=== PATIENT | female | born 1960 | race Caucasian/White ===

== ENCOUNTER 2018-12-10 10:09 | Emergency (ER) | payer MEDICAID ==
--- OUTSIDE RECORDS SUMMARY | 2018-12-10 10:11 | XMS REPORT ---
:1960 [facility] Address [address] [place] [address] Dr. Herring [address] [place] [id number] Care Team Providers Name Role Phone Unavailable Unavailable Unavailable Problems This patient has no known problems. Allergies, Adverse Reactions, Alerts This patient has no known allergies or adverse reactions. Medications This patient has no known medications.
--- NOTE | 2018-12-10 10:30 | ER ---
Nurse's Notes [facility] Name: Ty Robins Age: 58 yrs Sex: Female : 1960 Arrival Date: 12/10/2018 Time: 10:12 Bed 23 Private MD: Diagnosis: Otitis externa;Otitis media, unspecified, right ear Presentation: 12/10 10:13 Presenting complaint: Patient states: i think i had my R ear is infected, it started a hj week ago; denies discharges, reports swollen glands;. Transition of care: patient was not received from another setting of care. Onset of symptoms was December 10, 2018. Risk Assessment: Do you want to hurt yourself or someone else? Patient reports no desire to harm self or others. Initial Sepsis Screen: Does the patient meet any 2 criteria? No. Patient's initial sepsis screen is negative. Does the patient have a suspected source of infection? No. Patient's initial sepsis screen is negative. Care prior to arrival: None. 10:13 Method Of Arrival: Ambulatory 10:13 Acuity: BRENDA 4 hj Historical: - Allergies: 10:15 PENICILLINS; hj 10:15 Codeine; hj - PMHx: 10:15 RA; hj - PSHx: 10:15 Hysterectomy; Jaylon hand sx; Shoulder surgery; hj - Immunization history:: Adult Immunizations up to date. - Ebola Screening: : Patient negative for fever greater than or equal to 101.5 degrees Fahrenheit, and additional compatible Ebola Virus Disease symptoms. Screenin:20 Abuse screen: Denies threats or abuse. Denies injuries from another. Nutritional aj1 screening: No deficits noted. Tuberculosis screening: No symptoms or risk factors identified. 10:37 Fall Risk None identified. aj1 Assessment: 10:20 General: Appears in no apparent distress. comfortable, Behavior is calm, cooperative, aj1 appropriate for age. Pain: Complains of pain in right ear. Neuro: Level of Consciousness is awake, alert, obeys commands, Oriented to person, place, time, situation. Cardiovascular: Patient's skin is warm and dry. Respiratory: Airway is patent Respiratory effort is even, unlabored, Respiratory pattern is regular, symmetrical. GI: No signs and/or symptoms were reported involving the gastrointestinal system. : No signs and/or symptoms were reported regarding the genitourinary system. EENT: Reports ear pain. Denies fever, drainage from ear. Derm: No signs and/or symptoms reported regarding the dermatologic system. Skin is pink, warm \T\ dry. normal. Musculoskeletal: No signs and/or symptoms reported regarding the musculoskeletal system. Circulation, motion, and sensation intact. Vital Signs: 10:15 BP 108 / 54; Pulse 81; Resp 20; Temp 97.5(O); Pulse Ox 100% on R/A; Weight 52.16 kg; hj Height 5 ft. 2 in. (157.48 cm); Pain 6/10; 10:15 Body Mass Index 21.03 (52.16 kg, 157.48 cm) ED Course: 10:12 Patient arrived in ED. mr 10:12 Sumit Murray MD is Attending Physician. kdr 10:14 Triage completed. hj 10:17 Arm band placed on right wrist. hj 10:20 Veronica Romeo RN is Primary Nurse. aj1 10:20 Patient has correct armband on for positive identification. Bed in low position. Call aj1 light in reach. Side rails up X 1. 10:20 No provider procedures requiring assistance completed. aj1 10:37 Patient did not have IV access during this emergency room visit. aj1 Administered Medications: No medications were administered Outcome: 10:29 Discharge ordered by . kdr 10:38 Discharged to home ambulatory. aj1 10:38 Condition: good 10:38 Discharge instructions given to patient, Instructed on discharge instructions, follow up and referral plans. medication usage, Demonstrated understanding of instructions, follow-up care, medications, Prescriptions given X 2. 10:38 Patient left the ED. aj1 Signatures: Veronica Romeo, RN RN aj1 Sumit Murray MD MD [facility] Radha Carrillo UsmanReinier RN RN Corrections: (The following items were deleted from the chart) 10:17 10:15 Pulse 81bpm; Resp 20bpm; Pulse Ox 100% RA; Temp 97.5F Oral; 52.16 kg; Height 5 hj ft. 2 in.; BMI: 21.0; Pain 6/10; hj
--- NOTE | 2018-12-10 10:30 | EDPHYS ---
Physician Documentation [facility] Name: Ty Robins Age: 58 yrs Sex: Female : 1960 Arrival Date: 12/10/2018 Time: 10:12 Bed 23 Private MD: ED Physician Sumit Murray HPI: 12/10 10:22 This 58 yrs old Female presents to ER via Ambulatory with complaints of Ear kdr Pain. 10:22 The patient presents with pain, mild, tenderness. The complaints affect the right ear. kdr Onset: The symptoms/episode began/occurred suddenly, 1 week(s) ago. Modifying factors: The symptoms are alleviated by nothing, the symptoms are aggravated by pulling on ears, touching. Associated signs and symptoms: Pertinent positives: Pertinent negatives: fever, lightheadedness, nausea, rhinorrhea, sinus trouble, shortness of breath, sore throat, tinnitus, vertigo, vomiting. Severity of symptoms: At their worst the symptoms were mild today, moderate in the emergency department the symptoms are unchanged. The patient has not experienced similar symptoms in the past. The patient has not recently seen a physician. Historical: - Allergies: 10:15 PENICILLINS; hj 10:15 Codeine; hj - PMHx: 10:15 RA; hj - PSHx: 10:15 Hysterectomy; Jaylon hand sx; Shoulder surgery; hj - Immunization history:: Adult Immunizations up to date. - Ebola Screening: : Patient negative for fever greater than or equal to 101.5 degrees Fahrenheit, and additional compatible Ebola Virus Disease symptoms. ROS: 10:22 Constitutional: Negative for fever, chills, and weight loss, Eyes: Negative for injury, kdr pain, redness, and discharge, Neck: Negative for injury, pain, and swelling. 10:22 ENT: Positive for ear pain, Negative for drainage from ear(s), foreign body sensation, hearing loss, tinnitus. Exam: 10:22 Constitutional: This is a well developed, well nourished patient who is awake, alert, kdr and in no acute distress. Head/Face: Normocephalic, atraumatic. Eyes: Pupils equal round and reactive to light, extra-ocular motions intact. Lids and lashes normal. Conjunctiva and sclera are non-icteric and not injected. Cornea within normal limits. Periorbital areas with no swelling, redness, or edema. Neck: Trachea midline, no thyromegaly or masses palpated, and no cervical lymphadenopathy. Supple, full range of motion without nuchal rigidity, or vertebral point tenderness. No Meningismus. 10:22 ENT: External ear(s): are unremarkable, Ear canal(s): erythema, swelling, that is moderate, of the right canal, TM's: dullness, on the right, loss of bony landmarks, that is mild, on the right, Examination of the other ear shows no obvious abnormality. Vital Signs: 10:15 BP 108 / 54; Pulse 81; Resp 20; Temp 97.5(O); Pulse Ox 100% on R/A; Weight 52.16 kg; hj Height 5 ft. 2 in. (157.48 cm); Pain 6/10; 10:15 Body Mass Index 21.03 (52.16 kg, 157.48 cm) hj MDM: 10:22 Data reviewed: vital signs, nurses notes. Counseling: I had a detailed discussion with kdr the patient and/or guardian regarding: the historical points, exam findings, and any diagnostic results supporting the discharge/admit diagnosis, the need for outpatient follow up. ED course: The patient was stable in the ED. 10:29 Patient medically screened. kdr Administered Medications: No medications were administered Disposition: 12/10/18 10:29 Discharged to Home. Impression: Otitis externa, Otitis media, unspecified, right ear. - Condition is Stable. - Discharge Instructions: Otitis Externa, [id number], Otitis Media, Adult, [id number]-tq-Ghmn, Ear Drops, Adult, [id number]. - Prescriptions for Cortisporin- TC 3.3-3-10-0.5 mg/mL Otic Suspension - instill 4 drop by OTIC route every 6 hours; 1 bottle. Zithromax Z- Willy 250 mg Oral Tablet - take 1 tablet by ORAL route as directed for 5 days Day 1 - take two (2) tablets one time. Day 2, 3, 4 , 5 take one (1) tablet once daily.; 6 tablet. - Medication Reconciliation Form, Thank You Letter, Antibiotic Education form. - Follow up: Private Physician; When: 2 - 3 days; Reason: If symptoms return, Further diagnostic work-up, Recheck today's complaints, Continuance of care, Re-evaluation by your physician. - Problem is new. - Symptoms are unchanged. Signatures: Veronica Romeo RN RN aj1 Sumit Murray MD MD kdr Reinier Mary RN RN hj Corrections: (The following items were deleted from the chart) 10:38 10:29 12/10/2018 10:29 Discharged to Home. Impression: Otitis externa; Otitis media, aj1 unspecified, right ear. Condition is Stable. Forms are Medication Reconciliation Form, Thank You Letter, Antibiotic Education, Prescription Opioid Use. Follow up: Private Physician; When: 2 - 3 days; Reason: If symptoms return, Further diagnostic work-up, Recheck today's complaints, Continuance of care, Re-evaluation by your physician. Problem is new. Symptoms are unchanged. kdr
[2018-12-10 11:37] VITALS: BP 108/54; TEMP 97.5; O2SAT 100
== END 2018-12-10 10:38 | disposition home or self-care (01) ==
LOC: ER 10:09
DX: H60.91 Unspecified otitis externa, right ear (principal); H66.91 Otitis media, unspecified, right ear; Z88.0 Allergy status to penicillin; Z88.5 Allergy status to narcotic agent
CPT/HCPCS: 99282

== ENCOUNTER 2019-01-12 12:32 | Emergency (ER) | payer MEDICAID ==
--- OUTSIDE RECORDS SUMMARY | 2019-01-12 12:35 | XMS REPORT ---
:1960 [facility] Address [address] [place] [address] Dr. Herring [address] [place] [id number] Care Team Providers Name Role Phone Unavailable Unavailable Unavailable Problems This patient has no known problems. Allergies, Adverse Reactions, Alerts This patient has no known allergies or adverse reactions. Medications This patient has no known medications.
--- NOTE | 2019-01-12 13:00 | ER ---
Nurse's Notes [facility] Name: Ty Robins Age: 58 yrs Sex: Female : 1960 Arrival Date: 01/12/2019 Time: 12:34 Bed 6 Private MD: Diagnosis: Cutaneous abscess of perineum Presentation: 01/12 12:35 Presenting complaint: Patient states: "I got a boil on my privates right behind my aj1 vagina" Reports fever last night. Reports purulent drainage from the area. Transition of care: patient was not received from another setting of care. Onset of symptoms was January 09, 2019. Risk Assessment: Do you want to hurt yourself or someone else? Patient reports no desire to harm self or others. Initial Sepsis Screen: Does the patient meet any 2 criteria? No. Patient's initial sepsis screen is negative. Does the patient have a suspected source of infection? Yes: Skin breakdown/wound. Care prior to arrival: None. 12:35 Method Of Arrival: Ambulatory [facility] 12:35 Acuity: BRENDA 3 aj1 Triage Assessment: 12:38 General: Appears in no apparent distress. uncomfortable, Behavior is calm, cooperative, aj1 appropriate for age. Pain: Complains of pain in perineum Pain currently is 8 out of 10 on a pain scale. Neuro: Level of Consciousness is awake, alert, obeys commands. Cardiovascular: Patient's skin is warm and dry. Respiratory: Airway is patent Respiratory effort is even, unlabored, Respiratory pattern is regular, symmetrical. Historical: - Allergies: 12:38 Codeine; aj1 12:38 PENICILLINS; aj1 - Home Meds: 12:38 Tramadol Oral [Active]; aj1 - PMHx: 12:38 RA; hepatitis c; aj1 - Immunization history:: Flu vaccine is up to date. - Social history:: Smoking status: Patient uses tobacco products, smokes one-half pack cigarettes per day. - Ebola Screening: : Patient denies travel to an Ebola-affected area in the 21 days before illness onset. - Family history:: not pertinent. Screenin:07 Abuse screen: Denies threats or abuse. Nutritional screening: No deficits noted. aa5 Tuberculosis screening: No symptoms or risk factors identified. Fall Risk None identified. Assessment: 12:42 General: Appears comfortable, Behavior is calm, cooperative. Pain: Complains of pain in aa5 perineum (below left labia) Pain does not radiate. Pain currently is 7 out of 10 on a pain scale. Quality of pain is described as tender, Is continuous. Neuro: Level of Consciousness is awake, alert, obeys commands, Oriented to person, place, time, situation. Cardiovascular: Patient's skin is warm and dry. Respiratory: Airway is patent Respiratory effort is even, unlabored, Respiratory pattern is regular, symmetrical. GI: No signs and/or symptoms were reported involving the gastrointestinal system. : No signs and/or symptoms were reported regarding the genitourinary system. EENT: No signs and/or symptoms were reported regarding the EENT system. Derm: Skin is pink, warm \\T\\ dry. Abscess located on perineum (below left labia) is quarter sized, has clear drainage, is red, is raised. Musculoskeletal: Range of motion: intact in all extremities. 13:28 Reassessment: Patient is alert, oriented x 3, equal unlabored respirations, skin aa5 warm/dry/pink. Vital Signs: 12:38 BP 114 / 62; Pulse 77; Resp 16; Temp 97.1; Pulse Ox 100% on R/A; Weight 50.8 kg (R); aj1 Height 5 ft. 3 in. (160.02 cm) (R); Pain 8/10; 12:38 Body Mass Index 19.84 (50.80 kg, 160.02 cm) aj1 ED Course: 12:34 Patient arrived in ED. as 12:37 Triage completed. aj1 12:38 Arm band placed on Patient placed in an exam room. aj1 12:42 Patient has correct armband on for positive identification. Bed in low position. Call aa5 light in reach. Side rails up X 1. 12:43 Diego Engel MD is Attending Physician. [facility] 12:59 Kendall Brasher MD is Referral Physician. [facility] 13:05 Surekha Bhardwaj, JOCELYNE is Primary Nurse. aa5 13:28 No provider procedures requiring assistance completed. Patient did not have IV access aa5 during this emergency room visit. Administered Medications: 12:58 Drug: Bactrim (160 mg-800 mg (DS) 1 tablet Route: PO; aa5 13:28 Follow up: Response: No adverse reaction aa5 12:58 Drug: Doxycycline 200 mg Route: PO; aa5 13:27 Follow up: Response: No adverse reaction aa5 13:04 CANCELLED (Duplicate Order): Motrin 400 mg PO once daniel 13:07 Drug: TORadol 60 mg Route: IM; Site: right gluteus; aa5 13:27 Follow up: Response: No adverse reaction aa5 Outcome: 13:00 Discharge ordered by . daniel 13:28 Discharged to home ambulatory. aa5 13:28 Condition: good 13:28 Discharge instructions given to patient, Instructed on discharge instructions, follow up and referral plans. medication usage, Demonstrated understanding of instructions, follow-up care, medications, Prescriptions given X 3. 13:29 Patient left the ED. aa5 Signatures: Veronica Romeo RN RN aj1 Diego Engel MD MD cha Martinez, Amelia as Calderon, Audri, RN RN aa5
--- NOTE | 2019-01-12 13:01 | EDPHYS ---
Physician Documentation [facility] Name: Ty Robins Age: 58 yrs Sex: Female : 1960 Arrival Date: 01/12/2019 Time: 12:34 Bed 6 Private MD: ED Physician Diego Engel HPI: 01/12 12:54 This 58 yrs old Female presents to ER via Ambulatory with complaints of Boil. daniel 12:54 The patient presents with an abscess of the pelvis. Description: draining, daniel erythematous, swollen. Onset: The symptoms/episode began/occurred 3 day(s) ago. Possible cause(s): unknown. Associated signs and symptoms: The patient has no apparent associated signs or symptoms. Modifying factors: the symptoms are alleviated by remaining still, the symptoms are aggravated by nothing. Severity of symptoms: At their worst the symptoms were. The patient has experienced similar episodes in the past, a few times. Historical: - Allergies: 12:38 Codeine; aj1 12:38 PENICILLINS; aj1 - Home Meds: 12:38 Tramadol Oral [Active]; aj1 - PMHx: 12:38 RA; hepatitis c; aj1 - Immunization history:: Flu vaccine is up to date. - Social history:: Smoking status: Patient uses tobacco products, smokes one-half pack cigarettes per day. - Ebola Screening: : Patient denies travel to an Ebola-affected area in the 21 days before illness onset. - Family history:: not pertinent. ROS: 12:54 Constitutional: Negative for fever, chills, and weight loss, Eyes: Negative for injury, daniel pain, redness, and discharge, ENT: Negative for injury, pain, and discharge, Neck: Negative for injury, pain, and swelling, Cardiovascular: Negative for chest pain, palpitations, and edema, Respiratory: Negative for shortness of breath, cough, wheezing, and pleuritic chest pain, Abdomen/GI: Negative for abdominal pain, nausea, vomiting, diarrhea, and constipation, Back: Negative for injury and pain, : Negative for injury, bleeding, discharge, and swelling, MS/Extremity: Negative for injury and deformity, Neuro: Negative for headache, weakness, numbness, tingling, and seizure, Psych: Negative for depression, anxiety, suicide ideation, homicidal ideation, and hallucinations, Allergy/Immunology: Negative for hives, rash, and allergies, Endocrine: Negative for neck swelling, polydipsia, polyuria, polyphagia, and marked weight changes, Hematologic/Lymphatic: Negative for swollen nodes, abnormal bleeding, and unusual bruising. 12:54 Skin: Positive for erythema, swelling. Exam: 12:54 Constitutional: This is a well developed, well nourished patient who is awake, alert, daniel and in no acute distress. Head/Face: Normocephalic, atraumatic. Eyes: Pupils equal round and reactive to light, extra-ocular motions intact. Lids and lashes normal. Conjunctiva and sclera are non-icteric and not injected. Cornea within normal limits. Periorbital areas with no swelling, redness, or edema. ENT: Nares patent. No nasal discharge, no septal abnormalities noted. Tympanic membranes are normal and external auditory canals are clear. Oropharynx with no redness, swelling, or masses, exudates, or evidence of obstruction, uvula midline. Mucous membranes moist. Neck: Trachea midline, no thyromegaly or masses palpated, and no cervical lymphadenopathy. Supple, full range of motion without nuchal rigidity, or vertebral point tenderness. No Meningismus. Chest/axilla: Normal chest wall appearance and motion. Nontender with no deformity. No lesions are appreciated. Cardiovascular: Regular rate and rhythm with a normal S1 and S2. No gallops, murmurs, or rubs. Normal PMI, no JVD. No pulse deficits. Respiratory: Lungs have equal breath sounds bilaterally, clear to auscultation and percussion. No rales, rhonchi or wheezes noted. No increased work of breathing, no retractions or nasal flaring. Abdomen/GI: Soft, non-tender, with normal bowel sounds. No distension or tympany. No guarding or rebound. No evidence of tenderness throughout. Back: No spinal tenderness. No costovertebral tenderness. Full range of motion. MS/ Extremity: Pulses equal, no cyanosis. Neurovascular intact. Full, normal range of motion. Neuro: Awake and alert, GCS 15, oriented to person, place, time, and situation. Cranial nerves II-XII grossly intact. Motor strength 5/5 in all extremities. Sensory grossly intact. Cerebellar exam normal. Normal gait. Psych: Awake, alert, with orientation to person, place and time. Behavior, mood, and affect are within normal limits. 12:54 Skin: abscess, that is small, cellulitis, that is mild, induration, that is mild is noted, injury, is not appreciated. Vital Signs: 12:38 BP 114 / 62; Pulse 77; Resp 16; Temp 97.1; Pulse Ox 100% on R/A; Weight 50.8 kg (R); aj1 Height 5 ft. 3 in. (160.02 cm) (R); Pain 8/10; 12:38 Body Mass Index 19.84 (50.80 kg, 160.02 cm) [facility] MDM: 12:43 Patient medically screened. [facility] 12:54 Data reviewed: vital signs, nurses notes. [facility] 01/12 12:51 Order name: Urine Dipstick--Ancillary (enter results); Complete Time: 13:05 aa 01/12 12:51 Order name: Urine Dipstick-Ancillary (obtain specimen); Complete Time: 12:52 aa Administered Medications: 12:58 Drug: Bactrim (160 mg-800 mg (DS) 1 tablet Route: PO; aa5 13:28 Follow up: Response: No adverse reaction aa 12:58 Drug: Doxycycline 200 mg Route: PO; aa5 13:27 Follow up: Response: No adverse reaction [facility] 13:04 CANCELLED (Duplicate Order): Motrin 400 mg PO once [facility] 13:07 Drug: TORadol 60 mg Route: IM; Site: right gluteus; aa5 13:27 Follow up: Response: No adverse reaction aa5 Disposition: 01/12/19 13:00 Discharged to Home. Impression: Cutaneous abscess of perineum. - Condition is Stable. - Discharge Instructions: Skin Abscess, Incision and Drainage, Skin Abscess, [id number]. - Prescriptions for Doxycycline Hyclate 100 mg Oral Tablet - take 1 tablet by ORAL route every 12 hours; 20 tablet. Tramadol 50 mg Oral Tablet - take 1 tablet by ORAL route every 8 hours as needed; 26 tablet. Bactrim DS 800- 160 mg Oral Tablet - take 1 tablet by ORAL route every 12 hours for 10 days; 20 tablet. - Medication Reconciliation Form, Thank You Letter, Antibiotic Education, Prescription Opioid Use form. - Follow up: Private Physician; When: 2 - 3 days; Reason: Recheck today's complaints, Continuance of care, Re-evaluation by your physician. Follow up: Kendall Brasher MD; When: 2 - 3 days; Reason: Recheck today's complaints, Continuance of care, Re-evaluation by your physician. - Problem is new. - Symptoms have improved. Signatures: Dispatcher [employer] EDVeronica Hancock RN RN aj1 Diego Engel MD MD cha Calderon, Audri, RN RN aa5 Corrections: (The following items were deleted from the chart) 13:04 13:04 Motrin 400 mg PO once ordered. daniel sanchez 13:29 13:00 01/12/2019 13:00 Discharged to Home. Impression: Cutaneous abscess of perineum. aa5 Condition is Stable. Forms are Medication Reconciliation Form, Thank You Letter, Antibiotic Education, Prescription Opioid Use. Follow up: Private Physician; When: 2 - 3 days; Reason: Recheck today's complaints, Continuance of care, Re-evaluation by your physician. Follow up: Kendall Brasher; When: 2 - 3 days; Reason: Recheck today's complaints, Continuance of care, Re-evaluation by your physician. Problem is new. Symptoms have improved. daniel
[2019-01-12 13:02] LABS: Urine Blood 1+ (NEG); Urine Glucose NEGATIVE (NEG); Urine Protein NEGATIVE (NEG); Urine Specific Gravity 1.015 (1.005-1.030); Urine pH 5.5 (5.0-7.0)
[2019-01-12] MEDS ORDERED: DOXYCYCLINE 100 MG CAP PO ONE (13:16)
[2019-01-12] MEDS ORDERED: SMZ./TMP. 800/160 MG TABLET ONE (13:16)
[2019-01-12] MEDS ORDERED: KETOROLAC 30 MG/ML INJ ONE (13:23)
[2019-01-12 13:34] VITALS: BP 114/62; TEMP 97.1; O2SAT 100
== END 2019-01-12 13:29 | disposition home or self-care (01) ==
LOC: ER 12:32
DX: L02.215 Cutaneous abscess of perineum (principal); F17.210 Nicotine dependence, cigarettes, uncomplicated; Z88.0 Allergy status to penicillin; Z88.5 Allergy status to narcotic agent
CPT/HCPCS: 81003; 96372; 99283

== ENCOUNTER 2019-02-26 13:05 | Observation (INO) | payer MEDICAID ==
--- OUTSIDE RECORDS SUMMARY | 2019-02-26 13:07 | XMS REPORT ---
:1960 [facility] Address [address] [place] [address] Dr. Herring [address] [place] [id number] Care Team Providers Name Role Phone Unavailable Unavailable Unavailable Problems This patient has no known problems. Allergies, Adverse Reactions, Alerts This patient has no known allergies or adverse reactions. Medications This patient has no known medications.
--- OUTSIDE RECORDS SUMMARY | 2019-02-26 13:08 | XMS REPORT | Summary of Care ---
:1960 Author Organization [facility] - [facility] Address [address] [place] [address] Care Team Providers Name Role Phone Hal Phillips MD Primary Care Provider Reason for Visit Reason Comments Rx Concern/Question Encounter Details Date Type Department Care Team Description 01/14/2019 Telephone [facility] Pediatric Hal Phillips III, MD Rx Concern/Question and Adult Primary Care- [address] [place] [address] Dr. Blanchard [address] [place] [address] [address] [place] [address] [phone] Allergies Active Allergy Reactions Severity Noted Date Comments Codeine Itching, Nausea and/or Vomiting 02/10/2009 Penicillins Anaphylaxis 10/24/2005 documented as of this encounter (statuses as of 01/14/2019) Medications Medication Sig Dispensed Refills Start Date End Date Status lidocaine 2% viscous 2 % Take 15 mL by 1 Bottle 0 03/02/2018 Active solutionIndications: mouth every 4 Chronic hepatitis C (four) hours as without hepatic coma needed for Oral mucosal pain. camphor-menthol (FREEZE Apply to 1 Tube 3 03/02/2018 Active IT RELIEF) 0.2-3.5 % area(s) 2 (two) GelIndications: times daily. Generalized osteoarthritis traMADOL 50 mg Take 1 tablet by 60 tablet 0 10/29/2018 Active tabletIndications: mouth 2 (two) Generalized times daily as osteoarthritis needed for Pain (scale 7-10). documented as of this encounter (statuses as of 01/14/2019) Active Problems Problem Noted Date History of dental surgery 01/31/2018 Infection 01/21/2018 Dental infection 01/21/2018 Microcytic anemia 01/17/2018 Other neutropenia 01/17/2018 Atypical lymphocytosis 01/17/2018 Chronic periodontal disease 01/17/2018 History of penicillin allergy 01/17/2018 Elevated sedimentation rate 01/17/2018 Fever 01/16/2018 Generalized osteoarthritis 06/16/2016 Hypocomplementemia 06/16/[address] scan of lung 06/16/2016 History of cocaine abuse 06/16/2016 Tobacco use disorder 06/16/2016 Antineutrophil cytoplasmic antibody (ANCA) positive 06/16/2016 Positive QuantiFERON-TB Gold test 07/31/2015 Vasculitis 10/20/2014 Inflammatory arthritis 10/20/2014 Chronic hepatitis C without hepatic coma 10/20/2014 Leukocytoclastic vasculitis 09/26/2014 Tongue ulcer 07/26/2014 Neck mass 07/26/2014 Lung mass 07/26/2014 documented as of this encounter (statuses as of 01/14/2019) Resolved Problems Problem Noted Date Resolved Date Pain in joint, multiple sites 06/16/2016 01/17/2018 Abnormal finding on urinalysis 06/16/2016 01/17/2018 Flu vaccine need 06/16/2016 01/17/2018 Pneumonia 02/26/2016 01/17/2018 Skin rash 07/26/2014 10/20/2014 Arthritis 07/23/2014 10/20/2014 Pneumonia 07/21/2014 10/20/2014 Cellulitis and abscess of upper arm and forearm 02/10/2009 01/17/2018 documented as of this encounter (statuses as of 01/14/2019) Immunizations Name Administration Dates Next Due Influenza Virus Vaccine Quad IM 3+ YRS 04/04/2018, 06/16/2016 documented as of this encounter Social History Tobacco Use Types Packs/Day Years Used Date Current Every Day Smoker Cigarettes 1 40 Smokeless Tobacco: Never Used Comments: currently smoking 4 cig/ week Alcohol Use Drinks/Week oz/Week Comments Yes social Sex Assigned at Date Recorded Not on file Job Start Date Occupation Industry Not on file Not on file Not on file Travel History Travel Start Travel End No recent travel history available. documented as of this encounter Last Filed Vital Signs Not on filedocumented in this encounter Plan of Treatment Health Maintenance Due Date Last Done Comments PNEUMOCOCCAL 0-64 YEARS COMBINED 1965 SERIES (1 of 3 - PCV13) MENINGOCOCCAL B VACCINES (1 of 2 - 1969 Risk Bexsero 2-dose series) DTaP,Tdap,and Td Vaccines (1 - 1978 Tdap) PAP SMEAR 1980 MAMMOGRAM 1999 COLONOSCOPY 2009 Zoster Recombinant Vaccine 2009 (SHINGRIX) (1 of 2) LUNG CANCER SCREEN: Recommended 03/01/2017 03/01/2016, 07/23/2015, for age 55-80 with 30 + pack year 05/12/2015, Additional history history exists INFLUENZA VACCINE 02/17/2019 04/04/2018, 06/16/2016 HEPATITIS C (HCV) SCREEN Completed 07/21/2014 documented as of this encounter Results Not on filedocumented in this encounter Insurance Payer Benefit Plan / Subscriber ID Effective Phone Address Type Group Dates KATHLEEN WANG xxxxxxxxx 2015-[employer] [place] [id number] [place]ED MEDICAID [place], [place] documented as of this encounter
--- OUTSIDE RECORDS SUMMARY | 2019-02-26 13:08 | XMS REPORT | Summary of Care ---
:1960 Author Organization [facility] - Health Address [address] [place] [id number] Care Team Providers Name Role Phone Hal Phillips MD Primary Care Provider Reason for Visit Reason Comments Refill Request Encounter Details Date Type Department Care Team Description 02/10/2019 Refill [facility] Pediatric and Becca Morrissey, Refill Request Adult Primary Care- MD Blanchard [address] [place] [address] [address], [address] [place] [address] [place] [phone] Allergies Active Allergy Reactions Severity Noted Date Comments Codeine Itching, Nausea and/or Vomiting 02/10/2009 Penicillins Anaphylaxis 10/24/2005 documented as of this encounter (statuses as of 02/12/2019) Medications Medication Sig Dispensed Refills Start Date End Date Status lidocaine 2% viscous Take 15 mL by 1 Bottle 0 03/02/2018 Active 2 % mouth every 4 solutionIndications: (four) hours Chronic hepatitis C as needed for without hepatic coma Oral mucosal pain. camphor-menthol Apply to 1 Tube 3 03/02/2018 Active (FREEZE IT RELIEF) area(s) 2 0.2-3.5 % (two) times GelIndications: daily. Generalized osteoarthritis TRAMADOL 50 mg TAKE 1 TABLET 60 tablet 0 02/12/2019 Active tabletIndications: BY MOUTH 2 Generalized (TWO) TIMES osteoarthritis DAILY NEEDED FOR PAIN (SCALE 7-10). traMADOL 50 mg Take 1 tablet 60 tablet 0 10/29/2018 02/10/2019 Discontinued tabletIndications: by mouth 2 Generalized (two) times osteoarthritis daily as needed for Pain (scale 7-10). documented as of this encounter (statuses as of 02/12/2019) Active Problems Problem Noted Date History of [...] as of this encounter (statuses as of 02/12/2019) Resolved Problems Problem Noted Date Resolved Date Pain in joint, multiple sites 06/16/2016 01/17/2018 Abnormal finding on urinalysis 06/16/2016 01/17/2018 Flu vaccine need 06/16/2016 01/17/2018 Pneumonia 02/26/2016 01/17/2018 Skin rash 07/26/2014 10/20/2014 Arthritis 07/23/2014 10/20/2014 Pneumonia 07/21/2014 10/20/2014 Cellulitis and abscess of upper arm and forearm 02/10/2009 01/17/2018 documented as of this encounter (statuses as of 02/12/2019) Immunizations Name Administration Dates Next Due Influenza [...] 05/12/2015, Additional history history exists INFLUENZA VACCINE (#1) 2019 04/04/2018, 06/16/2016 HEPATITIS C (HCV) SCREEN Completed 07/21/2014 documented as of this encounter Results Not on filedocumented in this encounter Visit Diagnoses Diagnosis Generalized osteoarthritis Generalized osteoarthrosis, unspecified site documented in this encounter Insurance Payer Benefit Plan / Subscriber ID Effective Phone Address Type Group Dates KATHLEEN WANG xxxxxxxxx 2015-[employer] [place] [id number] [place]ED MED[place] documented as of this encounter
[2019-02-26] MEDS ORDERED: LEVALBUTEROL 1.25 MG/3 ML NEB ONE (13:20)
[2019-02-26] MEDS ORDERED: NA CHLORIDE 0.9% 1,000 ML ONE (13:31)
[2019-02-26] MEDS ORDERED: MORPHINE 4 MG/ML SYR ONE ×2 (13:31→14:22)
[2019-02-26] MEDS ORDERED: METHYLPREDNISOLONE 125 MG INJ ONE (13:31)
[2019-02-26] MEDS ORDERED: ONDANSETRON 4 MG/2 ML VIAL ONE (13:31)
--- NOTE | 2019-02-26 13:47 | RAD REPORT ---
EXAM DESCRIPTION: RAD - Chest Single View - 02/26/2019 1:32 pm CLINICAL HISTORY: Chest pain, shortness of breath COMPARISON: May 2015 TECHNIQUE: AP portable chest image was obtained 1319 hours using expiration technique . FINDINGS: No focal consolidations seen. Interstitial markings are prominent and increased over the c omparison. This is mostly due to expiration technique. Interstitial edema, infiltrate and/ or progres sive fibrosis would all be possible. Lung base atelectasis can be accounted for by expiration techniq ue. Heart and vasculature are normal. No measurable pleural effusion and no pneumothorax. No acute donal ny abnormality seen. No acute aortic findings suspected. IMPRESSION: No focal mass or consolidation. No pneumothorax. Interstitial markings are increased over the comparison and there is lung base atelectasis. These are likely the affects of expiration technique. In this setting, interstitial edema, infiltrate or progressive fibrosis cannot be excluded.
[2019-02-26 14:00] LABS: Absolute Lymphocytes (CBC) 0.8 K/uL (0.7-4.9); Basophils % 0.7 % (0-1.3); Hematocrit 40.3 % (36.0-45.0); Lymphocytes % 18.7 % (15.3-44.8); MPV 7.8 fL (7.6-11.3); RBC Red Blood Cell Count 4.42 M/uL (3.86-4.86)
[2019-02-26 14:13] LABS: Protime INR 1.1
[2019-02-26 14:29] LABS: BUN Blood Urea Nitrogen 13 mg/dL (7-18); Bicarbonate 30 mmol/L (21-32); Glucose Level 98 mg/dL (74-106); NT PRO-BNP 268 pg/mL (<125); Potassium 4.3 mmol/L (3.5-5.1); Sodium Level 138 mmol/L (136-145); Troponin (Emerg Dept Use Only) < 0.02 ng/mL (0.0-0.045)
--- NOTE | 2019-02-26 15:54 | RAD REPORT ---
EXAM DESCRIPTION: CT - Chest For Pe Angio - 02/26/2019 3:37 pm CLINICAL HISTORY: Chest pain COMPARISON: 2013 TECHNIQUE: Dynamically enhanced axial 3 mm thick images of the chest were obtained during administra tion of <100> mL Isovue 370 IV contrast. Coronal and oblique reconstruction images were generated and reviewed. Exam utilizes a protocol for optimal evaluation of pulmonary arterial tree. Maximum intensity projections 3D imaging was utilized All CT scans are performed using dose optimization technique as appropriate and may include automated exposure control or mA/KV adjustment according to patient size. FINDINGS: A pulmonary embolus is not seen. A thoracic aortic aneurysm is not noted. A pleural effusion is not seen. A pericardial effusion is not seen. A lung consolidation is not present. Moderate COPD The visualized spleen appears enlarged IMPRESSION: Negative for a pulmonary embolism.
--- NOTE | 2019-02-26 16:25 | ER ---
Nurse's Notes [facility] Name: Ty Robins Age: 58 yrs Sex: Female : 1960 Arrival Date: 02/26/2019 Time: 13:07 Bed 5 Private MD: Diagnosis: Dyspnea, unspecified;Chronic obstructive pulmonary disease with (acute) exacerbation Presentation: 02/26 13:10 Presenting complaint: Patient states: Shortness of breath that began one hour ago, aj1 patient appears distressed, tachypneic. Dr Hernandez at bedside. 13:10 Transition of care: patient was not received from another setting of care. Onset of aj1 symptoms was February 26, 2019 at 12:10. Risk Assessment: Do you want to hurt yourself or someone else? Patient reports no desire to harm self or others. Initial Sepsis Screen: Does the patient meet any 2 criteria? RR > 20 per min. HR > 90 bpm. Yes Does the patient have a suspected source of infection? Yes: Productive cough/pneumonia If YES to both, name of provider notified: Don Hernandez MD. Care prior to arrival: None. 13:10 Method Of Arrival: Ambulatory aj 13:40 Acuity: BRENDA 2 iw Triage Assessment: 13:10 General: Appears distressed, uncomfortable, Behavior is cooperative, anxious. Pain: aj1 Complains of pain in chest Pain currently is 10 out of 10 on a pain scale. Respiratory: Reports shortness of breath at rest cough that is persistent Onset: The symptoms/episode began/occurred one hour ago, the patient has moderate shortness of breath. Historical: - Allergies: 14:41 Codeine; aj1 14:41 PENICILLINS; aj1 - Home Meds: 14:41 Tramadol Oral [Active]; aj1 - PMHx: 14:41 Hepatitis C; RA; aj1 - Immunization history:: Adult Immunizations up to date. - Social history:: Smoking status: Patient uses tobacco products. - Family history:: not pertinent. - Ebola Screening: : Patient denies travel to an Ebola-affected area in the 21 days before illness onset. - Hospitalizations: : No recent hospitalization is reported. Screenin:45 Abuse screen: Denies threats or abuse. Denies injuries from another. Nutritional rv screening: No deficits noted. Tuberculosis screening: No symptoms or risk factors identified. Fall Risk None identified. Assessment: 13:10 General: Appears distressed, uncomfortable, Behavior is cooperative, anxious. Pain: aj1 Complains of pain in chest Pain currently is 10 out of 10 on a pain scale. Neuro: Level of Consciousness is awake, alert, obeys commands, Oriented to person, place, time, situation. Cardiovascular: Reports chest pain, Heart tones S1 S2 present Rhythm is sinus tachycardia. Respiratory: Airway is patent Respiratory effort is even, labored, Respiratory pattern is regular, symmetrical, tachypnea. Respiratory: Reports shortness of breath at rest cough that is persistent labored breathing Breath sounds are diminished bilaterally. Breath sounds with wheezes bilaterally. Onset: The symptoms/episode began/occurred one hour ago, the patient has moderate shortness of breath. GI: No signs and/or symptoms were reported involving the gastrointestinal system. : No signs and/or symptoms were reported regarding the genitourinary system. EENT: No signs and/or symptoms were reported regarding the EENT system. Derm: Skin is clammy, Skin is pale. Musculoskeletal: No signs and/or symptoms reported regarding the musculoskeletal system. Circulation, motion, and sensation intact. 14:44 General: Appears uncomfortable, Behavior is calm, cooperative. Pain: Complains of pain rv in chest. Neuro: Level of Consciousness is awake, alert, obeys commands, Oriented to person, place, time, situation. Cardiovascular: Patient's skin is warm and dry. Rhythm is regular. Respiratory: Airway is patent Respiratory effort is labored, Breath sounds with wheezes bilaterally. GI: No signs and/or symptoms were reported involving the gastrointestinal system. : No signs and/or symptoms were reported regarding the genitourinary system. EENT: No signs and/or symptoms were reported regarding the EENT system. Derm: Skin is thin, with poor turgor. Musculoskeletal: No signs and/or symptoms reported regarding the musculoskeletal system. Vital Signs: 13:30 BP 150 / 96; Pulse 74; Resp 36; Pulse Ox 100% on R/A; aj1 14:00 BP 148 / 102; Pulse 84; Resp 30; Pulse Ox 100% ; aj1 14:30 Pulse 86; Resp 19; Pulse Ox 96% ; aj1 14:45 BP 153 / 100; Pulse 83; Resp 26; Pulse Ox 96% on R/A; rv 17:48 BP 147 / 94; Pulse 86; Resp 15; Pulse Ox 100% on R/A; rv ED Course: 13:07 Patient arrived in ED. mr 13:10 Arm band placed on. aj1 13:10 clay caster on. Pulse ox on. NIBP on. aj1 13:11 Don Hernandez MD is Attending Physician. rn 13:30 Missed attempt(s): 24 gauge in left upper arm. Bleeding controlled, band aid applied, aj1 catheter tip intact. 13:40 Missed attempt(s): 20 gauge in right antecubital area. Bleeding controlled, band aid iw applied, catheter tip intact. 13:45 Missed attempt(s): 24 gauge in left wrist. Bleeding controlled, band aid applied, aj1 catheter tip intact. 13:48 EKG done, by line technician. reviewed by Don Hernandez MD. tc 13:50 Missed attempt(s): 24 gauge in right antecubital area. Bleeding controlled, band aid iw applied, catheter tip intact. 14:15 Report given to JOCELYNE Lee. aj1 14:29 Triage completed. iw 14:30 Inserted saline lock: 20 gauge in right upper arm, using aseptic technique. ,using rv aseptic technique. c/o DR HERNANDEZ. 14:38 Radiology exam delayed due to lab results not completed at this time. (BUN/Creatinine) vm2 IV insertion attempt and/or patient not having appropriate IV at this time. 14:42 Tommy Jarquin, JOCELYNE is Primary Nurse. rv 14:53 Patient has correct armband on for positive identification. Bed in low position. Call rv light in reach. Side rails up X 1. Adult w/ patient. clay caster on. Pulse ox on. NIBP on. 16:23 Trupti Xavier MD is Hospitalizing Provider. rn 17:49 No provider procedures requiring assistance completed. Patient admitted, IV remains in rv place. Administered Medications: 13:20 Drug: Xopenex (3) 1.25 mg Route: Inhalation; aj1 17:23 Follow up: Response: Marked relief of symptoms rv 14:30 Drug: morphine 4 mg {Note: rass 0, GIVEN IM left deltoid.} Route: IVP; Site: Other; rv 14:30 Follow up: rass 0 rv 17:23 Follow up: Response: No adverse reaction; Marked relief of symptoms; RASS: Alert and rv Calm (0) 14:40 Drug: SOLU-Medrol 125 mg Route: IVP; Site: right upper arm; rv 17:23 Follow up: Response: No adverse reaction; Marked relief of symptoms rv 14:40 Drug: NS 0.9% 1000 ml Route: IV; Rate: 1000 ml; Site: right upper arm; rv 17:23 Follow up: IV Status: Completed infusion; IV Intake: 1000ml rv 14:40 Drug: Zofran 4 mg Route: IVP; Site: right upper arm; rv 17:22 Follow up: Response: No adverse reaction rv Intake: 17:23 IV: 1000ml; Total: 1000ml. rv Outcome: 16:24 Decision to Hospitalize by Provider. rn 17:49 Admitted to Tele accompanied by nurse, via wheelchair, room 430, with chart, Report rv called to JOI CASANOVA 17:49 Condition: good 17:49 Instructed on the need for admit. 17:50 Patient left the ED. rv Signatures: Veronica Romeo RN RN ajRadha Santos Irene, RN RN iw Nieto, Roman, MD MD rn Callis, Tiffany, ppa teacher EKG [facility] Hugo[facility] courtney [facility] Tommy Jarquin RN RN rv
--- NOTE | 2019-02-26 16:25 | EDPHYS ---
Physician Documentation [facility] Name: Ty Robins Age: 58 yrs Sex: Female : 1960 Arrival Date: 02/26/2019 Time: 13:07 Bed 5 Private MD: ED Physician Don Hernandez HPI: 02/26 13:42 This 58 yrs old Female presents to ER via Unassigned with complaints of rn Shortness Of Breath, Chest Pain. 13:42 The patient has shortness of breath at rest, with light activity. Onset: The rn symptoms/episode began/occurred 1 hour(s) ago. Duration: The symptoms are continuous. The patient's shortness of breath is aggravated by coughing, light activity, talking, walking. Severity of symptoms: At their worst the symptoms were moderate in the emergency department the symptoms are unchanged. The patient has experienced a previous episode. Reports cough for 3 days with malaise, but sudden onset chest pain, central, began 1 hour ago, no fever. NO hemoptysis. No trauma.. Historical: - Allergies: 14:41 Codeine; aj1 14:41 PENICILLINS; aj1 - Home Meds: 14:41 Tramadol Oral [Active]; aj1 - PMHx: 14:41 Hepatitis C; RA; aj1 - Immunization history:: Adult Immunizations up to date. - Social history:: Smoking status: Patient uses tobacco products. - Family history:: not pertinent. - Ebola Screening: : Patient denies travel to an Ebola-affected area in the 21 days before illness onset. - Hospitalizations: : No recent hospitalization is reported. ROS: 13:42 Constitutional: Negative for fever, chills, and weight loss, Eyes: Negative for injury, rn pain, redness, and discharge, Neck: Negative for injury, pain, and swelling, Cardiovascular: Negative for palpitations, and edema, Respiratory: + for sob and chest pain Abdomen/GI: Negative for abdominal pain, nausea, vomiting, diarrhea, and constipation, MS/Extremity: Negative for injury and deformity, Skin: Negative for injury, rash, and discoloration, Neuro: Negative for headache, numbness, tingling, and seizure. Exam: 13:42 Constitutional: This is a well developed, well nourished patient who is awake, alert, rn appears dyspneic and uncomfortable Head/Face: Normocephalic, atraumatic. Eyes: Pupils equal round and reactive to light, extra-ocular motions intact. Lids and lashes normal. Conjunctiva and sclera are non-icteric and not injected. Cornea within normal limits. Periorbital areas with no swelling, redness, or edema. ENT: No stridor, dry MM Neck: Trachea midline, no thyromegaly or masses palpated, and no cervical lymphadenopathy. Supple, full range of motion without nuchal rigidity, or vertebral point tenderness. No Meningismus. Cardiovascular: Tachycardic, regular, no murmur Respiratory: + moderate tachypnea with bilateral poor inspiratory inflow,faint exp wheezing. Abdomen/GI: soft, non-tender MS/ Extremity: Pulses equal, no cyanosis. Neurovascular intact. Full, normal range of motion. Equal circumference. Neuro: Awake and alert, GCS 15, oriented to person, place, time, and situation. Cranial nerves II-XII grossly intact. Motor strength 5/5 in all extremities. Sensory grossly intact. Cerebellar exam normal. 13:47 ECG was reviewed by the Attending Physician. rn Vital Signs: 13:30 BP 150 / 96; Pulse 74; Resp 36; Pulse Ox 100% on R/A; aj1 14:00 BP 148 / 102; Pulse 84; Resp 30; Pulse Ox 100% ; aj1 14:30 Pulse 86; Resp 19; Pulse Ox 96% ; aj1 14:45 BP 153 / 100; Pulse 83; Resp 26; Pulse Ox 96% on R/A; rv 17:48 BP 147 / 94; Pulse 86; Resp 15; Pulse Ox 100% on R/A; rv Procedures: 14:29 Peripheral line: by aseptic technique a peripheral line was placed in the right rn antecubital vein, Right AC peripheral IV placed using u/s guidance, single stick, good flow with great return.. MDM: 13:11 Patient medically screened. rn 16:20 Differential diagnosis: Chronic Obstructive Pulmonary Disease pneumonia, Pneumothorax rn pulmonary edema, Pulmonary Embolism. Data reviewed: vital signs, nurses notes, lab test result(s), EKG, radiologic studies, CT scan, plain films, and as a result, I will admit patient. Counseling: I had a detailed discussion with the patient and/or guardian regarding: the historical points, exam findings, and any diagnostic results supporting the discharge/admit diagnosis, lab results, radiology results, the need for further work-up and treatment in the hospital. Response to treatment: the patient's symptoms have markedly improved after treatment, and as a result, I will admit patient. Admission orders: after a detailed discussion of the patient's condition and case, the admit orders are written by me. ED course: Admitted to [facility] for COPD/dyspnea, still wheezing and tachypneic, required bipap, neg CT PE. 02/26 13:14 Order name: Blood Culture Adult (2) rn 02/26 13:14 Order name: BMP; Complete Time: 14:34 rn 02/26 13:14 Order name: CBC with Diff; Complete Time: 14:34 rn 02/26 13:14 Order name: NT PRO-BNP; Complete Time: 14:34 rn 02/26 13:14 Order name: PT-INR; Complete Time: 14:34 rn 02/26 13:14 Order name: Ptt, Activated; Complete Time: 14:34 rn 02/26 13:14 Order name: XRAY CXR (1 view) rn 02/26 13:14 Order name: Troponin (emerg Dept Use Only); Complete Time: 14:34 rn 02/26 14:35 Order name: CT Chest For PE Angio rn 02/26 15:41 Order name: RAD; Complete Time: 16:19 EDMS 02/26 16:34 Order name: CT EDMS 02/26 13:14 Order name: EKG; Complete Time: 13:16 rn 02/26 13:14 Order name: Cardiac monitoring; Complete Time: 14:44 rn 02/26 13:14 Order name: EKG - Nurse/Tech; Complete Time: 14:44 rn 02/26 13:14 Order name: IV Saline Lock; Complete Time: 14:44 rn 02/26 13:14 Order name: Labs collected and sent; Complete Time: 14:44 rn 02/26 13:14 Order name: O2 Per Protocol; Complete Time: 14:44 rn 02/26 13:14 Order name: O2 Sat Monitoring; Complete Time: 14:44 rn EC:47 Rate is 71 beats/min. Rhythm is regular. Left axis deviation noted. QRS is positive in rn lead I and negative in lead aVF. NM interval is normal. QRS interval is normal. QT interval is normal. No Q waves. T waves are Normal. No ST changes noted. Clinical impression: No evidence of ischemia. Interpreted by me. Reviewed by me. Administered Medications: 13:20 Drug: Xopenex (3) 1.25 mg Route: Inhalation; aj1 17:23 Follow up: Response: Marked relief of symptoms rv 14:30 Drug: morphine 4 mg {Note: rass 0, GIVEN IM left deltoid.} Route: IVP; Site: Other; rv 14:30 Follow up: rass 0 rv 17:23 Follow up: Response: No adverse reaction; Marked relief of symptoms; RASS: Alert and rv Calm (0) 14:40 Drug: SOLU-Medrol 125 mg Route: IVP; Site: right upper arm; rv 17:23 Follow up: Response: No adverse reaction; Marked relief of symptoms rv 14:40 Drug: NS 0.9% 1000 ml Route: IV; Rate: 1000 ml; Site: right upper arm; rv 17:23 Follow up: IV Status: Completed infusion; IV Intake: 1000ml rv 14:40 Drug: Zofran 4 mg Route: IVP; Site: right upper arm; rv 17:22 Follow up: Response: No adverse reaction rv Disposition: 16:20 Critical Care:. rn Disposition: 02/26/19 16:24 Hospitalization ordered by [facility] for Inpatient Admission. Preliminary diagnosis are Dyspnea, unspecified, Chronic obstructive pulmonary disease with (acute) exacerbation. - Bed requested for Telemetry/MedSurg (Inpatient). - Status is Inpatient Admission. rv - Condition is Stable. - Problem is new. - Symptoms have improved. UTI on Admission? No Critical care time excluding procedures: 16:20 Critical care time: Bedside Care: 25 minutes, Consultation: 3 minutes, Family rn Intervention: 5 minutes. Total time: 33 minutes Signatures: Dispatcher [employer] EDMS Parul Gunter Angela, RN RN aj1 Don Hernandez MD MD rn Vicente, Ronaldo, RN RN rv Corrections: (The following items were deleted from the chart) 17:10 16:24 Hospitalization Ordered by Trupti [facility] MD for Inpatient Admission. Preliminary bd diagnosis is Dyspnea, unspecified; Chronic obstructive pulmonary disease with (acute) exacerbation. Bed requested for Telemetry/MedSurg (Inpatient). Status is Inpatient Admission. Condition is Stable. Problem is new. Symptoms have improved. UTI on Admission? No. rn 17:50 17:10 02/26/2019 16:24 Hospitalization Ordered by Trupti [facility] MD for Inpatient rv Admission. Preliminary diagnosis is Dyspnea, unspecified; Chronic obstructive pulmonary disease with (acute) exacerbation. Bed requested for Telemetry/MedSurg (Inpatient). Status is Inpatient Admission. Condition is Stable. Problem is new. Symptoms have improved. UTI on Admission? No. bd
[2019-02-26 17:51] VITALS: BMI 20.1
--- NOTE | 2019-02-26 18:31 | EKG ---
Test Date: 2019-02-26 Test Time: 13:17:56 Direct Support Specialist: MARTIN MEASUREMENT RESULTS: Intervals: Rate: 71 NV: 156 QRSD: 68 QT: 378 QTc: 410 [place]: P: 71 NV: 156 QRS: -42 T: 45 INTERPRETIVE STATEMENTS: Normal sinus rhythm Left axis deviation Inferior infarct, age undetermined Abnormal ECG Compared to ECG 04/15/2015 22:44:55 No significant changes Electronically Signed On 02-26-19 18:29:26 CDT by Rj Reyes
[2019-02-26] MEDS: ALBUTEROL 2.5 MG/3 ML NEB SOL NEB SCH (20:00)
[2019-02-26] MEDS: IPRATROPIUM BROM 0.5MG/2.5ML NEB SCH (20:00)
[2019-02-26 20:11] LABS: Urine Appearance CLEAR; Urine Bilirubin NEGATIVE (NEG); Urine Blood 1+ (NEG); Urine Color YELLOW; Urine Glucose NEGATIVE (NEG); Urine Protein NEGATIVE (NEG); Urine Specific Gravity >=1.030 (1.005-1.030); Urine pH 5.5 (5.0-7.0)
[2019-02-26 20:32] LABS: Urine Microscopic Reflex ORDER UMIC
[2019-02-26 21:04] LABS: Urine Bacteria <20 /HPF (<20); Urine Culture Reflex Order NOT NEEDED; Urine RBC <5 /HPF (NONE SEEN)
[2019-02-26] MEDS ORDERED: MORPHINE 2 MG/ML SYR IV PRN (21:24)
[2019-02-27] MEDS: IPRATROPIUM BROM 0.5MG/2.5ML NEB SCH ×2 (01:50→07:52)
[2019-02-27] MEDS: ALBUTEROL 2.5 MG/3 ML NEB SOL NEB SCH ×2 (01:50→07:52)
[2019-02-27 03:47] LABS: Albumin 3.6 g/dL (3.4-5.0); Bilirubin Total 0.3 mg/dL (0.2-1.0); Protein, Total 8.5 g/dL (6.4-8.2)
[2019-02-27 03:48] LABS: Absolute Lymphocytes (CBC) 0.4 K/uL (0.7-4.9); Basophils % 0.3 % (0-1.3); Hematocrit 35.9 % (36.0-45.0); Lymphocytes % 8.7 % (15.3-44.8); MPV 8.5 fL (7.6-11.3); RBC Red Blood Cell Count 3.94 M/uL (3.86-4.86)
[2019-02-27 06:09] LABS: Blood Morphology Comment NOT SEEN (NOT SEEN); Platelet Estimate ADEQ
[2019-02-27] MEDS ORDERED: TRAMADOL HCL 50 MG TAB PO SCH (09:00)
[2019-02-27 12:02] VITALS: O2SAT 100
[2019-02-27 12:47] VITALS: BP 120/59; TEMP 97.8
--- NOTE | 2019-02-27 15:50 | P.DS ---
Admission Date: 02/26/19 Discharge Date: 02/27/19 Disposition: ROUTINE DISCHARGE Discharge Condition: GOOD Reason for Admission: As of breath and chest pain Consultations: None Procedures: None - Problems (1) Chest pain Status: Acute (2) COPD exacerbation Status: Acute Brief History of Present Illness: 58-year-old woman presented to the emergency department with a complaint of shortness of breath and chest pain that began 1 hour prior to presentation. Patient was noted to be tachypneic on arrival. She was also complaining of chest pain rated at 10/10, worse with deep brain, and a dry cough. Her shortness of breath improved significantly with breathing treatment given in the ED. Patient is a current smoker but stated she has cut down on her smoking. CTA thorax was performed which was negative for pulmonary embolism. It did report signs of moderate COPD. EKG demonstrated sinus rhythm and left axis deviation, no acute changes. Initial troponin negative. Patient was placed under observation for further treatment of COPD exacerbation and ACS rule -out. Hospital Course: Patient was treated with scheduled DuoNeb, albuterol p.r.n. Troponin was trended which came back negative. Her chest pain resolved in the ED and did not have any further chest pain episodes during the observation period. Her shortness of breath has resolved, patient ambulated with no issues. She states that this is first time she's heard she has COPD. She is prescribed Advair and Spiriva and albuterol inhaler. Referral to a microbiological lab technician to perform PFT is recommended. ACS has been ruled out, patient is deemed stable for discharge. She was advised to quit smoking. Vital Signs/Physical Exam: Temp Pulse Resp BP Pulse Ox 97.8 F 84 18 120/59 L 100 02/27/19 12:00 02/27/19 12:00 02/27/19 12:00 02/27/19 12:00 02/27/19 12:00 Laboratory Data at Discharge: WBC 4.2 K/uL (4.3-10.9) L 02/27/19 03:10 Hgb 12.5 g/dL (12.0-15.0) 02/27/19 03:10 Hct 35.9 % (36.0-45.0) L 02/27/19 03:10 Plt Count 129 K/uL (152-406) L 02/27/19 03:10 PT 12.9 SECONDS (9.5-12.5) H 02/26/19 13:58 INR 1.10 02/26/19 13:58 APTT 33.8 SECONDS (24.3-36.9) 02/26/19 13:58 Sodium 141 mmol/L (136-145) 02/27/19 03:10 Potassium 4.0 mmol/L (3.5-5.1) 02/27/19 03:10 BUN 15 mg/dL (7-18) 02/27/19 03:10 Creatinine 1.01 mg/dL (0.55-1.3) 02/27/19 03:10 Glucose 161 mg/dL (74-106) H 02/27/19 03:10 Total Bilirubin 0.3 mg/dL (0.2-1.0) 02/27/19 03:10 AST 25 U/L (15-37) 02/27/19 03:10 ALT 31 U/L (12-78) 02/27/19 03:10 Alkaline Phosphatase 57 U/L (45-117) 02/27/19 03:10 Troponin I < 0.02 ng/mL (0.0-0.045) 02/27/19 03:10 Home Medications: Tramadol HCl [Ultram] 1 tab PO BID 02/26/19 Albuterol Inhaler [Ventolin Inhaler*] 2 puff IH Q6H PRN 30 Days #1 hfa.aer.ad Fluticasone/Salmeterol [Advair 250-50 Diskus] 1 each IH BID 30 Days #60 blst.w.dev 02/27/19 Tiotropium [place] [Spiriva] 18 mcg IH DAILY 30 Days #30 cap.w.dev 02/27/19 New Medications: Albuterol Inhaler [Ventolin Inhaler*] 2 puff IH Q6H PRN 30 Days #1 hfa.aer.ad PRN Reason: Shortness Of Breath Fluticasone/Salmeterol [Advair 250-50 Diskus] 1 each IH BID 30 Days #60 blst.w.dev Tiotropium [place] [Spiriva] 18 mcg IH DAILY 30 Days #30 cap.w.dev Diet: AHA Activity: Ad tyrone
--- NOTE | 2019-02-27 15:57 | EKG ---
Test Date: 2019-02-26 Test Time: 21:33:31 Home Health Registered Nurse: RT Castano MEASUREMENT RESULTS: Intervals: Rate: 66 GA: 140 QRSD: 86 QT: 412 QTc: 431 [place]: P: 72 GA: 140 QRS: -17 T: 53 INTERPRETIVE STATEMENTS: Normal sinus rhythm with sinus arrhythmia Inferior infarct, age undetermined Abnormal ECG Compared to ECG 02/26/2019 13:17:56 Left-axis deviation no longer present Myocardial infarct finding still present Electronically Signed On 02-27-19 15:54:29 CDT by Rj Reyes
== END 2019-02-27 13:39 | disposition home or self-care (01) ==
LOC: ER 13:05 → ERHOLD 16:44 → 4TH 17:30
PROVIDERS: ADMIT Family Medicine; ATTEND Internal Medicine
DX: J44.1 Chronic obstructive pulmonary disease with (acute) exacerbation (principal); R07.9 Chest pain, unspecified
CPT/HCPCS: 96361; 93005 ×2; 87040; 87070; 85025 ×2; 80048; 36415; 87205; 85610; 85730; 84484 ×3; 80053; 83880; 71275; 71045; 94640 ×3; 96375; 96374; 99285; Q9967; J2270; J7030; J2930; J2405; G0378 ×3; 81003; 81015

== ENCOUNTER 2020-05-17 10:25 | Emergency (ER) | payer MEDICAID ==
--- OUTSIDE RECORDS SUMMARY | 2020-05-17 10:28 | XMS REPORT | Continuity of Care Document ---
:1960 Author Organization [facility] t Address [address] [place] [address] Care Team Providers Name Role Phone Idris WEINSTEIN Attending Clinician Tess Morrissey MD Attending Clinician Lauro Phillips MD Attending Clinician Problems This patient has no known problems. Allergies, Adverse Reactions, Alerts This patient has no known allergies or adverse reactions. Medications This patient has no known medications. Procedures This patient has no known procedures. Encounters Start End Encounter Admission Attending Care Care Encounter Source Date/Time Date/Time Type Type Clinicians Facility Department ID 2020-03-23 2020-03-23 [id number] 12:32:00 13:53:00 Kalia Blanchard [id number] [place] [id number] [place] [id number] 2019-02-10 2019-02-10 Refill [facility] [id number] 00:00:00 00:00:00 Becca Blanchard [id number] [place] [id number] [facility] [id number] [address] 2019-01-14 2019-01-14 Telephone Hal Phillips [facility] [id number] 00:00:00 00:00:00 Lauro Blanchard [id number] [place] [id number] [facility] [id number] n[place] 044 Building Results This patient has no known results.
--- OUTSIDE RECORDS SUMMARY | 2020-05-17 10:28 | XMS REPORT | Summary of Care ---
:1960 Author Organization [facility] - [facility] Address [address] [place] [address] Care Team Providers Name Role Phone Lasha Flores MD Unavailable Lasha Flores MD Primary Care Provider Reason for Visit Reason Comments Leg Pain Abscess Auth/Cert Status Reason Specialty Diagnoses / Referred By Referred To Procedures Contact Contact Emergency Medicine [facility] Em ergency Dept [address] [place] [address] Fax: Encounter Details Date Type Department Care Team Description 03/23/2020 Emergency ADC-Emergency Kalia San MD Cellulitis of left Department [address] [facility] lower extremity [address] [facility] [address] (Primary Dx) [place] [id number] [place] [id number] Allergies Active Allergy Reactions Severity Noted Date Comments Codeine Itching, Nausea and/or Vomiting 9 Penicillins Anaphylaxis 10/24/2005 documented as of this encounter (statuses as of 03/23/2020) Medications Medication Sig Dispensed Refills Start Date End Date Status lidocaine 2% viscous 2 Take 15 mL by 1 Bottle 0 03/02/2018 Active % solutionIndications: mouth every 4 Chronic hepatitis C (four) hours as without hepatic coma needed for Oral mucosal pain. camphor-menthol Apply to 1 Tube 3 03/02/2018 Act bessie (FREEZE IT RELIEF) area(s) 2 (two) 0.2-3.5 % times daily. GelIndications: Generalized osteoarthritis TRAMADOL 50 mg TAKE 1 TABLET 60 tablet 0 02/12/2019 Active tabletIndications: BY MOUTH 2 Generalized (TWO) TIMES osteoarthritis DAILY NEEDED FOR PAIN (SCALE 7-10). lisinopril-hydrochloro Take 1 tablet 30 tablet 3 05/08/2019 Active thiazide 20-12.5 mg by mouth daily. per tabletIndications: Essential hypertension Miscellaneous Medical I10 - Dispense 1 Kit 0 05/08/2019 Active Supply KitIndications: blood pressure Essential hypertension cuff (any brand), take BP at home BID triamcinolone Apply to 15 g 1 2019 Activ e acetonide 0.1 % area(s) 2 (two) ointmentIndications: times daily. Spider bite wound, undetermined intent, initial encounter meloxicam 7.5 mg Take 1 tablet 30 tablet 0 2019 Active tabletIndications: by mouth daily. Rheumatoid arthritis involving both hands, unspecified rheumatoid factor presence doxycycline 100 mg Take 1 tablet 20 tablet 0 2019 Active tabletIndications: by mouth 2 Spider bite wound, (two) times undetermined intent, daily. initial encounter lactobacillus Take 1 capsule 10 capsule 0 2019 Active combination no.4 by mouth daily. (PROBIOTIC) 3 billion cell CapIndications: Spider bite wound, undetermined intent, initial encounter atorvastatin 40 mg Take 1 tablet 90 tablet 3 Active tabletIndications: by mouth at Atherosclerosis bedtime. clindamycin 300 mg Take 1 capsule 40 capsule 0 03/23/202003/19 Active capsuleIndications: by mouth 4 Cellulitis of left (four) times lower extremity daily for 10 days. documented as of this encounter (statuses as of 03/23/2020) Active Problems Problem Noted Date Essential hypertension 05/12/2019 Spider bite wound, undetermined intent, initial encoun ter 05/12/2019 Rheumatoid arthritis involving both hands, unspecified rheumatoid factor 04/14/2019 presence Poor sleep pattern 04/14/2019 Clubbing of nails 04/14/2019 Need for pneumococcal vaccination 04/14/2019 Encounter for screening for lung cancer 04/14/2019 Screening for cervical cancer 04/14/2019 History of dental surgery 01/31/2018 Poor dentition 01/21/2018 Microcytic anemia 01/17/2018 Other neutropenia 01/17/2018 Atypical lymphocytosis 01/17/2018 Chronic periodontal disease 01/17/2018 History of penicillin allergy 01/17/2018 Elevated sedimentation rate 01/17/2018 Generalized osteoarthritis 06/16/2016 Hypocomplementemia 06/16/[address] scan of lung 06/16/2016 History of cocaine abuse 06/16/2016 Tobacco use disorder 06/16/2016 Need for influenza vaccination 06/16/2016 Antineutrophil cytoplasmic antibody (ANCA) positive Positive QuantiFERON-TB Gold test 07/31/2015 Vasculitis 10/20/2014 Inflammatory arthritis 10/20/2014 Chronic hepatitis C without hepatic coma 10/20/2014 Leukocytoclastic vasculitis 09/26/2014 Tongue ulcer 07/26/2014 Neck mass 07/26/2014 Lung mass 07/26/2014 documented as of this encounter (statuses as of 03/23/2020) Resolved Problems Problem Noted Date Resolved Date Infection 01/21/2018 05/12/2019 Fever 01/16/2018 05/12/2019 Pain in joint, multiple sites 06/16/2016 01/17/2018 Abnormal finding on urinalysis 06/16/2016 8 Pneumonia 02/26/2016 01/17/2018 Skin rash 07/26/2014 10/20/2014 Arthritis 07/23/2014 10/20/2014 Pneumonia 07/21/2014 10/20/2014 Cellulitis and abscess of upper arm and forearm 02/10/2009 01/17/2018 documented as of this encounter (statuses as of 03/23/2020) Immunizations Name Administration Dates Next Due Influenza Virus Vaccine Quad .5 mL IM 6+ MO 04/10/2019 Influenza Virus Vaccine Quad IM 3+ YRS 04/04/2018, 6 Pneumococcal 13 Conjugate, PCV13 (Prevnar 13) 04/10/2019 TDAP 04/10/2019 documented as of this encounter Social History Tobacco Use Types Packs/Day Years Used Date Current Every Day Smoker Cigarettes 1 40 Smokeless Tobacco: Never Used Comments: currently smoking 4 cig/ week Alcohol Use Drinks/Week oz/Week Comments Yes social Sex Assigned at Date Recorded Not on file COVID-19 Exposure Response Date Recorded In the last month, have you been in contact with No / Unsure 03/23/2020 12:20 PM CDT someone who was confirmed or suspected to have Coronavirus / COVID-19? 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 Cellulitis of left lower extremity L03.116 682.6 NO LIFE-THREATENING FINDINGS ON TODAY'S EXAM. YOUR PRESCRIPTIONS : Check out [employer] for medication discounts Medication List ASK your doctor about these medications atorvastatin 40 mg tablet Commonly known as: LIPITOR camphor-menthoL 0.2-3.5 % Gel Commonly known as: Freeze It Relief Apply to area(s) 2 (two) times daily. doxycycline hyclate 100 mg tablet Take 1 tablet by mouth 2 (two) times daily. lactobacillus combination no.4 3 billion cell Cap Commonly known as: Probiotic Take 1 capsule by mouth daily. lidocaine 2% viscous 2 % solution Commonly known as: LIDOCAINE VISCOUS Take 15 mL by mouth every 4 (four) hours as needed for Oral mucosal pain. lisinopriL-hydrochlorothiazide 20-12.5 mg per tablet Commonly known as: PRINZIDE,ZESTORETIC Take 1 tablet by mouth daily. meloxicam 7.5 mg tablet Commonly known as: MOBIC Take 1 tablet by mouth daily. Miscellaneous Medical Supply Kit Commonly known as: CRUTCH ACCESSORY KIT I10 - Dispense blood pressure cuff (any brand), take BP at home BID traMADoL 50 mg tablet Commonly known as: ULTRAM TAKE 1 TABLET BY MOUTH 2 (TWO) TIMES DAILY NEEDED FOR PAIN (SCALE 7-10). triamcinolone acetonide 0.1 % ointment Commonly known as: KENALOG Apply to area(s) 2 (two) times daily. ER precautions and follow up : 1. Return to ER if your symptoms should worsen or fail to improve within 72 hours. 2. The care provided in the emergency room was for acute problems only. 3. You should follow up with your primary care provider within 72 hours. 4. Fill and take all your medications as prescribed. 5. Make sure you are staying adequately hydrated. Busque attencion immediatamente si usted tiene los sitomas sigue, vuelve peor o si hay sitomas nuevas o para cualquiera preoccupacion incluyendo dolor del pecho, falta aire, se siente debile, mas fievre, mas dolor, nausea, vomitando, sangrando que no es normal, confusion, baja or pierdas conciencia. MAY FOLLOW-UP WITH A PROVIDER OF YOUR CHOICE, SUCH : 1. A PHYSICIAN OF YOUR CHOICE 2. [facility], . LOCATIONS IN [facility] 3. [facility], [address] [place] [address]; [phone] OR, IF YOU WISH TO FOLLOW-UP WITHIN THE [facility], MAY TRY THESE OPTIONS (CLINIC APPOINTMENTS AVAILABLE ON [id number] BASIS): 1. SCHEDULE AN APPOINTMENT ONLINE AT WWW.[facility] 2. OR CALL THE [facility] ACCESS CENTER AT OR 3. OR CALL YOUR [facility] PHYSICIAN'S OFFICE DIRECTLY IF YOU ARE ALREADY AN ESTABLISHED [facility] PATIENT. [facility] RETURN TO WORK / SCHOOL EXCUSE Ty Robins WAS SEEN IN THE ER AND DISCHARGED 03/23/2020 TODAY, 12:45 PM & May return to Work / School / Incarceration on X with activity as tolerated indicated below. ___The following limitations apply until pt is seen by Physician and cleared to return to normal activity. _X_ Off for two days and return to activity as tolerated at work or school ___ No Sports ___ No work ___ Do not return until fever free for 24 hours. ___ No school KALIA SAN Jr., MD [facility] EMERGENCY DEPRTMENT [address] [place] [address] [place] [address] ### The patient may have been given Narcotic pain medications during their stay in the ED that may show up on a Drug Screen. The hospital discharge paper work will identify these medications. AttachmentsThe following attachments cannot be sent through Care Everywhere. Cellulitis, Discharge Instructions for (Maori)documented in this encounter ED Notes Rhonda Vela RN - 03/23/2020 12:24 PM CDT59 year old female coming to the ER for leg pain. Patient coming to the ER for leg pain. Patient haswhat it appear to be a leg abcess that has ruptured due to patient squeezing on it blood present butbleeding is controlled. 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 draining no fluctuance Severity: Moderate Onset quality: Gradual Duration: 3 days Timing: Constant Progression: Unchanged Chronicity: New Relieved by: Nothing Worsened by: Nothing Associated symptoms: no abdominal pain, no chest pain, no cough, no fatigue, no fever, no headaches,no nausea, no shortness of breath, no vomiting and no wheezing Past Medical History / Immunizations Past Medical History: Diagnosis Date Antineutrophil cytoplasmic antibody (ANCA) positive 06/16/2016 Atypical lymphocytosis 01/17/2018 Chronic hepatitis C without hepatic coma 10/20/2014 Chronic periodontal disease 01/17/2018 Clubbing of nails 04/14/2019 COPD (chronic obstructive pulmonary disease) Drug abuse last in 2011 crack Elevated sedimentation rate 01/17/2018 Essential hypertension 05/12/2019 Fever 01/16/2018 Generalized osteoarthritis 06/16/2016 Hepatitis C History of cocaine abuse 06/16/2016 History of dental surgery 01/31/2018 History of penicillin allergy 01/17/2018 Hypocomplementemia 06/16/2016 Inflammatory arthritis 10/20/2014 Leukocytoclastic vasculitis 09/26/2014 Lung mass 07/26/2014 Microcytic anemia 01/17/2018 Neck mass 07/26/2014 Other neutropenia 01/17/2018 Poor dentition 01/21/2018 Poor sleep pattern 04/14/2019 Positive QuantiFERON-TB Gold test 07/31/2015 Rheumatoid arthritis involving both hands, unspecified rheumatoid factor presence 04/14/2019 Tongue ulcer 07/26/2014 Vasculitis 10/20/2014 Past Surgical History Past Surgical History: Procedure Laterality Date ABDOMINAL HYSTERECTOMY age 20's DIRECT LARYNGOSCOPY 07/28/2014 DIRECT LARYNGOSCOPY N/A 07/28/2014 Surgeon: Cindy Schofield; Location: [facility] FULL MOUTH EXTRACTION WITH ALVEOLOPLASTY N/A 01/18/2018 Surgeon: Ellis Almodovar DDS; Location: [facility] HAND/FINGER SURGERY UNLISTED CO ANESTH,SURGERY OF SHOULDER shoulder right Allergies Allergies Allergen Reactions Codeine Itching and Nausea and/or Vomiting Pcn [Penicillins] Anaphylaxis Social History Tobacco Use Current Every Day Smoker; Smoked an average of 1 pack/day for 40 years; Smoked: Cigarettes. Smokeless Tobacco: Never used smokeless tobacco. Comments: currently smoking 4 cig/ week Alcohol Use Yes. Comments: social Drug Use Yes. Comments: crack in past Review of Systems Review of Systems Constitutional: Negative. Negative for chills, fatigue, fever and unexpected weight change. HENT: Negative. Eyes: Negative. Negative for discharge and itching. Respiratory: Negative. Negative for cough, chest tightness, shortness of breath and wheezing. Cardiovascular: Negative. Negative for chest pain and palpitations. Gastrointestinal: Negative. Negative for abdominal distention, abdominal pain, nausea and vomiting. Genitourinary: Negative. Negative for dysuria, urgency, frequency and flank pain. Musculoskeletal: Negative. Skin: Negative. Negative for color change, pallor and wound. Cellulitis Neurological: Negative. Negative for dizziness, syncope, light-headedness and headaches. Psychiatric/Behavioral: Negative. Negative for agitation and behavioral problems. All other systems reviewed and are negative. Endocrine: Endocrine negative Physical Exam BP 110/64 | Pulse 97 | Temp 36.5 C (97.7 F) | Resp 20 | Wt 47.6 kg (105 lb) | SpO2 100% | BMI 18.02 kg/m Physical Exam Vitals signs reviewed. Constitutional: Appearance: She is well-developed. HENT: Head: Normocephalic and atraumatic. Nose: Nose normal. Eyes: Conjunctiva/sclera: Conjunctivae normal. Neck: Musculoskeletal: Normal range of motion and neck supple. Trachea: No tracheal deviation. Cardiovascular: Rate and Rhythm: Normal rate and regular rhythm. Heart sounds: Normal heart sounds. No murmur. No friction rub. Pulmonary: Effort: Pulmonary effort is normal. No respiratory distress. Breath sounds: Normal breath sounds. No stridor. No wheezing or rales. Abdominal: General: Bowel sounds are normal. There is no distension. Palpations: Abdomen is soft. Tenderness: There is no abdominal tenderness. There is no guarding or rebound. Musculoskeletal: Normal range of motion. Skin: General: Skin is warm and dry. Comments: Area of cellulitis and induration. No fluctuance Neurological: Mental Status: She is alert and oriented to person, place, and time. Cranial Nerves: No cranial nerve deficit. Sensory: No sensory deficit. Psychiatric: Behavior: Behavior normal. Thought Content: Thought content normal. Judgment: Judgment normal. Labs No results found for this or any previous visit (from the past 24 hour(s)). Imaging No results found for this visit on 03/23/20. Orders and Treatments No orders of the defined types were placed in this encounter. Orders Placed This Encounter Medications clindamycin 300 mg capsule Procedures See ED Procedure Note Notes & MDM Patient was evaluated for an emergency medical condition related to Leg Pain and Abscess . Differential diagnoses considered by presenting complaints but not limited to: Abscess Cellulitis Assessment: Area is indurated without fluctuance. Will place on Clindamycin x 10 days. DC to follow up man. History, physical exam findings, results of visit, differential diagnosis, medication regimens and plan of future care have been considered. Additional MDM may be found in the ED course. Differential diagnosis considered and final disposition made based on information gathered during evaluation and may not be completely ruled out or specifically listed. Vital signs were rechecked before final disposition. Diagnosis ICD-10-CM ICD-9-CM 1. Cellulitis of left lower extremity L03.116 682.6 Disposition & Follow Up ED Disposition ED Disposition Condition Comment Disch - Home Stable Patient's Medications START taking these medications CLINDAMYCIN 300 MG CAPSULE Take 1 capsule by mouth 4 (four) times daily for 10 days. CONTINUE taking these medications which have NOT CHANGED ATORVASTATIN 40 MG TABLET Take 1 tablet by mouth at bedtime. CAMPHOR-MENTHOL (FREEZE IT RELIEF) 0.2-3.5 % GEL Apply to area(s) 2 (two) times daily. DOXYCYCLINE 100 MG TABLET Take 1 tablet by mouth 2 (two) times daily. LACTOBACILLUS COMBINATION NO.4 (PROBIOTIC) 3 BILLION CELL CAP Take 1 capsule by mouth daily. LIDOCAINE 2% VISCOUS 2 % SOLUTION Take 15 mL by mouth every 4 (four) hours as needed for Oral mucosal pain. LISINOPRIL-HYDROCHLOROTHIAZIDE 20-12.5 MG PER TABLET Take 1 tablet by mouth daily. MELOXICAM 7.5 MG TABLET Take 1 tablet by mouth daily. [employer] MEDICAL SUPPLY KIT I10 - Dispense blood pressure cuff (any brand), take BP at homeBID TRAMADOL 50 MG TABLET TAKE 1 TABLET BY MOUTH 2 (TWO) TIMES DAILY NEEDED FOR PAIN (SCALE 7-10). TRIAMCINOLONE ACETONIDE 0.1 % OINTMENT Apply to area(s) 2 (two) times daily. START taking Modified Medications as Prescribed No medications on file STOP taking these medications No medications on file Kalia San Jr., MD Clinical Technical Services Assistant [facility] Emergency Department documented in this encounter Miscellaneous Notes ED Nurse Note - Rhonda Vela RN - 03/23/2020 1:10 PM CDTPt given printed and verbal discharge instructions regarding leg pain and wound care. Patient escorted via wheelchair without incident. D Nurse Note - Rhonda Vela RN - 03/23/2020 12:51 PM CDTFamily notified patient is going to be discharged. documented in this encounter Plan of Treatment Health Maintenance Due Date Last Done Comments MENINGOCOCCAL B VACCINES (1 of 5 - 1969 Risk Trumenba 3-dose series) PAP SMEAR 1980 COLON CANCER SCREENING ANNUAL 2009 FIT/FOBT COLON CANCER SCREENING FIT DNA 2009 EVERY 3 YEARS COLON CANCER SCREENING 2009 SIGMOIDOSCOPY EVERY 5 YEARS COLONOSCOPY 2009 Colorectal Cancer Screening 2009 Zoster Recombinant Vaccine 2009 (SHINGRIX) (1 of 2) PNEUMOCOCCAL 0-64 YEARS COMBINED 06/05/2019 04/10/2019 SERIES (2 of 3 - PPSV23) INFLUENZA VACCINE (#1) 2020 04/10/2019, 04/04/2018, 06/16/2016 Depression Screening 2020 2019 Breast Cancer Screening 05/22/2020 05/22/2019 (MAMMOGRAM) LUNG CANCER SCREEN: Recommended 05/22/2020 05/22/2019, 02/17, for age 55-80 with 30 + pack year 07/23/2015, Ad ditional history history exists DTaP,Tdap,and Td Vaccines (2 - Td) 04/10/2029 04/10/2019 HEPATITIS C (HCV) SCREEN Completed 07/21/2014 documented as of this encounter Procedures Procedure Name Priority Date/Time Associated Diagnosis Comme nts NOTICE OF PRIVACY Routine 03/23/2020 12:20 PM CDT PRACTICES CONSENT/REFUSAL FOR Routine 03/23/2020 12:19 PM CDT DIAGNOSIS AND TREATMENT documented in this encounter Results Not on filedocumented in this encounter Visit Diagnoses Diagnosis Cellulitis of left lower extremity - Wilma ann Cellulitis and abscess of leg, except fo ot documented in this encounter Insurance Payer Benefit Plan / Subscriber ID Effective Phone Address T ype Group Dates KATHLEEN WANG [id number] 2015-[address] [facility] [place] [id number] [place]NAG[place] MED[place]ID [place], [place] documented as of this encounter"
--- NOTE | 2020-05-17 10:58 | EDPHYS ---
Physician Documentation [facility] Name: Ty Robins Age: 60 yrs Sex: Female : 1960 Arrival Date: 05/17/2020 Time: 10:28 Bed 15 Private MD: ED Physician Don Hernandez HPI: 05/17 10:52 This 60 yrs old Female presents to ER via Ambulatory with complaints of Leg rn Pain. 10:53 The patient presents with cellulitis of the right leg. Description: erythematous, rn swollen, warm. Onset: The symptoms/episode began/occurred yesterday. Possible cause(s): unknown. Associated signs and symptoms: Pertinent positives: erythema, swelling, Pertinent negatives: fever. Modifying factors: the symptoms are alleviated by squeezing the lesion and expressing the contents, the symptoms are aggravated by squeezing the lesion and expressing the contents, touching. Severity of symptoms: At their worst the symptoms were mild, in the emergency department the symptoms are unchanged. The patient has experienced similar episodes in the past. The patient has not recently seen a physician. Reports began yesterday with RLE redness and localized swelling, had a head to it and popped it, now skin around it is red and warm. No fever. . Historical: - Allergies: 10:52 PENICILLINS; iw 10:52 Codeine; iw - Home Meds: 10:52 None [Active]; iw - PMHx: 10:52 Hepatitis C; RA; iw - PSHx: 10:52 Hysterectomy; shoulder; hand; iw - Immunization history:: Adult Immunizations up to date. - Family history:: not pertinent. - Social history:: Smoking status: Patient reports the use of cigarette tobacco products, smokes one-half pack cigarettes per day. - Hospitalizations: : No recent hospitalization is reported. ROS: 10:53 Constitutional: Negative for fever, chills, and weight loss, Cardiovascular: Negative rn for chest pain, palpitations, and edema, Respiratory: Negative for shortness of breath, cough, wheezing, and pleuritic chest pain, Abdomen/GI: Negative for abdominal pain, nausea, vomiting, diarrhea, and constipation, MS/Extremity: Negative for injury and deformity, Skin: + RLE localized swelling and pain with redness Exam: 10:53 Constitutional: This is a well developed, well nourished patient who is awake, alert, rn and in no acute distress. Sitting on bed with stack of magazines. Cardiovascular: Regular rate and rhythm. No pulse deficits. Respiratory: No increased work of breathing, no retractions or nasal flaring. MS/ Extremity: Pulses equal, no cyanosis. Neurovascular intact. Full, normal range of motion. Equal circumference. + RLE with 3 cm diameter, distal and lateral to knee, with induration, no fluctuance, black center, no drainage. No streaking. + warmth. Neuro: Awake and alert, GCS 15, oriented to person, place, time, and situation. Cranial nerves II-XII grossly intact. Motor strength 5/5 in all extremities. Sensory grossly intact. Cerebellar exam normal. Normal gait. Vital Signs: 10:52 BP 109 / 72; Pulse 89; Resp 16; Temp 98.3; Pulse Ox 100% on R/A; Pain 9/10; iw MDM: 10:48 Patient medically screened. rn 10:53 Differential diagnosis: cellulitis. Differential diagnosis: insect bite. Data reviewed: rn vital signs, nurses notes, and as a result, I will discharge patient. Counseling: I had a detailed discussion with the patient and/or guardian regarding: the historical points, exam findings, and any diagnostic results supporting the discharge/admit diagnosis, the need for outpatient follow up, to return to the emergency department if symptoms worsen or persist or if there are any questions or concerns that arise at home. Special discussion: I discussed with the patient/guardian in detail that at this point there is no indication for admission to the hospital. It is understood, however, that if the symptoms persist or worsen the patient needs to return immediately for re-evaluation. ED course: No fluctuance to indicate abscess, + induration indicative of cellulitis, will dc home with abx, and return precautions. . Administered Medications: 10:58 Drug: Bactrim (160 mg-800 mg (DS) 1 tablet Route: PO; ca1 11:06 Follow up: Response: No adverse reaction ca1 10:59 Drug: Dexter 10 mg-325 mg 1 tabs {Note: rass 0.} Route: PO; ca1 11:06 Follow up: Response: No adverse reaction; Pain is decreased; RASS: Alert and Calm (0) ca1 Disposition: 05/17/20 10:58 Discharged to Home. Impression: Cellulitis of right lower limb. - Condition is Stable. - Discharge Instructions: Cellulitis, Adult. - Prescriptions for Bactrim DS 800- 160 mg Oral Tablet - take 1 tablet by ORAL route every 12 hours for 10 days; 20 tablet. - Medication Reconciliation Form, Thank You Letter, Antibiotic Education, Prescription Opioid Use form. - Follow up: Private Physician; When: As needed; Reason: Recheck today's complaints, Re-evaluation by your physician. - Problem is new. - Symptoms have improved. Signatures: Miriam Aguiar RN RN iw Don Hernandez MD MD rn Acob, JOCELYNE Martinez RN ca1 Corrections: (The following items were deleted from the chart) 11:07 10:58 05/17/2020 10:58 Discharged to Home. Impression: Cellulitis of right lower limb. ca1 Condition is Stable. Forms are Medication Reconciliation Form, Thank You Letter, Antibiotic Education, Prescription Opioid Use. Follow up: Private Physician; When: As needed; Reason: Recheck today's complaints, Re-evaluation by your physician. Problem is new. Symptoms have improved. rn
--- NOTE | 2020-05-17 10:58 | ER ---
Nurse's Notes [facility] Name: Ty Robins Age: 60 yrs Sex: Female : 1960 Arrival Date: 05/17/2020 Time: 10:28 Bed 15 Private MD: Diagnosis: Cellulitis of right lower limb Presentation: 05/17 10:50 Chief complaint: Patient states: has a sore on her right calf X 2 days. Coronavirus iw screen: At this time, the client does not indicate any symptoms associated with coronavirus-19. Ebola Screen: Patient negative for fever greater than or equal to 101.5 degrees Fahrenheit, and additional compatible Ebola Virus Disease symptoms Patient denies exposure to infectious person. Patient denies travel to an Ebola-affected area in the 21 days before illness onset. No symptoms or risks identified at this time. Initial Sepsis Screen: Does the patient meet any 2 criteria? No. Patient's initial sepsis screen is negative. Does the patient have a suspected source of infection? No. Patient's initial sepsis screen is negative. Risk Assessment: Do you want to hurt yourself or someone else? Patient reports no desire to harm self or others. Onset of symptoms was May 15, 2020. 10:50 Method Of Arrival: Ambulatory iw 10:50 Acuity: BRENDA 4 iw Historical: - Allergies: 10:52 PENICILLINS; iw 10:52 Codeine; iw - Home Meds: 10:52 None [Active]; iw - PMHx: 10:52 Hepatitis C; RA; iw - PSHx: 10:52 Hysterectomy; shoulder; hand; iw - Immunization history:: Adult Immunizations up to date. - Family history:: not pertinent. - Social history:: Smoking status: Patient reports the use of cigarette tobacco products, smokes one-half pack cigarettes per day. - Hospitalizations: : No recent hospitalization is reported. Screenin:50 Abuse screen: Denies threats or abuse. Denies injuries from another. Nutritional ca1 screening: No deficits noted. Tuberculosis screening: No symptoms or risk factors identified. Fall Risk None identified. Assessment: 10:50 General: Appears in no apparent distress. comfortable, Behavior is calm, cooperative, ca1 appropriate for age. Pain: Complains of pain in right leg Pain currently is 8 out of 10 on a pain scale. Pain began 1 day ago. Neuro: Level of Consciousness is awake, alert, obeys commands, Oriented to person, place, time, situation. Derm: Skin is intact, is healthy with good turgor, Skin is pink, warm \T\ dry. Abscess located on lateral aspect of right calf is dime sized, is hot to touch, is red, is raised. Musculoskeletal: Circulation, motion, and sensation intact. Capillary refill < 3 seconds. Vital Signs: 10:52 BP 109 / 72; Pulse 89; Resp 16; Temp 98.3; Pulse Ox 100% on R/A; Pain 9/10; iw ED Course: 10:28 Patient arrived in ED. bg2 10:46 Michelle Bolanos, RN is Primary Nurse. ca1 10:48 Don Hernandez MD is Attending Physician. rn 10:50 Patient has correct armband on for positive identification. Bed in low position. Call ca1 light in reach. Side rails up X 1. Pulse ox on. NIBP on. 10:51 Triage completed. iw 10:53 Arm band placed on. iw 11:06 No provider procedures requiring assistance completed. Patient did not have IV access ca1 during this emergency room visit. Administered Medications: 10:58 Drug: Bactrim (160 mg-800 mg (DS) 1 tablet Route: PO; ca1 11:06 Follow up: Response: No adverse reaction ca1 10:59 Drug: Caliente 10 mg-325 mg 1 tabs {Note: rass 0.} Route: PO; ca1 11:06 Follow up: Response: No adverse reaction; Pain is decreased; RASS: Alert and Calm (0) ca1 Outcome: 10:58 Discharge ordered by . rn 11:06 Discharged to home ambulatory. ca1 11:06 Condition: stable 11:06 Discharge instructions given to patient, Instructed on discharge instructions, follow up and referral plans. medication usage, wound care, Demonstrated understanding of instructions, follow-up care, medications, Prescriptions given X 1. 11:07 Patient left the ED. ca1 Signatures: Miriam Aguiar RN RN Don Hernandez MD MD rn Glass, Brittany bg2 Michelle Bolanos RN RN ca1
[2020-05-17] MEDS ORDERED: SMZ./TMP. 800/160 MG TABLET ONE (11:12)
[2020-05-17] MEDS ORDERED: HYDROCODONE/APAP 10/325 TAB ONE (11:12)
[2020-05-17 12:47] VITALS: BP 109/72; TEMP 98.3; O2SAT 100
== END 2020-05-17 11:07 | disposition home or self-care (01) ==
LOC: ER 10:25
DX: L03.115 Cellulitis of right lower limb (principal); F17.210 Nicotine dependence, cigarettes, uncomplicated; B19.20 Unspecified viral hepatitis C without hepatic coma; M06.9 Rheumatoid arthritis, unspecified
CPT/HCPCS: 99283

== ENCOUNTER 2021-09-15 08:43 | Emergency (ER) | payer OTHER ==
--- OUTSIDE RECORDS SUMMARY | 2021-09-15 08:48 | XMS REPORT | Continuity of Care Document ---
:1960 Author Organization [facility] t Address [address] [place] [address] Care Team Providers Name Role Phone Mark WEINSTEIN Primary Care Physician 2, Lab Attending Clinician Unavailable Mark WEINSTEIN Attending Clinician Idris WEINSTEIN Attending Clinician Yuni WEINSTEIN, A Attending Clinician King CORINNA, C Attending Clinician Payers Payer Name Policy Type Policy Number Effective Date Expiration Date S ource Problems Condition Condition Condition Status Onset Resolution Last Treating Co mments Source Name Details Category Date Date Treatment Clinician Date Chronic Chronic Disease Active 2021-0 Univers pain of pain of 3-25 ity of both both 00:00: [place] shoulders shoulders 00 [facility] balta Branch Teeth Teeth Disease Active 0 Univers decayed decayed 3-25 ity of 00:00: [address] Branch Chronic Chronic Disease Active 2020-0 Univers pain of pain of 1-08 [place]y of both knees [place] [facility] Branch 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 1-08 ity of 00:00: [address] Branch Cellulitis Cellulitis Disease Active 0 U nivers of right of right 1-08 ity of breast breast 00:00: [address] Branch Cellulitis Cellulitis Disease Active 2020-0 U nivers of skin of skin 1-08 ity of 00:00: [place] 00 [facility] Chronic Chronic Disease Active Univers pain pain 1-08 ity of syndrome syndrome 00:00: [place] 00 Medical Branch Arthritis, Arthritis, Disease Active U nivers multiple multiple 1-08 ity of joint joint 00:00: [place] involvemen involvemen 00 Me dical t t Branch Pain in Pain in Disease Active Univers both hands both hands 1-08 it y of 00:00: [place] [facility] Cigarette Cigarette Disease Active Uni vers nicotine nicotine 1-08 it[place] of dependence [place] other with other 00 Me dical nicotine-i nicotine-i Br anch nduced nduced disorder disorder Essential Essential Disease Active 2018-06 Uni vers hypertensi hypertensi 1-24 it y of on on 00:00: [place] [facility] Spider Spider Disease Active 2018-06 Univers bite bite 1-24 ity of wound, wound, 00:00: [place] undetermin undetermin 00 Me dical ed intent, ed intent, Br anch initial initial encounter encounter Rheumatoid Rheumatoid Disease Active 2018-06 U [place] arthritis arthritis 0-27 ity of involving involving 00:[place] both 00 Medical hands, hands, Branch unspecifie unspecifie d d rheumatoid rheumatoid factor factor presence presence Poor sleep Poor sleep Disease Active 2018-06 U aleksandra pattern pattern 0-27 ity of 00:00: [place] 00 Medical Branch Clubbing Clubbing Disease Active 2018-06 Unive rs of nails of nails 0-27 ity of 00:00: [place] 00 Medical Branch Need for Need for Disease Active 2018-06 Unive rs 23-polyval 23-polyval 0-27 it y of ent ent 00:00: [place] pneumococc pneumococc 00 Me dical al al Branch polysaccha polysaccha ride ride vaccine vaccine Pap smear Pap smear Disease Active 2018-06 Uni vers for for 0-27 ity of cervical cervical 00:00: [place] cancer cancer 00 Medical screening screening Bran ch Screening Screening Disease Active 2018-06 Uni vers for for 0-27 ity of cervical cervical 00:00: [place] cancer cancer 00 Medical Branch History of History of Disease Active U nivers dental dental 8-15 ity of surgery surgery 00:00: [place] [id number] Medical Branch Abscessed Abscessed Disease Active 2018-0 Uni vers tooth tooth 8-05 ity of 00:00: [place] 00 Medical Branch Microcytic Microcytic Disease Active U nivers anemia anemia 01-17 ity of 00:00: [place] [facility] Other Other Disease Active Univers neutropeni neutropeni 01-17 it y of a a 00:00: [place] [facility] 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-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 00:00: [place] [facility] Chronic Chronic Disease Active Univers periodonta periodonta 01-17 it y of l disease l disease 00:[place] [facility] Elevated Elevated Disease Active Unive rs sedimentat sedimentat 01-17 it y of ion rate ion rate 00:00: [place] [facility] History of History of Disease Active U aleksandra penicillin penicillin 01-17 it y of allergy allergy 00:00: [place] 00 Medical Branch Generalize Generalize Disease Active 2015-06 U [place] d d ity of osteoarthr osteoarthr 00:[place] itis itis [facility] Branch 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 [facility] [place] mentemia mentemia ity of 00:00: [place] 00 Medical Branch Abnormal Abnormal Disease Active 2015-[address] scan of CT scan of it y of lung lung 00:00: [place] 00 Medical Branch History of History of Disease Active 2015-06 U [place] cocaine cocaine ity of abuse abuse 00:00: [place] 00 Medical Branch Tobacco Tobacco Disease Active 2015-06 Univers use use ity of disorder disorder 00:00: [place] [facility] Need for Need for Disease Active 2015-06 Unive rs immunizati immunizati it y of on against on against 00:00[place] influenza influenza [facility] Branch 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 U [place] connie connie 2 ity of cytoplasmi cytoplasmi 00:[place] c antibody c antibody 00 De dical (ANCA) (ANCA) Branch positive positive Positive Positive Disease Active Unive rs QuantiFERO QuantiFERO 2-12 it y of N-TB Gold N-TB Gold 00:00[place] test test [place] [facility] Vasculitis Vasculitis Disease Active U [place] 5-04 ity of 00:00: [place] 00 Medical Branch Inflammato Inflammato Disease Active U nivers ry ry 5-04 ity of arthritis arthritis 00:[place] [facility] [place] Chronic Chronic Disease Active Univers hepatitis hepatitis 5-04 ity of C without C without 00:[place] hepatic hepatic 00 Medical coma coma Branch Leukocytoc Leukocytoc Disease Active U nivers lastic lastic 4-10 ity of vasculitis vasculitis [place] [facility] Tongue Tongue Disease Active Univers ulcer ulcer 2-07 ity of 00:00: [place] 00 Medical Branch Neck mass Neck mass Disease Active Uni vers 2-07 ity of 00:00: [place] [facility] Lung mass Lung mass Disease Active Uni vers 2- ity of 00:00: [place] 00 Medical Branch Allergies, Adverse Reactions, Alerts Allergy Allergy Status Severity Reaction(s) Onset Inactive Treating Comm ents Source Name Type Date Date Clinician Codeanton Pauli Active Nausea Univers ty to and/or 02-10 ity of adverse Vomiting 00:00: [place] reaction Medical s Branch Penicill Propensi Active Anaphylaxis 2005- U nivers ins ty to 08 ity of adverse 00:00: [place] reaction Medical s Branch Social History Social Habit Start Date Stop Date Quantity Comments Source History of Cigarette Smoker Universi ty of tobacco use [place] [facility] History SDOH University o f Alcohol Frequency [place] M edical Branch History SDNY University o f Alcohol Std [place] Medical Drinks Branch History SDOH University o f Alcohol Binge [place] [facility] Alcohol intake 2021-09-10 2021-09-10 Current drinker Unive rsity of 00:00:00 00:00:00 of alcohol [place] [facility] (finding) Branch Alcohol Comment 2018-01-16 2018-01-16 social Universit y of 00:00:00 00:00:00 [facility] Tobacco Comment 2018-01-16 2018-01-16 currently smoking Un iversity of 00:00:00 00:00:00 4 cig/ week [place] [facility] Sex [birth year] Universit y of 00:00:00 00:00:00 [facility] Smoking Status Start Date Stop Date Source Current every day smoker 2020-06-26 00:00:00 Uni versity of [place] [facility] Medications Ordered Filled Start Stop Current Ordering Indication Dosage Frequency Signature Comments Components Source Medication Medication Date Date Medication? Clinician (SIG) Name Name brice Yes [id number] 40mg Take 1 Univers n 40 mg 3-25 tablet by ity of tablet 11:04: mouth at [place] 56 bedtime. Medical Branch sulfamethox Yes [id number] 1{tbl} Take 1 Univers azole-trime 1-08 tablet by ity of thoprim 00:00: mouth 2 [place] (BACTRIM 00 (two) Medical DS) 800-160 times Branch mg per daily. tablet mupirocin 2 Yes [id number] Apply to Univers % ointment 1-08 area(s) 3 ity of 00:00: (three) [place] 00 times Medical daily. Branch traMADoL 50 Yes [id number] 50mg Take 1 Univ ers mg tablet 1-08 tablet by ity o f 00:00: mouth [place] 00 every 8 Medical (eight) Branch hours as needed for Pain (scale 4-6). Indication s: chronic pain meloxicam 2018-06 Yes [id number] 7.5mg Take 1 Univers 7.5 mg 1-25 [id number] tablet by ity of tablet 00:00: mouth [place] 00 daily. Medical Branch lactobacill 2018-06 Yes [id number] 1{capsu Take 1 Univers us 1-25 le} capsule by ity of combination 00:00: mouth [place] no.4 00 daily. Medical (PROBIOTIC) Branch 3 billion cell Cap lisinopril- 2018-06 Yes [id number] 1{tbl} Take 1 Univers hydrochloro 1-20 tablet by ity of thiazide 00:00: mouth [place] 20-12.5 mg 00 daily. Medical per tablet Branch Miscellaneo 2018-06 Yes [id number] I10 - U nivers us Medical 1-20 Dispense ity o f Supply Kit 00:00: blood [place] 00 pressure Medical cuff (any Branch brand), take BP at home BID TRAMADOL 50 Yes [id number] 50mg TAKE 1 Univers mg tablet 8-27 TABLET BY ity o f 00:00: MOUTH 2 [place] 00 (TWO) Medical TIMES Branch DAILY NEEDED FOR PAIN (SCALE 7-10). lidocaine Yes [id number] 15mL Take 15 mL Univers 2% viscous 9-14 by mouth ity o f 2 % 00:00: every 4 [place] solution 00 (four) Medical hours as Branch needed for Oral mucosal pain. hesham-men 2017- Yes Apply to [facility] thol 9-14 area(s) 2 ity of (FREEZE IT 00:00: (two) [place] RELIEF) 00 times Medical 0.2-3.5 % daily. Branch Gel Immunizations Ordered Filled Immunization Date Status Comments [facility] Immunization Name Name SARS-COV-2 COVID-19 2021-06-11 Completed Unive rsity of MODERNA VACCINE 00:00:00 [facility] Branch SARS-COV-2 COVID-19 2020-07-12 Completed Unive rsity of MODERNA VACCINE 00:00:00 [facility] Branch Pneumococcal 2020-06-26 Completed University o f Polysaccharide, 00:00:00 [facility] PPSV23 (PNEUMOVAX) Branch Influenza Virus 2020-06-26 Completed Universit y of Vaccine Quad .5 mL 00:00:[address] [facility] IM 6+ MO Branch Influenza Virus 2019-04-10 Completed Universit y of Vaccine Quad .5 mL 00:00:00 [facility] 6+ MO Branch TDAP 2019-04-10 Completed University of 00:00:00 [facility] Pneumococcal 13 2019-04-10 Completed Universit y of Conjugate, PCV13 00:00:[address] [facility] dical (Prevnar 13) Branch Influenza Virus 2018-04-04 Completed Universit y of Vaccine Quad IM 3+ 00:00:[address] [facility] Influenza Virus 2016-06-16 Completed Universit y of Vaccine Quad IM 3+ 00:00:00 [facility] Branch Procedures Procedure Date / Time Performing Clinician Source Performed CBC WITH DIFF 2021-09-10 17:13:00 Lasha Flores [facility] GLYCOSYLATED HEMOGLOBIN 2021-09-10 17:13:00 Lasha Flores [facility] (A1C) [facility] FREE T4 2021-09-10 17:13:00 Lasha Flores [facility] LIPID PANEL 2021-09-10 17:13:00 Lasah Flores [facility] ([id number])(TOTAL Medical Branch CHOLESTEROL, TRIGLYCERIDES, HDL) VITAMIN D, 25-OH 2021-09-10 17:13:00 Lasha Flores [facility] FREE T3 2021-09-10 17:13:00 Lasha Flores [facility] HIV 1/2 AG-AB WITH 2021-09-10 17:13[facility] HEPATITIS B SURFACE 2021-09-10 17:13:00 Lasha Flores [facility] ANTIBODY [facility] HEPATITIS B SURFACE 2021-09-10 17:13:00 Lasha Folres [facility] ANTIGEN [facility] HCV ANTIBODY 2021-09-10 17:13:00 Lasha Flores [facility] HBC ANTIBODY (IGM & 2021-09-10 17:13:00 Lasha Flores [facility] IGG) [facility] Encounters Start End Encounter Admission Attending Care Care Encounter Source Date/Time Date/Time Type Type Clinicians Facility Department ID 2021-09-10 2021-09-10 Territory Manager General Sales 2, Adc Lab [facility] [id number] [facility] 11:45:00 12:00:00 Visit Lasha Flores [id number] [facility] [id number] Richy membreno PROFESSIO [id number] [address] 2020-03-23 2020-03-[address] [facility] [id number] 12:32:00 13:53:00 Kalia Blanchard [id number] [place] [id number] [place] [id number] 2019-02-10 2019-02-[address] [facility] [id number] 00:00:00 00:00:00 Becca Blnachard [id number] [place] [id number] Professio [id number] [address] 2019-01-14 2019-01-14 Telephone Hal Phillips [facility] [id number] 00:00:00 00:00:00 Lauro Blanchard [id number] [place] [id number] [facility] [id number] nal 044 Building Results Test Description Test Time Test Comments Results Result Comments Source HCV ANTIBODY 2021-09-11 01:40:20 Test Item Value Reference Range Interpretation Comme nts HCV Ab (test code = 87182-8) Positive HCV Semi-Quantitative (test code = 26165-2) BENJI (test code = BENJI) Positive for HCV antibody with a high signal to cutoff ratio (s/c). ?Supplementary test for Hepatitis C Virus RNA Real-Time PCR is recommended if clinically indicated. ?If any questions, please contact Clinical Chemistry Director yeast fermentation attendant at [phone]. [facility] IGG)2021-09-11 00:48:43 Test Item Value Reference Range Interpretation Comments HBC (test code = 6395317731) Reactive HBC Semi-Quantitative (test code = 8275659123) [facility] [id number] 00:37:18 Test Item Value Reference Range Interpretation Comments HBsAB (test code = Positive 7416646829) HBsAb mIU/mL Semi-Quantitative (test code = 8228131332) BENJI (test code = Interpretation: BENJI) ?Hepatitis B Surface Antibody ? Negative - Patient is considered to be not immune to infection with HBV. ? ? Positive - Anti-HBs detected at greater than or equal to 12 mIU/mL. ?Patient is considered to be immune to infection with HBV. ? [facility] [id number] 00:19:17 Test Item Value Reference Range Interpretation Comments HBsAg Semi-Quantitative (test code = Negative Negative 5195-3) [facility] AG-AB WITH [id number] 20:34:16 Test Item Value Reference Range Interpretation Comments HIV Negative Negative Semi-quantitative (test code = 90812-9) BENJI (test code = Non-reactive for HIV-1 BENJI) antigen and HIV-1/HIV-2 antibodies. ?No laboratory evidence of HIV infection. ?Repeat in 2-4 weeks if acute HIV infection is suspected. [facility], [id number] 20:33:56 Test Item Value Reference Range Interpretation Comments VIT D 25OH (test code = 37 ng/mL - 45721-5) BENJI (test code = BENJI) Deficiency: <20 ng/mLInsufficiency : 20-24 ng/mLOptimal: 25-80 ng/mL Lab Interpretation (test Normal code = 26622-9) [facility] [id number] 20:11:09 Test Item Value Reference Range Interpretation Comments FREE T4 (test code = See_Comment [Autom ated message] [id number]) The system [employer] generated this result transmitted ref erence range: 0.78 - 2 .20 ng/dL:. The ref erence range was not u sed to interpret this result as normal/abnor mal. Lab Interpretation (test Normal code = 61474-7) [facility] [id number] 20:10:29 Test Item Value Reference Range Interpretation Comments FREE T3 (test code = 9178046223) 3.67 pg/mL 2.77-5.27 Lab Interpretation (test code = Normal 68119-2) [facility] Center[facility] ([id number])(TOTAL CHOLESTEROL, TRIGLYCERIDES, HDL)2021-09-10 20:09:49 Test Item Value Reference Range Interpretation Comments CHOL (test code = 296 mg/dL 120-200 H [id number]) HDL (test code = 180 mg/dL >50 7056170824) HDLC RATIO (test code = See_Comment [Au tomated message] 5238686276) The system [employer] generated this result transmit yazmin reference range : <=4.5. The refe rence range was not u sed to interpret th is result as normal/abnormal . TRIG (test code = 103 mg/dL 30-170 5640676209) LDL CHOL (test code = 95 mg/dL See_Comment [Auto mated message] 99084-3) The system [employer] generated this result transmit yazmin reference range : <=160. The refe rence range was not u sed to interpret th is result as normal/abnormal . VLDL (test code = 21 mg/dL 5-60 1301961760) Lab Interpretation (test Abnormal code = 38399-4) [facility] (A1C)2021-09-10 18:02:30 Test Item Value Reference Range Interpretation Comments HGB A1C (test code = 5.2 % 4.0-5.7 4548-4) BENJI (test code = BENJI) Reference RangesNormal: <5.7%Prediabetes: 5.7 - 6.4%Diabetes: > 6.5% Lab Interpretation (test Normal code = 83428-3) [facility] WITH [id number] 17:36:17 Test Item Value Reference Range Interpretation Comments WBC (test code = See_Comment L [Automated 6690-2) message] The sy stem which generated this result transmitted reference range : 4.30 - 11.10 10*3/?L. The reference range was not used to interpret this result as normal/abnormal . RBC (test code = See_Comment [Automated 789-8) message] The sy stem which generated this result transmitted reference range : 3.93 - 5.25 10*6/?L. The reference range was not used to interpret this result as normal/abnormal . HGB (test code = 12.9 g/dL 11.6-15.0 718-7) HCT (test code = 41.0 % 35.7-45.2 4544-3) MCV (test code = 87.4 fL 80.6-95.5 787-2) MCH (test code = 27.5 pg 25.9-32.8 785-6) MCHC (test code = 31.5 g/dL 31.6-35.1 L 786-4) RDW-SD (test code = 45.7 fL 39.0-49.9 57364-5) RDW-CV (test code = 14.4 % 12.0-15.5 788-0) PLT (test code = See_Comment [Automated 777-3) message] The sy stem which generated this result transmitted reference range : 166 - 358 10*3/ ?L. The reference r aisha was not used to interpret this result as normal/abnormal . MPV (test code = 10.0 fL 9.5-12.9 79539-3) NRBC/100 WBC (test See_Comment [Automat ed code = 1464591726) message] The system which generated this result transmitted reference range : 0.0 - 10.0 /100 WBCs. The refer ence range was not u sed to interpret th is result as normal/abnormal . NRBC x10^3 (test code <0.01 See_Comment [Auto mated = 6475293580) message] The s ystem which generated this result transmitted reference range : 10*3/?L. The reference range was not used to interpret this result as normal/abnormal . GRAN MAT (NEUT) % 66.1 % (test code = 770-8) IMM GRAN % (test code 0.30 % = 2734319096) LYMPH % (test code = 24.4 % 736-9) MONO % (test code = 7.4 % 5905-5) EOS % (test code = 1.5 % 713-8) BASO % (test code = 0.3 % 706-2) GRAN MAT x10^3(ANC) 2.25 10*3/uL 1.88-7.09 (test code = 8796267229) IMM GRAN x10^3 (test <0.03 0.00-0.06 code = 1178481591) LYMPH x10^3 (test code 0.83 10*3/uL 1.32-3.29 L = 731-0) MONO x10^3 (test code 0.25 10*3/uL 0.33-0.92 L = 742-7) EOS x10^3 (test code = 0.05 10*3/uL 0.03-0.39 711-2) BASO x10^3 (test code <0.03 0.01-0.07 = 704-7) Lab Interpretation Abnormal (test code = 53709-1) [facility]
[2021-09-15] MEDS ORDERED: HYDROCODONE/APAP 7.5/325 MG TAB ONE (09:10)
--- NOTE | 2021-09-15 10:24 | RAD REPORT ---
EXAM DESCRIPTION: RAD - Shoulder Left 2 View - 09/15/2021 10:05 am CLINICAL HISTORY: PAIN COMPARISON: No comparisons FINDINGS/IMPRESSION: No acute fracture. No malalignment. No significant focal degenerative changes.
--- NOTE | 2021-09-15 10:25 | RAD REPORT ---
EXAM DESCRIPTION: US - UPPER EXTREMITY VENOUS UNILATE - 09/15/2021 9:46 am CLINICAL HISTORY: PAIN COMPARISON: No comparisons FINDINGS: Color Doppler, grayscale, and spectral analysis was performed. No evidence of thrombosis in the left upper extremity. The left IJ, subclavian, axillary, brachial, c ephalic, basilic, radial veins were interrogated. IMPRESSION: No venous thrombosis in the left upper extremity.
--- NOTE | 2021-09-15 10:35 | ER ---
Nurse's Notes [facility] Name: Ty Robins Age: 61 yrs Sex: Female : 1960 Arrival Date: 09/15/2021 Time: 08:46 Bed 2 Private MD: Diagnosis: Pain in left shoulder Presentation: 09/15 08:55 Chief complaint: Patient states: L shoulder pain that radiates into L breast and to L ll1 elbow for 1 week. No trauma. R upper jaw gum pain for 2 days. No fevers. Coronavirus screen: Vaccine status: Patient reports receiving the 2nd dose of the covid vaccine. Client denies travel out of the [place] in the last 14 days. At this time, the client does not indicate any symptoms associated with coronavirus-19. Ebola Screen: Patient denies travel to an Ebola-affected area in the 21 days before illness onset. Initial Sepsis Screen: Does the patient meet any 2 criteria? No. Patient's initial sepsis screen is negative. Does the patient have a suspected source of infection? No. Patient's initial sepsis screen is negative. Risk Assessment: Do you want to hurt yourself or someone else? Patient reports no desire to harm self or others. Onset of symptoms was September 08, 2021. 08:55 Method Of Arrival: Ambulatory ll1 08:55 Acuity: BRENDA 3 ll1 Triage Assessment: 08:57 General: Appears in no apparent distress. Behavior is calm, cooperative, appropriate ll1 for age. Pain: Complains of pain in L shoulder Pain radiates to L elbow/L breast Pain currently is 9 out of 10 on a pain scale. EENT: Reports pain in R upper jaw. Musculoskeletal: Reports pain in L shoulder. Historical: - Allergies: 08:54 Codeine; ll1 08:54 PENICILLINS; ll1 - PMHx: 08:54 Hepatitis C; RA; ll1 - PSHx: 08:54 hysterectomy; hand SX x 5; ll1 - Immunization history:: Client reports receiving the 2nd dose of the Covid vaccine. - Social history:: Smoking status: Patient reports the use of cigarette tobacco products, denies chronic smoking, but will smoke occasionally, smokes one-half pack cigarettes per day. Screenin:00 Abuse screen: Denies threats or abuse. Denies injuries from another. Nutritional bp screening: No deficits noted. Tuberculosis screening: No symptoms or risk factors identified. Fall Risk None identified. Assessment: 09:00 General: SEE TRIAGE NOTE. bp 10:43 Reassessment: PT D/C HOME WITH FAMILY, DX WITH ARTHRITIS. bp Vital Signs: 08:55 BP 159 / 88; Pulse 81; Resp 17; Temp 97.6; Pulse Ox 99% ; Weight 45.36 kg; Height 5 ft. ll1 3 in. (160.02 cm); Pain 9/10; 10:36 BP 147 / 81; Pulse 83; Resp 17; Temp 97.8; Pulse Ox 98% ; bp 08:55 Body Mass Index 17.71 (45.36 kg, 160.02 cm) ll1 ED Course: 08:46 Patient arrived in ED. rg4 08:53 Roxana Ta [facility]-C [facility] kb 08:53 Edilberto Valdez DO is Attending Physician. kb 08:54 Santos Castellanos, RN is Primary Nurse. bp 08:54 Arm band placed on Patient placed in an exam room, on a stretcher. ll1 08:57 Triage completed. ll1 09:00 Patient has correct armband on for positive identification. Bed in low position. Call bp light in reach. Side rails up X2. 09:32 UPPER EXTREMITY VENOUS UNILATE In Process Unspecified. EDMS 10:07 Shoulder Left (2 View) XRAY In Process Unspecified. EDMS 10:43 No provider procedures requiring assistance completed. Patient did not have IV access bp during this emergency room visit. Administered Medications: 09:50 Drug: [place] (HYDROcodone-acetaminophen) (7.5 mg-325 mg) 1 tabs Route: PO; bp 10:38 Follow up: Response: No adverse reaction bp Outcome: 10:34 Discharge ordered by MD. kb 10:43 Discharged to home ambulatory, with family. bp 10:43 Condition: stable 10:43 Discharge instructions given to patient, family, Instructed on discharge instructions, follow up and referral plans. medication usage, Demonstrated understanding of instructions, follow-up care, medications, Prescriptions given X 1. 10:45 Patient left the ED. bp Signatures: Dispatcher [employer] EDMS Roxana Ta FNP-C FNP-[place] rg4 Santos Castellanos, RN RN bp Griffin, Lynsay, RN RN ll1
--- NOTE | 2021-09-15 10:35 | EDPHYS ---
Physician Documentation [facility] Name: Ty Robins Age: 61 yrs Sex: Female : 1960 Arrival Date: 09/15/2021 Time: 08:46 Bed 2 Private MD: ED Physician Edilberto Valdez HPI: 09/15 10:41 This 61 yrs old Female presents to ER via Ambulatory with complaints of Toothache, kb Shoulder Pain, Arm Pain. 10:41 The patient or guardian complains of decreased range of motion, pain, tenderness. left kb shoulder. Context: The problem was sustained at home, resulted from an unknown reason, The patient experiences decreased range of motion, The patient reports no obvious deformity. Onset: The symptoms/episode began/occurred 4 day(s) ago. Modifying factors: the symptoms are alleviated by nothing. The symptoms are aggravated by movement. Associated signs and symptoms: The patient has no apparent associated signs or symptoms. Severity of symptoms: At their worst the symptoms were moderate, in the emergency department the symptoms are unchanged. Treatment prior to arrival includes: no previous treatment. The patient has not experienced similar symptoms in the past. The patient has not recently seen a physician. Historical: - Allergies: 08:54 Codeine; ll1 08:54 PENICILLINS; ll1 - PMHx: 08:54 Hepatitis C; RA; ll1 - PSHx: 08:54 hysterectomy; hand SX x 5; ll1 - Immunization history:: Client reports receiving the 2nd dose of the Covid vaccine. - Social history:: Smoking status: Patient reports the use of cigarette tobacco products, denies chronic smoking, but will smoke occasionally, smokes one-half pack cigarettes per day. ROS: 10:29 Constitutional: Negative for fever, chills, and weight loss. kb 10:29 ENT: Positive for Gum pain 10:29 MS/extremity: Positive for decreased range of motion, pain, tenderness, of the posterior aspect of left shoulder and left tricep. 10:29 All other systems are negative. Exam: 10:40 Constitutional: This is a well developed, well nourished patient who is awake, alert, kb and in no acute distress. Head/Face: Normocephalic, atraumatic. ENT: Moist Mucous membranes Cardiovascular: Regular rate and rhythm with a normal S1 and S2. No gallops, murmurs, or rubs. No pulse deficits. Respiratory: Respirations even and unlabored. No increased work of breathing. Talking in full sentences Skin: Warm, dry with normal turgor. Normal color. Neuro: Awake and alert, GCS 15, oriented to person, place, time, and situation. Moves all extremities. Normal gait. Psych: Awake, alert, with orientation to person, place and time. Behavior, mood, and affect are within normal limits. 10:40 ENT: Dental exam: pain, that is mild, specifically in the upper right first bicuspid (#5) and upper right cuspid (#6). 10:40 Musculoskeletal/extremity: Extremities: grossly normal except: noted in the left tricep and posterior aspect of left shoulder: decreased ROM, pain, tenderness, ROM: limited active range of motion due to pain, in the posterior aspect of left shoulder, Circulation is intact in all extremities. Sensation intact. Vital Signs: 08:55 BP 159 / 88; Pulse 81; Resp 17; Temp 97.6; Pulse Ox 99% ; Weight 45.36 kg; Height 5 ft. ll1 3 in. (160.02 cm); Pain 9/10; 10:36 BP 147 / 81; Pulse 83; Resp 17; Temp 97.8; Pulse Ox 98% ; bp 08:55 Body Mass Index 17.71 (45.36 kg, 160.02 cm) ll1 MDM: 08:53 Patient medically screened. kb 10:29 Data reviewed: vital signs, nurses notes. Data interpreted: Pulse oximetry: on room air kb is 99 %. Interpretation: normal. Counseling: I had a detailed discussion with the patient and/or guardian regarding: the historical points, exam findings, and any diagnostic results supporting the discharge/admit diagnosis, radiology results, the need for outpatient follow up, a dentist, a family practitioner, to return to the emergency department if symptoms worsen or persist or if there are any questions or concerns that arise at home. 09/15 08:57 Order name: Shoulder Left (2 View) XRAY; Complete Time: 10:26 kb 09/15 09:05 Order name: UPPER EXTREMITY VENOUS UNILATE; Complete Time: 10:26 EDMS Administered Medications: 09:50 Drug: [place] (HYDROcodone-acetaminophen) (7.5 mg-325 mg) 1 tabs Route: PO; bp 10:38 Follow up: Response: No adverse reaction bp Disposition: 11:04 Co-signature as Attending Physician, Edilberto Valdez DO I was immediately available on-site ms3 in the Emergency Department for consultation in the care of the patient.. Disposition Summary: 09/15/21 10:34 Discharge Ordered Location: Home kb Condition: Stable kb Diagnosis - Pain in left shoulder kb Followup: kb - With: Emergency Department - When: As needed - Reason: Worsening of condition Followup: kb - With: Private Physician - When: 2 - 3 days - Reason: Recheck today's complaints, Continuance of care, Re-evaluation by your physician Discharge Instructions: - Discharge Summary Sheet kb - Shoulder Pain, [id number] kb - Rheumatoid Arthritis, [id number] kb Forms: - Medication Reconciliation Form kb - Thank You Letter kb - Antibiotic Education kb - Prescription Opioid Use kb Prescriptions: - Diclofenac Sodium 75 mg Oral tablet,delayed release (DR/EC) - take 1 tablet by ORAL route 2 times per day As needed; 30 tablet; Refills: 0, kb Product Selection Permitted Signatures: Dispatcher [employer] EDRoxana Terrell, WEAVING LOOM OPERATOR-C WEAVING LOOM OPERATOR-Santos Gamez, RN RN bp Mel Moya, JOCELYNE RN ll1 Edilberto Valdez DO DO ms3 Corrections: (The following items were deleted from the chart) 09:05 08:58 Extremity Venous Uni [email or web address] ordered. EDCA EDMS
[2021-09-15 10:51] VITALS: BP 147/81; TEMP 97.8; O2SAT 98
== END 2021-09-15 10:45 | disposition home or self-care (01) ==
LOC: ER 08:43
DX: M25.512 Pain in left shoulder (principal); K08.89 Other specified disorders of teeth and supporting structures; F17.210 Nicotine dependence, cigarettes, uncomplicated; Z88.0 Allergy status to penicillin; Z88.5 Allergy status to narcotic agent
CPT/HCPCS: 93971; 99283

== ENCOUNTER 2022-02-05 09:26 | Emergency (ER) | payer OTHER ==
--- OUTSIDE RECORDS SUMMARY | 2022-02-05 09:31 | XMS REPORT | Continuity of Care Document ---
:1960 Author Organization [facility] t Address [address] [place] [address] Care Team Providers Name Role Phone Lasha Flores MD Primary Care Physician Lasha Flores MD Attending Clinician [facility] Attending Clinician Unavailable Doctor Unassigned, [place] Attending Clinician Unavailable Kalia Steinberg MD Attending Clinician Becca Morrissey MD Attending Clinician [phone] Hal Phillips MD Attending Clinician Payers Payer Name Policy Type Policy Number Effective Date Expiration Date S ource Problems Condition Condition Condition Status Onset Resolution Last Treating Co mments Source Name Details Category Date Date Treatment Clinician Date 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 5-19 ity of 00:00: [address] Chronic Chronic Disease Active 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 00:00: [address] Nasal Nasal Disease Active Univers congestion congestion 5-19 it y of 00:00: [address] Chronic Chronic Disease Active Univers pain of pain of 3-25 ity of both both 00:00: [place] shoulders shoulders 00 [facility] Branch Teeth Teeth Disease Active Univers decayed decayed 3-25 ity of 00:00: [address] Chronic Chronic Disease Active Univers pain of pain of 1-08 ity of both knees [place] [facility] [place] 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 1-08 ity of 00:00: [place] [facility] Cellulitis Cellulitis Disease Active U nivers of right of right 1-08 ity of breast breast 00:00: [place] [facility] Cellulitis Cellulitis Disease Active U nivers of skin of skin 1-08 ity of 00:00: [place] [facility] Chronic Chronic Disease Active Univers pain pain 1-08 ity of syndrome syndrome 00:00: [place] 00 Medical Branch Arthritis, Arthritis, Disease Active U nivers multiple multiple 1-08 ity of joint joint 00:00: [place] involvemen involvemen 00 Me dical t t Branch Pain in Pain in Disease Active Univers both hands both hands 1-08 it y of 00:00: [place] [facility] Cigarette Cigarette Disease Active Uni vers nicotine nicotine 1-08 ity of dependence [place] with other with other 00 Me dical nicotine-i nicotine-i Br anch nduced nduced disorder disorder Essential Essential Disease Active 2018-06 Uni vers hypertensi hypertensi 1-24 it y of on on 00:00: [place] [facility] Spider Spider Disease Active 2018-06 Univers bite bite 1-24 ity of wound, wound, 00:00: [place] undetermin undetermin 00 Me dical ed intent, ed intent, Br anch initial initial encounter encounter Rheumatoid Rheumatoid Disease Active 2018-06 U nivers arthritis arthritis 0-27 it[place] of involving [place] 00:[place] 00 [place] hands, hands, Branch unspecifie unspecifie d d rheumatoid rheumatoid factor factor presence presence Poor sleep Poor sleep Disease Active 2018-06 U nivers pattern pattern 0-27 ity of 00:00: [place] 00 Medical Branch Clubbing Clubbing Disease Active 2018-06 Unive rs of nails of nails 0-27 ity of 00:00: [place] 00 Medical Branch Need for Need for [...] of History of Disease Active U aleksandra dental dental 8-15 ity of surgery surgery 00:00: [place] [facility] Abscessed Abscessed Disease Active Uni vers tooth tooth 8-05 ity of 00:00: [place] 00 Medical Branch Microcytic Microcytic Disease Active U aleksandra anemia anemia 8- ity of 00:00: [place] [facility] Other Other Disease Active Univers neutropeni neutropeni 01-17 it y of a a 00:00: [place] 00 Medical Branch 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-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 00:00: [place] [facility] Chronic Chronic Disease Active Univers periodonta periodonta 01-17 it y of l disease l disease 00:00: [place] [facility] Elevated Elevated Disease Active Unive rs sedimentat sedimentat 01-17 it y of ion rate ion rate 00:00: [place] 00 Medical Branch History of History of Disease Recurre Univers penicillin penicillin nce 01-17 it y of allergy allergy 00:00: [place] 00 Medical Branch Generalize Generalize Disease Active 2015-06 U aleksandra d d ity of osteoarthr osteoarthr 00:[place] [facility] [facility] 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 ity of 00:00: [place] [facility] Abnormal Abnormal Disease Active 2015-[address] scan of CT scan of it y of lung lung 00:00: [place] [facility] History of History of Disease Active 2015-06 U aleksandra cocaine cocaine ity of abuse abuse 00:00: [place] [facility] Need for Need for Disease Active 2015-06 Unive rs immunizati immunizati it y of on against on against 00:00[place] influenza influenza [facility] 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 U nivers connie connie 2-29 ity of cytoplasmi cytoplasmi 00:00[place] c antibody c antibody 00 Me dical (ANCA) (ANCA) Branch positive positive Nicotine Nicotine Disease Active 2015-06 Unive rs dependence dependence 2-29 it y of with with 00:00: [place] current current 00 Medical use use Branch Positive Positive Disease Active Unive rs QuantiFERO QuantiFERO 2-12 it y of N-TB Gold N-TB Gold 00:00[place] test test 00 [facility] Vasculitis Vasculitis Disease Active U nivers 5-04 ity of 00:00: [place] 00 Medical Branch Inflammato Inflammato Disease Active U nivers ry ry 5-04 ity of arthritis arthritis 00:00[place] Chronic Chronic Disease Active Univers hepatitis hepatitis 504 ity of C without C without 00:00: [...] mass Lung mass Disease Active Uni vers 2-07 ity of 00:00: [place] 00 Medical Branch Allergies, Adverse Reactions, Alerts Allergy Allergy Status Severity Reaction(s) Onset Inactive Treating Comm ents Source Name Type Date Date Clinician Codeine Propensi Active Nausea Univers ty to and/or 8-25 ity of adverse Vomiting 00:00: [place] reaction 00 Medical s Branch Penicill Propensi Active Anaphylaxis 2005- U nivers ins ty to 5-08 ity of adverse 00:00: [place] reaction 00 Medical s Branch Social History Social Habit Start Date Stop Date Quantity Comments Source History of tobacco Cigarette Smoker University of use [place] [facility] o f Alcohol Frequency [facility] edical Branch History [facility] University o f Alcohol Std Drinks [place] [facility] o f Alcohol Binge [place] [facility] Alcohol intake 2021-11-04 2021-11-04 Current drinker Unive rsity of 00:00:00 00:00:00 of alcohol [place] [facility] (finding) Branch Cigarettes smoked 2018-01-16 2018-01-16 Univers ity of current (pack per 00:00:00 00:00:00 ) - Reported Branch Cigarette 2018-01-16 2018-01-16 University of pack-years 00:00:00 00:00:00 [facility] Tobacco use and 2018-01-16 2018-01-16 Smokeless Universit y of exposure 00:00:00 00:00:00 tobacco non-user [facility] dical Branch Alcohol Comment 2018-01-16 2018-01-16 social Universit y of 00:00:00 00:00:00 [facility] Tobacco Comment 2018-01-16 2018-01-16 currently Universit y of 00:00:00 00:00:00 smoking 4 cig/ [facility] Branch Sex [birth year] Universit y of 00:00:00 00:00:00 [facility] Smoking Status Start Date Stop Date Source Smokes tobacco daily 2018-01-16 00:00:00 Univers ity of [facility] Medications Ordered Filled Start Stop Current Ordering Indication Dosage Frequency Signature Comments Components Source Medication Medication Date Date Medication? Clinician (SIG) Name Name CETIRIZINE Yes [id number] 10mg TAKE 1 U nivers 10 mg 7-14 TABLET BY ity of tablet 00:00: MOUTH AT [place] [address] BEDTIME Medical NEEDED FOR Branch ALLERGIES. FLUTICASONE Yes [id number] SPRAY 1 Univers PROPIONATE 7-14 SPRAY INTO ity of 50 00:00: EACH [place] mcg/actuati 00 NOSTRIL Medic al on nasal EVERY DAY Branch spray pravastatin Yes [id number] 20mg Take 1 Univers 20 mg 6-16 tablet by ity of tablet 00:00: mouth at [place] [address] bedtime. Medical Branch FLUTICASONE Yes [id number] SPRAY 1 Univers PROPIONATE 6-16 SPRAY INTO ity of 50 00:00: EACH [place] mcg/actuati 00 NOSTRIL Medic al on nasal EVERY DAY Branch spray CETIRIZINE Yes [id number] 10mg TAKE 1 U nivers 10 mg 6-16 TABLET BY ity of tablet 00:00: MOUTH AT [place] [address] BEDTIME Medical NEEDED FOR Branch ALLERGIES. pravastatin Yes [id number] 20mg Take 1 Univers 20 mg 6-16 tablet by ity of tablet 00:00: mouth at [place] 00 bedtime. Medical Branch FLUTICASONE 0 Yes [id number] SPRAY 1 Univers PROPIONATE 6-16 SPRAY INTO ity of 50 00:00: EACH [place] mcg/actuati 00 NOSTRIL Medic al on nasal EVERY DAY Branch spray CETIRIZINE 2021-0 Yes [id number] 10mg TAKE 1 U nivers 10 mg 6-16 TABLET BY ity of tablet 00:00: MOUTH AT [place] 00 BEDTIME Medical NEEDED FOR Branch ALLERGIES. pravastatin 0 Yes [id number] 20mg Take 1 Univers 20 mg 6-16 tablet by ity of tablet 00:00: mouth at [place] [address] bedtime. Medical Branch FLUTICASONE 0 Yes [id number] SPRAY 1 Univers PROPIONATE 6-16 SPRAY INTO ity of 50 00:00: EACH [place] mcg/actuati 00 NOSTRIL Medic al on nasal EVERY DAY Branch spray CETIRIZINE 2021-0 Yes [id number] 10mg TAKE 1 U nivers 10 mg 6-16 TABLET BY ity of tablet 00:00: MOUTH AT [place] 00 BEDTIME Medical NEEDED FOR Branch ALLERGIES. pravastatin 0 Yes [id number] 20mg Take 1 Univers 20 mg 6-16 tablet by ity of tablet 00:00: mouth at [place] [address] bedtime. Medical Branch FLUTICASONE 0 Yes [id number] SPRAY 1 Univers PROPIONATE 6-16 SPRAY INTO ity of 50 00:00: EACH [place] mcg/actuati 00 NOSTRIL Medic al on nasal EVERY DAY Branch spray CETIRIZINE 2021-0 Yes [id number] 10mg TAKE 1 U nivers 10 mg 6-16 TABLET BY ity of tablet 00:00: MOUTH AT [place] 00 BEDTIME Medical NEEDED FOR Branch ALLERGIES. pravastatin 0 Yes [id number] 20mg Take 1 Univers 20 mg 6-16 tablet by ity of tablet 00:00: mouth at [place] [address] bedtime. Medical Branch pravastatin 2021-0 Yes [id number] 20mg Take 1 Univers 20 mg 6-16 tablet by ity of tablet 00:00: mouth at [place] [address] bedtime. Medical Branch FLUTICASONE 0 2021- No [id number] SPRAY 1 Univers PROPIONATE 6-16 07-14 SPRAY INTO it y of 50 00:00: 00:00 EACH [place] mcg/actuati 00 :00 NOSTRIL Medic al on nasal EVERY DAY Branch spray CETIRIZINE 2021- No [id number] 10mg TAKE 1 Univers 10 mg 6-16 07-14 TABLET BY ity of tablet 00:00: 00:00 MOUTH AT [place] 00 :00 BEDTIME Medical NEEDED FOR Branch ALLERGIES. nicotine 14 Yes [id number] 1{patch Apply 1 Univers mg/24 hr 5-19 } Patch to ity of patch 00:00: area(s) [place] 00 every 24 Medical (twenty-fo Branch ur) hours. Apply 21mg patch daily x 6 weeks; then apply 14mf patch daily x 2 weeks; then apply 7mg patch daily x 2 weeks. Stop smoking on initiation of therapy nicotine 21 Yes [id number] 1{patch Apply 1 Univers mg/24 hr 5-19 } Patch to ity of patch 00:00: area(s) [place] 00 daily. Medical Apply 21mg Branch patch daily x 6 weeks; then apply 14mf patch daily x 2 weeks; then apply 7mg patch daily x 2 weeks. Stop smoking on initiation of therapy nicotine 7 Yes [id number] 1{patch Apply 1 Univers mg/24 hr 5-19 } Patch to ity of patch 00:00: area(s) [place] 00 every 24 Medical (twenty-fo Branch ur) hours. Apply 21mg patch daily x 6 weeks; then apply 14mf patch daily x 2 weeks; then apply 7mg patch daily x 2 weeks. Stop smoking on initiation of therapy fluticasone Yes [id number] 1{spray Use 1 Univers propionate 5-19 } [place] in ity o f 50 00:00: each [place] mcg/actuati 00 nostril Medic al on nasal daily. Branch spray cetirizine Yes [id number] 10mg Take 1 U nivers (ZYRTEC) 10 5-19 tablet by ity of mg tablet 00:00: [place] 00 bedtime as Medical needed for Branch Allergies. benzonatate Yes [id number] 100mg Take 1 Univers (TESSALON 5-19 capsule by ity of PERLES) 100 00:00: mouth [place] mg capsule 00 every 8 Medica l (eight) Branch hours as needed for Cough. sofosbuvir- Yes [id number] 1{tbl} Take 1 Univers velpatasvir 5-19 tablet by ity of (EPCLUSA) 00:00: mouth [place] 400-100 mg 00 daily. Medical Branch nicotine 14 Yes [id number] 1{patch Apply 1 Univers mg/24 hr 5-19 } Patch to ity of patch 00:00: area(s) [place] 00 every 24 Medical (twenty-fo Branch ur) hours. Apply 21mg patch daily x 6 weeks; then apply 14mf patch daily x 2 weeks; then apply 7mg patch daily x 2 weeks. Stop smoking on initiation of therapy nicotine 21 Yes [id number] 1{patch Apply 1 Univers mg/24 hr 5-19 } Patch to ity of patch 00:00: area(s) [place] 00 daily. Medical Apply 21mg Branch patch daily x 6 weeks; then apply 14mf patch daily x 2 weeks; then apply 7mg patch daily x 2 weeks. Stop smoking on initiation of therapy nicotine 7 Yes [id number] 1{patch Apply 1 Univers mg/24 hr 5-19 } Patch to ity of patch 00:00: area(s) [place] 00 every 24 Medical (twenty-fo Branch ur) hours. Apply 21mg patch daily x 6 weeks; then apply 14mf patch daily x 2 weeks; then apply 7mg patch daily x 2 weeks. Stop smoking on initiation of therapy benzonatate Yes [id number] 100mg Take 1 Univers (TESSALON 5-19 capsule by ity of ALEKSANDR) 100 00:00: mouth [place] mg capsule 00 every 8 Medica l (eight) Branch hours as needed for Cough. sofosbuvir- Yes [id number] 1{tbl} Take 1 Univers velpatasvir 5-19 tablet by ity of (EPCLUSA) 00:00: mouth [place] 400-100 mg 00 daily. Medical Branch nicotine Yes [id number] 1{patch Apply 1 Univers mg/24 hr 5-19 } Patch to ity of patch 00:00: area(s) [place] 00 every 24 Medical (twenty-fo Branch ur) hours. Apply 21mg patch daily x 6 weeks; then apply 14mf patch daily x 2 weeks; then apply 7mg patch daily x 2 weeks. Stop smoking on initiation of therapy nicotine Yes [id number] 1{patch Apply 1 Univers mg/24 hr 5-19 } Patch to ity of patch 00:00: area(s) [place] 00 daily. Medical Apply 21mg Branch patch daily x 6 weeks; then apply 14mf patch daily x 2 weeks; then apply 7mg patch daily x 2 weeks. Stop smoking on initiation of therapy nicotine Yes [id number] 1{patch Apply 1 Univers mg/24 hr 5-19 } Patch to ity of patch 00:00: area(s) [place] 00 every 24 Medical (twenty-fo Branch ur) hours. Apply 21mg patch daily x 6 weeks; then apply 14mf patch daily x 2 weeks; then apply 7mg patch daily x 2 weeks. Stop smoking on initiation of therapy benzonatate Yes [id number] 100mg Take 1 Univers (TESSALON 5-19 capsule by ity of PERL) 100 00:00: mouth [place] mg capsule 00 every 8 Medica l (eight) Branch hours as needed for Cough. sofosbuvir- Yes [id number] 1{tbl} Take 1 Univers velpatasvir 5-19 tablet by ity of (EPCLUSA) 00:00: mouth [place] 400-100 mg 00 daily. Medical Branch nicotine Yes [id number] 1{patch Apply 1 Univers mg/24 hr 5-19 } Patch to ity of patch 00:00: area(s) [place] 00 every 24 Medical (twenty-fo Branch ur) hours. Apply 21mg patch daily x 6 weeks; then apply 14mf patch daily x 2 weeks; then apply 7mg patch daily x 2 weeks. Stop smoking on initiation of therapy nicotine Yes [id number] 1{patch Apply 1 Univers mg/24 hr 5-19 } Patch to ity of patch 00:00: area(s) [place] 00 daily. Medical Apply 21mg Branch patch daily x 6 weeks; then apply 14mf patch daily x 2 weeks; then apply 7mg patch daily x 2 weeks. Stop smoking on initiation of therapy nicotine 7 Yes [id number] 1{patch Apply 1 Univers mg/24 hr 5-19 } Patch to ity of patch 00:00: area(s) [place] 00 every 24 Medical (twenty-fo Branch ur) hours. Apply 21mg patch daily x 6 weeks; then apply 14mf patch daily x 2 weeks; then apply 7mg patch daily x 2 weeks. Stop smoking on initiation of therapy benzonatate Yes [id number] 100mg Take 1 Univers (TESSALON 5-19 capsule by ity of PERLPersonera) 100 00:00: mouth [place] mg capsule 00 every 8 Medica l (eight) Branch hours as needed for Cough. sofosbuvir- Yes [id number] 1{tbl} Take 1 Univers velpatasvir 5-19 tablet by ity of (EPCLUSA) 00:00: mouth [place] 400-100 mg 00 daily. Medical Branch nicotine Yes [id number] 1{patch Apply 1 Univers mg/24 hr 5-19 } Patch to ity of patch 00:00: area(s) [place] 00 every 24 Medical (twenty-fo Branch ur) hours. Apply 21mg patch daily x 6 weeks; then apply 14mf patch daily x 2 weeks; then apply 7mg patch daily x 2 weeks. Stop smoking on initiation of therapy nicotine 21 Yes [id number] 1{patch Apply 1 Univers mg/24 hr 5-19 } Patch to ity of patch 00:00: area(s) [place] 00 daily. Medical Apply 21mg Branch patch daily x 6 weeks; then apply 14mf patch daily x 2 weeks; then apply 7mg patch daily x 2 weeks. Stop smoking on initiation of therapy nicotine Yes [id number] 1{patch Apply 1 Univers mg/24 hr 5-19 } Patch to ity of patch 00:00: area(s) [place] 00 every 24 Medical (twenty-fo Branch ur) hours. Apply 21mg patch daily x 6 weeks; then apply 14mf patch daily x 2 weeks; then apply 7mg patch daily x 2 weeks. Stop smoking on initiation of therapy benzonatate Yes [id number] 100mg Take 1 Univers (TESSALON 5-19 capsule by ity of PERLES) 100 00:00: mouth [place] mg capsule 00 every 8 Medica l (eight) Branch hours as needed for Cough. sofosbuvir- Yes [id number] 1{tbl} Take 1 Univers velpatasvir 5-19 tablet by ity of (EPCLUSA) 00:00: mouth [place] 400-100 mg 00 daily. Medical Branch nicotine 14 Yes [id number] 1{patch Apply 1 Univers mg/24 hr 5-19 } Patch to ity of patch 00:00: area(s) [place] 00 every 24 Medical (twenty-fo Branch ur) hours. Apply 21mg patch daily x 6 weeks; then apply 14mf patch daily x 2 weeks; then apply 7mg patch daily x 2 weeks. Stop smoking on initiation of therapy nicotine Yes [id number] 1{patch Apply 1 Univers mg/24 hr 5-19 } Patch to ity of patch 00:00: area(s) [place] 00 daily. Medical Apply 21mg Branch patch daily x 6 weeks; then apply 14mf patch daily x 2 weeks; then apply 7mg patch daily x 2 weeks. Stop smoking on initiation of therapy nicotine 7 Yes [id number] 1{patch Apply 1 Univers mg/24 hr 5-19 } Patch to ity of patch 00:00: area(s) [place] 00 every 24 Medical (twenty-fo Branch ur) hours. Apply 21mg patch daily x 6 weeks; then apply 14mf patch daily x 2 weeks; then apply 7mg patch daily x 2 weeks. Stop smoking on initiation of therapy benzonatate Yes [id number] 100mg Take 1 Univers (TESSALON 5-19 capsule by ity of VJES) 100 00:00: mouth [place] mg capsule 00 every 8 Medica l (eight) Branch hours as needed for Cough. sofosbuvir- Yes [id number] 1{tbl} Take 1 Univers velpatasvir 5-19 tablet by ity of (EPCLUSA) 00:00: mouth [place] 400-100 mg 00 daily. Medical Branch nicotine Yes [id number] 1{patch Apply 1 Univers mg/24 hr 5-19 } Patch to ity of patch 00:00: area(s) [place] 00 every 24 Medical (twenty-fo Branch ur) hours. Apply 21mg patch daily x 6 weeks; then apply 14mf patch daily x 2 weeks; then apply 7mg patch daily x 2 weeks. Stop smoking on initiation of therapy nicotine 0 Yes [id number] 1{patch Apply 1 Univers mg/24 hr 5-19 } Patch to ity of patch 00:00: area(s) [place] 00 daily. Medical Apply 21mg Branch patch daily x 6 weeks; then apply 14mf patch daily x 2 weeks; then apply 7mg patch daily x 2 weeks. Stop smoking on initiation of therapy nicotine 7 Yes [id number] 1{patch Apply 1 Univers mg/24 hr 5-19 } Patch to ity of patch 00:00: area(s) [place] 00 every 24 Medical (twenty-fo Branch ur) hours. Apply 21mg patch daily x 6 weeks; then apply 14mf patch daily x 2 weeks; then apply 7mg patch daily x 2 weeks. Stop smoking on initiation of therapy benzonatate Yes [id number] 100mg Take 1 Univers (TESSALON 5-19 capsule by ity of ALEKSANDR) 100 00:00: mouth [place] mg capsule 00 every 8 Medica l (eight) Branch hours as needed for Cough. sofosbuvir- Yes [id number] 1{tbl} Take 1 Univers velpatasvir 5-19 tablet by ity of (EPCLUSA) 00:00: mouth [place] 400-100 mg 00 daily. Medical Branch fluticasone 2021- No [id number] 1{spray Use 1 Univers propionate 5-19 06-16 } [place] in ity of 50 00:00: 00:00 each [place] mcg/actuati 00 :00 nostril Medic al on nasal daily. Branch spray cetirizine 2021- No [id number] 10mg Take 1 Univers (ZYRTEC) 10 5-19 06-16 tablet by it y of mg tablet 00:00: 00:00 mouth at [place] 00 :00 bedtime as Medical needed for Branch Allergies. MELOXICAM Yes TAKE 1 U nivers 7.5 mg 4-26 TABLET BY ity of tablet 00:00: MOUTH [place] 00 EVERY DAY Medical Branch MELOXICAM Yes TAKE 1 U nivers 7.5 mg 4-26 TABLET BY ity of tablet 00:00: MOUTH [place] 00 EVERY DAY Medical Branch MELOXICAM Yes [id number] TAKE 1 U nivers 7.5 mg 4-26 TABLET BY ity of tablet 00:00: MOUTH [place] 00 EVERY DAY Medical Branch MELOXICAM 0 Yes [id number] TAKE 1 U nivers 7.5 mg 4-26 TABLET BY ity of tablet 00:00: MOUTH [place] 00 EVERY DAY Medical Branch MELOXICAM 0 Yes [id number] TAKE 1 U nivers 7.5 mg 4-26 TABLET BY ity of tablet 00:00: MOUTH [place] 00 EVERY DAY Medical Branch MELOXICAM Yes [id number] TAKE 1 U nivers 7.5 mg 4-26 TABLET BY ity of tablet 00:00: MOUTH [place] 00 EVERY DAY Medical Branch MELOXICAM Yes TAKE 1 U nivers 7.5 mg 4-26 TABLET BY ity of tablet 00:00: MOUTH [place] 00 EVERY DAY Medical Branch traMADoL 50 Yes [id number] 50mg Take 1 Univ ers mg tablet 3-30 tablet by ity o f 00:00: mouth [place] 00 every 8 Medical (eight) Branch hours as needed for Pain (scale 7-10). Indication s: chronic pain clindamycin Yes [id number] 300mg Take 1 Univers 300 mg 3-30 capsule by ity of capsule 00:00: mouth 4 [place] 00 (four) Medical times Branch daily. lisinopriL- Yes [id number] 1{tbl} Take 1 Univers hydrochloro 3-30 tablet by ity of thiazide 00:00: mouth [place] 20-12.5 mg 00 daily. Medical per tablet Branch lactobacill Yes [id number] 1{capsu Take 1 Univers us 3-30 le} capsule by ity of combination 00:00: mouth [place] no.4 00 daily. Medical (PROBIOTIC) Branch 3 billion cell Cap traMADoL 50 Yes [id number] 50mg Take 1 Univ ers mg tablet 3-30 tablet by ity o f 00:00: mouth [place] 00 every 8 Medical (eight) Branch hours as needed for Pain (scale 7-10). Indication s: chronic pain clindamycin Yes [id number] 300mg Take 1 Univers 300 mg 3-30 capsule by ity of capsule 00:00: mouth 4 [place] 00 (four) Medical times Branch daily. lisinopriL- Yes [id number] 1{tbl} Take 1 Univers hydrochloro 3-30 tablet by ity of thiazide 00:00: mouth [place] 20-12.5 mg 00 daily. Medical per tablet Branch lactobacill 0 Yes [id number] 1{capsu Take 1 Univers us 3-30 le} capsule by ity of combination 00:00: mouth [place] no.4 00 daily. Medical (PROBIOTIC) Branch 3 billion cell Cap traMADoL 50 2021-0 Yes [id number] 50mg Take 1 Univ ers mg tablet 3-30 tablet by ity o f 00:00: mouth [place] 00 every 8 Medical (eight) Branch hours as needed for Pain (scale 7-10). Indication s: chronic pain clindamycin 0 Yes [id number] 300mg Take 1 Univers 300 mg 3-30 capsule by ity of capsule 00:00: mouth 4 [place] 00 (four) Medical times Branch daily. lisinopriL- Yes [id number] 1{tbl} Take 1 Univers hydrochloro 3-30 tablet by ity of thiazide 00:00: mouth [place] 20-12.5 mg 00 daily. Medical per tablet Branch lactobacill Yes [id number] 1{capsu Take 1 Univers us 3-30 le} capsule by ity of combination 00:00: mouth [place] no.4 00 daily. Medical (PROBIOTIC) Branch 3 billion cell Cap traMADoL 50 2021-0 Yes [id number] 50mg Take 1 Univ ers mg tablet 3-30 tablet by ity o f 00:00: mouth [place] 00 every 8 Medical (eight) Branch hours as needed for Pain (scale 7-10). Indication s: chronic pain clindamycin 2021-0 Yes [id number] 300mg Take 1 Univers 300 mg 3-30 capsule by ity of capsule 00:00: mouth 4 [place] 00 (four) Medical times Branch daily. lisinopriL- 2021- Yes [id number] 1{tbl} Take 1 Univers hydrochloro 3-30 tablet by ity of thiazide 00:00: mouth [place] 20-12.5 mg 00 daily. Medical per tablet Branch lactobacill 0 Yes [id number] 1{capsu Take 1 Univers us 3-30 le} capsule by ity of combination 00:00: mouth [place] no.4 00 daily. Medical (PROBIOTIC) Branch 3 billion cell Cap traMADoL 50 2021-0 Yes [id number] 50mg Take 1 Univ ers mg tablet 3-30 tablet by ity o f 00:00: mouth [place] 00 every 8 Medical (eight) Branch hours as needed for Pain (scale 7-10). Indication s: chronic pain clindamycin 2021-0 Yes [id number] 300mg Take 1 Univers 300 mg 3-30 capsule by ity of capsule 00:00: mouth 4 [place] 00 (four) Medical times Branch daily. lisinopriL- 2021-0 Yes [id number] 1{tbl} Take 1 Univers hydrochloro 3-30 tablet by ity of thiazide 00:00: mouth [place] 20-12.5 mg 00 daily. Medical per tablet Branch lactobacill 2021-0 Yes [id number] 1{capsu Take 1 Univers us 3-30 le} capsule by ity of combination 00:00: mouth [place] no.4 00 daily. Medical (PROBIOTIC) Branch 3 billion cell Cap traMADoL 50 0 Yes [id number] 50mg Take 1 Univ ers mg tablet 3-30 tablet by ity o f 00:00: mouth [place] 00 every 8 Medical (eight) Branch hours as needed for Pain (scale 7-10). Indication s: chronic pain clindamycin 2021-0 Yes [id number] 300mg Take 1 Univers 300 mg 3-30 capsule by ity of capsule 00:00: mouth 4 [place] 00 (four) Medical times Branch daily. lisinopriL- 2021-0 Yes [id number] 1{tbl} Take 1 Univers hydrochloro 3-30 tablet by ity of thiazide 00:00: mouth [place] 20-12.5 mg 00 daily. Medical per tablet Branch lactobacill 2021-0 Yes [id number] 1{capsu Take 1 Univers us 3-30 le} capsule by ity of combination 00:00: mouth [place] no.4 00 daily. Medical (PROBIOTIC) Branch 3 billion cell Cap traMADoL 50 2021-0 Yes [id number] 50mg Take 1 Univ ers mg tablet 3-30 tablet by ity o f 00:00: mouth [place] 00 every 8 Medical (eight) Branch hours as needed for Pain (scale 7-10). Indication s: chronic pain clindamycin 2021-0 Yes [id number] 300mg Take 1 Univers 300 mg 3-30 capsule by ity of capsule 00:00: mouth 4 [place] 00 (four) Medical times Branch daily. lisinopriL- Yes [id number] 1{tbl} Take 1 Univers hydrochloro 3-30 tablet by ity of thiazide 00:00: mouth [place] 20-12.5 mg 00 daily. Medical per tablet Branch lactobacill Yes [id number] 1{capsu Take 1 Univers us 3-30 le} capsule by ity of combination 00:00: mouth [place] no.4 00 daily. Medical (PROBIOTIC) Branch 3 billion cell Cap atorvastati 2021- No [id number] 40mg Take 1 Univers n 40 mg 3-30 06-16 tablet by ity of tablet 00:00: 00:00 mouth at [place] 00 :00 bedtime. Medical Branch mupirocin 2 Yes [id number] Apply to Univers % ointment 1-08 area(s) 3 ity of 00:00: (three) [place] 00 times Medical daily. Branch traMADoL 50 Yes [id number] 50mg Take 1 Univ ers mg tablet 1-08 tablet by ity o f 00:00: mouth [place] 00 every 8 Medical (eight) Branch hours as needed for Pain (scale 4-6). Indication s: chronic pain mupirocin 2 Yes [id number] Apply to Univers % ointment 1-08 area(s) 3 ity of 00:00: (three) [place] 00 times Medical daily. Branch traMADoL 50 Yes [id number] 50mg Take 1 Univ ers mg tablet 1-08 tablet by ity o f 00:00: mouth [place] 00 every 8 Medical (eight) Branch hours as needed for Pain (scale 4-6). Indication s: chronic pain mupirocin 2 2020- Yes [id number] Apply to Univers % ointment 1-08 area(s) 3 ity of 00:00: (three) [place] 00 times Medical daily. Branch traMADoL 50 2020-0 Yes [id number] 50mg Take 1 Univ ers mg tablet 1-08 tablet by ity o f 00:00: mouth [place] 00 every 8 Medical (eight) Branch hours as needed for Pain (scale 4-6). Indication s: chronic pain mupirocin 2 2020-0 Yes [id number] Apply to Univers % ointment 1-08 area(s) 3 ity of 00:00: (three) [place] 00 times Medical daily. Branch traMADoL 50 2020-0 Yes [id number] 50mg Take 1 Univ ers mg tablet 1-08 tablet by ity o f 00:00: mouth [place] 00 every 8 Medical (eight) Branch hours as needed for Pain (scale 4-6). Indication s: chronic pain mupirocin 2 2020-0 Yes [id number] Apply to Univers % ointment 1-08 area(s) 3 ity of 00:00: (three) [place] 00 times Medical daily. Branch traMADoL 50 2020-0 Yes [id number] 50mg Take 1 Univ ers mg tablet 1-08 tablet by ity o f 00:00: mouth [place] 00 every 8 Medical (eight) Branch hours as needed for Pain (scale 4-6). Indication s: chronic pain mupirocin 2 2020-0 Yes [id number] Apply to Univers % ointment 1-08 area(s) 3 ity of 00:00: (three) [place] 00 times Medical daily. Branch traMADoL 50 2020-0 Yes [id number] 50mg Take 1 Univ ers mg tablet 1-08 tablet by ity o f 00:00: mouth [place] 00 every 8 Medical (eight) Branch hours as needed for Pain (scale 4-6). Indication s: chronic pain mupirocin 2 2020-0 Yes [id number] Apply to Univers % ointment 1-08 area(s) 3 ity of 00:00: (three) [place] 00 times Medical daily. Branch traMADoL 50 2020-0 Yes [id number] 50mg Take 1 Univ ers mg tablet 1-08 tablet by ity o f 00:00: mouth [place] 00 every 8 Medical (eight) Branch hours as needed for Pain (scale 4-6). Indication s: chronic pain Miscellaneo 2018-06 Yes [id number] I10 - U [facility] -20 Dispense ity o f Supply Kit 00:00: blood [place] 00 pressure Medical cuff (any Branch brand), take BP at home BID Miscellaneo 2018-06 Yes [id number] I10 - U [facility] -20 Dispense ity o f Supply Kit 00:00: blood 00 pressure Medical cuff (any Branch brand), take BP at home BID Miscellaneo 2018-06 Yes [id number] I10 - U nivers Medical 07-08 Dispense ity o f Supply Kit 00:00: blood [place] 00 pressure Medical cuff (any Branch brand), take BP at home BID Miscellaneo 2018-06 Yes [id number] I10 - U nivers Medical 07-08 Dispense ity o f Supply Kit 00:00: blood [place] 00 pressure Medical cuff (any Branch brand), take BP at home BID Miscellaneo 2018-06 Yes [id number] I10 - U nivers Medical 07-08 Dispense ity o f Supply Kit 00:00: blood [place] 00 pressure Medical cuff (any Branch brand), take BP at home BID Miscellaneo 2018-06 Yes [id number] I10 - U nivers Medical 07-08 Dispense ity o f Supply Kit 00:00: blood [place] 00 pressure Medical cuff (any Branch brand), take BP at home BID Miscellaneo 2018-06 Yes [id number] I10 - U nivers [facility] 07-08 Dispense ity o f Supply Kit 00:00: blood [place] 00 pressure Medical cuff (any Branch brand), take BP at home BID lidocaine Yes [id number] 15mL Take 15 mL Univers 2% viscous 9-14 by mouth ity o f 2 % 00:00: every 4 [place] solution 00 (four) Medical hours as Branch needed for Oral mucosal pain. camphor-men Yes Apply to [facility] area(s) 2 ity of (FREEZE IT 00:00: (two) [place] RELIEF) 00 times Medical 0.2-3.5 % daily. Branch Gel lidocaine Yes [id number] 15mL Take 15 mL Univers 2% viscous 9-14 by mouth ity o f 2 % 00:00: every 4 [place] solution 00 (four) Medical hours as Branch needed for Oral mucosal pain. camphor-men Yes Apply to [facility] 914 area(s) 2 ity of (FREEZE IT 00:00: (two) [place] RELIEF) 00 times Medical 0.2-3.5 % daily. Branch Gel lidocaine Yes [id number] 15mL Take 15 mL Univers 2% viscous 9-14 by mouth ity o f 2 % 00:00: every 4 [place] solution 00 (four) Medical hours as Branch needed for Oral mucosal pain. camphor-men 2017- Yes Apply to [place] [address] area(s) 2 ity of (FREEZE IT 00:00: (two) [place] RELIEF) 00 times Medical 0.2-3.5 % daily. Branch Gel lidocaine Yes [id number] 15mL Take 15 mL Univers 2% viscous 9-14 by mouth ity o f 2 % 00:00: every 4 [place] solution 00 (four) Medical hours as Branch needed for Oral mucosal pain. camphor-men Yes Apply to [place] [address] area(s) 2 ity of (FREEZE IT 00:00: (two) [place] RELIEF) 00 times Medical 0.2-3.5 % daily. Branch Gel lidocaine Yes [id number] 15mL Take 15 mL Univers 2% viscous 9-14 by mouth ity o f 2 % 00:00: every 4 [place] solution 00 (four) Medical hours as Branch needed for Oral mucosal pain. camphor-men Yes Apply to [place] [address] area(s) 2 ity of (FREEZE IT 00:00: (two) [place] RELIEF) 00 times Medical 0.2-3.5 % daily. Branch Gel lidocaine Yes [id number] 15mL Take 15 mL Univers 2% viscous 9-14 by mouth ity o f 2 % 00:00: every 4 [place] solution 00 (four) Medical hours as Branch needed for Oral mucosal pain. camphor-men 2017- Yes Apply to [place] [address] area(s) 2 ity of (FREEZE IT 00:00: (two) [place] RELIEF) 00 times Medical 0.2-3.5 % daily. Branch Gel lidocaine 2017- Yes [id number] 15mL Take 15 mL Univers 2% viscous 9-14 by mouth ity o f 2 % 00:00: every 4 [place] solution 00 (four) Medical hours as Branch needed for Oral mucosal pain. camphor-men Yes Apply to [place] [address] area(s) 2 ity of (FREEZE IT 00:00: (two) [place] RELIEF) 00 times Medical 0.2-3.5 % daily. Branch Gel Immunizations Ordered Filled Immunization Date Status Comments [facility] e Immunization Name Name SARS-COV-2 COVID-19 2021-06-11 Completed Unive rsity of MODERNA VACCINE 00:00:[facility] [place] SARS-COV-2 COVID-19 2021-06-11 Completed Unive rsity of MODERNA VACCINE 00:00:00 [facility] [place] SARS-COV-2 COVID-19 2021-06-11 Completed Unive rsity of MODERNA VACCINE 00:00:00 [facility] [place] SARS-COV-2 COVID-19 2021-06-11 Completed Unive rsity of MODERNA VACCINE 00:00:00 [facility] Branch SARS-COV-2 COVID-19 2021-06-11 Completed Unive rsity of MODERNA VACCINE 00:00:00 [facility] Branch SARS-COV-2 COVID-19 2021-06-11 Completed Unive rsity of MODERNA VACCINE 00:00:00 [facility] Branch SARS-COV-2 COVID-19 2021-06-11 Completed Unive rsity of MODERNA VACCINE 00:00:00 [facility] Branch SARS-COV-2 COVID-19 2020-07-12 Completed Unive rsity of MODERNA VACCINE 00:00:00 [facility] Branch SARS-COV-2 COVID-19 2020-07-12 Completed Unive rsity of MODERNA VACCINE 00:00:00 [facility] Branch SARS-COV-2 COVID-19 2020-07-12 Completed Unive rsity of MODERNA VACCINE 00:00:00 [facility] [place] SARS-COV-2 COVID-19 2020-07-12 Completed Unive rsity of MODERNA VACCINE 00:00:00 [facility] Branch SARS-COV-2 COVID-19 2020-07-12 Completed Unive rsity of MODERNA VACCINE 00:00:00 [facility] Branch SARS-COV-2 COVID-19 2020-07-12 Completed Unive rsity of MODERNA VACCINE 00:00:00 [facility] Branch SARS-COV-2 COVID-19 2020-07-12 Completed Unive rsity of MODERNA VACCINE 00:00:00 [facility] ical Branch Pneumococcal 2020-06-26 Completed University o f Polysaccharide, 00:00:00 [place] Med ical PPSV23 (PNEUMOVAX) Branch Influenza Virus 2020-06-26 Completed Universit y of Vaccine Quad .5 mL 00:00:00 [facility] IM 6+ MO Branch Pneumococcal 2020-06-26 Completed University o f Polysaccharide, 00:00:00 [place] [facility] ical PPSV23 (PNEUMOVAX) Branch Influenza Virus 2020-06-26 Completed Universit y of Vaccine Quad .5 mL 00:00:00 [place] [facility] IM 6+ MO Branch Pneumococcal 2020-06-26 Completed University o f Polysaccharide, 00:00:00 [place] Med ical PPSV23 (PNEUMOVAX) Branch Influenza Virus 2020-06-26 Completed Universit y of Vaccine Quad .5 mL 00:00:00 [place] [facility] IM 6+ MO Branch Pneumococcal 2020-06-26 Completed University o f Polysaccharide, 00:00:00 [place] [facility] PPSV23 (PNEUMOVAX) Branch Influenza Virus 2020-06-26 Completed Universit y of Vaccine Quad .5 mL 00:00:00 [place] [facility] IM 6+ MO Branch Pneumococcal 2020-06-26 Completed University o f Polysaccharide, 00:00:00 [place] [facility] ical PPSV23 (PNEUMOVAX) Branch Influenza Virus 2020-06-26 Completed Universit y of Vaccine Quad .5 mL 00:00:00 [place] [facility] IM 6+ MO Branch Pneumococcal 2020-06-26 Completed University o f Polysaccharide, 00:00:00 [place] [facility] ical PPSV23 (PNEUMOVAX) Branch Influenza Virus 2020-06-26 Completed Universit y of Vaccine Quad .5 mL 00:00:00 [place] [facility] IM 6+ MO Branch Pneumococcal 2020-06-26 Completed University o f Polysaccharide, 00:00:00 [place] [facility] ical PPSV23 (PNEUMOVAX) Branch Influenza Virus 2020-06-26 Completed Universit y of Vaccine Quad .5 mL 00:00:00 [place] [facility] IM 6+ MO Branch Influenza Virus 2019-04-10 Completed Universit y of Vaccine Quad .5 mL 00:00:00 [place] [facility] IM 6+ MO Branch TDAP 2019-04-10 Completed University of 00:00:00 [facility] Pneumococcal 13 2019-04-10 Completed Universit y of Conjugate, PCV13 00:00:00 [facility] dical (Prevnar 13) Branch Influenza Virus 2019-04-10 Completed Universit y of Vaccine Quad .5 mL 00:00:00 [place] [facility] IM 6+ MO Branch TDAP 2019-04-10 Completed University of 00:00:00 [facility] Pneumococcal 13 2019-04-10 Completed Universit y of Conjugate, PCV13 00:00:00 [facility] dical (Prevnar 13) Branch Influenza Virus 2019-04-10 Completed Universit y of Vaccine Quad .5 mL 00:00:00 [place] [facility] IM 6+ MO Branch TDAP 2019-04-10 Completed University of 00:00:00 [facility] Pneumococcal 13 2019-04-10 Completed Universit y of Conjugate, PCV13 00:00:00 [facility] dical (Prevnar 13) Branch Influenza Virus 2019-04-10 Completed Universit y of Vaccine Quad .5 mL 00:00:00 [facility] 6+ MO Branch TDAP 2019-04-10 Completed University of 00:00:00 [facility] Pneumococcal 13 2019-04-10 Completed Universit y of Conjugate, PCV13 00:00:00 [facility] dical (Prevnar 13) Branch Influenza Virus 2019-04-10 Completed Universit y of Vaccine Quad .5 mL 00:00:00 [facility] 6+ MO Branch TDAP 2019-04-10 Completed University of 00:00:00 [facility] Pneumococcal 13 2019-04-10 Completed Universit y of Conjugate, PCV13 00:00:00 [facility] dical (Prevnar 13) Branch Influenza Virus 2019-04-10 Completed Universit y of Vaccine Quad .5 mL 00:00:00 [facility] 6+ MO Branch TDAP 2019-04-10 Completed University of 00:00:00 [facility] Pneumococcal 13 2019-04-10 Completed Universit y of Conjugate, PCV13 00:00:00 [facility] dical (Prevnar 13) Branch Influenza Virus 2019-04-10 Completed Universit y of Vaccine Quad .5 mL 00:00:00 [facility] 6+ MO Branch TDAP 2019-04-10 Completed University of 00:00:00 [facility] Pneumococcal 13 2019-04-10 Completed Universit y of Conjugate, PCV13 00:00:00 [facility] dical (Prevnar 13) [place] Influenza Virus 2018-04-04 Completed Universit y of Vaccine Quad IM 3+ 00:00:00 [facility] Branch Influenza Virus 2018-04-04 Completed Universit y of Vaccine Quad IM 3+ 00:00:00 [facility] Influenza Virus 2018-04-04 Completed Universit y of Vaccine Quad IM 3+ 00:00:00 [facility] Influenza Virus 2018-04-04 Completed Universit y of Vaccine Quad IM 3+ 00:00:00 [facility] Influenza Virus 2018-04-04 Completed Universit y of Vaccine Quad IM 3+ 00:00:00 [facility] Influenza Virus 2018-04-04 Completed Universit y of Vaccine Quad IM 3+ 00:00:00 [facility] Influenza Virus 2018-04-04 Completed Universit y of Vaccine Quad IM 3+ 00:00:00 [facility] Influenza Virus 2016-06-16 Completed Universit y of Vaccine Quad IM 3+ 00:00:00 [facility] Influenza Virus 2016-06-16 Completed Universit y of Vaccine Quad IM 3+ 00:00:00 [facility] Influenza Virus 2016-06-16 Completed Universit y of Vaccine Quad IM 3+ 00:00:00 [facility] Influenza Virus 2016-06-16 Completed Universit y of Vaccine Quad IM 3+ 00:00:00 [facility] Influenza Virus 2016-06-16 Completed Universit y of Vaccine Quad IM 3+ 00:00:00 [facility] Influenza Virus 2016-06-16 Completed Universit y of Vaccine Quad IM 3+ 00:00:00 [facility] Influenza Virus 2016-06-16 Completed Universit y of Vaccine Quad IM 3+ 00:00:00 [facility] Procedures Procedure Date / Time Performing Clinician Source Performed MEDICATION CORRESPONDENCE 2021-11-24 05:01:00 Doctor Unassigned, [facility] [place] [facility] Encounters Start End Encounter Admission Attending Care Care Encounter Source Date/Time Date/Time Type Type Clinicians Facility Department ID 2021-12-30 2021-12-30 Refill Mark MDKAYLA [id number] Univers 00:00:00 00:00:00 Lasha NIELSEN [id number] i [place] [id number] Richy ACHARYA [id number] Nh dical [address] 2021-12-28 2021-12-28 Letter Mark MDKAYLA [id number] Univers 00:00:00 00:00:00 (Out) Lasha NEILSEN [id number] i ty of [facility] [id number] [phone] [address] 2021-12-08 2021-12-08 [facility] [id number] Univers 00:00:00 00:00:00 Lasha NIELSEN [id number] i ty of [facility] [id number] [id number] [address] 2021-12-07 2021-12-07 Telephone [facility] [id number] Univers 00:00:00 00:00:00 Lasha NIELSEN [id number] i ty [id number] [id number] [address] 2021-12-02 2021-12-02 Refill [facility] [id number] Univers 00:00:00 00:00:00 Lasha NIELSEN [id number] i ty [id number] [id number] [address] 2021-12-01 2021-12-01 Telephone [facility] [id number] Univers 00:00:00 00:00:00 [place] [facility] [id number] it y of [facility] [id number] [place] [facility] [id number] [facility] [address] [facility] ([facility]) 2021-11-24 2021-11-24 Orders Doctor KLAUS [id number] Univers 00:00:00 00:00:00 Only Unassigned, REYNA [id number] ity of [place] [facility] [id number] [place] [id number] [facility] 009 Branch 2020-03-23 2020-03-23 Emergency [facility] [id number] 12:32:00 13:53:00 Kalia Lo [id number] [place] [id number] [place] [id number] 2019-02-10 2019-02-10 [facility] [id number] 00:00:00 00:00:00 Becca Nielsen [id number] [place] [id number] [facility] [id number] [facility] 231 [facility] 2019-01-14 2019-01-14 Telephone Hal Phillips [facility] [id number] 00:00:00 00:00:00 Lauro Nielsen [id number] [place] [id number] [facility] [phone] [address] Results This patient has no known results.
[2022-02-05 11:27] LABS: SARS-CoV-2 Antigen Rapid Res Negative (Negative)
[2022-02-05] MEDS ORDERED: MORPHINE 4 MG/ML SYR ONE (11:55)
[2022-02-05] MEDS ORDERED: ONDANSETRON 4 MG (ODT) TAB ONE (11:55)
--- NOTE | 2022-02-05 12:10 | RAD REPORT ---
EXAM DESCRIPTION: RAD - Chest Single View - 02/05/2022 11:10 am CLINICAL HISTORY: CHEST PAIN COMPARISON: Portable 02/26/2019, portable 04/15/2015 TECHNIQUE: AP portable chest image was obtained 02/05/2022 11:10 am . FINDINGS: Lungs are fibrotic. No failure, infiltrate or mass. No rupali mass or lymphadenopathy seen. Heart and vasculature are normal. No measurable pleural effusion and no pneumothorax. No acute bony a bnormality seen. No acute aortic findings suspected. IMPRESSION: No acute cardiopulmonary process. Fibrotic lung pattern similar to prior imaging.
--- NOTE | 2022-02-05 12:11 | RAD REPORT ---
EXAM DESCRIPTION: RAD - Shoulder Left 2 View - 02/05/2022 11:10 am CLINICAL HISTORY: PAIN COMPARISON: Shoulder Left 2 View dated 09/15/2021 TECHNIQUE: Internal and external rotation views of the left shoulder were obtained. FINDINGS: There is no fracture or dislocation. AC joint is normal in appearance. Minimal degenerativ e changes are present. Acromial humeral joint space is normal. No abnormal soft tissue calcifications . IMPRESSION: Negative two-view left shoulder examination for acute findings. No significant changes from the August 2021 study.
[2022-02-05 13:10] LABS: Absolute Lymphocytes (CBC) 1.1 K/uL (0.7-4.9); Hematocrit 31.5 % (36.0-45.0); Lymphocytes % 28.2 % (15.3-44.8); MCV 87.2 fL (80-100); MPV 8.5 fL (7.6-11.3); RBC Red Blood Cell Count 3.62 M/uL (3.86-4.86)
[2022-02-05 13:41] LABS: Potassium 4.5 mmol/L (3.5-5.1); Troponin High Sensitivity 3.7 pg/mL (<58.9)
--- NOTE | 2022-02-05 13:53 | ER ---
Nurse's Notes [facility] Name: Ty Robins Age: 61 yrs Sex: Female : 1960 Arrival Date: 02/05/2022 Time: 09:27 Bed 20 Private MD: Diagnosis: Rheumatoid arthritis, unspecified;Lymphadenopathy;Upper Respiratory Infection Presentation: 02/05 09:51 Chief complaint: Patient states: I got knot on my left shoulder and under my breast is iw tender, also has sore throat and congestion, has hx of RA , I can't raise my shoulder , pain got bad 3 days ago. Coronavirus screen: At this time, the client does not indicate any symptoms associated with coronavirus-19. Ebola Screen: Patient negative for fever greater than or equal to 101.5 degrees Fahrenheit, and additional compatible Ebola Virus Disease symptoms Patient denies exposure to infectious person. Patient denies travel to an Ebola-affected area in the 21 days before illness onset. No symptoms or risks identified at this time. Initial Sepsis Screen: Does the patient meet any 2 criteria? No. Patient's initial sepsis screen is negative. Does the patient have a suspected source of infection? No. Patient's initial sepsis screen is negative. Risk Assessment: Do you want to hurt yourself or someone else? Patient reports no desire to harm self or others. Onset of symptoms was February 02, 2022. 09:51 Method Of Arrival: Ambulatory iw 09:51 Acuity: BRENDA 4 iw 10:24 Acuity: BRENDA 3 iw Historical: - Allergies: 09:53 PENICILLINS; iw 09:53 Codeine; iw - Home Meds: 09:53 Epclusa oral once daily [Active]; iw - PMHx: 09:53 Hepatitis C; RA; iw - PSHx: 09:53 hand SX x 5; hysterectomy; iw - Social history:: Smoking status: Patient reports the use of cigarette tobacco products. Screenin:17 Abuse screen: Denies threats or abuse. Denies injuries from another. Nutritional iw screening: No deficits noted. Tuberculosis screening: No symptoms or risk factors identified. 13:31 Fall Risk Ambulatory Aid- None/Bed Rest/Nurse Assist (0 pts). Gait- Normal/Bed jd3 Rest/Wheelchair (0 pts) Mental Status- Oriented to own ability (0 pts). Total [place] Fall Scale indicates No Risk (0-24 pts). Assessment: 10:16 General: Appears in no apparent distress. Behavior is calm, cooperative. Pain: iw Complains of pain in chest and anterior aspect of left shoulder. 13:30 Reassessment: Patient appears in no apparent distress at this time. No changes from jd3 previously documented assessment. Patient and/or family updated on plan of care and expected duration. Pain level reassessed. Patient is alert, oriented x 3, equal unlabored respirations, skin warm/dry/pink. awaiting results. Vital Signs: 09:51 BP 142 / 78; Pulse 68; Resp 16; Temp 98.2; Pulse Ox 100% on R/A; Weight 46.27 kg; iw Height 5 ft. 2 in. (157.48 cm); Pain 7/10; 13:30 BP 156 / 83; Pulse 65; Resp 18; Pulse Ox 100% on R/A; jd3 09:51 Body Mass Index 18.66 (46.27 kg, 157.48 cm) iw ED Course: 09:27 Patient arrived in ED. am2 09:35 Margy Monsivais MD is Attending Physician. sd2 09:53 Triage completed. iw 09:53 Arm band placed on. iw 10:16 Miriam Aguiar, JOCELYNE is Primary Nurse. iw 10:41 Flu Sent. em6 11:12 XRAY Chest (1 view) In Process Unspecified. EDMS 11:12 XRAY Shoulder LEFT 2 view In Process Unspecified. EDMS 13:31 Patient has correct armband on for positive identification. Bed in low position. Call jd3 light in reach. Side rails up X 1. Adult w/ patient. playground monitor on. Pulse ox on. NIBP on. 14:24 No provider procedures requiring assistance completed. Patient did not have IV access em6 during this emergency room visit. Administered Medications: 11:42 Not Given (Other Intervention Used): Zofran (Ondansetron) 4 mg IVP once; over 2 minutes em6 11:43 Not Given (Other Intervention Used): morphine 4 mg IVP once over 4 mins em6 11:53 Drug: morphine 4 mg Route: IM; Site: right deltoid; em6 12:30 Follow up: Response: No adverse reaction; RASS: Alert and Calm (0) jd3 11:53 Drug: Ondansetron 4 mg Route: PO; em6 12:30 Follow up: Response: No adverse reaction em6 Medication: 13:31 VIS not applicable for this client. jd3 Outcome: 13:53 Discharge ordered by . sd2 14:24 Discharged to home ambulatory, with family. em6 14:24 Condition: stable 14:24 Discharge instructions given to patient, Instructed on discharge instructions, follow up and referral plans. medication usage, Demonstrated understanding of instructions, follow-up care, medications, Prescriptions given X 2. 14:25 Patient left the ED. em6 Signatures: Dispatcher [employer] EDMS Miriam Aguiar RN RN iw Rhonda Hutchinson Jonathon, RN RN Margy Latif MD MD sd2 Geni Nice RN RN em6 Corrections: (The following items were deleted from the chart) 11:19 09:51 BP 142 / 78; Pulse 68bpm; Resp 16bpm; Pulse Ox 100% RA; 46.27 kg; Height 5 ft. 2 iw in.; BMI: 18.6; Pain 7/10; iw 11:31 10:41 SARS-COV-2 RT PCR+MOL.LAB.KATELYNN drawn and sent. em6 EDMS
--- NOTE | 2022-02-05 13:53 | EDPHYS ---
Physician Documentation [facility] Name: Ty Robins Age: 61 yrs Sex: Female : 1960 Arrival Date: 02/05/2022 Time: 09:27 Bed 20 Private MD: JUAN JOSE Physician Margy Monsivais HPI: 02/05 10:55 This 61 yrs old Female presents to ER via Ambulatory with complaints of Arm Pain, sd2 arthritis pain. 10:55 61-year-old female with a history of rheumatoid arthritis presents with chief complaint sd2 of rheumatoid arthritis flare. She reports pain to almost all of her joints with especially severe pain to her left shoulder where she noticed a lump to the anterior left shoulder. She also reports having some congestion and URI symptoms that started 3 to 4 days ago. She reports her RA flare started yesterday. She is not currently on any medications to treat her RA but is on tramadol as needed at home which has not been consistently controlling her pain. She denies any known fevers or recent sick contacts. She reports she is fully vaccinated and boosted for COVID. She denies any chest pain, shortness of breath, nausea, vomiting, diarrhea or urinary symptoms. She otherwise denies any acute complaints at this time. Pain is aggravated by movement.. Historical: - Allergies: 09:53 PENICILLINS; iw 09:53 Codeine; iw - Home Meds: 09:53 Epclusa oral once daily [Active]; iw - PMHx: 09:53 Hepatitis C; RA; iw - PSHx: 09:53 hand SX x 5; hysterectomy; iw - Social history:: Smoking status: Patient reports the use of cigarette tobacco products. ROS: 10:55 Constitutional: Negative for fever, chills, and weight loss, Eyes: Negative for injury, sd2 pain, redness, and discharge. 10:55 Cardiovascular: Negative for chest pain, palpitations, and edema, Respiratory: Negative for shortness of breath, cough, wheezing. Abdomen/GI: Negative for abdominal pain, nausea, vomiting, diarrhea. 10:55 Skin: Negative for injury, rash, and discoloration, Neuro: Negative for headache, numbness and tingling. 10:55 ENT: Positive for nasal discharge, sinus congestion, Negative for drainage from ear(s), ear pain. 10:55 MS/extremity: Positive for pain, Negative for injury or acute deformity, erythema, paresthesias. Exam: 10:55 Constitutional: This is a well developed, well nourished patient who is awake, alert, sd2 and in no acute distress. Head/Face: Normocephalic, atraumatic. Eyes: EOMI, normal conjunctiva bilaterally Chest/axilla: Normal chest wall appearance and motion. Nontender with no deformity. There is what appears to be a palpable lymph node to the L lateral anterior chest wall just in front of the axillary area. No appreciable axillary LAD. Cardiovascular: Regular rate and rhythm with a normal S1 and S2. No gallops, murmurs, or rubs. 2+ distal pulses. Respiratory: Lungs have equal breath sounds bilaterally, clear to auscultation and percussion. No rales, rhonchi or wheezes noted. No increased work of breathing, no retractions or nasal flaring. Abdomen/GI: Soft, non-tender, with normal bowel sounds. No guarding or rebound. No evidence of tenderness throughout. Skin: Warm, dry with normal turgor. Normal color with no rashes, no lesions, and no evidence of cellulitis. MS/ Extremity: Pulses equal, no cyanosis. Neurovascular intact. Limited ROM of L shoulder 2/2 pain. No skin changes noted. 5/5 circulation clerk strength. Normal sensation. Arthritic changes noted to fingers of bilateral hands that appear chronic. Psych: Awake, alert, with orientation to person, place and time. Behavior, mood, and affect are within normal limits. 11:00 ECG was reviewed by the Attending Physician. Sinus bradycardia, rate 55, no STEMI sd2 criteria or ST-T wave changes Vital Signs: 09:51 BP 142 / 78; Pulse 68; Resp 16; Temp 98.2; Pulse Ox 100% on R/A; Weight 46.27 kg; iw Height 5 ft. 2 in. (157.48 cm); Pain 7/10; 13:30 BP 156 / 83; Pulse 65; Resp 18; Pulse Ox 100% on R/A; jd3 09:51 Body Mass Index 18.66 (46.27 kg, 157.48 cm) iw MDM: 10:14 Patient medically screened. sd2 10:55 Differential diagnosis: RA flare, URI, COVID, flu, dehydration, lymphadenitis, cancer, sd2 ACS among others. Data reviewed: vital signs, nurses notes. 13:51 Data reviewed: lab test result(s), EKG, radiologic studies. Counseling: I had a sd2 detailed discussion with the patient and/or guardian regarding: the historical points, exam findings, and any diagnostic results supporting the discharge/admit diagnosis, lab results, radiology results, the need for outpatient follow up, to return to the emergency department if symptoms worsen or persist or if there are any questions or concerns that arise at home. Medical screen evaluation completed. EMTALA emergency medical condition absent. ED course: Labs and imaging reviewed. Trop neg. EKG with no ischemic changes. XRs with no acute process. Pt feeling much improved after treatment with morphine. Suspect RA flare. COVID and flu testing negative. Likely LAD on exam and pt advised of need for close follow up with PCP regarding this. Will place on prednisone for further treatment and give tramadol for pain control at home as pt has ran out of hers.. 02/05 10:22 Order name: Basic Metabolic Panel; Complete Time: 13:48 sd2 02/05 10:22 Order name: CBC with Diff 02/05 10:22 Order name: Troponin HS; Complete Time: 13:48 sd2 02/05 10:22 Order name: Flu; Complete Time: 12:19 sd02/05 11:05 Order name: SARS RAPID; Complete Time: 12:19 eb 02/05 10:22 Order name: XRAY Chest (1 view); Complete Time: 12:19 sd02/05 10:22 Order name: EKG; Complete Time: 10:23 sd02/05 10:22 Order name: Cardiac monitoring; Complete Time: 12:00 sd02/05 10:22 Order name: XRAY Shoulder LEFT 2 view; Complete Time: 12:19 sd02/05 10:22 Order name: EKG - Nurse/Tech; Complete Time: 10:41 sd02/05 10:22 Order name: Labs collected and sent; Complete Time: 12:00 sd02/05 10:22 Order name: O2 Per Protocol; Complete Time: 12:00 sd02/05 10:22 Order name: O2 Sat Monitoring; Complete Time: 12:00 sd Administered Medications: 11:42 Not Given (Other Intervention Used): Zofran (Ondansetron) 4 mg IVP once; over 2 minutes em6 11:43 Not Given (Other Intervention Used): morphine 4 mg IVP once over 4 mins em6 11:53 Drug: morphine 4 mg Route: IM; Site: right deltoid; em6 12:30 Follow up: Response: No adverse reaction; RASS: Alert and Calm (0) jd3 11:53 Drug: Ondansetron 4 mg Route: PO; em6 12:30 Follow up: Response: No adverse reaction em6 Disposition Summary: 02/05/22 13:53 Discharge Ordered Location: Home sd2 Problem: an acute exacerbation sd2 Symptoms: have improved sd2 Condition: Stable sd2 Diagnosis - Rheumatoid arthritis, unspecified sd2 - Lymphadenopathy sd2 - Upper Respiratory Infection sd2 Followup: sd2 - With: Private Physician - When: 2 - 3 days - Reason: Recheck today's complaints, Continuance of care, Re-evaluation by your physician Followup: sd2 - With: Emergency Department - When: As needed - Reason: Discharge Instructions: - Discharge Summary Sheet sd2 - Rheumatoid Arthritis sd2 - Upper Respiratory Infection, Adult sd2 - Lymphadenopathy sd2 Forms: - Medication Reconciliation Form sd2 - Thank You Letter sd2 - Antibiotic Education sd2 - Prescription Opioid Use sd2 Prescriptions: - Tramadol 50 mg Oral Tablet - take 1 tablet by ORAL route every 8 hours as needed; 12 tablet; Refills: 0, sd2 Product Selection Permitted - Prednisone 20 mg Oral Tablet - take 2 tablets by ORAL route once daily for 5 days; 10 tablet; Refills: 0, sd2 Product Selection Permitted Signatures: Dispatcher [employer] Miriam Jasso RN RN iw Margy Monsivais MD MD sd2 Geni Nice RN RN em6 Lul Lyons RN jd3 Corrections: (The following items were deleted from the chart) 11:31 10:23 SARS-COV-2 RT PCR+[id number] ordered. NELLY VILLEGAS
[2022-02-05 14:46] VITALS: TEMP 98.2; O2SAT 100
[2022-02-05 14:49] VITALS: BP 156/83
[2022-02-05 18:15] LABS: Blood Morphology Comment NOT SEEN (NOT SEEN); Platelet Estimate ADEQ; White Blood Cell Scan OK (OK)
--- NOTE | 2022-02-07 08:13 | EKG ---
Test Date: 2022-02-05 Test Time: 10:35:57 Scale And Skip Car Operator: CRSYTAL MEASUREMENT RESULTS: Intervals: Rate: 55 [place]: 134 QRSD: 88 QT: 418 QTc: 399 [place]: P: 74 [place]: 134 QRS: 27 T: 62 INTERPRETIVE STATEMENTS: Sinus bradycardia Cannot rule out Anterior infarct, age undetermined Abnormal ECG Compared to ECG 02/26/2019 21:33:31 Sinus rhythm no longer present Sinus arrhythmia no longer present Myocardial infarct finding still present Electronically Signed On 02-07-22 08:06:58 CDT by Rj Reyes
== END 2022-02-05 14:25 | disposition home or self-care (01) ==
LOC: ER 09:26
DX: M06.9 Rheumatoid arthritis, unspecified (principal); J06.9 Acute upper respiratory infection, unspecified; Z20.822 Contact with and (suspected) exposure to COVID-19; Z72.0 Tobacco use; Z88.0 Allergy status to penicillin; Z88.5 Allergy status to narcotic agent
CPT/HCPCS: 93005; 85025; 80048; 36415; 84484; 87804 ×2; 71045; 73030; 96372; 99284; 87811; Q0162

== ENCOUNTER 2022-06-09 09:37 | Emergency (ER) | payer OTHER ==
--- OUTSIDE RECORDS SUMMARY | 2022-06-09 09:46 | XMS REPORT | Continuity of Care Document ---
:1960 Author Organization [facility] t Address [address] [place] [address] Care Team Providers Name Role Phone Genaro Flores MD Primary Care Physician Doctor Unassigned, [place] Attending Clinician Unavailable Genaro Flores MD Attending Clinician GENARO FLORES Attending Clinician Unavailable Martínez [facility] Attending [facility]ician Unavailable 2, [facility] Attending Clinician Unavailable Channing Moody DO Attending Clinician Antonia Fragoso MD Attending Clinician Aisha Moffett Attending Clinician Provider, [facility] Attending Clinician Unavailable AISHA CLARK Attending Clinician Unavailable Kalia Steinberg MD Attending Clinician TREVA HIDALGO Attending Clinician Unavailable Becca Morrissey MD Attending Clinician [phone] Hal Quick MD Attending Clinician GENARO FLORES Admitting Clinician Unavailable Payers Payer Name Policy Type Policy Number Effective Date Expiration Date [facility] [id number] 2015 MEDICAID 00:00:00 Problems Condition Condition Condition Status Onset Resolution Last Treating Co mments Source Name Details Category Date Date Treatment Clinician Date 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 5-19 ity of 00:00: [place] [facility] Chronic Chronic Disease Active 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 00:00: [address] Branch Nasal Nasal Disease Active Univers congestion congestion 5-19 it y of 00:00: [place] [facility] Chronic Chronic Disease Active Univers pain of pain of 3-25 ity of both both 00:00: [place] shoulders shoulders 00 [facility] Branch Chronic Chronic Disease Active Univers pain of pain of 3-25 ity of both both 00:00: [place] shoulders shoulders 00 [facility] Branch Teeth Teeth Disease Active Univers decayed decayed 3-25 ity of 00:00: [address] Chronic Chronic Disease Active Univers pain of pain of 1-08 ity of both knees both knees 00:00: [place] 00 [facility] 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 1-08 ity of 00:00: [place] [facility] Cellulitis Cellulitis Disease Active U nivers of right of right 1-08 ity of breast breast 00:00: [place] [facility] Cellulitis Cellulitis Disease Active U nivers of skin of skin 1-08 ity of 00:00: [place] [facility] Chronic Chronic Disease Active Univers pain pain 1-08 ity of syndrome syndrome 00:00: [place] [facility] Arthritis, Arthritis, Disease Active U nivers multiple multiple 1-08 ity of joint joint 00:00: [place] involvemen involvemen 00 Me dical t t Branch Pain in Pain in Disease Active Univers both hands both hands 1-08 it y of 00:00: [address] Cigarette Cigarette Disease Active Uni vers nicotine nicotine 1-08 ity of dependence dependence 00:00: [place] other with other 00 Me dical nicotine-i nicotine-i Br anch nduced nduced disorder disorder Essential Essential Disease Active 2018-06 Uni vers hypertensi hypertensi 1-24 it y of on on 00:00: [address] Branch Spider Spider Disease Active 2018-06 Univers bite bite 1-24 ity of wound, wound, 00:00: [place] undetermin undetermin 00 Me dical ed intent, ed intent, Br anch initial initial encounter encounter Rheumatoid Rheumatoid Disease Active 2019- U [place] arthritis arthritis 0-27 it[place] of involving [place] 00:[place] 00 [place] hands, hands, Branch unspecifie unspecifie d d rheumatoid rheumatoid factor factor presence presence Poor sleep Poor sleep Disease Active 2018-06 U nivers pattern pattern 0-27 ity of 00:00: [place] 00 Medical Branch Clubbing Clubbing Disease Active 2018-06 Unive rs of nails of nails 0-27 ity of 00:00: [place] 00 Medical Branch Need for Need for [...] for 0-27 ity of cervical cervical 00:00: [place] cancer cancer 00 Medical Branch History of History of Disease Active 2018 U [place] dental dental 8-15 ity of surgery surgery 00:00: [place] [facility] Abscessed Abscessed Disease Active Uni vers tooth tooth 8-05 ity of 00:00: [place] 00 Medical Branch Microcytic Microcytic Disease Active 2018 U aleksandra anemia anemia 8- ity of 00:00: [place] [facility] Other Other Disease Active Univers neutropeni neutropeni 8 it y of a a 00:00: [place] [facility] 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-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 00:00: [place] [facility] Chronic Chronic Disease Active Univers periodonta periodonta 8 it y of l disease l disease 00:00[place] [facility] [place] Elevated Elevated Disease Active Unive rs sedimentat sedimentat 01-17 it y of ion rate ion rate 00:00: [place] 00 Medical Branch History of History of Disease Recurre Univers penicillin penicillin nce 01-17 it y of allergy allergy 00:00: [place] 00 Medical Branch Nicotine Nicotine Disease Active 2015-06 Unive rs dependence dependence 2 it y of with with 00:00: [place] current current 00 Medical use use Branch Generalize Generalize Disease Active 2015-06 U nivers d d 2 ity of osteoarthr osteoarthr [place] itis 00 Medical [facility] 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 2 ity of 00:00: [place] 00 Medical Branch Abnormal Abnormal Disease Active 2015-[address] scan of CT scan of it y of lung lung 00:00: [place] 00 Medical Branch History of History of Disease Active 2015-06 U ale[place]andra cocaine cocaine ity of abuse abuse 00:00: [place] 00 Medical Branch Need for Need for Disease Active 2015-06 Unive rs immunizati immunizati it y of on against on against [place] influenza influenza [facility] Branch 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 connie ity of cytoplasmi cytoplasmi 00:[place] c antibody c antibody 00 Mo dical (ANCA) (ANCA) Branch positive positive Nicotine Nicotine Disease Active 2015-06 Unive rs dependence dependence 2 it y of with with 00:00: [place] current current 00 Medical use use Branch Positive Positive Disease Active Unive rs QuantiFERO QuantiFERO 2-12 it y of N-TB Gold N-TB Gold 00:00[place] test test 00 [place] Vasculitis Vasculitis Disease Active U nivers 5-04 ity of 00:00: [place] 00 Medical Branch Inflammato Inflammato Disease Active U aleksandra ry ry 5-04 ity of arthritis arthritis 00:[place] Chronic Chronic Disease Active Univers hepatitis hepatitis 5-04 ity of C without C without 00:00[place] hepatic hepatic 00 Medical coma coma Branch Leukocytoc Leukocytoc Disease Active U aleksandra lastic lastic 4-10 ity of vasculitis vasculitis [place] Tongue Tongue Disease Active Univers ulcer ulcer 2-07 ity of 00:00: [place] 00 Medical Branch Neck mass Neck mass Disease Active Uni vers 2-07 ity of 00:00: [place] 00 Medical Branch Lung mass Lung mass Disease Active Uni vers 2-07 ity of 00:00: [place] 00 Medical Branch Allergies, Adverse Reactions, Alerts Allergy Allergy Status Severity Reaction(s) Onset Inactive Treating Comm ents Source Name Type Date Date Clinician Codeine Propensi Active 2019-0 ty to 3-23 adverse 00:00: reaction 00 to drug Penicill Propensi Active ins ty to 6-27 adverse 00:00: reaction 00 to drug Codeine Propensi Active Nausea 2009- Univers ty to and/or 8 ity of adverse Vomiting 00:00: [place] reaction 00 Medical s Branch Penicill Propensi Active Anaphylaxis 2006-0 U nivers ins ty to 5-08 ity of adverse 00:00: [place] reaction 00 Medical s Branch Penicill Propensi Active Anaphylaxis 2006-0 U nivers ins ty to 5-08 ity of adverse 00:00: [place] reaction 00 Medical s Branch Social History Social Habit Start Date Stop Date Quantity Comments Source History of tobacco Cigarette Smoker University of use [place] [facility] History SDOH [facility] SDWV University o f Alcohol Std Drinks [place] [facility] Binge [place] [facility] Alcohol intake 2021-11-04 2021-11-04 Current drinker Unive rsity of 00:00:00 00:00:00 of alcohol [facility] (finding) Branch Cigarettes smoked 2018-01-16 2018-01-16 Univers ity of current (pack per 00:00:00 00:00:00 [place] [facility] ) - Reported Branch Cigarette 2018-01-16 2018-01-16 University of pack-years 00:00:00 00:00:00 [facility] Branch Tobacco use and 2018-01-16 2018-01-16 Smokeless Universit y of exposure 00:00:00 00:00:00 tobacco non-user [facility] dical Branch Alcohol Comment 2018-01-16 2018-01-16 social Universit y of 00:00:00 00:00:00 [facility] Tobacco Comment 2018-01-16 2018-01-16 currently Universit y of 00:00:00 00:00:00 smoking 4 cig/ [facility] Branch Sex [birth year] Universit y of 00:00:00 00:00:00 [place] [facility] Smoking Status Start Date Stop Date Source Smokes tobacco daily 2018-01-16 00:00:00 [facility] Medical Branch Medications Ordered Filled Start Stop Current Ordering Indication Dosage Frequency Signature Comments Components Source Medication Medication Date Date Medication? Clinician (SIG) Name Name PREDNISONE 2021-0 No 20MG TAB 9-14 00:00: 00 TAKE 2 2021-0 No TABLETS BY 9-14 MOUTH ONCE 00:00: DAILY FOR 5 00 DAYS MELOXICAM 2021-0 No 75 7.5MG TAB 8-19 00:00: 00 CETIRIZINE 2021-0 Yes [id number] 10mg TAKE 1 U nivers 10 mg 7-14 TABLET BY ity of tablet 00:00: MOUTH AT [place] [address] BEDTIME Medical NEEDED FOR Branch ALLERGIES. FLUTICASONE 2021-0 Yes [id number] SPRAY 1 Univers PROPIONATE 7-14 SPRAY INTO ity of 50 00:00: EACH [place] mcg/actuati 00 NOSTRIL Medic al on nasal EVERY DAY Branch spray CETIRIZINE 2021-0 Yes [id number] 10mg TAKE 1 U nivers 10 mg 7-14 TABLET BY ity of tablet 00:00: MOUTH AT [place] [address] BEDTIME Medical NEEDED FOR Branch ALLERGIES. FLUTICASONE 2021-0 Yes [id number] SPRAY 1 Univers PROPIONATE 7-14 SPRAY INTO ity of 50 00:00: EACH [place] mcg/actuati 00 NOSTRIL Medic al on nasal EVERY DAY Branch spray CETIRIZINE 2021-0 Yes [id number] 10mg TAKE 1 U nivers 10 mg 7-14 TABLET BY ity of tablet 00:00: MOUTH AT [place] [address] BEDTIME Medical NEEDED FOR Branch ALLERGIES. FLUTICASONE 2021-0 Yes [id number] SPRAY 1 Univers PROPIONATE 7-14 SPRAY INTO ity of 50 00:00: EACH [place] mcg/actuati 00 NOSTRIL Medic al on nasal EVERY DAY Branch spray CETIRIZINE 2021-0 Yes [id number] 10mg TAKE 1 U nivers 10 mg 7-14 TABLET BY ity of tablet 00:00: MOUTH AT [place] [address] BEDTIME Medical NEEDED FOR Branch ALLERGIES. FLUTICASONE 2021-0 Yes [id number] SPRAY 1 Univers PROPIONATE 7-14 SPRAY INTO ity of 50 00:00: EACH [place] mcg/actuati 00 NOSTRIL Medic al on nasal EVERY DAY Branch spray CETIRIZINE 2021-0 Yes [id number] 10mg TAKE 1 U nivers 10 mg 7-14 TABLET BY ity of tablet 00:00: MOUTH AT [place] 00 BEDTIME Medical NEEDED FOR Branch ALLERGIES. FLUTICASONE 2021-0 Yes [id number] SPRAY 1 Univers PROPIONATE 7-14 SPRAY INTO ity of 50 00:00: EACH [place] mcg/actuati 00 NOSTRIL Medic al on nasal EVERY DAY Branch spray CETIRIZINE 2021-0 Yes [id number] 10mg TAKE 1 U nivers 10 mg 7-14 TABLET BY ity of tablet 00:00: MOUTH AT [place] 00 BEDTIME Medical NEEDED FOR Branch ALLERGIES. FLUTICASONE 0 Yes [id number] SPRAY 1 Univers PROPIONATE 7-14 SPRAY INTO ity of 50 00:00: EACH [place] mcg/actuati 00 NOSTRIL Medic al on nasal EVERY DAY Branch spray CETIRIZINE 0 Yes [id number] 10mg TAKE 1 U nivers 10 mg 7-14 TABLET BY ity of tablet 00:00: MOUTH AT [place] [address] BEDTIME Medical NEEDED FOR Branch ALLERGIES. FLUTICASONE 0 Yes [id number] SPRAY 1 Univers PROPIONATE 7-14 SPRAY INTO ity of 50 00:00: EACH [place] mcg/actuati 00 NOSTRIL Medic al on nasal EVERY DAY Branch spray pravastatin 2021-0 Yes [id number] 20mg Take 1 Univers 20 mg 6-16 tablet by ity of tablet 00:00: mouth at [place] [address] bedtime. Medical Branch FLUTICASONE 2021-0 Yes [id number] SPRAY 1 Univers PROPIONATE 6-16 SPRAY INTO ity of 50 00:00: EACH [place] mcg/actuati 00 NOSTRIL Medic al on nasal EVERY DAY Branch spray CETIRIZINE 2021-0 Yes [id number] 10mg TAKE 1 U nivers 10 mg 6-16 TABLET BY ity of tablet 00:00: MOUTH AT [place] [address] BEDTIME Medical NEEDED FOR Branch ALLERGIES. pravastatin 2021-0 Yes [id number] 20mg Take 1 Univers 20 mg 6-16 tablet by ity of tablet 00:00: mouth at [place] [address] bedtime. Medical Branch FLUTICASONE 2021-0 Yes [id number] SPRAY 1 Univers PROPIONATE 6-16 SPRAY INTO ity of 50 00:00: EACH [place] mcg/actuati 00 NOSTRIL Medic al on nasal EVERY DAY Branch spray CETIRIZINE 2022-0 Yes [id number] 10mg TAKE 1 U nivers 10 mg 6-16 TABLET BY ity of tablet 00:00: MOUTH AT [place] [address] BEDTIME Medical NEEDED FOR Branch ALLERGIES. pravastatin 2021-0 Yes [id number] 20mg Take 1 Univers 20 mg 6-16 tablet by ity of tablet 00:00: mouth at [place] [address] bedtime. Medical Branch FLUTICASONE 2021-0 Yes [id number] SPRAY 1 Univers PROPIONATE 6-16 SPRAY INTO ity of 50 00:00: EACH [place] mcg/actuati 00 NOSTRIL Medic al on nasal EVERY DAY Branch spray CETIRIZINE 0 Yes [id number] 10mg TAKE 1 U nivers 10 mg 6-16 TABLET BY ity of tablet 00:00: MOUTH AT [place] [address] BEDTIME Medical NEEDED FOR Branch ALLERGIES. pravastatin 0 Yes [id number] 20mg Take 1 Univers 20 mg 6-16 tablet by ity of tablet 00:00: mouth at [place] [address] bedtime. Medical Branch FLUTICASONE 0 Yes [id number] SPRAY 1 Univers PROPIONATE 6-16 SPRAY INTO ity of 50 00:00: EACH [place] mcg/actuati 00 NOSTRIL Medic al on nasal EVERY DAY Branch spray CETIRIZINE 0 Yes [id number] 10mg TAKE 1 U nivers 10 mg 6-16 TABLET BY ity of tablet 00:00: MOUTH AT [place] [address] BEDTIME Medical NEEDED FOR Branch ALLERGIES. pravastatin 2021-0 Yes [id number] 20mg Take 1 Univers 20 mg 6-16 tablet by ity of tablet 00:00: mouth at [place] [address] bedtime. Medical Branch pravastatin 2021-0 Yes [id number] 20mg Take 1 Univers 20 mg 6-16 tablet by ity of tablet 00:00: mouth at [place] [address] bedtime. Medical Branch pravastatin 2021-0 Yes [id number] 20mg Take 1 Univers 20 mg 6-16 tablet by ity of tablet 00:00: mouth at [place] [address] bedtime. Medical Branch pravastatin 2021-0 Yes [id number] 20mg Take 1 Univers 20 mg 6-16 tablet by ity of tablet 00:00: mouth at [place] [address] bedtime. Medical Branch pravastatin 2021-0 Yes [id number] 20mg Take 1 Univers 20 mg 6-16 tablet by ity of tablet 00:00: mouth at [place] [address] bedtime. Medical Branch pravastatin 2021-0 Yes [id number] 20mg Take 1 Univers 20 mg 6-16 tablet by ity of tablet 00:00: mouth at [place] [address] bedtime. Medical Branch pravastatin 2021-0 Yes [id number] 20mg Take 1 Univers 20 mg 6-16 tablet by ity of tablet 00:00: mouth at [place] [address] bedtime. Medical Branch pravastatin 2021-0 Yes [id number] 20mg Take 1 Univers 20 mg 6-16 tablet by ity of tablet 00:00: mouth at [place] [address] bedtime. Medical Branch FLUTICASONE 0 2022- No [id number] SPRAY 1 Univers PROPIONATE 6-16 07-14 SPRAY INTO it y of 50 00:00: 00:00 EACH [place] mcg/actuati 00 :00 NOSTRIL Medic al on nasal EVERY DAY Branch spray CETIRIZINE 0 2021- No [id number] 10mg TAKE 1 Univers 10 mg 6-16 07-14 TABLET BY ity of tablet 00:00: 00:00 MOUTH AT [place] 00 :00 BEDTIME Medical NEEDED FOR Branch ALLERGIES. nicotine 14 Yes [id number] 1{patch Apply 1 Univers mg/24 hr 5-19 } Patch to ity of patch 00:00: area(s) [place] 00 every 24 Medical (twenty-fo Branch ur) hours. Apply 21mg patch daily x 6 weeks; then apply 14mf patch daily x 2 weeks; then apply 7mg patch daily x 2 weeks. Stop smoking on initiation of therapy nicotine 21 Yes [id number] 1{patch Apply 1 Univers mg/24 hr 5-19 } Patch to ity of patch 00:00: area(s) [place] 00 daily. Medical Apply 21mg Branch patch daily x 6 weeks; then apply 14mf patch daily x 2 weeks; then apply 7mg patch daily x 2 weeks. Stop smoking on initiation of therapy nicotine 7 2021- Yes [id number] 1{patch Apply 1 Univers mg/24 hr 5-19 } Patch to ity of patch 00:00: area(s) [place] 00 every 24 Medical (twenty-fo Branch ur) hours. Apply 21mg patch daily x 6 weeks; then apply 14mf patch daily x 2 weeks; then apply 7mg patch daily x 2 weeks. Stop smoking on initiation of therapy fluticasone Yes [id number] 1{spray Use 1 Univers propionate 5-19 } [place] in ity o f 50 00:00: each [place] mcg/actuati 00 nostril Medic al on nasal daily. Branch spray cetirizine Yes [id number] 10mg Take 1 U nivers (ZYRTEC) 10 5-19 tablet by ity of mg tablet 00:00[place] bedtime as Medical needed for Branch Allergies. benzonatate Yes [id number] 100mg Take 1 Univers (TESSALON 5-19 capsule by ity of PERLES) 100 00:00: mouth [place] mg capsule 00 every 8 Medica l (eight) Branch hours as needed for Cough. sofosbuvir- Yes [id number] 1{tbl} Take 1 Univers velpatasvir 5-19 tablet by ity of (EPCLUSA) 00:00: mouth [place] 400-100 mg 00 daily. Medical Branch nicotine 14 Yes [id number] 1{patch Apply 1 Univers mg/24 hr 5-19 } Patch to ity of patch 00:00: area(s) [place] 00 every 24 Medical (twenty-fo Branch ur) hours. Apply 21mg patch daily x 6 weeks; then apply 14mf patch daily x 2 weeks; then apply 7mg patch daily x 2 weeks. Stop smoking on initiation of therapy nicotine 21 Yes [id number] 1{patch Apply 1 Univers mg/24 hr 5-19 } Patch to ity of patch 00:00: area(s) [place] 00 daily. Medical Apply 21mg Branch patch daily x 6 weeks; then apply 14mf patch daily x 2 weeks; then apply 7mg patch daily x 2 weeks. Stop smoking on initiation of therapy nicotine 7 Yes [id number] 1{patch Apply 1 Univers mg/24 hr 5-19 } Patch to ity of patch 00:00: area(s) [place] 00 every 24 Medical (twenty-fo Branch ur) hours. Apply 21mg patch daily x 6 weeks; then apply 14mf patch daily x 2 weeks; then apply 7mg patch daily x 2 weeks. Stop smoking on initiation of therapy benzonatate Yes [id number] 100mg Take 1 Univers (TESSALON 5-19 capsule by ity of PERLES) 100 00:00: mouth [place] mg capsule 00 every 8 Medica l (eight) Branch hours as needed for Cough. sofosbuvir- Yes [id number] 1{tbl} Take 1 Univers velpatasvir 5-19 tablet by ity of (EPCLUSA) 00:00: mouth [place] 400-100 mg 00 daily. Medical Branch nicotine 14 Yes [id number] 1{patch Apply 1 Univers mg/24 hr 5-19 } Patch to ity of patch 00:00: area(s) [place] 00 every 24 Medical (twenty-fo Branch ur) hours. Apply 21mg patch daily x 6 weeks; then apply 14mf patch daily x 2 weeks; then apply 7mg patch daily x 2 weeks. Stop smoking on initiation of therapy nicotine 21 Yes [id number] 1{patch Apply 1 Univers mg/24 hr 5-19 } Patch to ity of patch 00:00: area(s) [place] 00 daily. Medical Apply 21mg Branch patch daily x 6 weeks; then apply 14mf patch daily x 2 weeks; then apply 7mg patch daily x 2 weeks. Stop smoking on initiation of therapy nicotine 7 Yes [id number] 1{patch Apply 1 Univers mg/24 hr 5-19 } Patch to ity of patch 00:00: area(s) [place] 00 every 24 Medical (twenty-fo Branch ur) hours. Apply 21mg patch daily x 6 weeks; then apply 14mf patch daily x 2 weeks; then apply 7mg patch daily x 2 weeks. Stop smoking on initiation of therapy benzonatate Yes [id number] 100mg Take 1 Univers (TESSALON 5-19 capsule by ity of PERLES) 100 00:00: mouth [place] mg capsule 00 every 8 Medica l (eight) Branch hours as needed for Cough. sofosbuvir- Yes [id number] 1{tbl} Take 1 Univers velpatasvir 5-19 tablet by ity of (EPCLUSA) 00:00: mouth [place] 400-100 mg 00 daily. Medical Branch nicotine 14 Yes [id number] 1{patch Apply 1 Univers mg/24 hr 5-19 } Patch to ity of patch 00:00: area(s) [place] 00 every 24 Medical (twenty-fo Branch ur) hours. Apply 21mg patch daily x 6 weeks; then apply 14mf patch daily x 2 weeks; then apply 7mg patch daily x 2 weeks. Stop smoking on initiation of therapy nicotine Yes [id number] 1{patch Apply 1 Univers mg/24 hr 5-19 } Patch to ity of patch 00:00: area(s) [place] 00 daily. Medical Apply 21mg Branch patch daily x 6 weeks; then apply 14mf patch daily x 2 weeks; then apply 7mg patch daily x 2 weeks. Stop smoking on initiation of therapy nicotine Yes [id number] 1{patch Apply 1 Univers mg/24 hr 5-19 } Patch to ity of patch 00:00: area(s) [place] 00 every 24 Medical (twenty-fo Branch ur) hours. Apply 21mg patch daily x 6 weeks; then apply 14mf patch daily x 2 weeks; then apply 7mg patch daily x 2 weeks. Stop smoking on initiation of therapy benzonatate Yes [id number] 100mg Take 1 Univers (TESSALON 5-19 capsule by ity of PERLES) 100 00:00: mouth [place] mg capsule 00 every 8 Medica l (eight) Branch hours as needed for Cough. sofosbuvir- Yes [id number] 1{tbl} Take 1 Univers velpatasvir 5-19 tablet by ity of (EPCLUSA) 00:00: mouth [place] 400-100 mg 00 daily. Medical Branch nicotine Yes [id number] 1{patch Apply 1 Univers mg/24 hr 5-19 } Patch to ity of patch 00:00: area(s) [place] 00 every 24 Medical (twenty-fo Branch ur) hours. Apply 21mg patch daily x 6 weeks; then apply 14mf patch daily x 2 weeks; then apply 7mg patch daily x 2 weeks. Stop smoking on initiation of therapy nicotine Yes [id number] 1{patch Apply 1 Univers mg/24 hr 5-19 } Patch to ity of patch 00:00: area(s) [place] 00 daily. Medical Apply 21mg Branch patch daily x 6 weeks; then apply 14mf patch daily x 2 weeks; then apply 7mg patch daily x 2 weeks. Stop smoking on initiation of therapy nicotine 7 Yes [id number] 1{patch Apply 1 Univers mg/24 hr 5-19 } Patch to ity of patch 00:00: area(s) [place] 00 every 24 Medical (twenty-fo Branch ur) hours. Apply 21mg patch daily x 6 weeks; then apply 14mf patch daily x 2 weeks; then apply 7mg patch daily x 2 weeks. Stop smoking on initiation of therapy benzonatate Yes [id number] 100mg Take 1 Univers (TESSALON 5-19 capsule by ity of [facility]) 100 00:00: mouth [place] mg capsule 00 every 8 Medica l (eight) Branch hours as needed for Cough. sofosbuvir- Yes [id number] 1{tbl} Take 1 Univers velpatasvir 5-19 tablet by ity of (EPCLUSA) 00:00: mouth [place] 400-100 mg 00 daily. Medical Branch nicotine Yes [id number] 1{patch Apply 1 Univers mg/24 hr 5-19 } Patch to ity of patch 00:00: area(s) [place] 00 every 24 Medical (twenty-fo Branch ur) hours. Apply 21mg patch daily x 6 weeks; then apply 14mf patch daily x 2 weeks; then apply 7mg patch daily x 2 weeks. Stop smoking on initiation of therapy nicotine Yes [id number] 1{patch Apply 1 Univers mg/24 hr 5-19 } Patch to ity of patch 00:00: area(s) [place] 00 daily. Medical Apply 21mg Branch patch daily x 6 weeks; then apply 14mf patch daily x 2 weeks; then apply 7mg patch daily x 2 weeks. Stop smoking on initiation of therapy nicotine 7 Yes [id number] 1{patch Apply 1 Univers mg/24 hr 5-19 } Patch to ity of patch 00:00: area(s) [place] 00 every 24 Medical (twenty-fo Branch ur) hours. Apply 21mg patch daily x 6 weeks; then apply 14mf patch daily x 2 weeks; then apply 7mg patch daily x 2 weeks. Stop smoking on initiation of therapy benzonatate Yes [id number] 100mg Take 1 Univers (TESSALON 5-19 capsule by ity of PERLDALE) 100 00:00: mouth [place] mg capsule 00 every 8 Medica l (eight) Branch hours as needed for Cough. sofosbuvir- Yes [id number] 1{tbl} Take 1 Univers velpatasvir 5-19 tablet by ity of (EPCLUSA) 00:00: mouth [place] 400-100 mg 00 daily. Medical Branch nicotine 14 Yes [id number] 1{patch Apply 1 Univers mg/24 hr 5-19 } Patch to ity of patch 00:00: area(s) [place] 00 every 24 Medical (twenty-fo Branch ur) hours. Apply 21mg patch daily x 6 weeks; then apply 14mf patch daily x 2 weeks; then apply 7mg patch daily x 2 weeks. Stop smoking on initiation of therapy nicotine 21 Yes [id number] 1{patch Apply 1 Univers mg/24 hr 5-19 } Patch to ity of patch 00:00: area(s) [place] 00 daily. Medical Apply 21mg Branch patch daily x 6 weeks; then apply 14mf patch daily x 2 weeks; then apply 7mg patch daily x 2 weeks. Stop smoking on initiation of therapy nicotine 7 Yes [id number] 1{patch Apply 1 Univers mg/24 hr 5-19 } Patch to ity of patch 00:00: area(s) [place] 00 every 24 Medical (twenty-fo Branch ur) hours. Apply 21mg patch daily x 6 weeks; then apply 14mf patch daily x 2 weeks; then apply 7mg patch daily x 2 weeks. Stop smoking on initiation of therapy benzonatate Yes [id number] 100mg Take 1 Univers (TESSALON 5-19 capsule by ity of ALEKSANDR) 100 00:00: mouth [place] mg capsule 00 every 8 Medica l (eight) Branch hours as needed for Cough. sofosbuvir- Yes [id number] 1{tbl} Take 1 [facility] velpatasvir 5-19 tablet by ity of (EPCLUSA) 00:00: mouth [place] 400-100 mg 00 daily. Medical Branch nicotine 14 Yes [id number] 1{patch Apply 1 [facility] mg/24 hr 5-19 } Patch to ity of patch 00:00: area(s) [place] 00 every 24 Medical (twenty-fo Branch ur) hours. Apply 21mg patch daily x 6 weeks; then apply 14mf patch daily x 2 weeks; then apply 7mg patch daily x 2 weeks. Stop smoking on initiation of therapy nicotine Yes [id number] 1{patch Apply 1 [facility] mg/24 hr 5-19 } Patch to ity of patch 00:00: area(s) [place] 00 daily. Medical Apply 21mg Branch patch daily x 6 weeks; then apply 14mf patch daily x 2 weeks; then apply 7mg patch daily x 2 weeks. Stop smoking on initiation of therapy nicotine Yes [id number] 1{patch Apply 1 [facility] mg/24 hr 5-19 } Patch to ity of patch 00:00: area(s) [place] 00 every 24 Medical (twenty-fo Branch ur) hours. Apply 21mg patch daily x 6 weeks; then apply 14mf patch daily x 2 weeks; then apply 7mg patch daily x 2 weeks. Stop smoking on initiation of therapy benzonatate Yes [id number] 100mg Take 1 [facility] (TESSALON 5-19 capsule by ity of VJ) 100 00:00: mouth [place] mg capsule 00 every 8 Medica l (eight) Branch hours as needed for Cough. sofosbuvir- Yes [id number] 1{tbl} Take 1 [facility] velpatasvir 5-19 tablet by ity of (EPCLUSA) 00:00: mouth [place] 400-100 mg 00 daily. Medical Branch nicotine Yes [id number] 1{patch Apply 1 [facility] mg/24 hr 5-19 } Patch to ity of patch 00:00: area(s) [place] 00 every 24 Medical (twenty-fo Branch ur) hours. Apply 21mg patch daily x 6 weeks; then apply 14mf patch daily x 2 weeks; then apply 7mg patch daily x 2 weeks. Stop smoking on initiation of therapy nicotine Yes [id number] 1{patch Apply 1 [facility] mg/24 hr 5-19 } Patch to ity of patch 00:00: area(s) [place] 00 daily. Medical Apply 21mg Branch patch daily x 6 weeks; then apply 14mf patch daily x 2 weeks; then apply 7mg patch daily x 2 weeks. Stop smoking on initiation of therapy nicotine Yes [id number] 1{patch Apply 1 [facility] mg/24 hr 5-19 } Patch to ity of patch 00:00: area(s) [place] 00 every 24 Medical (twenty-fo Branch ur) hours. Apply 21mg patch daily x 6 weeks; then apply 14mf patch daily x 2 weeks; then apply 7mg patch daily x 2 weeks. Stop smoking on initiation of therapy benzonatate Yes [id number] 100mg Take 1 [facility] (TESSALON 5-19 capsule by [facility]y of [facility]) 100 00:00: mouth [place] mg capsule 00 every 8 Medica l (eight) Branch hours as needed for Cough. sofosbuvir- Yes [id number] 1{tbl} Take 1 [facility] velpatasvir 5-19 tablet by ity of (EPCLUSA) 00:00: mouth [place] 400-100 mg 00 daily. Medical Branch nicotine 14 Yes [id number] 1{patch Apply 1 [facility] mg/24 hr 5-19 } Patch to ity of patch 00:00: area(s) [place] 00 every 24 Medical (twenty-fo Branch ur) hours. Apply 21mg patch daily x 6 weeks; then apply 14mf patch daily x 2 weeks; then apply 7mg patch daily x 2 weeks. Stop smoking on initiation of therapy nicotine 21 Yes [id number] 1{patch Apply 1 [facility] mg/24 hr 5-19 } Patch to ity of patch 00:00: area(s) [place] 00 daily. Medical Apply 21mg Branch patch daily x 6 weeks; then apply 14mf patch daily x 2 weeks; then apply 7mg patch daily x 2 weeks. Stop smoking on initiation of therapy nicotine 7 Yes [id number] 1{patch Apply 1 [facility] mg/24 hr 5-19 } Patch to ity of patch 00:00: area(s) [place] 00 every 24 Medical (twenty-fo Branch ur) hours. Apply 21mg patch daily x 6 weeks; then apply 14mf patch daily x 2 weeks; then apply 7mg patch daily x 2 weeks. Stop smoking on initiation of therapy benzonatate Yes [id number] 100mg Take 1 [facility] (TESSALON 5-19 capsule by ity of PERLES) 100 00:00: mouth [place] mg capsule 00 every 8 Medica l (eight) Branch hours as needed for Cough. sofosbuvir- Yes [id number] 1{tbl} Take 1 [facility] velpatasvir 5-19 tablet by ity of (EPCLUSA) 00:00: mouth [place] 400-100 mg 00 daily. Medical Branch nicotine 14 Yes [id number] 1{patch Apply 1 [facility] mg/24 hr 5-19 } Patch to ity of patch 00:00: area(s) [place] 00 every 24 Medical (twenty-fo Branch ur) hours. Apply 21mg patch daily x 6 weeks; then apply 14mf patch daily x 2 weeks; then apply 7mg patch daily x 2 weeks. Stop smoking on initiation of therapy nicotine Yes [id number] 1{patch Apply 1 [facility] mg/24 hr 5-19 } Patch to ity of patch 00:00: area(s) [place] 00 daily. Medical Apply 21mg Branch patch daily x 6 weeks; then apply 14mf patch daily x 2 weeks; then apply 7mg patch daily x 2 weeks. Stop smoking on initiation of therapy nicotine Yes [id number] 1{patch Apply 1 [facility] mg/24 hr 5-19 } Patch to ity of patch 00:00: area(s) [place] 00 every 24 Medical (twenty-fo Branch ur) hours. Apply 21mg patch daily x 6 weeks; then apply 14mf patch daily x 2 weeks; then apply 7mg patch daily x 2 weeks. Stop smoking on initiation of therapy benzonatate Yes [id number] 100mg Take 1 [facility] (TESSALON 5-19 capsule by ity of ALEKSANDR) 100 00:00: mouth [place] mg capsule 00 every 8 Medica l (eight) Branch hours as needed for Cough. sofosbuvir- Yes [id number] 1{tbl} Take 1 [facility] velpatasvir 5-19 tablet by ity of (EPCLUSA) 00:00: mouth [place] 400-100 mg 00 daily. Medical Branch nicotine Yes [id number] 1{patch Apply 1 [facility] mg/24 hr 5-19 } Patch to ity of patch 00:00: area(s) [place] 00 every 24 Medical (twenty-fo Branch ur) hours. Apply 21mg patch daily x 6 weeks; then apply 14mf patch daily x 2 weeks; then apply 7mg patch daily x 2 weeks. Stop smoking on initiation of therapy nicotine Yes [id number] 1{patch Apply 1 [facility] mg/24 hr 5-19 } Patch to ity of patch 00:00: area(s) [place] 00 daily. Medical Apply 21mg Branch patch daily x 6 weeks; then apply 14mf patch daily x 2 weeks; then apply 7mg patch daily x 2 weeks. Stop smoking on initiation of therapy nicotine Yes [id number] 1{patch Apply 1 [facility] mg/24 hr 5-19 } Patch to ity of patch 00:00: area(s) [place] 00 every 24 Medical (twenty-fo Branch ur) hours. Apply 21mg patch daily x 6 weeks; then apply 14mf patch daily x 2 weeks; then apply 7mg patch daily x 2 weeks. Stop smoking on initiation of therapy benzonatate Yes [id number] 100mg Take 1 [facility] (TESSALON 5-19 capsule by ity of PERLES) 100 00:00: mouth [place] mg capsule 00 every 8 Medica l (eight) Branch hours as needed for Cough. sofosbuvir- Yes [id number] 1{tbl} Take 1 [facility] velpatasvir 5-19 tablet by ity of (EPCLUSA) 00:00: mouth [place] 400-100 mg 00 daily. Medical Branch nicotine Yes [id number] 1{patch Apply 1 [facility] mg/24 hr 5-19 } Patch to ity of patch 00:00: area() [place] 00 every 24 Medical (twenty-fo Branch ur) hours. Apply 21mg patch daily x 6 weeks; then apply 14mf patch daily x 2 weeks; then apply 7mg patch daily x 2 weeks. Stop smoking on initiation of therapy nicotine Yes [id number] 1{patch Apply 1 [facility] mg/24 hr 5-19 } Patch to ity of patch 00:00: area(s) [place] 00 daily. Medical Apply 21mg Branch patch daily x 6 weeks; then apply 14mf patch daily x 2 weeks; then apply 7mg patch daily x 2 weeks. Stop smoking on initiation of therapy nicotine 7 Yes [id number] 1{patch Apply 1 [facility] mg/24 hr 5-19 } Patch to ity of patch 00:00: area(s) [place] 00 every 24 Medical (twenty-fo Branch ur) hours. Apply 21mg patch daily x 6 weeks; then apply 14mf patch daily x 2 weeks; then apply 7mg patch daily x 2 weeks. Stop smoking on initiation of therapy benzonatate Yes [id number] 100mg Take 1 [facility] (TESSALON 5-19 capsule by ity of ALEKSANDR) 100 00:00: mouth [place] mg capsule 00 every 8 Medica l (eight) Branch hours as needed for Cough. sofosbuvir- Yes [id number] 1{tbl} Take 1 [facility] velpatasvir 5-19 tablet by ity of (EPCLUSA) 00:00: mouth [place] 400-100 mg 00 daily. Medical Branch fluticasone 2021- No [id number] 1{spray Use 1 [facility] propionate 11-04-16 } [place] in ity of 50 00:00: 00:00 each [place] mcg/actuati 00 :00 nostril Medic al on nasal daily. Branch spray cetirizine 2021- No [id number] 10mg Take 1 [facility] (ZYRTEC) 10 11-04-16 tablet by it y of mg tablet 00:00: 00:00 mouth at [place] 00 :00 bedtime as Medical needed for Branch Allergies. MELOXICAM Yes TAKE 1 [facility] nivers 7.5 mg 4-26 TABLET BY ity of tablet 00:00: MOUTH [place] 00 EVERY DAY Medical Branch MELOXICAM Yes [id number] TAKE 1 U nivers 7.5 mg 4-26 TABLET BY ity of tablet 00:00: MOUTH [place] 00 EVERY DAY Medical Branch MELOXICAM 0 Yes [id number] TAKE 1 U nivers 7.5 mg 4-26 TABLET BY ity of tablet 00:00: MOUTH [place] 00 EVERY DAY Medical Branch MELOXICAM 0 Yes [id number] TAKE 1 U nivers 7.5 mg 4-26 TABLET BY ity of tablet 00:00: MOUTH [place] 00 EVERY DAY Medical Branch MELOXICAM 0 Yes [id number] TAKE 1 U nivers 7.5 mg 4-26 TABLET BY ity of tablet 00:00: MOUTH [place] 00 EVERY DAY Medical Branch MELOXICAM Yes TAKE 1 U nivers 7.5 mg 4-26 TABLET BY ity of tablet 00:00: MOUTH [place] 00 EVERY DAY Medical Branch MELOXICAM Yes [id number] TAKE 1 U nivers 7.5 mg 4-26 TABLET BY ity of tablet 00:00: MOUTH [place] 00 EVERY DAY Medical Branch MELOXICAM Yes [id number] TAKE 1 U nivers 7.5 mg 4-26 [...] MOUTH [place] 00 EVERY DAY Medical Branch clindamycin Yes [id number] 300mg Take 1 [facility] 300 mg 3-30 capsule by ity of capsule 00:00: mouth 4 [place] 00 (four) Medical times Branch daily. lisinopriL- Yes [id number] 1{tbl} Take 1 [facility] hydrochloro 3-30 tablet by ity of thiazide 00:00: mouth [place] 20-12.5 mg 00 daily. Medical per tablet Branch lactobacill Yes [id number] 1{capsu Take 1 [facility] us 3-30 le} [...] Indication s: chronic pain clindamycin 2021-0 Yes [id number] 300mg Take 1 [facility] 300 mg 3-30 capsule by ity of capsule 00:00: mouth 4 [place] 00 (four) Medical times Branch daily. lisinopriL- 2021-0 Yes [id number] 1{tbl} Take 1 [facility] hydrochloro 3-30 tablet by ity of thiazide 00:00: mouth [place] 20-12.5 mg 00 daily. Medical per tablet Branch lactobacill 0 Yes [id number] 1{capsu Take 1 [facility] us 3-30 le} [...] Indication s: chronic pain clindamycin 2021-0 Yes [id number] 300mg Take 1 [facility] 300 mg 3-30 capsule by ity of capsule 00:00: mouth 4 [place] 00 (four) Medical times Branch daily. lisinopriL- 2021-0 Yes [id number] 1{tbl} Take 1 [facility] hydrochloro 3-30 tablet by ity of thiazide 00:00: mouth [place] 20-12.5 mg 00 daily. Medical per tablet Branch lactobacill 2021-0 Yes [id number] 1{capsu Take 1 [facility] us 3-30 le} [...] Indication s: chronic pain clindamycin 2021-0 Yes [id number] 300mg Take 1 [facility] 300 mg 3-30 capsule by ity of capsule 00:00: mouth 4 [place] 00 (four) Medical times Branch daily. lisinopriL- 2021-0 Yes [id number] 1{tbl} Take 1 [facility] hydrochloro 3-30 tablet by ity of thiazide 00:00: mouth [place] 20-12.5 mg 00 daily. Medical per tablet Branch lactobacill Yes [id number] 1{capsu Take 1 [facility] us 3-30 le} [...] 7-10). Indication s: chronic pain clindamycin Yes [id number] 300mg Take 1 [facility] 300 mg 3-30 capsule by ity of capsule 00:00: mouth 4 [place] 00 (four) Medical times Branch daily. lisinopriL- Yes [id number] 1{tbl} Take 1 [facility] hydrochloro 3-30 tablet by ity of thiazide 00:00: mouth [place] 20-12.5 mg 00 daily. Medical per tablet Branch lactobacill Yes [id number] 1{capsu Take 1 [facility] us 3-30 le} [...] Indication s: chronic pain clindamycin 2021-0 Yes [id number] 300mg Take 1 [facility] 300 mg 3-30 capsule by ity of capsule 00:00: mouth 4 [place] 00 (four) Medical times Branch daily. lisinopriL- 2021-0 Yes [id number] 1{tbl} Take 1 [facility] hydrochloro 3-30 tablet by ity of thiazide 00:00: mouth [place] 20-12.5 mg 00 daily. Medical per tablet Branch lactobacill 0 Yes [id number] 1{capsu Take 1 [facility] us 3-30 le} [...] Indication s: chronic pain clindamycin 2021-0 Yes [id number] 300mg Take 1 [facility] 300 mg 3-30 capsule by ity of capsule 00:00: mouth 4 [place] 00 (four) Medical times Branch daily. lisinopriL- 2021-0 Yes [id number] 1{tbl} Take 1 [facility] hydrochloro 3-30 tablet by ity of thiazide 00:00: mouth [place] 20-12.5 mg 00 daily. Medical per tablet Branch lactobacill 2021-0 Yes [id number] 1{capsu Take 1 [facility] us 3-30 le} [...] Indication s: chronic pain clindamycin 2021-0 Yes [id number] 300mg Take 1 [facility] 300 mg 3-30 capsule by ity of capsule 00:00: mouth 4 [place] 00 (four) Medical times Branch daily. lisinopriL- 2021-0 Yes [id number] 1{tbl} Take 1 [facility] hydrochloro 3-30 tablet by ity of thiazide 00:00: mouth [place] 20-12.5 mg 00 daily. Medical per tablet Branch lactobacill 2021-0 Yes [id number] 1{capsu Take 1 [facility] us 3-30 le} [...] Indication s: chronic pain clindamycin 2021-0 Yes [id number] 300mg Take 1 [facility] 300 mg 3-30 capsule by ity of capsule 00:00: mouth 4 [place] 00 (four) Medical times Branch daily. lisinopriL- 2022-0 Yes [id number] 1{tbl} Take 1 [facility] hydrochloro 3-30 tablet by ity of thiazide 00:00: mouth [place] 20-12.5 mg 00 daily. Medical per tablet Branch lactobacill 0 Yes [id number] 1{capsu Take 1 [facility] us 3-30 le} [...] 7-10). Indication s: chronic pain clindamycin Yes [id number] 300mg Take 1 [facility] 300 mg 3-30 capsule by ity of capsule 00:00: mouth 4 [place] 00 (four) Medical times Branch daily. lisinopriL- Yes [id number] 1{tbl} Take 1 [facility] hydrochloro 3-30 tablet by ity of thiazide 00:00: mouth [place] 20-12.5 mg 00 daily. Medical per tablet Branch lactobacill Yes [id number] 1{capsu Take 1 [facility] us 3-30 le} [...] Indication s: chronic pain clindamycin 0 Yes [id number] 300mg Take 1 [facility] 300 mg 3-30 capsule by ity of capsule 00:00: mouth 4 [place] 00 (four) Medical times Branch daily. lisinopriL- 2021- Yes [id number] 1{tbl} Take 1 [facility] hydrochloro 3-30 tablet by ity of thiazide 00:00: mouth [place] 20-12.5 mg 00 daily. Medical per tablet Branch lactobacill 0 Yes [id number] 1{capsu Take 1 [facility] us 3-30 le} [...] Indication s: chronic pain clindamycin 0 Yes [id number] 300mg Take 1 [facility] 300 mg 3-30 capsule by ity of capsule 00:00: mouth 4 [place] 00 (four) Medical times Branch daily. lisinopriL- 0 Yes [id number] 1{tbl} Take 1 [facility] hydrochloro 3-30 tablet by ity of thiazide 00:00: mouth [place] 20-12.5 mg 00 daily. Medical per tablet Branch lactobacill 0 Yes [id number] 1{capsu Take 1 [facility] us 3-30 le} [...] Indication s: chronic pain clindamycin 0 Yes [id number] 300mg Take 1 [facility] 300 mg 3-30 capsule by ity of capsule 00:00: mouth 4 [place] 00 (four) Medical times Branch daily. lisinopriL- 0 Yes [id number] 1{tbl} Take 1 [facility] hydrochloro 3-30 tablet by ity of thiazide 00:00: mouth [place] 20-12.5 mg 00 daily. Medical per tablet Branch lactobacill 0 Yes [id number] 1{capsu Take 1 [facility] us 3-30 le} capsule by ity of combination 00:00: mouth [place] no.4 00 daily. Medical (PROBIOTIC) Branch 3 billion cell Cap traMADoL 50 0 Yes [id number] 50mg Take 1 [facility] ers mg tablet 3-30 tablet by ity o f 00:00: mouth [place] 00 every 8 Medical (eight) Branch hours as needed for Pain (scale 7-10). Indication s: chronic pain Dose 2021-0 No Unknown 3-30 00:00: 00 Dose 2021-0 No Unknown 3-30 00:00: 00 Dose 2022-0 No Unknown 3-30 00:00: 00 Dose 2022-0 No Unknown 3-30 00:00: 00 Dose 2022-0 No Unknown 3-30 00:00: 00 Dose 2022-0 No Unknown 3-30 00:00: 00 Dose 2022-0 No Unknown 3-30 00:00: 00 Dose 2022-0 No Unknown 3-30 00:00: 00 Dose 2022-0 No Unknown 3-30 00:00: 00 Dose 2022-0 No Unknown 3-30 00:00: 00 Dose 2022-0 No Unknown 3-30 00:00: 00 Dose 2022-0 No Unknown 3-30 00:00: 00 Dose 2022-0 No Unknown 3-30 00:00: 00 Dose 2022-0 No Unknown 3-30 00:00: 00 Dose 2022-0 No Unknown 3-30 00:00: 00 Dose 2022-0 No Unknown 3-30 00:00: 00 Dose 2022-0 No Unknown 3-30 00:00: 00 Dose 2022-0 No Unknown 3-30 00:00: 00 Dose 2022-0 No Unknown 3-30 00:00: 00 Dose 2022-0 No Unknown 3-30 00:00: 00 Dose 2022-0 No Unknown 3-30 00:00: 00 Dose 2022-0 No Unknown 3-30 00:00: 00 Dose 2022-0 No Unknown 3-30 00:00: 00 Dose 2022-0 No Unknown 3-30 00:00: 00 Dose 2022-0 No Unknown 3-30 00:00: 00 Dose 2022-0 No Unknown 3-30 00:00: 00 Dose 2022-0 No Unknown 3-30 00:00: 00 Dose 2022-0 No Unknown 3-30 00:00: 00 Dose 2022-0 No Unknown 3-30 00:00: 00 Dose 2022-0 No Unknown 3-30 00:00: 00 Dose 2022-0 No Unknown 3-30 00:00: 00 Dose 2022-0 No Unknown 3-30 00:00: 00 Dose 2022-0 No Unknown 3-30 00:00: 00 Dose 2022-0 No Unknown 3-30 00:00: 00 Dose 2022-0 No Unknown 3-30 00:00: 00 Dose 2022-0 No Unknown 3-30 00:00: 00 Dose 2022-0 No Unknown 3-30 00:00: 00 Dose 2022-0 No Unknown 3-30 00:00: 00 Dose 2022-0 No Unknown 3-30 00:00: 00 Dose 2022-0 No Unknown 3-30 00:00: 00 Dose 2022-0 No Unknown 3-30 00:00: 00 Dose 2022-0 No Unknown 3-30 00:00: 00 Dose 2022-0 No Unknown 3-30 00:00: 00 Dose 2022-0 No Unknown 3-30 00:00: 00 Dose 2022-0 No Unknown 3-30 00:00: 00 Dose 2022-0 No Unknown 3-30 00:00: 00 Dose 2022-0 No Unknown 3-30 00:00: 00 Dose 2022-0 No Unknown 3-30 00:00: 00 Dose 2022-0 No Unknown 3-30 00:00: 00 Dose 2022-0 No Unknown 3-30 00:00: 00 Dose 2022-0 No Unknown 3-30 00:00: 00 Dose 2022-0 No Unknown 3-30 00:00: 00 Dose 2022-0 No Unknown 3-30 00:00: 00 Dose 2022-0 No Unknown 3-30 00:00: 00 Dose 2022-0 No Unknown 3-30 00:00: 00 Dose 2022-0 No Unknown 3-30 00:00: 00 Dose 2022-0 No Unknown 3-30 00:00: 00 Dose 2022-0 No Unknown 3-30 00:00: 00 Dose 2022-0 No Unknown 3-30 00:00: 00 Dose 2-0 No Unknown 3-30 00:00: 00 atorvastati 2021-0 2- No [id number] 40mg Take 1 [facility] n 40 mg 3-30 06-16 tablet by ity of tablet 00:00: 00:00 mouth at [place] 00 :00 bedtime. Medical Branch Dose 2020-06 No Unknown 2-13 00:00: 00 mupirocin 2 Yes [id number] Apply to [facility] % ointment 1-08 area(s) 3 ity of 00:00: (three) [place] 00 times Medical daily. Branch traMADoL 50 0 Yes [id number] 50mg Take 1 [facility] ers mg tablet 1-08 tablet by ity o f 00:00: mouth [place] 00 every 8 Medical (eight) Branch hours as needed for Pain (scale 4-6). Indication s: chronic pain mupirocin 2 2020-0 Yes [id number] Apply to [facility] % ointment 1-08 area(s) 3 ity of 00:00: (three) [place] 00 times Medical daily. Branch traMADoL 50 2020-0 Yes [id number] 50mg Take 1 [facility] ers mg tablet 1-08 tablet by ity o f 00:00: mouth [place] 00 every 8 Medical (eight) Branch hours as needed for Pain (scale 4-6). Indication s: chronic pain mupirocin 2 2020-0 Yes [id number] Apply to [facility] % ointment 1-08 area(s) 3 ity of 00:00: (three) [place] 00 times Medical daily. Branch traMADoL 50 2020-0 Yes [id number] 50mg Take 1 [facility] ers mg tablet 1-08 tablet by ity o f 00:00: mouth [place] 00 every 8 Medical (eight) Branch hours as needed for Pain (scale 4-6). Indication s: chronic pain mupirocin 2 2020-0 Yes [id number] Apply to [facility] % ointment 1-08 area(s) 3 ity of 00:00: (three) [place] 00 times Medical daily. Branch traMADoL 50 2020-0 Yes [id number] 50mg Take 1 [facility] ers mg tablet 1-08 tablet by ity o f 00:00: mouth [place] 00 every 8 Medical (eight) Branch hours as needed for Pain (scale 4-6). Indication s: chronic pain mupirocin 2 2020-0 Yes [id number] Apply to [facility] % ointment 1-08 area(s) 3 ity of 00:00: (three) [place] 00 times Medical daily. Branch traMADoL 50 2020-0 Yes [id number] 50mg Take 1 [facility] ers mg tablet 1-08 tablet by ity o f 00:00: mouth [place] 00 every 8 Medical (eight) Branch hours as needed for Pain (scale 4-6). Indication s: chronic pain mupirocin 2 2020-0 Yes [id number] Apply to [facility] % ointment 1-08 area(s) 3 ity of 00:00: (three) [place] 00 times Medical daily. Branch traMADoL 50 2020-0 Yes [id number] 50mg Take 1 [facility] ers mg tablet 1-08 tablet by ity o f 00:00: mouth [place] 00 every 8 Medical (eight) Branch hours as needed for Pain (scale 4-6). Indication s: chronic pain mupirocin 2 2020-0 Yes [id number] Apply to [facility] % ointment 1-08 area(s) 3 ity of 00:00: (three) [place] 00 times Medical daily. Branch traMADoL 50 2020-0 Yes [id number] 50mg Take 1 [facility] ers mg tablet 1-08 tablet by ity o f 00:00: mouth [place] 00 every 8 Medical (eight) Branch hours as needed for Pain (scale 4-6). Indication s: chronic pain mupirocin 2 2020-0 Yes [id number] Apply to [facility] % ointment 1-08 area(s) 3 ity of 00:00: (three) [place] 00 times Medical daily. Branch traMADoL 50 2020-0 Yes [id number] 50mg Take 1 [facility] ers mg tablet 1-08 tablet by ity o f 00:00: mouth [place] 00 every 8 Medical (eight) Branch hours as needed for Pain (scale 4-6). Indication s: chronic pain mupirocin 2 2020-0 Yes [id number] Apply to [facility] % ointment 1-08 area(s) 3 ity of 00:00: (three) [place] 00 times Medical daily. Branch traMADoL 50 2020-0 Yes [id number] 50mg Take 1 [facility] ers mg tablet 1-08 tablet by ity o f 00:00: mouth [place] 00 every 8 Medical (eight) Branch hours as needed for Pain (scale 4-6). Indication s: chronic pain mupirocin 2 2020-0 Yes [id number] Apply to [facility] % ointment 1-08 area(s) 3 ity of 00:00: (three) [place] 00 times Medical daily. Branch traMADoL 50 2020-0 Yes [id number] 50mg Take 1 [facility] ers mg tablet 1-08 tablet by ity o f 00:00: mouth [place] 00 every 8 Medical (eight) Branch hours as needed for Pain (scale 4-6). Indication s: chronic pain mupirocin 2 2020-0 Yes [id number] Apply to [facility] % ointment 1-08 area(s) 3 ity of 00:00: (three) [place] 00 times Medical daily. Branch traMADoL 50 Yes [id number] 50mg Take 1 [facility] ers mg tablet 1-08 tablet by ity o f 00:00: mouth [place] 00 every 8 Medical (eight) Branch hours as needed for Pain (scale 4-6). Indication s: chronic pain mupirocin 2 Yes [id number] Apply to [facility] % ointment 1-08 area(s) 3 ity of 00:00: (three) [place] 00 times Medical daily. Branch traMADoL 50 Yes [id number] 50mg Take 1 [facility] ers mg tablet 1-08 tablet by ity o f 00:00: mouth [place] 00 every 8 Medical (eight) Branch hours as needed for Pain (scale 4-6). Indication s: chronic pain mupirocin 2 Yes [id number] Apply to [facility] % ointment 1-08 area(s) 3 ity of 00:00: (three) [place] 00 times Medical daily. Branch traMADoL 50 Yes [id number] 50mg Take 1 [facility] ers mg tablet 1-08 tablet by ity o f 00:00: mouth [place] 00 every 8 Medical (eight) Branch hours as needed for Pain (scale 4-6). Indication s: chronic pain ProAir HFA 2019-0 No 12mcg/a 90 9-08 ctuatio mcg/actuati 00:00: n on aerosol 00 inhaler azithromyci 2019-0 No mg n 250 mg 9-08 tablet 00:00: 00 benzonatate 2019-0 No 1mg 200 mg 9-08 capsule 00:00: 00 Dose 2020-0 No Unknown 9-08 00:00: 00 mupirocin 2 2019-0 No 1% % topical 3-23 ointment 00:00: 00 Bactrim DS 2020-0 No 1mg 800 mg-160 3-23 mg tablet 00:00: 00 Dose 2020-0 No Unknown 2-24 00:00: 00 ibuprofen 2020-0 No 1mg 600 mg 2-11 tablet 00:00: 00 Bromfed DM 2019-0 No 5mg/5 2 mg-30 2-11 mL mg-10 mg/5 00:00: mL oral 00 syrup Miscellaneo 2018-06 Yes [id number] I10 - [facility] Medical -20 Dispense ity o f Supply Kit 00:00: blood [place] 00 pressure Medical cuff (any Branch brand), take BP at home BID Miscellaneo 2018-06 Yes [id number] I10 - [facility] 20 Dispense ity o f Supply Kit 00:00: blood [place] 00 pressure Medical cuff (any Branch brand), take BP at home BID Miscellaneo 2018-06 Yes [id number] I10 - [facility] 07-08 Dispense ity o f Supply Kit 00:00: blood [place] 00 pressure Medical cuff (any Branch brand), take BP at home BID Miscellaneo 2018-06 Yes [id number] I10 - [facility] 07-08 Dispense ity o f Supply Kit 00:00: blood [place] 00 pressure Medical cuff (any Branch brand), take BP at home BID Miscellaneo 2018-06 Yes [id number] I10 - [facility] [employer] [facility] 07-08 Dispense ity o f Supply Kit 00:00: blood [place] 00 pressure Medical cuff (any Branch brand), take BP at home BID Miscellaneo 2018-06 Yes [id number] I10 - [facility] [employer] [facility] 07-08 Dispense ity o f Supply Kit 00:00: blood [place] 00 pressure Medical cuff (any Branch brand), take BP at home BID Miscellaneo 2018-06 Yes [id number] I10 - [facility] 07-08 Dispense ity o f Supply Kit 00:00: blood [place] 00 pressure Medical cuff (any Branch brand), take BP at home BID Miscellaneo 2018-06 Yes [id number] I10 - [facility] [facility] 20 Dispense ity o f Supply Kit 00:00: blood [place] 00 pressure Medical cuff (any Branch brand), take BP at home BID Miscellaneo 2018- Yes [id number] I10 - [facility] Medical -20 Dispense ity o f Supply Kit 00:00: blood [place] 00 pressure Medical cuff (any Branch brand), take BP at home BID Miscellaneo 2018- Yes [id number] I10 - [facility] -20 Dispense ity o f Supply Kit 00:00: blood [place] 00 pressure Medical cuff (any Branch brand), take BP at home BID Miscellaneo 2018-06 Yes [id number] I10 - [facility] 07-08 Dispense ity o f Supply Kit 00:00: blood [place] 00 pressure Medical cuff (any Branch brand), take BP at home BID Miscellaneo 2018-06 Yes [id number] I10 - [facility] Medical 07-08 Dispense ity o f Supply Kit 00:00: blood [place] pressure Medical cuff (any Branch brand), take BP at home BID Miscellaneo 2018-06 Yes [id number] I10 - [facility] Medical 07-08 Dispense ity o f Supply Kit 00:00: blood [place] pressure Medical cuff (any Branch brand), take BP at home BID nitrofurant No 1mg oin 4-13 macrocrysta 00:00: l 100 mg 00 capsule metronidazo 0 No 1mg le 500 mg 4-10 tablet 00:00: 00 lidocaine Yes [id number] 15mL Take 15 mL Univers 2% viscous 9-14 by mouth ity o f 2 % 00:00: every 4 [place] solution 00 (four) Medical hours as Branch needed for Oral mucosal pain. camphor-men Yes Apply to [facility] area(s) 2 ity of (FREEZE IT 00:00: (two) [place] RELIEF) 00 times Medical 0.2-3.5 % daily. Branch Gel lidocaine Yes [id number] 15mL Take 15 mL Univers 2% viscous 9-14 by mouth ity o f 2 % 00:00: every 4 [place] solution 00 (four) Medical hours as Branch needed for Oral mucosal pain. camphor-men Yes Apply to [facility] area(s) 2 ity of (FREEZE IT 00:00: (two) [place] RELIEF) 00 times Medical 0.2-3.5 % daily. Branch Gel lidocaine Yes [id number] 15mL Take 15 mL Univers 2% viscous 9-14 by mouth ity o f 2 % 00:00: every 4 [place] solution 00 (four) Medical hours as Branch needed for Oral mucosal pain. camphor-men Yes Apply to [facility] area(s) 2 ity of (FREEZE IT 00:00: (two) [place] RELIEF) 00 times Medical 0.2-3.5 % daily. Branch Gel lidocaine 2018- Yes [id number] 15mL Take 15 mL Univers 2% viscous 9-14 by mouth ity o f 2 % 00:00: every 4 [place] solution 00 (four) Medical hours as Branch needed for Oral mucosal pain. camphor-men 2017- Yes Apply to [place] [address] area(s) 2 ity of (FREEZE IT 00:00: (two) [place] RELIEF) 00 times Medical 0.2-3.5 % daily. Branch Gel lidocaine Yes [id number] 15mL Take 15 mL Univers 2% viscous 9-14 by mouth ity o f 2 % 00:00: every 4 [place] solution 00 (four) Medical hours as Branch needed for Oral mucosal pain. camphor-men Yes Apply to [place] [address] area(s) 2 ity of (FREEZE IT 00:00: (two) [place] RELIEF) 00 times Medical 0.2-3.5 % daily. Branch Gel lidocaine Yes [id number] 15mL Take 15 mL Univers 2% viscous 9-14 by mouth ity o f 2 % 00:00: every 4 [place] solution 00 (four) Medical hours as Branch needed for Oral mucosal pain. camphor-men 2017- Yes Apply to [place] [address] area(s) 2 ity of (FREEZE IT 00:00: (two) [place] RELIEF) 00 times Medical 0.2-3.5 % daily. Branch Gel lidocaine 2017- Yes [id number] 15mL Take 15 mL Univers 2% viscous 9-14 by mouth ity o f 2 % 00:00: every 4 [place] solution 00 (four) Medical hours as Branch needed for Oral mucosal pain. camphor-men 2017- Yes Apply to [place] [address] area(s) 2 ity of (FREEZE IT 00:00: (two) [place] RELIEF) 00 times Medical 0.2-3.5 % daily. Branch Gel lidocaine 2018-0 Yes [id number] 15mL Take 15 mL Univers 2% viscous 9-14 by mouth ity o f 2 % 00:00: every 4 [place] solution 00 (four) Medical hours as Branch needed for Oral mucosal pain. camphor-men 2017- Yes Apply to [facility] area(s) 2 ity of (FREEZE IT 00:00: (two) [place] RELIEF) 00 times Medical 0.2-3.5 % daily. Branch Gel lidocaine Yes [id number] 15mL Take 15 mL Univers 2% viscous 9-14 by mouth ity o f 2 % 00:00: every 4 [place] solution 00 (four) Medical hours as Branch needed for Oral mucosal pain. camphor-men Yes Apply to [facility] area(s) 2 ity of (FREEZE IT 00:00: (two) [place] RELIEF) 00 times Medical 0.2-3.5 % daily. Branch Gel lidocaine Yes [id number] 15mL Take 15 mL Univers 2% viscous 9-14 by mouth ity o f 2 % 00:00: every 4 [place] solution 00 (four) Medical hours as Branch needed for Oral mucosal pain. camphor-men Yes Apply to [place] [address] area(s) 2 ity of (FREEZE IT 00:00: (two) [place] RELIEF) 00 times Medical 0.2-3.5 % daily. Branch Gel lidocaine Yes [id number] 15mL Take 15 mL Univers 2% viscous 9-14 by mouth ity o f 2 % 00:00: every 4 [place] solution 00 (four) Medical hours as Branch needed for Oral mucosal pain. camphor-men Yes Apply to [place] [address] area(s) 2 ity of (FREEZE IT 00:00: (two) [place] RELIEF) 00 times Medical 0.2-3.5 % daily. Branch Gel lidocaine Yes [id number] 15mL Take 15 mL Univers 2% viscous 9-14 by mouth ity o f 2 % 00:00: every 4 [place] solution 00 (four) Medical hours as Branch needed for Oral mucosal pain. camphor-men Yes Apply to [facility] area(s) 2 ity of (FREEZE IT 00:00: (two) [place] RELIEF) 00 times Medical 0.2-3.5 % daily. Branch Gel lidocaine 2017- Yes [id number] 15mL Take 15 mL Univers 2% viscous 9-14 by mouth ity o f 2 % 00:00: every 4 [place] solution 00 (four) Medical hours as Branch needed for Oral mucosal pain. camphor-men 2017-0 Yes Apply to [facility] 14 area(s) 2 ity of (FREEZE IT 00:00: (two) [place] RELIEF) 00 times Medical 0.2-3.5 % daily. Branch Gel Valtrex 1 0 No 1gram gram tablet 12-19 00:00: 00 ferrous 2018-0 No 1(65 mg sulfate 325 5-23 iron) mg (65 mg 00:00: iron) 00 tablet lidocaine 2 2017-0 No % % mucosal 2-27 solution 00:00: 00 Dose 2018-0 No Unknown 2-27 00:00: 00 Megace ES 2018-0 No 5mg/5 625 mg/5 mL 2-27 mL oral 00:00: suspension 00 Lidocaine 2017-0 No % Viscous 2 % 9-25 mucosal 00:00: solution 00 lidocaine 2 2017-0 No % % mucosal 6-27 solution 00:00: 00 hydroxychlo 2017-0 No 1mg roquine 200 6-27 mg tablet 00:00: 00 tramadol 50 2017-0 No 1mg mg tablet 6-27 00:00: 00 cyclobenzap 2017-0 No 1mg rine 5 mg 6-27 tablet 00:00: 00 clindamycin 2017-0 No 1mg HCl 300 mg 6-27 capsule 00:00: 00 lidocaine 2 2017-0 No 33% % mucosal 6-27 solution 00:00: 00 Immunizations Ordered Filled Immunization Date Status Comments [facility] e Immunization Name Name Vonda COVID-19 2021-07-12 Completed Vaccine 00:00:00 SARS-COV-2 COVID-19 2021-06-11 Completed Unive rsity of MODERNA VACCINE 00:00:00 [facility] SARS-COV-2 COVID-19 2021-06-11 Completed Unive rsity of MODERNA VACCINE 00:00:00 [facility] SARS-COV-2 COVID-19 2021-06-11 Completed Unive rsity of MODERNA VACCINE 00:00:00 [facility] SARS-COV-2 COVID-19 2021-06-11 Completed Unive rsity of MODERNA VACCINE 00:00:00 [facility] SARS-COV-2 COVID-19 2021-06-11 Completed Unive rsity of MODERNA VACCINE 00:00:00 [place] [facility] SARS-COV-2 COVID-19 2021-06-11 Completed Unive rsity of MODERNA VACCINE 00:00:00 [place] [facility] SARS-COV-2 COVID-19 2021-06-11 Completed Unive rsity of MODERNA VACCINE 00:00:00 [place] [facility] SARS-COV-2 COVID-19 2021-06-11 Completed Unive rsity of MODERNA VACCINE 00:00:00 [place] [facility] SARS-COV-2 COVID-19 2021-06-11 Completed Unive rsity of MODERNA 12+ YRS 00:00:00 [place] [facility] ical VACCINE Branch SARS-COV-2 COVID-19 2021-06-11 Completed Unive rsity of MODERNA 12+ YRS 00:00:00 [place] [facility] ical VACCINE Branch SARS-COV-2 COVID-19 2021-06-11 Completed Unive rsity of MODERNA 12+ YRS 00:00:00 [place] [facility] ical VACCINE Branch SARS-COV-2 COVID-19 2021-06-11 Completed Unive rsity of MODERNA 12+ YRS 00:00:00 [place] [facility] ical VACCINE Branch SARS-COV-2 COVID-19 2021-06-11 Completed Unive rsity of MODERNA 12+ YRS 00:00:00 [place] [facility] ical VACCINE Branch Moderna COVID-19 2021-06-11 Completed Vaccine 00:00:00 influenza, 2021-05-31 Completed injectable 00:00:00 SARS-COV-2 COVID-19 2020-07-12 Completed Unive rsity of MODERNA VACCINE 00:00:[address] [place] [facility] ical Branch SARS-COV-2 COVID-19 2020-07-12 Completed Unive rsity of MODERNA VACCINE 00:00:00 [place] [facility] ical [facility] SARS-COV-2 COVID-19 2020-07-12 Completed Unive rsity of MODERNA VACCINE 00:00:00 [place] [facility] ical Branch SARS-COV-2 COVID-19 2020-07-12 Completed Unive rsity of MODERNA VACCINE 00:00:[address] [place] [facility] ical Branch SARS-COV-2 COVID-19 2020-07-12 Completed Unive rsity of MODERNA VACCINE 00:00:00 [place] [facility] ical [facility] SARS-COV-2 COVID-19 2020-07-12 Completed Unive rsity of MODERNA VACCINE 00:00:00 [place] [facility] ical [facility] SARS-COV-2 COVID-19 2020-07-12 Completed Unive rsity of MODERNA VACCINE 00:00:00 [place] [facility] ical Branch SARS-COV-2 COVID-19 2020-07-12 Completed Unive rsity of MODERNA VACCINE 00:00:00 [place] [facility] ical [facility] SARS-COV-2 COVID-19 2020-07-12 Completed Unive rsity of MODERNA 12+ YRS 00:00:00 [place] [facility] ical VACCINE Branch SARS-COV-2 COVID-19 2020-07-12 Completed Unive rsity of MODERNA 12+ YRS 00:00:00 [place] [facility] ical VACCINE Branch SARS-COV-2 COVID-19 2020-07-12 Completed Unive rsity of MODERNA 12+ YRS 00:00:00 [place] [facility] ical VACCINE Branch SARS-COV-2 COVID-19 2020-07-12 Completed Unive rsity of MODERNA 12+ YRS 00:00:00 [place] [facility] ical VACCINE Branch SARS-COV-2 COVID-19 2020-07-12 Completed Unive rsity of MODERNA 12+ YRS 00:00:[address] [place] [facility] ical VACCINE Branch Pneumococcal 2020-06-26 Completed University o f Polysaccharide, 00:00:[address] [place] [facility] ical PPSV23 (PNEUMOVAX) Branch Influenza Virus 2020-06-26 Completed Universit y of Vaccine Quad .5 mL 00:00:00 [facility] IM 6+ MO Branch Pneumococcal 2020-06-26 Completed University o f Polysaccharide, 00:00:00 [place] [facility] ical PPSV23 (PNEUMOVAX) Branch Influenza Virus 2020-06-26 Completed Universit y of Vaccine Quad .5 mL 00:00:00 [facility] IM 6+ MO Branch Pneumococcal 2020-06-26 Completed University o f Polysaccharide, 00:00:00 [place] [facility] ical PPSV23 (PNEUMOVAX) Branch Influenza Virus 2020-06-26 Completed Universit y of Vaccine Quad .5 mL 00:00:00 [facility] IM 6+ MO Branch Pneumococcal 2020-06-26 Completed University o f Polysaccharide, 00:00:00 [place] [facility] ical PPSV23 (PNEUMOVAX) Branch Influenza Virus 2020-06-26 Completed Universit y of Vaccine Quad .5 mL 00:00:00 [place] [facility] IM 6+ MO Branch Pneumococcal 2020-06-26 Completed University o f Polysaccharide, 00:00:00 [place] [facility] ical PPSV23 (PNEUMOVAX) Branch Influenza Virus 2020-06-26 Completed Universit y of Vaccine Quad .5 mL 00:00:00 [place] [facility] IM 6+ MO Branch Pneumococcal 2020-06-26 Completed University o f Polysaccharide, 00:00:00 [place] [facility] ical PPSV23 (PNEUMOVAX) Branch Influenza Virus 2020-06-26 Completed Universit y of Vaccine Quad .5 mL 00:00:00 [place] [facility] IM 6+ MO Branch Pneumococcal 2020-06-26 Completed University o f Polysaccharide, 00:00:00 [place] [facility] ical PPSV23 (PNEUMOVAX) Branch Influenza Virus 2020-06-26 Completed Universit y of Vaccine Quad .5 mL 00:00:00 [place] [facility] IM 6+ MO Branch Pneumococcal 2020-06-26 Completed University o f Polysaccharide, 00:00:00 [place] [facility] ical PPSV23 (PNEUMOVAX) Branch Influenza Virus 2020-06-26 Completed Universit y of Vaccine Quad .5 mL 00:00:00 [place] [facility] IM 6+ MO Branch Pneumococcal 2020-06-26 Completed University o f Polysaccharide, 00:00:00 [place] [facility] ical PPSV23 (PNEUMOVAX) Branch Influenza Virus 2020-06-26 Completed Universit y of Vaccine Quad .5 mL 00:00:00 [place] [facility] IM 6+ MO Branch Pneumococcal 2020-06-26 Completed University o f Polysaccharide, 00:00:00 [place] [facility] ical PPSV23 (PNEUMOVAX) Branch Influenza Virus 2020-06-26 Completed Universit y of Vaccine Quad .5 mL 00:00:00 [place] [facility] IM 6+ MO Branch Pneumococcal 2020-06-26 Completed University o f Polysaccharide, 00:00:00 [place] [facility] ical PPSV23 (PNEUMOVAX) Branch Influenza Virus 2020-06-26 Completed Universit y of Vaccine Quad .5 mL 00:00:00 [place] [facility] IM 6+ MO Branch Pneumococcal 2020-06-26 Completed University o f Polysaccharide, 00:00:00 [place] [facility] ical PPSV23 (PNEUMOVAX) Branch Influenza Virus 2020-06-26 Completed Universit y of Vaccine Quad .5 mL 00:00:00 [facility] IM 6+ MO Branch Pneumococcal 2020-06-26 Completed University o f Polysaccharide, 00:00:00 [facility] ical PPSV23 (PNEUMOVAX) Branch Influenza Virus 2020-06-26 Completed Universit y of Vaccine Quad .5 mL 00:00:00 [facility] IM 6+ MO Branch Influenza Virus 2019-04-10 Completed Universit y of Vaccine Quad .5 mL 00:00:00 [facility] 6+ MO Branch TDAP 2019-04-10 Completed University of 00:00:00 [facility] Pneumococcal 13 2019-04-10 Completed Universit y of Conjugate, PCV13 00:00:00 [facility] dical (Prevnar 13) [place] Influenza Virus 2019-04-10 Completed Universit y of Vaccine Quad .5 mL 00:00:00 [facility] 6+ MO [place] TDAP 2019-04-10 Completed University of 00:00:00 [facility] Pneumococcal 13 2019-04-10 Completed Universit y of Conjugate, PCV13 00:00:00 [facility] dical (Prevnar 13) [place] Influenza Virus 2019-04-10 Completed Universit y of Vaccine Quad .5 mL 00:00:00 [facility] 6+ MO [place] TDAP 2019-04-10 Completed University of 00:00:00 [facility] Pneumococcal 13 2019-04-10 Completed Universit y of Conjugate, PCV13 00:00:00 [facility] dical (Prevnar 13) [place] Influenza Virus 2019-04-10 Completed Universit y of Vaccine Quad .5 mL 00:00:00 [facility] 6+ MO Branch TDAP 2019-04-10 Completed University of 00:00:00 [facility] Pneumococcal 13 2019-04-10 Completed Universit y of Conjugate, PCV13 00:00:00 [facility] dical (Prevnar 13) [place] Influenza Virus 2019-04-10 Completed Universit y of Vaccine Quad .5 mL 00:00:00 [facility] 6+ MO Branch TDAP 2019-04-10 Completed University of 00:00:00 [facility] Pneumococcal 13 2019-04-10 Completed Universit y of Conjugate, PCV13 00:00:00 [facility] dical (Prevnar 13) Branch Influenza Virus 2019-04-10 Completed Universit y of Vaccine Quad .5 mL 00:00:00 [facility] 6+ MO Branch TDAP 2019-04-10 Completed University of 00:00:00 [facility] Pneumococcal 13 2019-04-10 Completed Universit y of Conjugate, PCV13 00:00:00 [facility] dical (Prevnar 13) Branch Influenza Virus 2019-04-10 Completed Universit y of Vaccine Quad .5 mL 00:00:00 [facility] IM 6+ MO Branch TDAP 2019-04-10 Completed University of 00:00:00 [facility] Pneumococcal 13 2019-04-10 Completed Universit y of Conjugate, PCV13 00:00:00 [facility] dical (Prevnar 13) Branch Influenza Virus 2019-04-10 Completed Universit y of Vaccine Quad .5 mL 00:00:00 [facility] 6+ MO Branch TDAP 2019-04-10 Completed University of 00:00:00 [facility] Pneumococcal 13 2019-04-10 Completed Universit y of Conjugate, PCV13 00:00:00 [facility] dical (Prevnar 13) [place] Influenza Virus 2019-04-10 Completed Universit y of Vaccine Quad .5 mL 00:00:00 [facility] 6+ MO Branch TDAP 2019-04-10 Completed University of 00:00:00 [facility] Pneumococcal 13 2019-04-10 Completed Universit y of Conjugate, PCV13 00:00:00 [facility] dical (Prevnar 13) Branch Influenza Virus 2019-04-10 Completed Universit y of Vaccine Quad .5 mL 00:00:00 [facility] 6+ MO Branch TDAP 2019-04-10 Completed University of 00:00:00 [facility] Pneumococcal 13 2019-04-10 Completed Universit y of Conjugate, PCV13 00:00:00 [facility] dical (Prevnar 13) Branch Influenza Virus 2019-04-10 Completed Universit y of Vaccine Quad .5 mL 00:00:00 [facility] 6+ MO Branch TDAP 2019-04-10 Completed University of 00:00:00 [facility] Pneumococcal 13 2019-04-10 Completed Universit y of Conjugate, PCV13 00:00:00 [facility] dical (Prevnar 13) [place] Influenza Virus 2019-04-10 Completed Universit y of Vaccine Quad .5 mL 00:00:00 [facility] 6+ MO Branch TDAP 2019-04-10 Completed University of 00:00:00 [facility] Pneumococcal 13 2019-04-10 Completed Universit y of Conjugate, PCV13 00:00:00 [place] [facility] dical (Prevnar 13) Branch Influenza Virus 2019-04-10 Completed Universit y of Vaccine Quad .5 mL 00:00:00 [facility] 6+ MO Branch TDAP 2019-04-10 Completed University of 00:00:00 [facility] Pneumococcal 13 2019-04-10 Completed Universit y of Conjugate, PCV13 00:00:00 [facility] dical (Prevnar 13) [place] Influenza Virus 2018-04-04 Completed Universit y of Vaccine Quad IM 3+ 00:00:00 [facility] Influenza Virus 2018-04-04 Completed Universit y of Vaccine Quad IM 3+ 00:00:00 [facility] Influenza Virus 2018-04-04 Completed Universit y of Vaccine Quad IM 3+ 00:00:00 [facility] Influenza Virus 2018-04-04 Completed Universit y of Vaccine Quad IM 3+ 00:00:00 [facility] Influenza Virus 2018-04-04 Completed Universit y of Vaccine Quad IM 3+ 00:00:00 [facility] Influenza Virus 2018-04-04 Completed Universit y of Vaccine Quad IM 3+ 00:00:00 [facility] Influenza Virus 2018-04-04 Completed Universit y of Vaccine Quad IM 3+ 00:00:00 [facility] Influenza Virus 2018-04-04 Completed Universit y of Vaccine Quad IM 3+ 00:00:00 [facility] Influenza Virus 2018-04-04 Completed Universit y of Vaccine Quad IM 3+ 00:00:00 [facility] Influenza Virus 2018-04-04 Completed Universit y of Vaccine Quad IM 3+ 00:00:00 [facility] Influenza Virus 2018-04-04 Completed Universit y of Vaccine Quad IM 3+ 00:00:00 [facility] Influenza Virus 2018-04-04 Completed Universit y of Vaccine Quad IM 3+ 00:00:00 [facility] Influenza Virus 2018-04-04 Completed Universit y of Vaccine Quad IM 3+ 00:00:00 [facility] Influenza Virus 2016-06-16 Completed Universit y of Vaccine Quad IM 3+ 00:00:00 [facility] Influenza Virus 2016-06-16 Completed Universit y of Vaccine Quad IM 3+ 00:00:00 [facility] Influenza Virus 2016-06-16 Completed Universit y of Vaccine Quad IM 3+ 00:00:00 [facility] Influenza Virus 2016-06-16 Completed Universit y of Vaccine Quad IM 3+ 00:00:00 [facility] Influenza Virus 2016-06-16 Completed Universit y of Vaccine Quad IM 3+ 00:00:00 [facility] Influenza Virus 2016-06-16 Completed Universit y of Vaccine Quad IM 3+ 00:00:00 [facility] Influenza Virus 2016-06-16 Completed Universit y of Vaccine Quad IM 3+ 00:00:00 [facility] Influenza Virus 2016-06-16 Completed Universit y of Vaccine Quad IM 3+ 00:00:00 [facility] Influenza Virus 2016-06-16 Completed Universit y of Vaccine Quad IM 3+ 00:00:00 [facility] Influenza Virus 2016-06-16 Completed Universit y of Vaccine Quad IM 3+ 00:00:00 [facility] Influenza Virus 2016-06-16 Completed Universit y of Vaccine Quad IM 3+ 00:00:00 [facility] Influenza Virus 2016-06-16 Completed Universit y of Vaccine Quad IM 3+ 00:00:00 [facility] Influenza Virus 2016-06-16 Completed Universit y of Vaccine Quad IM 3+ 00:00:00 [facility] Vital Signs Vital Name Observation Time Observation Value Comments Source BP Systolic 2021-05-31 10:14:00 136 mm[Hg] BP Diastolic 2021-05-31 10:14:00 73 mm[Hg] Weight Measured 2021-05-31 10:14:00 96.00 pounds Height Measured 2021-05-31 10:14:00 63.00 inches Body Temperature 2021-05-31 10:14:00 98.30 degrees Heart Rate 2021-05-31 10:14:00 91.00 /min Respiratory Rate 2021-05-31 10:14:00 21.00 /min BP Systolic 2019-09-09 14:35:00 119 mm[Hg] BP Diastolic 2019-09-09 14:35:00 67 mm[Hg] Weight Measured 2019-09-09 14:35:00 98.20 pounds Height Measured 2019-09-09 14:35:00 63.00 inches Body Temperature 2019-09-09 14:35:00 97.60 degrees Heart Rate 2019-09-09 14:35:00 96.00 /min Respiratory Rate 2019-09-09 14:35:00 17.00 /min BP Systolic 2019-07-30 13:53:00 115 mm[Hg] BP Diastolic 2019-07-30 13:53:00 70 mm[Hg] Weight Measured 2019-07-30 13:53:00 101.40 pounds Height Measured 2019-07-30 13:53:00 63.00 inches Body Temperature 2019-07-30 13:53:00 98.40 degrees Heart Rate 2019-07-30 13:53:00 118.00 /min Respiratory Rate 2019-07-30 13:53:00 BP Systolic 2018-09-26 13:42:00 122 mm[Hg] BP Diastolic 2018-09-26 13:42:00 62 mm[Hg] Weight Measured 2018-09-26 13:42:00 110.60 pounds Height Measured 2018-09-26 13:42:00 63.00 inches Body Temperature 2018-09-26 13:42:00 97.80 degrees Heart Rate 2018-09-26 13:42:00 78.00 /min Respiratory Rate 2018-09-26 13:42:00 18.00 /min BP Systolic 2017-12-19 14:43:00 146 mm[Hg] BP Diastolic 2017-12-19 14:43:00 73 mm[Hg] Weight Measured 2017-12-19 14:43:00 93.80 pounds Height Measured 2017-12-19 14:43:00 63.00 inches Body Temperature 2017-12-19 14:43:00 98.10 degrees Heart Rate 2017-12-19 14:43:00 93.00 /min Respiratory Rate 2017-12-19 14:43:00 12.00 /min BP Systolic 2017-11-07 16:39:00 137 mm[Hg] BP Diastolic 2017-11-07 16:39:00 74 mm[Hg] Weight Measured 2017-11-07 16:39:00 94.00 pounds Height Measured 2017-11-07 16:39:00 63.00 inches Body Temperature 2017-11-07 16:39:00 98.10 degrees Heart Rate 2017-11-07 16:39:00 86.00 /min Respiratory Rate 2017-11-07 16:39:00 12.00 /min BP Systolic 2017-08-15 11:24:00 119 mm[Hg] BP Diastolic 2017-08-15 11:24:00 64 mm[Hg] Weight Measured 2017-08-15 11:24:00 91.80 pounds Height Measured 2017-08-15 11:24:00 63.00 inches Body Temperature 2017-08-15 11:24:00 98.20 degrees Heart Rate 2017-08-15 11:24:00 106.00 /min Respiratory Rate 2017-08-15 11:24:00 BP Systolic 2016-12-13 11:16:00 133 mm[Hg] BP Diastolic 2016-12-13 11:16:00 76 mm[Hg] Weight Measured 2016-12-13 11:16:00 90.80 pounds Height Measured 2016-12-13 11:16:00 63.00 inches Body Temperature 2016-12-13 11:16:00 98.00 degrees Heart Rate 2016-12-13 11:16:00 87.00 /min Respiratory Rate 2016-12-13 11:16:00 16.00 /min Procedures Procedure Date / Time Performing Clinician Source Performed 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 2022-06-03 06:01:00 Doctor Unassigned, [facility] Medical Branch MEDICATION CORRESPONDENCE 2021-11-24 05:01:00 Doctor Unassigned, [facility] Name Medical Branch Plan of Care Planned Activity Planned Date Details Comments Source Goal Plan of Care Note [code = 00672-5] Goal Plan of Care Note [code = 73196-7] Goal Plan of Care Note [code = 52618-7] Goal Plan of Care Note [code = 04514-7] Goal Plan of Care Note [code = 76956-3] Goal Plan of Care Note [code = 75718-6] Goal Plan of Care Note [code = 23755-1] Goal Plan of Care Note [code = 16187-0] Goal Plan of Care Note [code = 82511-8] Goal Plan of Care Note [code = 89448-4] Goal Plan of Care Note [code = 52287-4] Goal Plan of Care Note [code = 95199-3] Goal Plan of Care Note [code = 89716-6] Goal Plan of Care Note [code = 79093-3] Goal Plan of Care Note [code = 06070-5] Goal Plan of Care Note [code = 55479-1] Goal Plan of Care Note [code = 60154-7] Goal Plan of Care Note [code = 95866-6] Goal Plan of Care Note [code = 11918-0] Goal Plan of Care Note [code = 26287-6] Goal Plan of Care Note [code = 36977-2] Goal Plan of Care Note [code = 44936-6] Goal Plan of Care Note [code = 12015-8] Encounters Start End Encounter Admission Attending Care Care Encounter Source Date/Time Date/Time Type Type Clinicians Facility Department ID 2021-04-16 Emergency [facility] [id number] Univers 21:04:52 ity of [facility] 2022-06-03 2022-06-03 Orders Doctor KLAUS [id number] Univers 00:00:00 00:00:00 Only Unassigned, REYNA [id number] ity of [place] [facility] [id number] Phil as [id number] [address] 2022-04-01 2022-04-01 Telephone [facility] [id number] [facility] 00:00:00 00:00:00 [place] NIELSEN 350.1.13.10 i ty of [place] [phone] Mo dical NAL [address] [place] [address] 2022-03-02 2022-03-02 Outpatient [id number] 00:00:00 00:00:00 Visit [id number] 2022-02-07 2022-02-07 Telephone [facility] 1.2.840.114 [id number] [facility] 00:00:00 00:00:00 Genaro NIELSEN 350.1.13.10 i ty [place] [phone] [address] 2021-12-30 2021-12-30 Refill [facility] 1.2.840.114 [id number] Univers 00:00:00 00:00:00 Genaro NIELSEN 350.1.13.10 i ty [facility] [place] [phone] [address] 2021-12-28 2021-12-28 [facility] 1.2.840.114 [id number] Univers 00:00:00 00:00:00 (Out) Genaro NIELSEN 350.1.13.10 i ty [facility] [place] [id number] [address] 2021-12-08 2021-12-08 Telephone [facility] 1.2.840.114 [id number] Univers 00:00:00 00:00:00 Genaro NIELSEN 350.1.13.10 i ty [facility] [place] [phone] [address] 2021-12-07 2021-12-07 [facility] 1.2.840.114 [id number] Univers 00:00:00 00:00:00 Genaro NIELSEN 350.1.13.10 i ty [facility] [place] [phone] [address] 2021-12-02 2021-12-02 [facility] 1.[facility].840.114 [id number] Univers 00:00:00 00:00:00 Genaro NIELSEN 350.1.13.10 i ty of [facility] [place] [phone] [address] 2021-12-01 2021-12-01 Outpatient R MARK [facility] [id number] Univers 15:00:00 15:00:00 GENARO sidhu of [facility] 2021-12-01 2021-12-01 Telephone Martínez [facility] 1.2.840.114 [id number] Univers 00:00:00 00:00:00 Rogers Soevolved 350.1.13.10 it y of [facility] [place] [phone] [address] ([facility]) 2021-11-24 2021-11-24 Orders Doctor KLAUS 1.2.840.114 [id number] Univers 00:00:00 00:00:00 Only Unassigned, REYNA 350.1.13.10 ity of [place] [facility] 4.2.7.2.686 [place] as [phone] [address] 2021-11-23 2021-11-23 Telephone [facility] 1.2.840.114 [id number] Univers 00:00:00 00:00:00 Genaro NIELSEN 350.1.13.10 i ty [place] [phone] Mo dical NAL 044 [facility] 2021-11-05 2021-11-05 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, Adc Lab [facility] 1.2.840.114 [id number] Univers 13:00:00 13:15:00 Visit Genaro Flores 350.1.13.10 ity of [facility] [place] [phone] Mo dical NAL 353 [facility] 2021-11-05 2021-11-05 Outpatient R MARK [facility] [id number] Univers 13:00:00 13:00:00 GENARO sidhu [facility] 2021-11-04 2021-11-04 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, 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 Lab [facility] 1.2.840.114 [id number] Univers 11:00:00 11:15:00 Visit Genaro Flores 350.1.13.10 ity of [facility] 4.2.[place] [phone] Mo dical NAL 353 [facility] 2021-11-04 2021-11-04 Outpatient R MARK [facility] [id number] Univers 11:00:00 11:00:00 GENARO thea [facility] 2021-11-04 2021-11-04 Outpatient R MARK [facility] [id number] Univers 09:40:00 10:45:30 GENARO thea [facility] 2021-11-04 2021-11-04 Outpatient R MARK [facility] [id number] Univers 09:40:00 10:45:30 GENARO thea [facility] 2021-11-04 2021-11-04 Office Juan JosecarleelucillegregoryF[facility] 1.2.840.114 [id number] Univers 09:40:00 10:45:30 Visit Genaro NIELSEN 350.1.13.10 i ty of [place] [phone] Mo dic[address] 2021-11-04 2021-11-04 Orders Doctor ENRIQUE 1.2.840.114 [id number] Univers 00:00:00 00:00:00 Only Unassigned, REYNA 350.1.13.10 [facility] 4.2.7.2.686 [place] [phone] [address] 2021-10-19 2021-10-19 Outpatient R JUAN JOSEQUEENIE [facility] [id number] Univers 09:20:00 09:20:00 GENARO althea [facility] 2021-10-12 2021-10-12 Refill Juan [facility]queenieF[facility] 1.2.840.114 [id number] Univers 00:00:00 00:00:00 Genaro NIELSEN 350.1.13.10 i ty of [place] [phone] Mo dical NAL [address] [place] [address] 2021-09-29 2021-09-29 Outpatient R JUAN JOSECARLEETYE [facility] [id number] Univers 09:40:00 09:40:00 GENARO thea [facility] 2021-09-29 2021-09-29 Outpatient [facility] [id number] Univers 09:40:00 09:40:00 GENARO thea [facility] 2021-09-10 2021-09-10 Outpatient R J[facility]SECARLEETYEK[facility] [id number] Univers 10:40:00 12:00:52 GENARO sidhu [facility] 2021-09-10 2021-09-10 Office Juan [facility]queenieF[facility] 1.2.840.114 [id number] Univers 10:40:00 12:00:52 Visit Genaro NIELSEN 350.1.13.10 i ty of [place] [phone] Mo dical NAL 044 [facility] 2021-09-10 2021-09-10 Outpatient R [facility] [id number] [id number] Univers 10:40:00 12:00:52 GENARO sidhu [facility] 2021-09-10 2021-09-10 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, 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 Lab [facility] 1.2.840.114 [id number] Univers 11:45:00 12:00:00 Visit Genaro Flores 350.1.13.10 ity of [place] [phone] Mo dical NAL 353 [facility] 2021-09-10 2021-09-10 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, 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 [facility] 1.2.840.114 [id number] Univers 11:45:00 12:00:00 Visit Juan JoseronnieGenaro jenkins 350.1.13.10 ity of [place] [phone] Mo dical NAL 353 [facility] 2021-09-10 2021-09-10 Orders Doctor ENRIQUE 1.2.840.114 [id number] Univers 00:00:00 00:00:00 Only Unassigned, REYNA 350.1.13.10 [facility] 4.2.7.2.686 [place] [phone] [address] 2021-07-20 2021-07-20 Outpatient R JUAN JOSERONNIEGREGORYKET[facility]ING [facility] [id number] Univers 15:40:00 15:40:00 GENARO sidhu [facility] 2021-02-13 2021-02-13 Orders Doctor ENRIQUE 1.2.840.114 [id number] Univers 00:00:00 00:00:00 Only Unassigned, REYNA 350.1.13.10 ity of [place] [facility] 4.2.7.2.686 [place] [phone] [address] 2020-09-14 2020-09-14 [facility] [id number] Univers 00:00:00 00:00:00 GENARO sidhu [facility] 2020-09-14 2020-09-14 Telephone [facility] 1.2.840.114 [id number] Univers 00:00:00 00:00:00 Genaro Nielsen 350.1.13.10 i ty of [place] [phone] [facility] 044 [facility] 2020-08-25 2020-08-25 Patient [facility] 1.2.840.114 [id number] Univers 00:00:00 00:00:00 Outreach [facility] 350.1.13.10 i ty of [facility] 4.2.7.2.[place] [phone] [facility] [address] [place] 2020-07-14 2020-07-14 Telephone [facility] 1.2.840.114 [id number] Univers 00:00:00 00:00:00 Antonia Nielsen 350.1.13.10 i ty of [place] [phone] [facility] 377 [facility] 2020-06-26 2020-06-26 Office [facility] 1.2.840.114 [id number] Univers 15:53:10 16:13:10 Visit Genaro Nielsen 350.1.13.10 i ty of [place] [phone] [facility] 044 [facility] 2020-06-26 2020-06-26 [facility] [id number] Univers 15:40:00 15:40:00 GENARO sidhu [facility] 2020-06-10 2020-06-10 Orders Doctor KLAUS 1.2.840.114 [id number] Univers 00:00:00 00:00:00 Only Unassigned, REYNA 350.1.13.10 ity of [place] [facility] 4.2.7.2.686 [place] as [phone] [facility] [address] [place] 2020-06-01 2020-06-01 [facility] 1.2.840.114 [id number] Univers 12:02:06 23:59:00 Encounter Aisha Nielsen 350.1.13.10 ity of [place] 4.2.7.2.686 [facility] [phone] [facility] [address] [place] 2020-06-01 2020-06-01 Urgent Provider, [facility] 1.2.840.114 [id number] Univers 11:11:46 11:36:00 Care Aisha Clark 350.1.13.10 ity of [place] 4.2.7.2.686 [place] Profess[place] [phone] Mo dical [facility] [address] [place] [address] 2020-06-01 2020-06-01 Outpatient [facility] [id number] Univers 11:00:00 11:00:00 AISHA ity of [facility] 2020-06-01 2020-06-01 Outpatient R [facility] [id number] Univers 08:00:00 08:00:00 ity of [facility] 2020-03-23 2020-03-23 Emergency [facility] 1.2.908.467 [id number] 12:32:00 13:53:00 Kalia Nielsen 350.1.13.10 [place] 4.2.7.2.686 [place] [phone] [id number] 2020-03-23 2020-03-23 Emergency [facility] 1.2.028.827 [id number] Univers 12:32:00 13:53:00 Kalia Nielsen 350.1.13.10 i ty of [place] 4.2.7.2.686 [facility] [phone] [facility] [address] [place] 2019-12-03 2019-12-03 Outpatient [facility] [id number] Univers 15:00:00 15:00:00 WONDIFUL ity o f [facility] 2019-05-22 2019-05-22 Outpatient R MARK [facility] [id number] Univers 08:39:09 08:39:00 GENARO thea [facility] 2019-02-10 2019-02-10 [facility] 1.2.840.114 [id number] 00:00:00 00:00:00 Becca A [place] 350.1.13.10 [place] 4.2.7.2.686 Professio [phone] [address] 2019-02-10 2019-02-10 Refling [facility] 1.2.840.114 [id number] Univers 00:00:00 00:00:00 Becca A [place] 350.1.13.10 ity of [place] [phone] [address] 2019-01-14 2019-01-14 Telephone Hal Phillips [facility] 1.2.840.114 [id number] 00:00:00 00:00:00 C [place] 350.1.13.10 [place] 4.2.7.2.686 Professio [phone] [address] 2019-01-14 2019-01-14 Telephone Hal Phillips [facility] 1.2.840.114 [id number] [facility] 00:00:00 00:00:00 C [place] 350.1.13.10 i ty of [place] [phone] [address] Results Test Description Test Time Test Comments Results Result Comments Source SARS-CoV-2 (COVID-19) by RT-PCR (HIGH RISK) 2020-02-29 00:00 :00 Test Item Value Reference Range Interpretation Comme nts SARS-CoV-2 INTERPRETATION (test code = 64057) Negative SOURCE (test code = 64966) NASOPHARYNGEAL_SWAB_IN_VTM__UTM CULTURE, [id number] 00:00:00 Test Item Value Reference Range Interpretation Comments CULTURE, MRSA (test SPECIMEN NUMBER: code = 04635) [id number] CULTURE, [id number] 00:00:00 Test Item Value Reference Range Interpretation Comments CULTURE, MRSA (test SPECIMEN NUMBER: code = 72303) [id number] URINE CULTURE, NO [id number] 00:00:00 Test Item Value Reference Range Interpretation Comments URINE CULTURE, NO SPECIMEN NUMBER: SENS (test code = 16281684 31298) URINE CULTURE, NO [id number] 00:00:00 Test Item Value Reference Range Interpretation Comments URINE CULTURE, NO SPECIMEN NUMBER: SENS (test code = 74429826 50599) UNLABELLED SPECIMEN [ADDED]2018-09-28 00:00:00 Test Item Value Reference Range Interpretation Comments NOTE: (test code = 45759) VAGINAL PATHOGENS DNA [id number] 00:00:00 Test Item Value Reference Range Interpretation Comments CHAY SPECIES (test code = ) NEGATIVE G. VAGINALIS (test code = 81242) POSITIVE T. VAGINALIS (test code = 32598) NEGATIVE VAGINAL PATHOGENS DNA [id number] 00:00:00 Test Item Value Reference Range Interpretation Comments CHAY SPECIES (test code = ) NEGATIVE G. VAGINALIS (test code = 75480) POSITIVE T. VAGINALIS (test code = 05256) NEGATIVE GC, AMPLIFIED, [id number] 00:00:00 Test Item Value Reference Range Interpretation Comments GONORRHEA, TMA (test code = 69099) NEGATIVE GC, AMPLIFIED, [id number] 00:00:00 Test Item Value Reference Range Interpretation Comments GONORRHEA, TMA (test code = 55191) NEGATIVE CHLAMYDIA, AMPLIFIED, [id number] 00:00:00 Test Item Value Reference Range Interpretation Comments CHLAMYDIA, TMA (test code = 54695) NEGATIVE CHLAMYDIA, AMPLIFIED, [id number] 00:00:00 Test Item Value Reference Range Interpretation Comments CHLAMYDIA, TMA (test code = 15412) NEGATIVE VAGINAL PATHOGENS DNA [id number] 00:00:00 Test Item Value Reference Range Interpretation Comments CHAY SPECIES (test code = ) NEGATIVE G. VAGINALIS (test code = 40086) NEGATIVE T. VAGINALIS (test code = 23838) NEGATIVE VAGINAL PATHOGENS DNA [id number] 00:00:00 Test Item Value Reference Range Interpretation Comments CHAY SPECIES (test code = ) NEGATIVE G. VAGINALIS (test code = 93586) NEGATIVE T. VAGINALIS (test code = ) NEGATIVE
--- NOTE | 2022-06-09 09:59 | EDPHYS ---
Physician Documentation [facility] Name: Ty Robins Age: 62 yrs Sex: Female : 1960 Arrival Date: 06/09/2022 Time: 09:42 Bed 15 Private MD: ED Physician Colby Mason HPI: 06/09 10:07 This 62 yrs old Female presents to ER via Ambulatory with complaints of Abscess, jr11 Weakness. 10:07 The patient presents with cellulitis of the left lateral ankle. Description: jr11 erythematous, warm. Onset: The symptoms/episode began/occurred 1 week(s) ago. Possible cause(s): skin condition, easy to get abrasion, ulcerations +smoker . Associated signs and symptoms: Pertinent negatives: discharge, foreign body sensation, headache. Modifying factors: the symptoms are alleviated by nothing, the symptoms are aggravated by movement, pressure, touching. Severity of symptoms: At their worst the symptoms were moderate, in the emergency department the symptoms are actually worse. Pt also w gen weakness, non focal, no fever . Historical: - Allergies: 10:01 Codeine; ss 10:01 PENICILLINS; ss - PMHx: 10:01 Hepatitis C; RA; ss - PSHx: 10:01 hand SX x 5; hysterectomy; ss - Immunization history:: Client reports receiving the 2nd dose of the Covid vaccine. - Social history:: Smoking status: Patient reports the use of cigarette tobacco products, smokes one-half pack cigarettes per day. ROS: 10:07 All other systems are negative. jr11 Exam: 10:07 Constitutional: This is a well developed, well nourished patient who is awake, alert, jr11 and in no acute distress. Head/Face: Normocephalic, atraumatic. Eyes: Extra-ocular motions intact. Lids and lashes normal. Conjunctiva and sclera are non-icteric and not injected. Cornea within normal limits. Periorbital areas with no swelling, redness, or edema. ENT: Nares patent. No nasal discharge, no septal abnormalities noted. Oropharynx with no redness, swelling, or masses, exudates, or evidence of obstruction, uvula midline. Mucous membranes moist. Neck: Trachea midline, no thyromegaly or masses palpated, and no cervical lymphadenopathy. Supple, full range of motion without nuchal rigidity, or vertebral point tenderness. No Meningismus. Chest/axilla: Normal chest wall appearance and motion. Nontender with no deformity. No lesions are appreciated. Abdomen/GI: Soft, non-tender, with normal bowel sounds. No distension or tympany. No guarding or rebound. No evidence of tenderness throughout. Back: No spinal tenderness. No costovertebral tenderness. Full range of motion. Skin: 2x3 cm area of erythema, warmth, no abscess over lat mal, FROM ankle, +distal pulses Vital Signs: 09:58 BP 164 / 104; Pulse 95; Resp 20; Temp 98.1(O); Pulse Ox 98% on R/A; Height 5 ft. 2 in. ss (157.48 cm); 10:13 BP 119 / 66; Pulse 82; Resp 19; Pulse Ox 98% on R/A; ll1 MDM: 09:57 Patient medically screened. jr11 10:07 Differential diagnosis: cellulitis. Data reviewed: vital signs, nurses notes. ED jr11 course: Pt does not want blood work at this time, no concern for sepsis at this time. ER warnings given, patient to return if worsening. Local wound care with tipple abx ointment . Administered Medications: No medications were administered Disposition Summary: 06/09/22 09:58 Discharge Ordered Location: Home rust Condition: Stable rust Diagnosis - Cellulitis of left lower limb jr11 Discharge Instructions: - Discharge Summary Sheet jr11 - Cellulitis, Adult jr11 Forms: - Medication Reconciliation Form jr11 - Thank You Letter jr11 - Antibiotic Education jr11 - Prescription Opioid Use jr11 Prescriptions: - Doxycycline Hyclate 100 mg Oral Tablet - take 1 tablet by ORAL route every 12 hours; 20 tablet; Refills: 0, Product jr11 Selection Permitted Signatures: Chanelle Broussard RN RN ss Colby Mason MD MD jr11
--- NOTE | 2022-06-09 10:14 | ER ---
Nurse's Notes [facility] Name: Ty Robins Age: 62 yrs Sex: Female : 1960 Arrival Date: 06/09/2022 Time: 09:42 Bed 15 Private MD: Diagnosis: Cellulitis of left lower limb Presentation: 06/09 09:58 Chief complaint: Patient states: abscess to L ankle that began 1 week ago as a blister. ss Denies fever. PT has a history of Sepsis and wants to be seen before anything gets worse. Coronavirus screen: Client denies travel out of the [place] in the last 14 days. Ebola Screen: Patient denies exposure to infectious person. Patient denies travel to an Ebola-affected area in the 21 days before illness onset. Initial Sepsis Screen: Does the patient meet any 2 criteria? No. Patient's initial sepsis screen is negative. Does the patient have a suspected source of infection? No. Patient's initial sepsis screen is negative. Risk Assessment: Do you want to hurt yourself or someone else? Patient reports no desire to harm self or others. Onset of symptoms was June 02, 2022. 09:58 Method Of Arrival: Ambulatory ss 09:58 Acuity: BRENDA 3 ss Triage Assessment: 10:13 General: Appears in no apparent distress. Behavior is calm, cooperative, appropriate ll1 for age. Historical: - Allergies: 10:01 Codeine; ss 10:01 PENICILLINS; ss - PMHx: 10:01 Hepatitis C; RA; ss - PSHx: 10:01 hand SX x 5; hysterectomy; ss - Immunization history:: Client reports receiving the 2nd dose of the Covid vaccine. - Social history:: Smoking status: Patient reports the use of cigarette tobacco products, smokes one-half pack cigarettes per day. Screenin:13 [facility] ED Fall Risk Assessment (Adult) Impaired Gait Yes (1 pt) Score/Fall Risk Level ll1 0 - 2 = Low Risk Oriented to surroundings, Maintained a safe environment, Educated pt \T\ family on fall prevention, incl call for assistance when getting out of bed, Hourly rounding (assess needs \T\ fall precautionary measures) done. Abuse screen: Denies threats or abuse. Nutritional screening: No deficits noted. Tuberculosis screening: No symptoms or risk factors identified. Assessment: 10:12 General: Appears in no apparent distress. Behavior is calm, cooperative, appropriate ll1 for age. Pain: Complains of pain in left lateral ankle Quality of pain is described as aching. Neuro: No deficits noted. Cardiovascular: No deficits noted. Respiratory: No deficits noted. Derm: Abscess located on left lateral ankle is dime sized, has clear drainage, is hot to touch, is red. Vital Signs: 09:58 BP 164 / 104; Pulse 95; Resp 20; Temp 98.1(O); Pulse Ox 98% on R/A; Height 5 ft. 2 in. ss (157.48 cm); 10:13 BP 119 / 66; Pulse 82; Resp 19; Pulse Ox 98% on R/A; ll1 ED Course: 09:42 Patient arrived in ED. rg4 09:47 Colby Mason MD is Attending Physician. jr11 10:01 Triage completed. ss 10:01 Arm band placed on right wrist. ss 10:13 Patient has correct armband on for positive identification. Bed in low position. Call ll1 light in reach. Cardiac monitoring not applicable on this patient. 10:13 No provider procedures requiring assistance completed. Patient did not have IV access ll1 during this emergency room visit. Administered Medications: No medications were administered Medication: 10:25 VIS not applicable for this client. ll1 Outcome: :58 Discharge ordered by . jr11 10:13 Patient left the ED. ll1 10:13 Discharged to home ambulatory. ll1 10:13 Condition: stable 10:13 Discharge instructions given to patient, Instructed on discharge instructions, follow up and referral plans. medication usage, Demonstrated understanding of instructions, follow-up care, medications, Prescriptions given X 1. Signatures: Chanelle Broussard, RN RN Afua Olivera rg4 Mel Moya RN RN ll1 Colby Mason MD MD jr11
[2022-06-09 10:17] VITALS: BP 164/104; TEMP 98.1; O2SAT 98
[2022-06-09] MEDS ORDERED: ACETAMINOPHEN 500 MG TAB ONE (11:39)
== END 2022-06-09 10:13 | disposition home or self-care (01) ==
LOC: ER 09:37
DX: L03.116 Cellulitis of left lower limb (principal); F17.210 Nicotine dependence, cigarettes, uncomplicated; Z88.0 Allergy status to penicillin; Z88.5 Allergy status to narcotic agent
CPT/HCPCS: 99282

== ENCOUNTER 2022-11-09 11:11 | Emergency (ER) | payer OTHER ==
--- OUTSIDE RECORDS SUMMARY | 2022-11-09 11:18 | XMS REPORT | Continuity of Care Document ---
:1960 Author Organization [facility] t Address [address] [place] [address] [address] [place] [address] Care Team Providers Name Role Phone Dena Cartwright Primary Care Physician [phone] GENARO FLORES Attending Clinician Unavailable Genaro Flores MD Attending Clinician Doctor Unassigned, [place] Attending Clinician Unavailable Martínez Rebecca Zuleta Attending Clinician Unavailable 2, [facility] Attending Clinician Unavailable Channing Moody DO Attending Clinician Antonia Fragoso MD Attending Clinician Aisha Moffett Attending Clinician Provider, [facility] Attending Clinician Unavailable AISHA CLARK Attending Clinician Unavailable Kalia Steinberg MD Attending Clinician TREVA HIDALGO Attending Clinician Unavailable Becca Morrissey MD Attending Clinician [phone] Hal Quick MD Attending Clinician GENARO FLORES Admitting Clinician Unavailable Payers Payer Name Policy Type Policy Number Effective Date Expiration Date [facility] [id number] 2015 MEDICAID 00:00:00 Problems Condition Condition Condition Status Onset Resolution Last Treating Co mments Source Name Details Category Date Date Treatment Clinician Date 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 5-19 ity of 00:00: [place] [facility] Chronic Chronic Disease Active 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 00:00: [address] Nasal Nasal Disease Active Univers congestion congestion 5-19 it y of 00:00: [address] Chronic Chronic Disease Active Univers pain of pain of 3-25 ity of both both 00:00: [place] shoulders shoulders 00 [facility] Branch Chronic Chronic Disease Active Univers pain of pain of 3-25 ity of both both 00:00: [place] shoulders shoulders 00 [facility] Teeth Teeth Disease Active Univers decayed decayed 3-25 ity of 00:00: [address] Chronic Chronic Disease Active Univers pain of pain of 1-08 ity of both knees both knees 00:00: [place] 00 [facility] 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 1-08 ity of 00:00: [place] [facility] Cellulitis Cellulitis Disease Active U nivers of right of right 1-08 ity of breast breast 00:00: [address] Cellulitis Cellulitis Disease Active U nivers of skin of skin 1-08 ity of 00:00: [place] [facility] Chronic Chronic Disease Active Univers pain pain 1-08 ity of syndrome syndrome 00:00: [address] Arthritis, Arthritis, Disease Active U nivers multiple multiple 1-08 ity of joint joint 00:00: [place] involvemen involvemen 00 Me dical t t Branch Pain in Pain in Disease Active Univers both hands both hands 1-08 it y of 00:00: [address] Cigarette Cigarette Disease Active Uni vers nicotine nicotine 1-08 ity of dependence dependence 00:00: Juan Daniel dsouza with other with other 00 Me dical nicotine-i nicotine-i Br anch nduced nduced disorder disorder Essential Essential Disease Active 2018-06 Uni vers hypertensi hypertensi 1-24 it y of on on 00:00: [address] Spider Spider Disease Active 2018-06 Univers bite bite 1-24 ity of wound, wound, 00:00: [place] undetermin undetermin 00 Me dical ed intent, ed intent, Br anch initial initial encounter encounter Rheumatoid Rheumatoid Disease Active 2018- U nivers arthritis arthritis 0-27 it[place] of involving [place] hands, hands, Branch unspecifie unspecifie d d rheumatoid rheumatoid factor factor presence presence Poor sleep Poor sleep Disease Active 2018-06 U nivers pattern pattern 0-27 ity of 00:00: [place] 00 Medical Branch Clubbing Clubbing Disease Active 2018-06 Unive rs of nails of nails 0-27 ity of 00:00: [place] 00 Medical Branch Need for Need for [...] for 0-27 ity of cervical cervical 00:00: [place] cancer cancer 00 Medical Branch History of History of Disease Active 2018 U nivers dental dental 8-15 ity of surgery surgery 00:00: [place] [facility] Abscessed Abscessed Disease Active Uni vers tooth tooth 8-05 ity of 00:00: [place] [facility] Microcytic Microcytic Disease Active 2018 U rudyers anemia anemia 8- ity of 00:00: [place] [facility] Other Other Disease Active Univers neutropeni neutropeni 01-17 it y of a a 00:00: [place] [facility] 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-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 00:00: [place] [facility] Chronic Chronic Disease Active Univers periodonta periodonta 8 it y of l disease l disease 00:00[place] [facility] [place] Elevated Elevated Disease Active Unive rs sedimentat sedimentat 01-17 it y of ion rate ion rate 00:00: [place] 00 Medical Branch History of History of [...] on against [place]:00[place] influenza influenza [facility] 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 connie ity of cytoplasmi cytoplasmi [place] c antibody c antibody 00 Ma dical (ANCA) (ANCA) Branch positive positive Nicotine [...] reaction 00 to drug Penicill Propensi Active 20170 ins ty to 6-27 adverse 00:00: reaction 00 to drug CODEINE DRUG Active ITCHING 2008- Univers INGREDI 8-25 ity of 00:00: [place] 00 Medical Branch Codeine Propensi Active Nausea 2009- Univers ty to and/or 825 ity of adverse Vomiting 00:00: [place] reaction 00 Medical s Branch Penicill Propensi Active Anaphylaxis 2006-0 U nivers ins ty to 5-08 ity of adverse 00:00: [place] reaction 00 Medical s Branch PENICILL Drug Active Anaphylaxis 2006-0 Uni vers INS Class 5-08 ity of 00:00: [place] 00 Medical Branch Penicill Propensi Active Anaphylaxis 2006-0 U nivers ins ty to 5-08 ity of adverse 00:00: [place] reaction 00 Medical s Branch Social History Social Habit Start Date Stop Date Quantity Comments Source History of tobacco Cigarette Smoker University of use [place] [facility] History SDOH University o f Alcohol Frequency [facility] edical Branch History SDWA University o f Alcohol Std Drinks [place] [facility] History [facility] o f Alcohol Binge [place] [facility] Alcohol intake 2021-11-04 2021-11-04 Current drinker Unive rsity of 00:00:00 00:00:00 of alcohol [facility] (finding) Branch Cigarettes smoked 2018-01-16 2018-01-16 Univers ity of current (pack per 00:00:00 00:00:00 [facility] ) - Reported Branch Cigarette 2018-01-16 2018-01-16 University of pack-years 00:00:00 00:00:00 [facility] Tobacco use and 2018-01-16 2018-01-16 Smokeless Universit y of exposure 00:00:00 00:00:00 tobacco non-user [facility] dical Branch Alcohol Comment 2018-01-16 2018-01-16 social Universit y of 00:00:00 00:00:00 [facility] Tobacco Comment 2018-01-16 2018-01-16 currently Universit y of 00:00:00 00:00:00 smoking 4 cig/ [facility] Branch Sex [birth year] Universit y of 00:00:00 00:00:00 [facility] Smoking Status Start Date Stop Date Source Smokes tobacco daily 2018-01-16 00:00:00 [facility] [facility] ity [facility] Medications Ordered Filled Start Stop Current Ordering Indication Dosage Frequency Signature Comments Components Source Medication Medication Date Date Medication? Clinician (SIG) Name Name PREDNISONE 2021-0 No 20MG TAB 9-14 00:00: 00 TAKE 2 2021-0 No TABLETS BY 9-14 MOUTH ONCE 00:00: DAILY FOR 5 00 DAYS MELOXICAM 2021-0 No 75 7.5MG TAB 8-19 00:00: 00 CETIRIZINE 2021-0 Yes [id number] 10mg TAKE 1 U nivers 10 mg 7-14 TABLET BY ity of tablet 00:00: MOUTH AT [place] [address] BEDTIME Medical NEEDED FOR Branch ALLERGIES. FLUTICASONE 2021-0 Yes [id number] SPRAY 1 Univers PROPIONATE 7-14 SPRAY INTO ity of 50 00:00: EACH [place] mcg/actuati 00 NOSTRIL Medic al on nasal EVERY DAY Branch spray CETIRIZINE 2021-0 Yes [id number] 10mg TAKE 1 U nivers 10 mg 7-14 TABLET BY ity of tablet 00:00: MOUTH AT [place] [address] BEDTIME Medical NEEDED FOR Branch ALLERGIES. FLUTICASONE 2021-0 Yes [id number] SPRAY 1 Univers PROPIONATE 7-14 SPRAY INTO ity of 50 00:00: EACH [place] mcg/actuati 00 NOSTRIL Medic al on nasal EVERY DAY Branch spray CETIRIZINE 2021-0 Yes [id number] 10mg TAKE 1 U nivers 10 mg 7-14 TABLET BY ity of tablet 00:00: MOUTH AT [place] [address] BEDTIME Medical NEEDED FOR Branch ALLERGIES. FLUTICASONE 2021-0 Yes [id number] SPRAY 1 Univers PROPIONATE 7-14 SPRAY INTO ity of 50 00:00: EACH [place] mcg/actuati 00 NOSTRIL Medic al on nasal EVERY DAY Branch spray CETIRIZINE 2021-0 Yes [id number] 10mg TAKE 1 U nivers 10 mg 7-14 TABLET BY ity of tablet 00:00: MOUTH AT [place] [address] BEDTIME Medical NEEDED FOR Branch ALLERGIES. FLUTICASONE 2021-0 Yes [id number] SPRAY 1 Univers PROPIONATE 7-14 SPRAY INTO ity of 50 00:00: EACH [place] mcg/actuati 00 NOSTRIL Medic al on nasal EVERY DAY Branch spray CETIRIZINE 2021-0 Yes [id number] 10mg TAKE 1 U nivers 10 mg 7-14 TABLET BY ity of tablet 00:00: MOUTH AT [place] [address] BEDTIME Medical NEEDED FOR Branch ALLERGIES. FLUTICASONE 2021-0 Yes [id number] SPRAY 1 Univers PROPIONATE 7-14 SPRAY INTO ity of 50 00:00: EACH [place] mcg/actuati 00 NOSTRIL Medic al on nasal EVERY DAY Branch spray CETIRIZINE 2021-0 Yes [id number] 10mg TAKE 1 U nivers 10 mg 7-14 TABLET BY ity of tablet 00:00: MOUTH AT [place] [address] BEDTIME Medical NEEDED FOR Branch ALLERGIES. FLUTICASONE 2021-0 Yes [id number] SPRAY 1 Univers PROPIONATE 7-14 SPRAY INTO ity of 50 00:00: EACH [place] mcg/actuati 00 NOSTRIL Medic al on nasal EVERY DAY Branch spray CETIRIZINE 2021-0 Yes [id number] 10mg TAKE 1 U nivers 10 mg 7-14 TABLET BY ity of tablet 00:00: MOUTH AT [place] [address] BEDTIME Medical NEEDED FOR Branch ALLERGIES. FLUTICASONE 2021-0 Yes [id number] SPRAY 1 Univers PROPIONATE 7-14 SPRAY INTO ity of 50 00:00: EACH [place] mcg/actuati 00 NOSTRIL Medic al on nasal EVERY DAY Branch spray CETIRIZINE 2021-0 Yes [id number] 10mg TAKE 1 U nivers 10 mg 7-14 TABLET BY ity of tablet 00:00: MOUTH AT [place] [address] BEDTIME Medical NEEDED FOR Branch ALLERGIES. FLUTICASONE 2021-0 Yes [id number] SPRAY 1 Univers PROPIONATE 7-14 SPRAY INTO ity of 50 00:00: EACH [place] mcg/actuati 00 NOSTRIL Medic al on nasal EVERY DAY Branch spray pravastatin 2021-0 Yes [id number] 20mg Take 1 Univers 20 mg 6-16 tablet by ity of tablet 00:00: mouth at [place] [address] bedtime. Medical Branch FLUTICASONE 2021-0 Yes [id number] SPRAY 1 Univers PROPIONATE 6-16 SPRAY INTO ity of 50 00:00: EACH [place] mcg/actuati 00 NOSTRIL Medic al on nasal EVERY DAY Branch spray CETIRIZINE 2021-0 Yes [id number] 10mg TAKE 1 U nivers 10 mg 6-16 TABLET BY ity of tablet 00:00: MOUTH AT [place] 00 BEDTIME Medical NEEDED FOR Branch ALLERGIES. pravastatin 2021-0 Yes [id number] 20mg Take 1 Univers 20 mg 6-16 tablet by ity of tablet 00:00: mouth at [place] 00 bedtime. Medical Branch FLUTICASONE 2021-0 Yes [id number] SPRAY 1 Univers PROPIONATE 6-16 SPRAY INTO ity of 50 00:00: EACH [place] mcg/actuati 00 NOSTRIL Medic al on nasal EVERY DAY Branch spray CETIRIZINE 0 Yes [id number] 10mg TAKE 1 U nivers 10 mg 6-16 TABLET BY ity of tablet 00:00: MOUTH AT [place] 00 BEDTIME Medical NEEDED FOR Branch ALLERGIES. pravastatin 0 Yes [id number] 20mg Take 1 Univers 20 mg 6-16 tablet by ity of tablet 00:00: mouth at [place] [address] bedtime. Medical Branch FLUTICASONE 0 Yes [id number] SPRAY 1 Univers PROPIONATE 6-16 SPRAY INTO ity of 50 00:00: EACH [place] mcg/actuati 00 NOSTRIL Medic al on nasal EVERY DAY Branch spray CETIRIZINE 2021-0 Yes [id number] 10mg TAKE 1 U nivers 10 mg 6-16 TABLET BY ity of tablet 00:00: MOUTH AT [place] 00 BEDTIME Medical NEEDED FOR Branch ALLERGIES. pravastatin 0 Yes [id number] 20mg Take 1 Univers 20 mg 6-16 tablet by ity of tablet 00:00: mouth at [place] 00 bedtime. Medical Branch FLUTICASONE 0 Yes [id number] SPRAY 1 Univers PROPIONATE 6-16 SPRAY INTO ity of 50 00:00: EACH [place] mcg/actuati 00 NOSTRIL Medic al on nasal EVERY DAY Branch spray CETIRIZINE 2021-0 Yes [id number] 10mg TAKE 1 U nivers 10 mg 6-16 TABLET BY ity of tablet 00:00: MOUTH AT [place] 00 BEDTIME Medical NEEDED FOR Branch ALLERGIES. pravastatin 2021-0 Yes [id number] 20mg Take 1 Univers 20 mg 6-16 tablet by ity of tablet 00:00: mouth at [place] [address] bedtime. Medical Branch pravastatin 2022-0 Yes [id number] 20mg Take 1 Univers 20 mg 6-16 tablet by ity of tablet 00:00: mouth at [place] [address] bedtime. Medical Branch pravastatin Yes [id number] 20mg Take 1 Univers 20 mg 6-16 tablet by ity of tablet 00:00: mouth at [place] [address] bedtime. Medical Branch pravastatin Yes [id number] 20mg Take 1 Univers 20 mg 6-16 tablet by ity of tablet 00:00: mouth at [place] [address] bedtime. Medical Branch pravastatin Yes [id number] 20mg Take 1 Univers 20 mg 6-16 tablet by ity of tablet 00:00: mouth at [place] [address] bedtime. Medical Branch pravastatin Yes [id number] 20mg Take 1 Univers 20 mg 6-16 tablet by ity of tablet 00:00: mouth at [place] [address] bedtime. Medical Branch pravastatin Yes [id number] 20mg Take 1 Univers 20 mg 6-16 tablet by ity of tablet 00:00: mouth at [place] [address] bedtime. Medical Branch pravastatin Yes [id number] 20mg Take 1 Univers 20 mg 6-16 tablet by ity of tablet 00:00: mouth at [place] [address] bedtime. Medical Branch pravastatin Yes [id number] 20mg Take 1 Univers 20 mg 6-16 tablet by ity of tablet 00:00: mouth at [place] [address] bedtime. Medical Branch FLUTICASONE 2021- No [id number] SPRAY 1 Univers PROPIONATE 6-16 07-14 SPRAY INTO it y of 50 00:00: 00:00 EACH [place] mcg/actuati 00 :00 NOSTRIL Medic al on nasal EVERY DAY Branch spray CETIRIZINE 2021- No [id number] 10mg TAKE 1 Univers 10 mg 6-16 07-14 TABLET BY ity of tablet 00:00: 00:00 MOUTH AT [place] 00 :00 BEDTIME Medical NEEDED FOR Branch ALLERGIES. nicotine 14 Yes [id number] 1{patch Apply 1 Univers mg/24 hr 5-19 } Patch to ity of patch 00:00: area(s) [place] 00 every 24 Medical (twenty-fo Branch ur) hours. Apply 21mg patch daily x 6 weeks; then apply 14mf patch daily x 2 weeks; then apply 7mg patch daily x 2 weeks. Stop smoking on initiation of therapy nicotine Yes [id number] 1{patch Apply 1 Univers mg/24 hr 5-19 } Patch to ity of patch 00:00: area(s) [place] 00 daily. Medical Apply 21mg Branch patch daily x 6 weeks; then apply 14mf patch daily x 2 weeks; then apply 7mg patch daily x 2 weeks. Stop smoking on initiation of therapy nicotine Yes [id number] 1{patch Apply 1 Univers mg/24 hr 5-19 } Patch to ity of patch 00:00: area(s) [place] 00 every 24 Medical (twenty-fo Branch ur) hours. Apply 21mg patch daily x 6 weeks; then apply 14mf patch daily x 2 weeks; then apply 7mg patch daily x 2 weeks. Stop smoking on initiation of therapy fluticasone Yes [id number] 1{spray Use 1 Univers propionate 5-19 } [place] in ity o f 50 00:00: each [place] mcg/actuati 00 nostril Medic al on nasal daily. Branch spray cetirizine Yes [id number] 10mg Take 1 U nivers (ZYRTEC) 10 5-19 tablet by ity of mg tablet 00:00: [place] 00 bedtime as Medical needed for Branch Allergies. benzonatate Yes [id number] 100mg Take 1 Univers (TESSALON 5-19 capsule by ity of PERLES) 100 00:00: mouth [place] mg capsule 00 every 8 Medica l (eight) Branch hours as needed for Cough. sofosbuvir- Yes [id number] 1{tbl} Take 1 Univers velpatasvir 5-19 tablet by ity of (EPCLUSA) 00:00: mouth [place] 400-100 mg 00 daily. Medical Branch nicotine Yes [id number] 1{patch Apply 1 Univers mg/24 hr 5-19 } Patch to ity of patch 00:00: area(s) [place] 00 every 24 Medical (twenty-fo Branch ur) hours. Apply 21mg patch daily x 6 weeks; then apply 14mf patch daily x 2 weeks; then apply 7mg patch daily x 2 weeks. Stop smoking on initiation of therapy nicotine Yes [id number] 1{patch Apply 1 Univers mg/24 hr 5-19 } Patch to ity of patch 00:00: area(s) [place] 00 daily. Medical Apply 21mg Branch patch daily x 6 weeks; then apply 14mf patch daily x 2 weeks; then apply 7mg patch daily x 2 weeks. Stop smoking on initiation of therapy nicotine Yes [id number] 1{patch Apply 1 Univers mg/24 hr 5-19 } Patch to ity of patch 00:00: area(s) [place] 00 every 24 Medical (twenty-fo Branch ur) hours. Apply 21mg patch daily x 6 weeks; then apply 14mf patch daily x 2 weeks; then apply 7mg patch daily x 2 weeks. Stop smoking on initiation of therapy benzonatate Yes [id number] 100mg Take 1 Univers (TESSALON 5-19 capsule by ity of ALEKSANDR) 100 00:00: mouth [place] mg capsule 00 every 8 Medica l (eight) Branch hours as needed for Cough. sofosbuvir- Yes [id number] 1{tbl} Take 1 Univers velpatasvir 5-19 tablet by ity of (EPCLUSA) 00:00: mouth [place] 400-100 mg 00 daily. Medical Branch nicotine Yes [id number] 1{patch Apply 1 Univers mg/24 hr 5-19 } Patch to ity of patch 00:00: area(s) [place] 00 every 24 Medical (twenty-fo Branch ur) hours. Apply 21mg patch daily x 6 weeks; then apply 14mf patch daily x 2 weeks; then apply 7mg patch daily x 2 weeks. Stop smoking on initiation of therapy nicotine Yes [id number] 1{patch Apply 1 Univers mg/24 hr 5-19 } Patch to ity of patch 00:00: area(s) [place] 00 daily. Medical Apply 21mg Branch patch daily x 6 weeks; then apply 14mf patch daily x 2 weeks; then apply 7mg patch daily x 2 weeks. Stop smoking on initiation of therapy nicotine Yes [id number] 1{patch Apply 1 Univers mg/24 hr 5-19 } Patch to ity of patch 00:00: area(s) [place] 00 every 24 Medical (twenty-fo Branch ur) hours. Apply 21mg patch daily x 6 weeks; then apply 14mf patch daily x 2 weeks; then apply 7mg patch daily x 2 weeks. Stop smoking on initiation of therapy benzonatate Yes [id number] 100mg Take 1 Univers (TESSALON 5-19 capsule by ity of PERLCazoomi) 100 00:00: mouth [place] mg capsule 00 every 8 Medica l (eight) Branch hours as needed for Cough. sofosbuvir- Yes [id number] 1{tbl} Take 1 Univers velpatasvir 5-19 tablet by ity of (EPCLUSA) 00:00: mouth [place] 400-100 mg 00 daily. Medical Branch nicotine 14 Yes [id number] 1{patch Apply 1 Univers mg/24 hr 5-19 } Patch to ity of patch 00:00: area(s) [place] 00 every 24 Medical (twenty-fo Branch ur) hours. Apply 21mg patch daily x 6 weeks; then apply 14mf patch daily x 2 weeks; then apply 7mg patch daily x 2 weeks. Stop smoking on initiation of therapy nicotine 21 Yes [id number] 1{patch Apply 1 Univers mg/24 hr 5-19 } Patch to ity of patch 00:00: area(s) [place] 00 daily. Medical Apply 21mg Branch patch daily x 6 weeks; then apply 14mf patch daily x 2 weeks; then apply 7mg patch daily x 2 weeks. Stop smoking on initiation of therapy nicotine 7 Yes [id number] 1{patch Apply 1 Univers mg/24 hr 5-19 } Patch to ity of patch 00:00: area(s) [place] 00 every 24 Medical (twenty-fo Branch ur) hours. Apply 21mg patch daily x 6 weeks; then apply 14mf patch daily x 2 weeks; then apply 7mg patch daily x 2 weeks. Stop smoking on initiation of therapy benzonatate Yes [id number] 100mg Take 1 Univers (TESSALON 5-19 capsule by ity of PERLES) 100 00:00: mouth [place] mg capsule 00 every 8 Medica l (eight) Branch hours as needed for Cough. sofosbuvir- Yes [id number] 1{tbl} Take 1 Univers velpatasvir 5-19 tablet by ity of (EPCLUSA) 00:00: mouth [place] 400-100 mg 00 daily. Medical Branch nicotine Yes [id number] 1{patch Apply 1 Univers mg/24 hr 5-19 } Patch to ity of patch 00:00: area(s) [place] 00 every 24 Medical (twenty-fo Branch ur) hours. Apply 21mg patch daily x 6 weeks; then apply 14mf patch daily x 2 weeks; then apply 7mg patch daily x 2 weeks. Stop smoking on initiation of therapy nicotine Yes [id number] 1{patch Apply 1 Univers mg/24 hr 5-19 } Patch to ity of patch 00:00: area(s) [place] 00 daily. Medical Apply 21mg Branch patch daily x 6 weeks; then apply 14mf patch daily x 2 weeks; then apply 7mg patch daily x 2 weeks. Stop smoking on initiation of therapy nicotine Yes [id number] 1{patch Apply 1 Univers mg/24 hr 5-19 } Patch to ity of patch 00:00: area(s) [place] 00 every 24 Medical (twenty-fo Branch ur) hours. Apply 21mg patch daily x 6 weeks; then apply 14mf patch daily x 2 weeks; then apply 7mg patch daily x 2 weeks. Stop smoking on initiation of therapy benzonatate Yes [id number] 100mg Take 1 Univers (TESSALON 5-19 capsule by ity of ALEKSANDR) 100 00:00: mouth [place] mg capsule 00 every 8 Medica l (eight) Branch hours as needed for Cough. sofosbuvir- Yes [id number] 1{tbl} Take 1 Univers velpatasvir 5-19 tablet by ity of (EPCLUSA) 00:00: mouth [place] 400-100 mg 00 daily. Medical Branch nicotine Yes [id number] 1{patch Apply 1 Univers mg/24 hr 5-19 } Patch to ity of patch 00:00: area(s) [place] 00 every 24 Medical (twenty-fo Branch ur) hours. Apply 21mg patch daily x 6 weeks; then apply 14mf patch daily x 2 weeks; then apply 7mg patch daily x 2 weeks. Stop smoking on initiation of therapy nicotine Yes [id number] 1{patch Apply 1 Univers mg/24 hr 5-19 } Patch to ity of patch 00:00: area(s) [place] 00 daily. Medical Apply 21mg Branch patch daily x 6 weeks; then apply 14mf patch daily x 2 weeks; then apply 7mg patch daily x 2 weeks. Stop smoking on initiation of therapy nicotine 7 Yes [id number] 1{patch Apply 1 Univers mg/24 hr 5-19 } Patch to ity of patch 00:00: area(s) [place] 00 every 24 Medical (twenty-fo Branch ur) hours. Apply 21mg patch daily x 6 weeks; then apply 14mf patch daily x 2 weeks; then apply 7mg patch daily x 2 weeks. Stop smoking on initiation of therapy benzonatate Yes [id number] 100mg Take 1 Univers (TESSALON 5-19 capsule by ity of ALEKSANDR) 100 00:00: mouth [place] mg capsule 00 every 8 Medica l (eight) Branch hours as needed for Cough. sofosbuvir- Yes [id number] 1{tbl} Take 1 Univers velpatasvir 5-19 tablet by ity of (EPCLUSA) 00:00: mouth [place] 400-100 mg 00 daily. Medical Branch nicotine Yes [id number] 1{patch Apply 1 Univers mg/24 hr 5-19 } Patch to ity of patch 00:00: area(s) [place] 00 every 24 Medical (twenty-fo Branch ur) hours. Apply 21mg patch daily x 6 weeks; then apply 14mf patch daily x 2 weeks; then apply 7mg patch daily x 2 weeks. Stop smoking on initiation of therapy nicotine Yes [id number] 1{patch Apply 1 Univers mg/24 hr 5-19 } Patch to ity of patch 00:00: area(s) [place] 00 daily. Medical Apply 21mg Branch patch daily x 6 weeks; then apply 14mf patch daily x 2 weeks; then apply 7mg patch daily x 2 weeks. Stop smoking on initiation of therapy nicotine 7 Yes [id number] 1{patch Apply 1 Univers mg/24 hr 5-19 } Patch to ity of patch 00:00: area(s) [place] 00 every 24 Medical (twenty-fo Branch ur) hours. Apply 21mg patch daily x 6 weeks; then apply 14mf patch daily x 2 weeks; then apply 7mg patch daily x 2 weeks. Stop smoking on initiation of therapy benzonatate Yes [id number] 100mg Take 1 Univers (TESSALON 5-19 capsule by ity of PERLCazoomi) 100 00:00: mouth [place] mg capsule 00 every 8 Medica l (eight) Branch hours as needed for Cough. sofosbuvir- Yes [id number] 1{tbl} Take 1 Univers velpatasvir 5-19 tablet by ity of (EPCLUSA) 00:00: mouth [place] 400-100 mg 00 daily. Medical Branch nicotine 14 Yes [id number] 1{patch Apply 1 Univers mg/24 hr 5-19 } Patch to ity of patch 00:00: area(s) [place] 00 every 24 Medical (twenty-fo Branch ur) hours. Apply 21mg patch daily x 6 weeks; then apply 14mf patch daily x 2 weeks; then apply 7mg patch daily x 2 weeks. Stop smoking on initiation of therapy nicotine 21 Yes [id number] 1{patch Apply 1 Univers mg/24 hr 5-19 } Patch to ity of patch 00:00: area(s) [place] 00 daily. Medical Apply 21mg Branch patch daily x 6 weeks; then apply 14mf patch daily x 2 weeks; then apply 7mg patch daily x 2 weeks. Stop smoking on initiation of therapy nicotine 7 Yes [id number] 1{patch Apply 1 Univers mg/24 hr 5-19 } Patch to ity of patch 00:00: area(s) [place] 00 every 24 Medical (twenty-fo Branch ur) hours. Apply 21mg patch daily x 6 weeks; then apply 14mf patch daily x 2 weeks; then apply 7mg patch daily x 2 weeks. Stop smoking on initiation of therapy benzonatate Yes [id number] 100mg Take 1 Univers (TESSALON 5-19 capsule by ity of VJES) 100 00:00: mouth [place] mg capsule 00 every 8 Medica l (eight) Branch hours as needed for Cough. sofosbuvir- Yes [id number] 1{tbl} Take 1 Univers velpatasvir 5-19 tablet by ity of (EPCLUSA) 00:00: mouth [place] 400-100 mg 00 daily. Medical Branch nicotine 14 Yes [id number] 1{patch Apply 1 Univers mg/24 hr 5-19 } Patch to ity of patch 00:00: area(s) [place] 00 every 24 Medical (twenty-fo Branch ur) hours. Apply 21mg patch daily x 6 weeks; then apply 14mf patch daily x 2 weeks; then apply 7mg patch daily x 2 weeks. Stop smoking on initiation of therapy nicotine Yes [id number] 1{patch Apply 1 [facility] mg/24 hr 5-19 } Patch to ity of patch 00:00: area(s) [place] 00 daily. Medical Apply 21mg Branch patch daily x 6 weeks; then apply 14mf patch daily x 2 weeks; then apply 7mg patch daily x 2 weeks. Stop smoking on initiation of therapy nicotine 7 Yes [id number] 1{patch Apply 1 [facility] mg/24 hr 5-19 } Patch to ity of patch 00:00: area(s) [place] 00 every 24 Medical (twenty-fo Branch ur) hours. Apply 21mg patch daily x 6 weeks; then apply 14mf patch daily x 2 weeks; then apply 7mg patch daily x 2 weeks. Stop smoking on initiation of therapy benzonatate Yes [id number] 100mg Take 1 [facility] (TESSALON 5-19 capsule by ity of ALEKSANDR) 100 00:00: mouth [place] mg capsule 00 every 8 Medica l (eight) Branch hours as needed for Cough. sofosbuvir- Yes [id number] 1{tbl} Take 1 [facility] velpatasvir 5-19 tablet by ity of (EPCLUSA) 00:00: mouth [place] 400-100 mg 00 daily. Medical Branch nicotine 14 Yes [id number] 1{patch Apply 1 [facility] mg/24 hr 5-19 } Patch to ity of patch 00:00: area(s) [place] 00 every 24 Medical (twenty-fo Branch ur) hours. Apply 21mg patch daily x 6 weeks; then apply 14mf patch daily x 2 weeks; then apply 7mg patch daily x 2 weeks. Stop smoking on initiation of therapy nicotine Yes [id number] 1{patch Apply 1 [facility] mg/24 hr 5-19 } Patch to ity of patch 00:00: area(s) [place] 00 daily. Medical Apply 21mg Branch patch daily x 6 weeks; then apply 14mf patch daily x 2 weeks; then apply 7mg patch daily x 2 weeks. Stop smoking on initiation of therapy nicotine 7 Yes [id number] 1{patch Apply 1 [facility] mg/24 hr 5-19 } Patch to ity of patch 00:00: area(s) [place] 00 every 24 Medical (twenty-fo Branch ur) hours. Apply 21mg patch daily x 6 weeks; then apply 14mf patch daily x 2 weeks; then apply 7mg patch daily x 2 weeks. Stop smoking on initiation of therapy benzonatate Yes [id number] 100mg Take 1 [facility] (TESSALON 5-19 capsule by ity of ALEKSANDR) 100 00:00: mouth [place] mg capsule 00 every 8 Medica l (eight) Branch hours as needed for Cough. sofosbuvir- Yes [id number] 1{tbl} Take 1 [facility] velpatasvir 5-19 tablet by ity of (EPCLUSA) 00:00: mouth [place] 400-100 mg 00 daily. Medical Branch nicotine 14 Yes [id number] 1{patch Apply 1 [facility] mg/24 hr 5-19 } Patch to ity of patch 00:00: area(s) [place] 00 every 24 Medical (twenty-fo Branch ur) hours. Apply 21mg patch daily x 6 weeks; then apply 14mf patch daily x 2 weeks; then apply 7mg patch daily x 2 weeks. Stop smoking on initiation of therapy nicotine 21 Yes [id number] 1{patch Apply 1 [facility] mg/24 hr 5-19 } Patch to ity of patch 00:00: area(s) [place] 00 daily. Medical Apply 21mg Branch patch daily x 6 weeks; then apply 14mf patch daily x 2 weeks; then apply 7mg patch daily x 2 weeks. Stop smoking on initiation of therapy nicotine 7 Yes [id number] 1{patch Apply 1 [facility] mg/24 hr 5-19 } Patch to ity of patch 00:00: area(s) [place] 00 every 24 Medical (twenty-fo Branch ur) hours. Apply 21mg patch daily x 6 weeks; then apply 14mf patch daily x 2 weeks; then apply 7mg patch daily x 2 weeks. Stop smoking on initiation of therapy benzonatate Yes [id number] 100mg Take 1 [facility] (TESSALON 5-19 capsule by ity of PERLES) 100 00:00: mouth [place] mg capsule 00 every 8 Medica l (eight) Branch hours as needed for Cough. sofosbuvir- Yes [id number] 1{tbl} Take 1 [facility] velpatasvir 5-19 tablet by ity of (EPCLUSA) 00:00: mouth [place] 400-100 mg 00 daily. Medical Branch nicotine 14 Yes [id number] 1{patch Apply 1 [facility] mg/24 hr 5-19 } Patch to ity of patch 00:00: area(s) [place] 00 every 24 Medical (twenty-fo Branch ur) hours. Apply 21mg patch daily x 6 weeks; then apply 14mf patch daily x 2 weeks; then apply 7mg patch daily x 2 weeks. Stop smoking on initiation of therapy nicotine 21 Yes [id number] 1{patch Apply 1 [facility] mg/24 hr 5-19 } Patch to ity of patch 00:00: area(s) [place] 00 daily. Medical Apply 21mg Branch patch daily x 6 weeks; then apply 14mf patch daily x 2 weeks; then apply 7mg patch daily x 2 weeks. Stop smoking on initiation of therapy nicotine 7 Yes [id number] 1{patch Apply 1 [facility] mg/24 hr 5-19 } Patch to ity of patch 00:00: area(s) [place] 00 every 24 Medical (twenty-fo Branch ur) hours. Apply 21mg patch daily x 6 weeks; then apply 14mf patch daily x 2 weeks; then apply 7mg patch daily x 2 weeks. Stop smoking on initiation of therapy benzonatate Yes [id number] 100mg Take 1 [facility] (TESSALON 5-19 capsule by ity of PERLES) 100 00:00: mouth [place] mg capsule 00 every 8 Medica l (eight) Branch hours as needed for Cough. sofosbuvir- Yes [id number] 1{tbl} Take 1 [facility] velpatasvir 5-19 tablet by ity of (EPCLUSA) 00:00: mouth [place] 400-100 mg 00 daily. Medical Branch nicotine 14 Yes [id number] 1{patch Apply 1 [facility] mg/24 hr 5-19 } Patch to ity of patch 00:00: area(s) [place] 00 every 24 Medical (twenty-fo Branch ur) hours. Apply 21mg patch daily x 6 weeks; then apply 14mf patch daily x 2 weeks; then apply 7mg patch daily x 2 weeks. Stop smoking on initiation of therapy nicotine Yes [id number] 1{patch Apply 1 [facility] mg/24 hr 5-19 } Patch to ity of patch 00:00: area(s) [place] 00 daily. Medical Apply 21mg Branch patch daily x 6 weeks; then apply 14mf patch daily x 2 weeks; then apply 7mg patch daily x 2 weeks. Stop smoking on initiation of therapy nicotine Yes [id number] 1{patch Apply 1 [facility] mg/24 hr 5-19 } Patch to ity of patch 00:00: area(s) [place] 00 every 24 Medical (twenty-fo Branch ur) hours. Apply 21mg patch daily x 6 weeks; then apply 14mf patch daily x 2 weeks; then apply 7mg patch daily x 2 weeks. Stop smoking on initiation of therapy benzonatate Yes [id number] 100mg Take 1 [facility] (TESSALON 5-19 capsule by ity of PERLES) 100 00:00: mouth [place] mg capsule 00 every 8 Medica l (eight) Branch hours as needed for Cough. sofosbuvir- Yes [id number] 1{tbl} Take 1 [facility] velpatasvir 5-19 tablet by ity of (EPCLUSA) 00:00: mouth [place] 400-100 mg 00 daily. Medical Branch nicotine Yes [id number] 1{patch Apply 1 [facility] mg/24 hr 5-19 } Patch to ity of patch 00:00: area(s) [place] 00 every 24 Medical (twenty-fo Branch ur) hours. Apply 21mg patch daily x 6 weeks; then apply 14mf patch daily x 2 weeks; then apply 7mg patch daily x 2 weeks. Stop smoking on initiation of therapy nicotine Yes [id number] 1{patch Apply 1 [facility] mg/24 hr 5-19 } Patch to ity of patch 00:00: area(s) [place] 00 daily. Medical Apply 21mg Branch patch daily x 6 weeks; then apply 14mf patch daily x 2 weeks; then apply 7mg patch daily x 2 weeks. Stop smoking on initiation of therapy nicotine 7 Yes [id number] 1{patch Apply 1 [facility] mg/24 hr 5-19 } Patch to ity of patch 00:00: area(s) [place] 00 every 24 Medical (twenty-fo Branch ur) hours. Apply 21mg patch daily x 6 weeks; then apply 14mf patch daily x 2 weeks; then apply 7mg patch daily x 2 weeks. Stop smoking on initiation of therapy benzonatate Yes [id number] 100mg Take 1 [facility] (TESSALON 5-19 capsule by ity of ALEKSANDR) 100 00:00: mouth [place] mg capsule 00 every 8 Medica l (eight) Branch hours as needed for Cough. sofosbuvir- Yes [id number] 1{tbl} Take 1 [facility] velpatasvir 5-19 tablet by ity of (EPCLUSA) 00:00: mouth [place] 400-100 mg 00 daily. Medical Branch fluticasone 2021- No [id number] 1{spray Use 1 [facility] propionate 5-19 -16 } [place] in ity of 50 00:00: 00:00 each [place] mcg/actuati 00 :00 nostril Medic al on nasal daily. Branch spray cetirizine 2021- No [id number] 10mg Take 1 [facility] (ZYRTEC) 10 -19 -16 tablet by it y of mg tablet [...] 00 EVERY DAY Medical Branch MELOXICAM Yes [id number] TAKE 1 U nivers 7.5 mg 4-26 TABLET BY ity of tablet 00:00: MOUTH [place] 00 EVERY DAY Medical Branch MELOXICAM Yes TAKE 1 U nivers 7.5 mg 4-26 TABLET BY ity of tablet 00:00: MOUTH [place] 00 EVERY DAY Medical Branch MELOXICAM 2021-0 Yes [id number] TAKE 1 U nivers 7.5 mg 4-26 TABLET BY ity of tablet 00:00: MOUTH [place] EVERY DAY Medical Branch MELOXICAM 2021-0 Yes [id number] TAKE 1 U nivers 7.5 mg 4-26 TABLET BY ity of tablet 00:00: MOUTH [place] EVERY DAY Medical Branch MELOXICAM 2021-0 Yes [id number] TAKE 1 U nivers 7.5 mg 4-26 TABLET BY ity of tablet 00:00: MOUTH [place] EVERY DAY Medical Branch MELOXICAM 2021-0 Yes [id number] TAKE 1 U nivers 7.5 mg 4-26 TABLET BY ity of tablet 00:00: MOUTH EVERY DAY Medical Branch MELOXICAM 2021-0 Yes [id number] TAKE 1 U nivers 7.5 mg 4-26 TABLET BY ity of tablet 00:00: MOUTH EVERY DAY Medical Branch MELOXICAM 2021-0 Yes [id number] TAKE 1 U nivers 7.5 mg 4-26 TABLET BY ity of tablet 00:00: MOUTH EVERY DAY Medical Branch MELOXICAM 2021-0 Yes [id number] TAKE 1 U nivers 7.5 mg 4-26 TABLET BY ity of tablet 00:00: MOUTH EVERY DAY Medical Branch MELOXICAM 2021-0 Yes [id number] TAKE 1 U nivers 7.5 mg 4-26 TABLET BY ity of tablet 00:00: MOUTH EVERY DAY Medical Branch MELOXICAM 2021-0 Yes [id number] TAKE 1 U nivers 7.5 mg 4-26 TABLET BY ity of tablet 00:00: MOUTH EVERY DAY Medical Branch MELOXICAM 2021-0 Yes [id number] TAKE 1 U nivers 7.5 mg 4-26 TABLET BY ity of tablet 00:00: MOUTH 00 EVERY DAY Medical Branch Dose 2-0 No Unknown 3-30 00:00: 00 Dose 2-0 No Unknown 3-30 00:00: 00 Dose 2-0 No Unknown 3-30 00:00: 00 Dose 2-0 No Unknown 3-30 00:00: 00 Dose 2-0 No Unknown 3-30 00:00: 00 Dose 2-0 No Unknown 3-30 00:00: 00 Dose 2-0 No Unknown 3-30 00:00: 00 Dose 2-0 No Unknown 3-30 00:00: 00 Dose 2-0 No Unknown 3-30 00:00: 00 Dose 2-0 No Unknown 3-30 00:00: 00 Dose 2-0 No Unknown 3-30 00:00: 00 Dose 2-0 No Unknown 3-30 00:00: 00 Dose 2022-0 No Unknown 3-30 00:00: 00 clindamycin 2021-0 Yes [id number] 300mg Take 1 [facility] 300 mg 3-30 capsule by ity of capsule 00:00: mouth 4 [place] 00 (four) Medical times Branch daily. lisinopriL- 2021- Yes [id number] 1{tbl} Take 1 [facility] hydrochloro 3-30 tablet by ity of thiazide 00:00: mouth [place] 20-12.5 mg 00 daily. Medical per tablet Branch lactobacill 0 Yes [id number] 1{capsu Take 1 [facility] us 3-30 le} [...] Indication s: chronic pain clindamycin 2021-0 Yes [id number] 300mg Take 1 [facility] 300 mg 3-30 capsule by ity of capsule 00:00: mouth 4 [place] 00 (four) Medical times Branch daily. lisinopriL- 2021-0 Yes [id number] 1{tbl} Take 1 [facility] hydrochloro 3-30 tablet by ity of thiazide 00:00: mouth [place] 20-12.5 mg 00 daily. Medical per tablet Branch lactobacill Yes [id number] 1{capsu Take 1 [facility] us 3-30 le} [...] Indication s: chronic pain clindamycin 2021-0 Yes [id number] 300mg Take 1 [facility] 300 mg 3-30 capsule by ity of capsule 00:00: mouth 4 [place] 00 (four) Medical times Branch daily. lisinopriL- 2021-0 Yes [id number] 1{tbl} Take 1 [facility] hydrochloro 3-30 tablet by ity of thiazide 00:00: mouth [place] 20-12.5 mg 00 daily. Medical per tablet Branch lactobacill 0 Yes [id number] 1{capsu Take 1 [facility] us 3-30 le} [...] Indication s: chronic pain clindamycin 2021-0 Yes [id number] 300mg Take 1 [facility] 300 mg 3-30 capsule by ity of capsule 00:00: mouth 4 [place] 00 (four) Medical times Branch daily. lisinopriL- 2021-0 Yes [id number] 1{tbl} Take 1 [facility] hydrochloro 3-30 tablet by ity of thiazide 00:00: mouth [place] 20-12.5 mg 00 daily. Medical per tablet Branch lactobacill 0 Yes [id number] 1{capsu Take 1 [facility] us 3-30 le} [...] Indication s: chronic pain clindamycin 2021-0 Yes [id number] 300mg Take 1 [facility] 300 mg 3-30 capsule by ity of capsule 00:00: mouth 4 [place] 00 (four) Medical times Branch daily. lisinopriL- 2-0 Yes [id number] 1{tbl} Take 1 [facility] hydrochloro 3-30 tablet by ity of thiazide 00:00: mouth [place] 20-12.5 mg 00 daily. Medical per tablet Branch lactobacill Yes [id number] 1{capsu Take 1 [facility] us 3-30 le} capsule by ity of combination 00:00: mouth [place] no.4 00 daily. Medical (PROBIOTIC) Branch 3 billion cell Cap Dose No Unknown 3-30 00:00: 00 traMADoL 50 2021-0 Yes [id number] 50mg Take 1 [facility] ers mg tablet 3-30 tablet by ity o f 00:00: mouth [place] 00 every 8 Medical (eight) Branch hours as needed for Pain (scale 7-10). Indication s: chronic pain clindamycin Yes [id number] 300mg Take 1 [facility] 300 mg 3-30 capsule by ity of capsule 00:00: mouth 4 [place] 00 (four) Medical times Branch daily. lisinopriL- Yes [id number] 1{tbl} Take 1 [facility] hydrochloro 3-30 tablet by ity of thiazide 00:00: mouth [place] 20-12.5 mg 00 daily. Medical per tablet Branch lactobacill Yes [id number] 1{capsu Take 1 [facility] us 3-30 le} [...] 7-10). Indication s: chronic pain clindamycin Yes [id number] 300mg Take 1 [facility] 300 mg 3-30 capsule by ity of capsule 00:00: mouth 4 [place] 00 (four) Medical times Branch daily. lisinopriL- Yes [id number] 1{tbl} Take 1 [facility] hydrochloro 3-30 tablet by ity of thiazide 00:00: mouth [place] 20-12.5 mg 00 daily. Medical per tablet Branch lactobacill Yes [id number] 1{capsu Take 1 [facility] us 3-30 le} [...] Indication s: chronic pain clindamycin 2021-0 Yes [id number] 300mg Take 1 [facility] 300 mg 3-30 capsule by ity of capsule 00:00: mouth 4 [place] 00 (four) Medical times Branch daily. Dose 2021-0 No Unknown 3-30 00:00: 00 lisinopriL- 2021-0 Yes [id number] 1{tbl} Take 1 [facility] hydrochloro 3-30 tablet by ity of thiazide 00:00: mouth [place] 20-12.5 mg 00 daily. Medical per tablet Branch lactobacill 2021-0 Yes [id number] 1{capsu Take 1 [facility] us 3-30 le} [...] Indication s: chronic pain clindamycin 2021-0 Yes [id number] 300mg Take 1 [facility] 300 mg 3-30 capsule by ity of capsule 00:00: mouth 4 [place] 00 (four) Medical times Branch daily. lisinopriL- 2021-0 Yes [id number] 1{tbl} Take 1 [facility] hydrochloro 3-30 tablet by ity of thiazide 00:00: mouth [place] 20-12.5 mg 00 daily. Medical per tablet Branch lactobacill 2021-0 Yes [id number] 1{capsu Take 1 [facility] us 3-30 le} [...] Indication s: chronic pain clindamycin 2021-0 Yes [id number] 300mg Take 1 [facility] 300 mg 3-30 capsule by ity of capsule 00:00: mouth 4 [place] 00 (four) Medical times Branch daily. lisinopriL- 2021- Yes [id number] 1{tbl} Take 1 [facility] hydrochloro 3-30 tablet by ity of thiazide 00:00: mouth [place] 20-12.5 mg 00 daily. Medical per tablet Branch lactobacill Yes [id number] 1{capsu Take 1 [facility] us 3-30 le} capsule by ity of combination 00:00: mouth [place] no.4 00 daily. Medical (PROBIOTIC) Branch 3 billion cell Cap Dose 2021-0 No Unknown 3-30 00:00: 00 traMADoL 50 2021-0 Yes [id number] 50mg Take 1 [facility] ers mg tablet 3-30 tablet by ity o f 00:00: mouth [place] 00 every 8 Medical (eight) Branch hours as needed for Pain (scale 7-10). Indication s: chronic pain clindamycin Yes [id number] 300mg Take 1 [facility] 300 mg 3-30 capsule by ity of capsule 00:00: mouth (four) Medical times Branch daily. lisinopriL- Yes [id number] 1{tbl} Take 1 [facility] hydrochloro 3-30 tablet by ity of thiazide 00:00: mouth [place] 20-12.5 mg 00 daily. Medical per tablet Branch lactobacill Yes [id number] 1{capsu Take 1 [facility] us 3-30 le} [...] Indication s: chronic pain clindamycin 2021-0 Yes [id number] 300mg Take 1 [facility] 300 mg 3-30 capsule by ity of capsule 00:00: mouth 4 [place] 00 (four) Medical times Branch daily. lisinopriL- 2021- Yes [id number] 1{tbl} Take 1 [facility] hydrochloro 3-30 tablet by ity of thiazide 00:00: mouth [place] 20-12.5 mg 00 daily. Medical per tablet Branch lactobacill Yes [id number] 1{capsu Take 1 [facility] us 3-30 le} [...] 7-10). Indication s: chronic pain clindamycin Yes [id number] 300mg Take 1 [facility] 300 mg 3-30 capsule by ity of capsule 00:00: mouth 4 [place] 00 (four) Medical times Branch daily. Dose 0 No Unknown 3-30 00:00: 00 lisinopriL- 0 Yes [id number] 1{tbl} Take 1 [facility] hydrochloro 3-30 tablet by ity of thiazide 00:00: mouth [place] 20-12.5 mg 00 daily. Medical per tablet Branch lactobacill Yes [id number] 1{capsu Take 1 [facility] us 3-30 le} [...] 7-10). Indication s: chronic pain clindamycin Yes [id number] 300mg Take 1 [facility] 300 mg 3-30 capsule by ity of capsule 00:00: mouth 4 [place] 00 (four) Medical times Branch daily. lisinopriL- 2021-0 Yes [id number] 1{tbl} Take 1 [facility] hydrochloro 3-30 tablet by ity of thiazide 00:00: mouth [place] 20-12.5 mg 00 daily. Medical per tablet Branch lactobacill Yes [id number] 1{capsu Take 1 [facility] us 3-30 le} [...] (scale 7-10). Indication s: chronic pain Dose 2-0 No Unknown 3-30 00:00: 00 Dose 2022-0 No Unknown 3-30 00:00: 00 Dose 2022-0 No Unknown 3-30 00:00: 00 Dose 2022-0 No Unknown 3-30 00:00: 00 Dose 2022-0 No Unknown 3-30 00:00: 00 Dose 2022-0 No Unknown 3-30 00:00: 00 Dose 2022-0 No Unknown 3-30 00:00: 00 Dose 2-0 No Unknown 3-30 00:00: 00 Dose 2-0 No Unknown 3-30 00:00: 00 Dose 2-0 No Unknown 3-30 00:00: 00 Dose 2-0 No Unknown 3-30 00:00: 00 Dose 2-0 No Unknown 3-30 00:00: 00 Dose 2022-0 No Unknown 3-30 00:00: 00 Dose 2022-0 No Unknown 3-30 00:00: 00 Dose 2022-0 No Unknown 3-30 00:00: 00 Dose 2-0 No Unknown 3-30 00:00: 00 Dose 2-0 No Unknown 3-30 00:00: 00 Dose 2-0 No Unknown 3-30 00:00: 00 Dose 2-0 No Unknown 3-30 00:00: 00 Dose 2022-0 No Unknown 3-30 00:00: 00 Dose 2022-0 No Unknown 3-30 00:00: 00 Dose 2-0 No Unknown 3-30 00:00: 00 Dose 2-0 No Unknown 3-30 00:00: 00 Dose 2022-0 No Unknown 3-30 00:00: 00 Dose 2022-0 No Unknown 3-30 00:00: 00 Dose 2-0 No Unknown 3-30 00:00: 00 Dose 2-0 No Unknown 3-30 00:00: 00 Dose 2-0 No Unknown 3-30 00:00: 00 Dose 2022-0 No Unknown 3-30 00:00: 00 Dose 2022-0 No Unknown 3-30 00:00: 00 Dose 2022-0 No Unknown 3-30 00:00: 00 Dose 2022-0 No Unknown 3-30 00:00: 00 Dose 2-0 No Unknown 3-30 00:00: 00 Dose 2-0 No Unknown 3-30 00:00: 00 Dose 2-0 No Unknown 3-30 00:00: 00 Dose 2-0 No Unknown 3-30 00:00: 00 Dose 2022-0 No Unknown 3-30 00:00: 00 Dose 2022-0 No Unknown 3-30 00:00: 00 Dose 2022-0 No Unknown 3-30 00:00: 00 Dose 2-0 No Unknown 3-30 00:00: 00 Dose 2-0 No Unknown 3-30 00:00: 00 Dose 2-0 No Unknown 3-30 00:00: 00 Dose 2-0 No Unknown 3-30 00:00: 00 atorvastati 2021-0 2022- No [id number] 40mg Take 1 [facility] n 40 mg 3-30 06-16 tablet by ity of tablet 00:00: 00:00 mouth at [place] 00 :00 bedtime. Medical Branch Dose 2020-06 No Unknown 2-13 00:00: 00 mupirocin 2 0 Yes [id number] Apply to [facility] % ointment 1-08 area(s) 3 ity of 00:00: (three) [place] 00 times Medical daily. Branch traMADoL 50 2020-0 Yes [id number] 50mg Take 1 [facility] ers mg tablet 1-08 tablet by ity o f 00:00: mouth [place] 00 every 8 Medical (eight) Branch hours as needed for Pain (scale 4-6). Indication s: chronic pain mupirocin 2 2020-0 Yes [id number] Apply to [facility] % ointment 1-08 area(s) 3 ity of 00:00: (three) [place] 00 times Medical daily. Branch traMADoL 50 2020-0 Yes [id number] 50mg Take 1 [facility] ers mg tablet 1-08 tablet by ity o f 00:00: mouth [place] 00 every 8 Medical (eight) Branch hours as needed for Pain (scale 4-6). Indication s: chronic pain mupirocin 2 2020-0 Yes [id number] Apply to [facility] % ointment 1-08 area(s) 3 ity of 00:00: (three) [place] 00 times Medical daily. Branch traMADoL 50 2020-0 Yes [id number] 50mg Take 1 [facility] ers mg tablet 1-08 tablet by ity o f 00:00: mouth [place] 00 every 8 Medical (eight) Branch hours as needed for Pain (scale 4-6). Indication s: chronic pain mupirocin 2 2020-0 Yes [id number] Apply to [facility] % ointment 1-08 area(s) 3 ity of 00:00: (three) [place] 00 times Medical daily. Branch traMADoL 50 2020-0 Yes [id number] 50mg Take 1 [facility] ers mg tablet 1-08 tablet by ity o f 00:00: mouth [place] 00 every 8 Medical (eight) Branch hours as needed for Pain (scale 4-6). Indication s: chronic pain mupirocin 2 2020-0 Yes [id number] Apply to [facility] % ointment 1-08 area(s) 3 ity of 00:00: (three) [place] 00 times Medical daily. Branch traMADoL 50 2020-0 Yes [id number] 50mg Take 1 [facility] ers mg tablet 1-08 tablet by ity o f 00:00: mouth [place] 00 every 8 Medical (eight) Branch hours as needed for Pain (scale 4-6). Indication s: chronic pain mupirocin 2 2020-0 Yes [id number] Apply to [facility] % ointment 1-08 area(s) 3 ity of 00:00: (three) [place] 00 times Medical daily. Branch traMADoL 50 2020-0 Yes [id number] 50mg Take 1 [facility] ers mg tablet 1-08 tablet by ity o f 00:00: mouth [place] 00 every 8 Medical (eight) Branch hours as needed for Pain (scale 4-6). Indication s: chronic pain mupirocin 2 2020-0 Yes [id number] Apply to [facility] % ointment 1-08 area(s) 3 ity of 00:00: (three) [place] 00 times Medical daily. Branch traMADoL 50 2020-0 Yes [id number] 50mg Take 1 [facility] ers mg tablet 1-08 tablet by ity o f 00:00: mouth [place] 00 every 8 Medical (eight) Branch hours as needed for Pain (scale 4-6). Indication s: chronic pain mupirocin 2 2020-0 Yes [id number] Apply to [facility] % ointment 1-08 area(s) 3 ity of 00:00: (three) [place] 00 times Medical daily. Branch traMADoL 50 2020-0 Yes [id number] 50mg Take 1 [facility] ers mg tablet 1-08 tablet by ity o f 00:00: mouth [place] 00 every 8 Medical (eight) Branch hours as needed for Pain (scale 4-6). Indication s: chronic pain mupirocin 2 2020-0 Yes [id number] Apply to [facility] % ointment 1-08 area(s) 3 ity of 00:00: (three) [place] 00 times Medical daily. Branch traMADoL 50 2020-0 Yes [id number] 50mg Take 1 [facility] ers mg tablet 1-08 tablet by ity o f 00:00: mouth [place] 00 every 8 Medical (eight) Branch hours as needed for Pain (scale 4-6). Indication s: chronic pain mupirocin 2 2020-0 Yes [id number] Apply to [facility] % ointment 1-08 area(s) 3 ity of 00:00: (three) [place] 00 times Medical daily. Branch traMADoL 50 2020-0 Yes [id number] 50mg Take 1 [facility] ers mg tablet 1-08 tablet by ity o f 00:00: mouth [place] 00 every 8 Medical (eight) Branch hours as needed for Pain (scale 4-6). Indication s: chronic pain mupirocin 2 2020-0 Yes [id number] Apply to [facility] % ointment 1-08 area(s) 3 ity of 00:00: (three) [place] 00 times Medical daily. Branch traMADoL 50 2020-0 Yes [id number] 50mg Take 1 [facility] ers mg tablet 1-08 tablet by ity o f 00:00: mouth [place] 00 every 8 Medical (eight) Branch hours as needed for Pain (scale 4-6). Indication s: chronic pain mupirocin 2 2020-0 Yes [id number] Apply to [facility] % ointment 1-08 area(s) 3 ity of 00:00: (three) [place] 00 times Medical daily. Branch traMADoL 50 2020-0 Yes [id number] 50mg Take 1 [facility] ers mg tablet 1-08 tablet by ity o f 00:00: mouth [place] 00 every 8 Medical (eight) Branch hours as needed for Pain (scale 4-6). Indication s: chronic pain mupirocin 2 2020-0 Yes [id number] Apply to [facility] % ointment 1-08 area(s) 3 ity of 00:00: (three) [place] 00 times Medical daily. Branch traMADoL 50 Yes [id number] 50mg Take 1 [facility] ers mg tablet 1-08 tablet by ity o f 00:00: mouth [place] 00 every 8 Medical (eight) Branch hours as needed for Pain (scale 4-6). Indication s: chronic pain mupirocin 2 Yes [id number] Apply to [facility] % ointment 1-08 area(s) 3 ity of 00:00: (three) [place] 00 times Medical daily. Branch traMADoL 50 Yes [id number] 50mg Take 1 [facility] ers mg tablet 1-08 tablet by ity o f 00:00: mouth 00 every 8 Medical (eight) Branch hours as needed for Pain (scale 4-6). Indication s: chronic pain ProAir HFA 2020-0 No 12mcg/a 90 9-08 ctuatio mcg/actuati 00:00: n on aerosol 00 inhaler azithromyci 2019-0 No mg n 250 mg 9-08 tablet 00:00: 00 benzonatate 2020-0 No 1mg 200 mg 9-08 capsule 00:00: [...] mL oral 00 syrup Miscellaneo 2018-06 Yes [id number] I10 - U [employer] -20 Dispense ity o f Supply Kit 00:00: blood [place] 00 pressure Medical cuff (any Branch brand), take BP at home BID Miscellaneo 2018-06 Yes [id number] I10 - U [employer] -20 Dispense ity o f Supply Kit 00:00: blood 00 pressure Medical cuff (any Branch brand), take BP at home BID Miscellaneo 2018-06 Yes [id number] I10 - U [employer] [facility] 07-08 Dispense ity o f Supply Kit 00:00: blood [place] 00 pressure Medical cuff (any Branch brand), take BP at home BID Miscellaneo 2018-06 Yes [id number] I10 - U [employer] [facility] 07-08 Dispense ity o f Supply Kit 00:00: blood [place] 00 pressure Medical cuff (any Branch brand), take BP at home BID Miscellaneo 2018-06 Yes [id number] I10 - U [employer] [facility] 07-08 Dispense ity o f Supply Kit 00:00: blood [place] 00 pressure Medical cuff (any Branch brand), take BP at home BID Miscellaneo 2018-06 Yes [id number] I10 - U [employer] [facility] 07-08 Dispense ity o f Supply Kit 00:00: blood [place] 00 pressure Medical cuff (any Branch brand), take BP at home BID Miscellaneo 2018-06 Yes [id number] I10 - U [employer] [facility] 07-08 Dispense ity o f Supply Kit 00:00: blood [place] 00 pressure Medical cuff (any Branch brand), take BP at home BID Miscellaneo 2018-06 Yes [id number] I10 - U [employer] [facility] 07-08 Dispense ity o f Supply Kit 00:00: blood [place] 00 pressure Medical cuff (any Branch brand), take BP at home BID Miscellaneo 2018-06 Yes [id number] I10 - U [employer] [facility] 07-08 Dispense ity o f Supply Kit 00:00: blood [place] 00 pressure Medical cuff (any Branch brand), take BP at home BID Miscellaneo 2018-06 Yes [id number] I10 - U [employer] [facility] 07-08 Dispense ity o f Supply Kit 00:00: blood [place] 00 pressure Medical cuff (any Branch brand), take BP at home BID Miscellaneo 2018-06 Yes [id number] I10 - U [employer] [facility] 07-08 Dispense ity o f Supply Kit 00:00: blood [place] 00 pressure Medical cuff (any Branch brand), take BP at home BID Miscellaneo 2018-06 Yes [id number] I10 - U [employer] [facility] 07-08 Dispense ity o f Supply Kit 00:00: blood [place] 00 pressure Medical cuff (any Branch brand), take BP at home BID Miscellaneo 2018-06 Yes [id number] I10 - U [facility] 07-08 Dispense ity o f Supply Kit 00:00: blood pressure Medical cuff (any Branch brand), take BP at home BID Miscellaneo 2018-06 Yes [id number] I10 - [facility] 07-08 Dispense ity o f Supply Kit 00:00: blood pressure Medical cuff (any Branch brand), take BP at home BID nitrofurant No 1mg oin 4-13 macrocrysta 00:00: l 100 mg 00 capsule metronidazo No 1mg le 500 mg 4-10 tablet 00:00: 00 lidocaine Yes [id number] 15mL Take 15 mL Univers 2% viscous 9-14 by mouth ity o f 2 % 00:00: every 4 [place] solution 00 (four) Medical hours as Branch needed for Oral mucosal pain. camphor-men Yes Apply to [facility] area(s) 2 ity of (FREEZE IT 00:00: (two) [place] RELIEF) 00 times Medical 0.2-3.5 % daily. Branch Gel lidocaine Yes [id number] 15mL Take 15 mL Univers 2% viscous 9-14 by mouth ity o f 2 % 00:00: every 4 [place] solution 00 (four) Medical hours as Branch needed for Oral mucosal pain. camphor-men Yes Apply to [facility] area(s) 2 ity of (FREEZE IT 00:00: (two) [place] RELIEF) 00 times Medical 0.2-3.5 % daily. Branch Gel lidocaine Yes [id number] 15mL Take 15 mL Univers 2% viscous 9-14 by mouth ity o f 2 % 00:00: every 4 [place] solution 00 (four) Medical hours as Branch needed for Oral mucosal pain. camphor-men Yes Apply to [facility] 914 area(s) 2 ity of (FREEZE IT 00:00: (two) [place] RELIEF) 00 times Medical 0.2-3.5 % daily. Branch Gel lidocaine Yes [id number] 15mL Take 15 mL Univers 2% viscous 9-14 by mouth ity o f 2 % 00:00: every 4 [place] solution 00 (four) Medical hours as Branch needed for Oral mucosal pain. camphor-men 2017- Yes Apply to [place] [address] area(s) 2 ity of (FREEZE IT 00:00: (two) [place] RELIEF) 00 times Medical 0.2-3.5 % daily. Branch Gel lidocaine Yes [id number] 15mL Take 15 mL Univers 2% viscous 9-14 by mouth ity o f 2 % 00:00: every 4 [place] solution 00 (four) Medical hours as Branch needed for Oral mucosal pain. camphor-men Yes Apply to [place] [address] area(s) 2 ity of (FREEZE IT 00:00: (two) [place] RELIEF) 00 times Medical 0.2-3.5 % daily. Branch Gel lidocaine Yes [id number] 15mL Take 15 mL Univers 2% viscous 9-14 by mouth ity o f 2 % 00:00: every 4 [place] solution 00 (four) Medical hours as Branch needed for Oral mucosal pain. camphor-men 2017- Yes Apply to [place] [address] area(s) 2 ity of (FREEZE IT 00:00: (two) [place] RELIEF) 00 times Medical 0.2-3.5 % daily. Branch Gel lidocaine Yes [id number] 15mL Take 15 mL Univers 2% viscous 9-14 by mouth ity o f 2 % 00:00: every 4 [place] solution 00 (four) Medical hours as Branch needed for Oral mucosal pain. camphor-men 2017- Yes Apply to [place] [address] area(s) 2 ity of (FREEZE IT 00:00: (two) [place] RELIEF) 00 times Medical 0.2-3.5 % daily. Branch Gel lidocaine 2018-0 Yes [id number] 15mL Take 15 mL Univers 2% viscous 9-14 by mouth ity o f 2 % 00:00: every 4 [place] solution 00 (four) Medical hours as Branch needed for Oral mucosal pain. camphor-men 2017- Yes Apply to [place] [address] area(s) 2 ity of (FREEZE IT 00:00: (two) [place] RELIEF) 00 times Medical 0.2-3.5 % daily. Branch Gel lidocaine 2017- Yes [id number] 15mL Take 15 mL Univers 2% viscous 9-14 by mouth ity o f 2 % 00:00: every 4 [place] solution 00 (four) Medical hours as Branch needed for Oral mucosal pain. camphor-men 2017- Yes Apply to [place] [address] area(s) 2 ity of (FREEZE IT 00:00: (two) [place] RELIEF) 00 times Medical 0.2-3.5 % daily. Branch Gel lidocaine Yes [id number] 15mL Take 15 mL Univers 2% viscous 9-14 by mouth ity o f 2 % 00:00: every 4 [place] solution 00 (four) Medical hours as Branch needed for Oral mucosal pain. camphor-men Yes Apply to [place] [address] area(s) 2 ity of (FREEZE IT 00:00: (two) [place] RELIEF) 00 times Medical 0.2-3.5 % daily. Branch Gel lidocaine Yes [id number] 15mL Take 15 mL Univers 2% viscous 9-14 by mouth ity o f 2 % 00:00: every 4 [place] solution 00 (four) Medical hours as Branch needed for Oral mucosal pain. camphor-men Yes Apply to [place] [address] area(s) 2 ity of (FREEZE IT 00:00: (two) [place] RELIEF) 00 times Medical 0.2-3.5 % daily. Branch Gel lidocaine Yes [id number] 15mL Take 15 mL Univers 2% viscous 9-14 by mouth ity o f 2 % 00:00: every 4 [place] solution 00 (four) Medical hours as Branch needed for Oral mucosal pain. camphor-men Yes Apply to [place] [address] area(s) 2 ity of (FREEZE IT 00:00: (two) [place] RELIEF) 00 times Medical 0.2-3.5 % daily. Branch Gel lidocaine 2017- Yes [id number] 15mL Take 15 mL Univers 2% viscous 9-14 by mouth ity o f 2 % 00:00: every 4 [place] solution 00 (four) Medical hours as Branch needed for Oral mucosal pain. camphor-men 2017- Yes Apply to Univers thol 9-14 area(s) 2 ity of (FREEZE IT 00:00: (two) [place] RELIEF) 00 times Medical 0.2-3.5 % daily. Branch Gel lidocaine 2018-0 Yes [id number] 15mL Take 15 mL Univers 2% viscous 9-14 by mouth ity o f 2 % 00:00: every 4 [place] solution 00 (four) Medical hours as Branch needed for Oral mucosal pain. camphor-men 2017-0 Yes [id number] Apply to [facility] 9-14 area(s) 2 ity of (FREEZE IT 00:00: (two) [place] RELIEF) 00 times Medical 0.2-3.5 % daily. Branch Gel Valtrex 1 0 No 1gram gram tablet 7 00:00: 00 ferrous 2018-0 No 1(65 mg sulfate 325 5-23 iron) mg (65 mg 00:00: iron) 00 tablet lidocaine 2 0 No % % mucosal 2-27 solution 00:00: 00 Dose 2018-0 No Unknown 2-27 00:00: 00 Megace ES 0 No 5mg/5 625 mg/5 mL 2-27 mL [...] Immunizations Ordered Filled Immunization Date Status Comments [facility] e Immunization Name Name Vonda COVID-19 2021-07-12 Completed Vaccine 00:00:00 Moderna COVID-19 2021-06-11 Completed Vaccine 00:00:00 SARS-COV-2 COVID-19 2021-06-11 Completed Unive rsity of MODERNA VACCINE 00:00:00 [facility] Branch SARS-COV-2 COVID-19 2021-06-11 Completed Unive rsity of MODERNA VACCINE 00:00:00 [place] [facility] SARS-COV-2 COVID-19 2021-06-11 Completed Unive rsity of MODERNA VACCINE 00:00:00 [place] [facility] Branch SARS-COV-2 COVID-19 2021-06-11 Completed Unive rsity of MODERNA VACCINE 00:00:00 [place] [facility] ical Branch SARS-COV-2 COVID-19 2021-06-11 Completed Unive rsity of MODERNA VACCINE 00:00:00 [place] [facility] Branch SARS-COV-2 COVID-19 2021-06-11 Completed Unive rsity of MODERNA VACCINE 00:00:00 [place] [facility] Branch SARS-COV-2 COVID-19 2021-06-11 Completed Unive rsity of MODERNA VACCINE 00:00:00 [place] [facility] Branch SARS-COV-2 COVID-19 2021-06-11 Completed Unive rsity of MODERNA VACCINE 00:00:00 [place] [facility] Branch SARS-COV-2 COVID-19 2021-06-11 Completed Unive rsity of MODERNA 12+ YRS 00:00:00 [place] [facility] ical VACCINE Branch SARS-COV-2 COVID-19 2021-06-11 Completed Unive rsity of MODERNA 12+ YRS 00:00:00 [place] [facility] VACCINE Branch SARS-COV-2 COVID-19 2021-06-11 Completed Unive rsity of MODERNA 12+ YRS 00:00:00 [place] [facility] ical VACCINE Branch SARS-COV-2 COVID-19 2021-06-11 Completed Unive rsity of MODERNA 12+ YRS 00:00:00 [place] [facility] VACCINE Branch SARS-COV-2 COVID-19 2021-06-11 Completed Unive rsity of MODERNA 12+ YRS 00:00:00 [place] [facility] ical VACCINE Branch SARS-COV-2 COVID-19 2021-06-11 Completed Unive rsity of MODERNA 12+ YRS 00:00:00 [place] [facility] ical VACCINE Branch influenza, 2021-05-31 Completed injectable 00:00:00 SARS-COV-2 COVID-19 2020-07-12 Completed Unive rsity of MODERNA VACCINE 00:00:00 [facility] ical Branch SARS-COV-2 COVID-19 2020-07-12 Completed Unive rsity of MODERNA VACCINE 00:00:00 [place] [facility] ical Branch SARS-COV-2 COVID-19 2020-07-12 Completed Unive rsity of MODERNA VACCINE 00:00:00 [place] [facility] Branch SARS-COV-2 COVID-19 2020-07-12 Completed Unive rsity of MODERNA VACCINE 00:00:00 [place] [facility] Branch SARS-COV-2 COVID-19 2020-07-12 Completed Unive rsity of MODERNA VACCINE 00:00:00 [place] [facility] Branch SARS-COV-2 COVID-19 2020-07-12 Completed Unive rsity of MODERNA VACCINE 00:00:00 [place] [facility] Branch SARS-COV-2 COVID-19 2020-07-12 Completed Unive rsity of MODERNA VACCINE 00:00:00 [place] [facility] Branch SARS-COV-2 COVID-19 2020-07-12 Completed Unive rsity of MODERNA VACCINE 00:00:00 [place] [facility] Branch SARS-COV-2 COVID-19 2020-07-12 Completed Unive rsity of MODERNA 12+ YRS 00:00:00 [place] [facility] ical VACCINE Branch SARS-COV-2 COVID-19 2020-07-12 Completed Unive rsity of MODERNA 12+ YRS 00:00:00 [place] [facility] ical VACCINE Branch SARS-COV-2 COVID-19 2020-07-12 Completed Unive rsity of MODERNA 12+ YRS 00:00:00 [place] [facility] ical VACCINE Branch SARS-COV-2 COVID-19 2020-07-12 Completed Unive rsity of MODERNA 12+ YRS 00:00:00 [place] [facility] ical VACCINE Branch SARS-COV-2 COVID-19 2020-07-12 Completed Unive rsity of MODERNA 12+ YRS 00:00:00 [facility] ical VACCINE Branch SARS-COV-2 COVID-19 2020-07-12 Completed Unive rsity of MODERNA 12+ YRS 00:00:00 [facility] ical VACCINE Branch Pneumococcal 2020-06-26 Completed University o f Polysaccharide, 00:00:00 [facility] PPSV23 (PNEUMOVAX) Branch Influenza Virus 2020-06-26 Completed Universit y of Vaccine Quad .5 mL 00:00:00 [place] [facility] IM 6+ MO Branch Pneumococcal 2020-06-26 Completed University o f Polysaccharide, 00:00:00 [place] [facility] ical PPSV23 (PNEUMOVAX) Branch Influenza Virus 2020-06-26 Completed Universit y of Vaccine Quad .5 mL 00:00:00 [place] [facility] IM 6+ MO Branch Pneumococcal 2020-06-26 Completed University o f Polysaccharide, 00:00:00 [place] [facility] ical PPSV23 (PNEUMOVAX) Branch Influenza Virus 2020-06-26 Completed Universit y of Vaccine Quad .5 mL 00:00:00 [place] [facility] IM 6+ MO Branch Pneumococcal 2020-06-26 Completed University o f Polysaccharide, 00:00:00 [place] [facility] ical PPSV23 (PNEUMOVAX) Branch Influenza Virus 2020-06-26 Completed Universit y of Vaccine Quad .5 mL 00:00:00 [place] [facility] IM 6+ MO Branch Pneumococcal 2020-06-26 Completed University o f Polysaccharide, 00:00:00 [place] [facility] ical PPSV23 (PNEUMOVAX) Branch Influenza Virus 2020-06-26 Completed Universit y of Vaccine Quad .5 mL 00:00:00 [facility] IM 6+ MO Branch Pneumococcal 2020-06-26 Completed University o f Polysaccharide, 00:00:00 [place] [facility] ical PPSV23 (PNEUMOVAX) Branch Influenza Virus 2020-06-26 Completed Universit y of Vaccine Quad .5 mL 00:00:00 [place] [facility] IM 6+ MO Branch Pneumococcal 2020-06-26 Completed University o f Polysaccharide, 00:00:00 [place] [facility] ical PPSV23 (PNEUMOVAX) Branch Influenza Virus 2020-06-26 Completed Universit y of Vaccine Quad .5 mL 00:00:00 [place] [facility] IM 6+ MO Branch Pneumococcal 2020-06-26 Completed University o f Polysaccharide, 00:00:00 [place] [facility] ical PPSV23 (PNEUMOVAX) Branch Influenza Virus 2020-06-26 Completed Universit y of Vaccine Quad .5 mL 00:00:00 [place] [facility] IM 6+ MO Branch Pneumococcal 2020-06-26 Completed University o f Polysaccharide, 00:00:00 [place] [facility] ical PPSV23 (PNEUMOVAX) Branch Influenza Virus 2020-06-26 Completed Universit y of Vaccine Quad .5 mL 00:00:00 [place] [facility] IM 6+ MO Branch Pneumococcal 2020-06-26 Completed University o f Polysaccharide, 00:00:00 [place] [facility] ical PPSV23 (PNEUMOVAX) Branch Influenza Virus 2020-06-26 Completed Universit y of Vaccine Quad .5 mL 00:00:00 [place] [facility] IM 6+ MO Branch Pneumococcal 2020-06-26 Completed University o f Polysaccharide, 00:00:00 [place] [facility] ical PPSV23 (PNEUMOVAX) Branch Influenza Virus 2020-06-26 Completed Universit y of Vaccine Quad .5 mL 00:00:00 [place] [facility] 6+ MO Branch Pneumococcal 2020-06-26 Completed University o f Polysaccharide, 00:00:00 [place] [facility] ical PPSV23 (PNEUMOVAX) Branch Influenza Virus 2020-06-26 Completed Universit y of Vaccine Quad .5 mL 00:00:00 [facility] 6+ MO Branch Pneumococcal 2020-06-26 Completed University o f Polysaccharide, 00:00:00 [place] [facility] ical PPSV23 (PNEUMOVAX) Branch Influenza Virus 2020-06-26 Completed Universit y of Vaccine Quad .5 mL 00:00:00 [facility] 6+ MO Branch Pneumococcal 2020-06-26 Completed University o f Polysaccharide, 00:00:00 [place] [facility] ical PPSV23 (PNEUMOVAX) Branch Influenza Virus 2020-06-26 Completed Universit y of Vaccine Quad .5 mL 00:00:00 [facility] 6+ MO Branch Influenza Virus 2019-04-10 Completed Universit y of Vaccine Quad .5 mL 00:00:00 [facility] 6+ MO Branch TDAP 2019-04-10 Completed University of 00:00:00 [facility] Pneumococcal 13 2019-04-10 Completed Universit y of Conjugate, PCV13 00:00:00 [facility] dical (Prevnar 13) Branch Influenza Virus 2019-04-10 Completed Universit y of Vaccine Quad .5 mL 00:00:00 [facility] 6+ MO Branch TDAP 2019-04-10 Completed University of 00:00:00 [facility] Pneumococcal 13 2019-04-10 Completed Universit y of Conjugate, PCV13 00:00:00 [place] [facility] (Prevnar 13) Branch Influenza Virus 2019-04-10 Completed Universit y of Vaccine Quad .5 mL 00:00:00 [facility] 6+ MO Branch TDAP 2019-04-10 Completed University of 00:00:00 [facility] Pneumococcal 13 2019-04-10 Completed Universit y of Conjugate, PCV13 00:00:00 [facility] dical (Prevnar 13) Branch Influenza Virus 2019-04-10 Completed Universit y of Vaccine Quad .5 mL 00:00:00 [facility] 6+ MO Branch TDAP 2019-04-10 Completed University of 00:00:00 [facility] Pneumococcal 13 2019-04-10 Completed Universit y of Conjugate, PCV13 00:00:00 [facility] dical (Prevnar 13) Branch Influenza Virus 2019-04-10 Completed Universit y of Vaccine Quad .5 mL 00:00:00 [facility] 6+ MO Branch TDAP 2019-04-10 Completed University of 00:00:00 [facility] Pneumococcal 13 2019-04-10 Completed Universit y of Conjugate, PCV13 00:00:00 [facility] dical (Prevnar 13) [place] Influenza Virus 2019-04-10 Completed Universit y of Vaccine Quad .5 mL 00:00:00 [facility] 6+ MO Branch TDAP 2019-04-10 Completed University of 00:00:00 [facility] Pneumococcal 13 2019-04-10 Completed Universit y of Conjugate, PCV13 00:00:00 [facility] dical (Prevnar 13) Branch Influenza Virus 2019-04-10 Completed Universit y of Vaccine Quad .5 mL 00:00:00 [facility] 6+ MO [place] TDAP 2019-04-10 Completed University of 00:00:00 [facility] Pneumococcal 13 2019-04-10 Completed Universit y of Conjugate, PCV13 00:00:00 [facility] dical (Prevnar 13) Branch Influenza Virus 2019-04-10 Completed Universit y of Vaccine Quad .5 mL 00:00:00 [facility] 6+ MO Branch TDAP 2019-04-10 Completed University of 00:00:00 [facility] Pneumococcal 13 2019-04-10 Completed Universit y of Conjugate, PCV13 00:00:00 [facility] dical (Prevnar 13) Branch Influenza Virus 2019-04-10 Completed Universit y of Vaccine Quad .5 mL 00:00:00 [facility] 6+ MO [place] TDAP 2019-04-10 Completed University of 00:00:00 [facility] Pneumococcal 13 2019-04-10 Completed Universit y of Conjugate, PCV13 00:00:00 [facility] dical (Prevnar 13) Branch Influenza Virus 2019-04-10 Completed Universit y of Vaccine Quad .5 mL 00:00:00 [place] [facility] IM 6+ MO Branch TDAP 2019-04-10 Completed University of 00:00:00 [facility] Pneumococcal 13 2019-04-10 Completed Universit y of Conjugate, PCV13 00:00:00 [facility] dical (Prevnar 13) Branch Influenza Virus 2019-04-10 Completed Universit y of Vaccine Quad .5 mL 00:00:00 [facility] IM 6+ MO Branch TDAP 2019-04-10 Completed University of 00:00:00 [facility] Pneumococcal 13 2019-04-10 Completed Universit y of Conjugate, PCV13 00:00:00 [facility] dical (Prevnar 13) Branch Influenza Virus 2019-04-10 Completed Universit y of Vaccine Quad .5 mL 00:00:00 [facility] 6+ MO Branch TDAP 2019-04-10 Completed University of 00:00:00 [facility] Pneumococcal 13 2019-04-10 Completed Universit y of Conjugate, PCV13 00:00:00 [facility] dical (Prevnar 13) Branch Influenza Virus 2019-04-10 Completed Universit y of Vaccine Quad .5 mL 00:00:00 [facility] 6+ MO Branch TDAP 2019-04-10 Completed University of 00:00:00 [facility] Pneumococcal 13 2019-04-10 Completed Universit y of Conjugate, PCV13 00:00:00 [facility] dical (Prevnar 13) Branch Influenza Virus 2019-04-10 Completed Universit y of Vaccine Quad .5 mL 00:00:00 [facility] 6+ MO Branch TDAP 2019-04-10 Completed University of 00:00:00 [facility] Pneumococcal 13 2019-04-10 Completed Universit y of Conjugate, PCV13 00:00:00 [facility] dical (Prevnar 13) [place] Influenza Virus 2018-04-04 Completed Universit y of Vaccine Quad IM 3+ 00:00:00 [facility] Influenza Virus 2018-04-04 Completed Universit y of Vaccine Quad IM 3+ 00:00:00 [facility] Influenza Virus 2018-04-04 Completed Universit y of Vaccine Quad IM 3+ 00:00:00 [facility] Influenza Virus 2018-04-04 Completed Universit y of Vaccine Quad IM 3+ 00:00:00 [facility] Influenza Virus 2018-04-04 Completed Universit y of Vaccine Quad IM 3+ 00:00:00 [facility] Influenza Virus 2018-04-04 Completed Universit y of Vaccine Quad IM 3+ 00:00:00 [facility] Influenza Virus 2018-04-04 Completed Universit y of Vaccine Quad IM 3+ 00:00:00 [facility] Influenza Virus 2018-04-04 Completed Universit y of Vaccine Quad IM 3+ 00:00:00 [facility] Influenza Virus 2018-04-04 Completed Universit y of Vaccine Quad IM 3+ 00:00:00 [facility] Influenza Virus 2018-04-04 Completed Universit y of Vaccine Quad IM 3+ 00:00:00 [facility] Influenza Virus 2018-04-04 Completed Universit y of Vaccine Quad IM 3+ 00:00:00 [facility] Influenza Virus 2018-04-04 Completed Universit y of Vaccine Quad IM 3+ 00:00:00 [facility] Influenza Virus 2018-04-04 Completed Universit y of Vaccine Quad IM 3+ 00:00:00 [facility] Influenza Virus 2018-04-04 Completed Universit y of Vaccine Quad IM 3+ 00:00:00 [facility] Influenza Virus 2016-06-16 Completed Universit y of Vaccine Quad IM 3+ 00:00:00 [facility] Influenza Virus 2016-06-16 Completed Universit y of Vaccine Quad IM 3+ 00:00:00 [facility] Influenza Virus 2016-06-16 Completed Universit y of Vaccine Quad IM 3+ 00:00:00 [facility] Influenza Virus 2016-06-16 Completed Universit y of Vaccine Quad IM 3+ 00:00:00 [facility] Influenza Virus 2016-06-16 Completed Universit y of Vaccine Quad IM 3+ 00:00:00 [facility] Influenza Virus 2016-06-16 Completed Universit y of Vaccine Quad IM 3+ 00:00:00 [facility] Influenza Virus 2016-06-16 Completed Universit y of Vaccine Quad IM 3+ 00:00:00 [facility] Influenza Virus 2016-06-16 Completed Universit y of Vaccine Quad IM 3+ 00:00:00 [facility] Influenza Virus 2016-06-16 Completed Universit y of Vaccine Quad IM 3+ 00:00:00 [facility] Influenza Virus 2016-06-16 Completed Universit y of Vaccine Quad IM 3+ 00:00:00 [facility] Influenza Virus 2016-06-16 Completed Universit y of Vaccine Quad IM 3+ 00:00:00 [facility] Influenza Virus 2016-06-16 Completed Universit y of Vaccine Quad IM 3+ 00:00:00 [facility] Influenza Virus 2016-06-16 Completed Universit y of Vaccine Quad IM 3+ 00:00:00 [facility] Influenza Virus 2016-06-16 Completed Universit y of Vaccine Quad IM 3+ 00:00:00 [facility] Vital Signs Vital Name Observation Time Observation [...] 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 2022-06-03 06:01:00 Doctor Unassigned, [facility] Name [facility] MEDICATION CORRESPONDENCE 2021-11-24 05:01:00 Doctor Unassigned, [facility] Name [facility] Plan of Care Planned Activity Planned Date Details Comments Source Goal Plan of Care Note [code = 30299-9] Goal Plan of Care Note [code = 89364-0] Goal Plan of Care Note [code = 13798-8] Goal Plan of Care Note [code = 74254-8] Goal Plan of Care Note [code = 46563-6] Goal Plan of Care Note [code = 83853-8] Goal Plan of Care Note [code = 30983-7] Goal Plan of Care Note [code = 61757-4] Goal Plan of Care Note [code = 58691-7] Goal Plan of Care Note [code = 36300-3] Goal Plan of Care Note [code = 49156-7] Goal Plan of Care Note [code = 65547-8] Goal Plan of Care Note [code = 01880-9] Goal Plan of Care Note [code = 22931-6] Goal Plan of Care Note [code = 61258-5] Goal Plan of Care Note [code = 02729-5] Goal Plan of Care Note [code = 99376-0] Goal Plan of Care Note [code = 68968-8] Goal Plan of Care Note [code = 92683-9] Goal Plan of Care Note [code = 70259-9] Goal Plan of Care Note [code = 29650-3] Goal Plan of Care Note [code = 65245-4] Goal Plan of Care Note [code = 13100-8] Encounters Start End Encounter Admission Attending Care Care Encounter Source Date/Time Date/Time Type Type Clinicians Facility Department ID 2021-04-[address] [facility] [id number] Univers 21:04:52 [facility] 2022-11-25 2022-11-25 Outpatient [facility] [id number] Univers 11:00:00 11:00:00 GENARO garciasalthea [facility] 2022-10-28 2022-10-28 Telephone [facility] [id number] Univers 00:00:00 00:00:00 Genaro NIELSEN [id number] i ty of [id number] [id number] [address] 2022-06-03 2022-06-03 Orders Doctor KLAUS [id number] Univers 00:00:00 00:00:00 Only Unassigned, REYNA [id number] ity of [place] [facility] [id number] [place] [id number] [address] 2022-04-01 2022-04-01 Telephone [facility] [id number] Univers 00:00:00 00:00:00 Genaro NIELSEN [id number] i ty [id number] [id number] [address] 2022-03-02 2022-03-02 Outpatient [id number] 00:00:00 00:00:00 Visit [id number] 2022-02-07 2022-02-07 Telephone [facility] 1.2.840.114 [id number] Univers 00:00:00 00:00:00 Genaro NIELSEN 350.1.13.10 i ty of [place] [phone] [address] 2021-12-30 2021-12-30 [facility] 1.2.840.114 [id number] Univers 00:00:00 00:00:00 Genaro NIELSEN 350.1.13.10 i ty of [facility] [place] [phone] [address] 2021-12-28 2021-12-28 Letter [facility] 1.2.840.114 [id number] Univers 00:00:00 00:00:00 (Out) Genaro NIELSEN 350.1.13.10 i ty of [facility] [place] [phone] [address] 2021-12-08 2021-12-08 [facility]phone [facility] 1.2.840.114 [id number] Univers 00:00:00 00:00:00 Genaro NIELSEN 350.1.13.10 i ty of [facility] [place] [phone] [address] 2021-12-07 2021-12-07 Telephone [facility] 1.2.840.114 [id number] Univers 00:00:00 00:00:00 Genaro NIELSEN 350.1.13.10 i ty of [facility] [place] [phone] [address] 2021-12-02 2021-12-02 Refill [facility] 1.2.840.114 [id number] Univers 00:00:00 00:00:00 Genaro NIELSEN 350.1.13.10 i ty of [facility] [place] [phone] [address] 2021-12-01 2021-12-[address] [facility] [id number] Univers 15:00:00 15:00:00 GENARO sidhu [facility] 2021-12-01 2021-12-01 Telephone [facility] 1.2.840.114 [id number] Univers 00:00:00 00:00:00 [facility] [id number] it y of [place] [phone] [facility] 016 [facility] ([facility]) 2021-11-24 2021-11-24 Orders Doctor KLAUS 1.2.840.114 [id number] Univers 00:00:00 00:00:00 Only Unassigned, REYNA 350.1.13.10 ity of [place] [facility] 4.2.7.2.686 [place] as [phone] [address] 2021-11-23 2021-11-23 Telephone Mark [facility] 1.2.840.114 [id number] Univers 00:00:00 00:00:00 Genaro NIELSEN 350.1.13.10 i ty of [place] [phone] 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 353 [facility] 2021-11-05 2021-11-[address] 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 [id number] Univers 11:00:00 11:00:00 GENARO sidhu [facility] 2021-11-04 2021-11-[address] [facility] [id number] Univers 09:40:00 10:45:30 GENARO sidhu [facility] 2021-11-04 2021-11-04 [facility] [facility] [id number] Univers 09:40:00 10:45:30 GENARO sidhu [facility] 2021-11-04 2021-11-04 Office [facility] 1.2.840.114 [id number] Univers 09:40:00 10:45:30 Visit Genaro NIELSEN 350.1.13.10 i ty of [place] 4[place] [phone] Ma dical NAL [address] [place] [address] 2021-11-04 2021-11-04 Orders Doctor KLAUS 1.2.840.114 [id number] Univers 00:00:00 00:00:00 Only Unassigned, REYNA 350.1.13.10 ity of [place] [facility] 4.2.7.2.686 [place] [phone] [address] 2021-10-19 2021-10-19 Outpatient R [facility] [id number] Univers 09:20:00 09:20:00 GENARO sidhu [facility] 2021-10-12 2021-10-12 Refill Juan [facility] 1.2.840.114 [id number] Univers 00:00:00 00:00:00 Genaro NIELSEN 350.1.13.10 i ty of [place] [phone] Ma dical NAL [address] [place] [address] 2021-09-29 2021-09-29 Outpatient R [facility] [id number] Univers 09:40:00 09:40:00 GENARO thea [facility] 2021-09-29 2021-09-29 Outpatient R [facility] [id number] Univers 09:40:00 09:40:00 GENARO thea [facility] 2021-09-10 2021-09-10 Outpatient R [facility] [id number] Univers 10:40:00 12:00:52 GENARO thea [facility] 2021-09-10 2021-09-10 Office [facility] 1.2.840.114 [id number] Univers 10:40:00 12:00:52 Visit Genaro NIELSEN 350.1.13.10 i ty of [facility] 4.2.7.2.[place] [phone] Ma dical NAL 044 [facility] 2021-09-10 2021-09-10 [facility] [id number] Univers 10:40:00 12:00:52 GENARO sidhu [facility] 2021-09-10 2021-09-10 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, 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 Lab [facility] 1.2.840.114 [id number] Univers 11:45:00 12:00:00 Visit Genaro Flores 350.1.13.10 ity of [place] [phone] Ma dical NAL 353 [facility] 2021-09-10 2021-09-10 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, 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 Lab [facility] 1.2.840.114 [id number] Univers 11:45:00 12:00:00 Visit Genaro Flores 350.1.13.10 ity of [place] [phone] Ma dical NAL 353 [facility] 2021-09-10 2021-09-10 Orders Doctor ENRIQUE 1.2.840.114 [id number] Univers 00:00:00 00:00:00 Only Unassigned, REYNA 350.1.13.10 ity of [place] [facility] 4.2.7.2.686 [place] [phone] [address] 2021-07-20 2021-07-20 Out[facility] [id number] Univers 15:40:00 15:40:00 GENARO sidhu [facility] 2021-02-13 2021-02-13 Orders Doctor KLAUS 1.2.840.114 [id number] Univers 00:00:00 00:00:00 Only UnassignedREYNA 350.1.13.10 ity of [place] [facility] 4.2.7.2.686 [place] as [phone] [facility] balta [address] 2020-09-14 2020-09-[address] [facility] [id number] Univers 00:00:00 00:00:00 GENARO sidhu [facility] 2020-09-14 2020-09-14 Telephone [facility] 1.2.840.114 [id number] Univers 00:00:00 00:00:00 Genaro Nielsen 350.1.13.10 i ty of [place] [phone] [facility] nal 044 [facility] 2020-08-25 2020-08-25 Patient [facility] 1.2.840.114 [id number] Univers 00:00:00 00:00:00 Outreach Channing [facility] 350.1.13.10 i ty of [facility] 4.2.7.2.[place] [phone] [facility] [address] 2020-07-14 2020-07-14 Telephone [facility] 1.2.840.114 [id number] Univers 00:00:00 00:00:00 Antonia Nielsen 350.1.13.10 i ty of [place] [phone] Ma dicnh nal 377 [facility] 2020-06-26 2020-06-26 Office [facility] 1.2.840.114 [id number] Univers 15:53:10 16:13:10 Visit Genaro Nielsen 350.1.13.10 i ty of [place] [phone] [facility] 044 [facility] 2020-06-26 2020-06-26 Outpatient [facility] [id number] Univers 15:40:00 15:40:00 GENARO sidhu [facility] 2020-06-10 2020-06-10 Orders Doctor ENRIQUE 1.2.840.114 [id number] Univers 00:00:00 00:00:00 Only Unassigned, REYNA 350.1.13.10 ity of [place] [facility] 4.2.7.2.686 [place] as [phone] [facility] [address] 2020-06-01 2020-06-01 [facility] Eduardo [facility] 1.2.840.114 [id number] Univers 12:02:06 23:59:00 Encounter Aisha Nielsen 350.1.13.10 ity of [place] [phone] [facility] [address] 2020-06-01 2020-06-01 Urgent Provider, [facility] 1.2.840.114 [id number] Univers 11:11:46 11:36:00 Care Aisha Clark [facility] 350.1.13.10 ity of [place] 4.2.7.2.686 [place] Professio [phone] [address] Office [address] 2020-06-01 2020-06-01 Outpatient [facility] [id number] Univers 11:00:00 11:00:00 AISHA ity [facility] 2020-06-01 2020-06-[address] [facility] [id number] Univers 08:00:00 08:00:00 ity of [facility] 2020-03-23 2020-03-23 Emergency [facility] 1.2.061.238 [id number] 12:32:00 13:53:00 Kalia Nielsen 350.1.13.10 [place] 4.2.7.2.686 [place] [phone] [facility] 2020-03-23 2020-03-23 Emergency [facility] 1.2.051.029 [id number] Univers 12:32:00 13:53:00 Kalia Nielsen 350.1.13.10 i ty of [place] [phone] [address] 2019-12-03 2019-12-03 [facility] [id number] Univers 15:00:00 15:00:00 WONDIFUL ity o f [facility] 2019-05-22 2019-05-22 Outpatient [facility] [id number] Univers 08:39:09 08:39:00 GENARO italthea [facility] 2019-02-10 2019-02-10 Refill Yuni [facility] 1.2.840.114 [id number] Univers 00:00:00 00:00:00 Becca A [place] 350.1.13.10 ity of [place] [phone] [facility] 231 [facility] 2019-02-10 2019-02-10 Refling Morrissey [facility] 1.2.840.114 [id number] 00:00:00 00:00:00 Becca A [place] 350.1.13.10 [place] 4.2.7.2.686 Professio [phone] [address] 2019-01-14 2019-01-14 Telephone Hal Phillips [facility] 1.2.840.114 [id number] [facility] 00:00:00 00:00:00 C [place] 350.1.13.10 i ty of [place] [phone] Ma dic[address] 2019-01-14 2019-01-14 Telephone Hal Phillips [facility] 1.2.840.114 [id number] 00:00:00 00:00:00 C [place] 350.1.13.10 [place] 4.2.7.2.686 Professio [phone] [address] Results Test Description Test Time Test Comments Results Result Comments Source SARS-CoV-2 (COVID-19) by RT-PCR (HIGH RISK) 2020-02-29 00:00 :00 Test Item Value Reference Range Interpretation Comme nts SARS-CoV-2 INTERPRETATION (test code = 48167) Negative SOURCE (test code = 24875) NASOPHARYNGEAL_SWAB_IN_VTM__UTM CULTURE, [id number] 00:00:00 Test Item Value Reference Range Interpretation Comments CULTURE, MRSA (test SPECIMEN NUMBER: code = 82810) [id number] CULTURE, [id number] 00:00:00 Test Item Value Reference Range Interpretation Comments CULTURE, MRSA (test SPECIMEN NUMBER: code = 95205) [id number] URINE CULTURE, NO [id number] 00:00:00 Test Item Value Reference Range Interpretation Comments URINE CULTURE, NO SPECIMEN NUMBER: SENS (test code = 97647343 75958) URINE CULTURE, NO [id number] 00:00:00 Test Item Value Reference Range Interpretation Comments URINE CULTURE, NO SPECIMEN NUMBER: SENS (test code = 16675059 96606) UNLABELLED SPECIMEN [ADDED]2018-09-28 00:00:00 Test Item Value Reference Range Interpretation Comments NOTE: (test code = 59784) VAGINAL PATHOGENS DNA [id number] 00:00:00 Test Item Value Reference Range Interpretation Comments CHAY SPECIES (test code = ) NEGATIVE G. VAGINALIS (test code = 88727) POSITIVE T. VAGINALIS (test code = 86807) NEGATIVE VAGINAL PATHOGENS DNA [id number] 00:00:00 Test Item Value Reference Range Interpretation Comments CHAY SPECIES (test code = ) NEGATIVE G. VAGINALIS (test code = 95308) POSITIVE T. VAGINALIS (test code = 24231) NEGATIVE GC, AMPLIFIED, [id number] 00:00:00 Test Item Value Reference Range Interpretation Comments GONORRHEA, TMA (test code = 69542) NEGATIVE GC, AMPLIFIED, [id number] 00:00:00 Test Item Value Reference Range Interpretation Comments GONORRHEA, TMA (test code = 91703) NEGATIVE CHLAMYDIA, AMPLIFIED, [id number] 00:00:00 Test Item Value Reference Range Interpretation Comments CHLAMYDIA, TMA (test code = 32760) NEGATIVE CHLAMYDIA, AMPLIFIED, [id number] 00:00:00 Test Item Value Reference Range Interpretation Comments CHLAMYDIA, TMA (test code = 57746) NEGATIVE VAGINAL PATHOGENS DNA [id number] 00:00:00 Test Item Value Reference Range Interpretation Comments CHAY SPECIES (test code = ) NEGATIVE G. VAGINALIS (test code = 06994) NEGATIVE T. VAGINALIS (test code = 68155) NEGATIVE VAGINAL PATHOGENS DNA [id number] 00:00:00 Test Item Value Reference Range Interpretation Comments CHAY SPECIES (test code = 42244) NEGATIVE G. VAGINALIS (test code = 31054) NEGATIVE T. VAGINALIS (test code = 88542) NEGATIVE
[2022-11-09] MEDS ORDERED: NA CHLORIDE 0.9% 1,000 ML ONE ×2 (12:03→12:06)
[2022-11-09] MEDS ORDERED: IPRATROPIUM BROM 0.5MG/2.5ML ONE (12:06)
[2022-11-09] MEDS ORDERED: ALBUTEROL 2.5 MG/3 ML NEB SOL ONE (12:06)
[2022-11-09] MEDS ORDERED: METHYLPREDNISOLONE 125 MG INJ ONE (12:06)
--- NOTE | 2022-11-09 12:15 | RAD REPORT ---
EXAM DESCRIPTION: RAD - Chest Single View - 11/09/2022 11:52 am CLINICAL HISTORY: Chest Single View dated 02/05/2022; Chest Single View dated 02/26/2019; CHEST SINGLE VIEW dated 04/15/2015; CHEST PA AND LAT 2 VIEW dated 07/19/2014 COMPARISON: None. TECHNIQUE: AP portable view of the chest was obtained . FINDINGS: Lungs are clear. Hyperinflation and hyperlucency with chronic mild interstitial changes ag ain seen suggestive of COPD. Heart and vasculature are normal. No sizable pleural effusion and no pne umothorax. No gross bony abnormality seen. IMPRESSION: No acute cardiopulmonary process.
[2022-11-09 12:32] LABS: SARS-CoV-2 Antigen Rapid Res Negative (Negative)
[2022-11-09 12:51] LABS: Absolute Lymphocytes (CBC) 0.7 K/uL (0.7-4.9); Hematocrit 33.1 % (36.0-45.0); Lymphocytes % 22.2 % (15.3-44.8); MCV 84.1 fL (80-100); MPV 7.5 fL (7.6-11.3); RBC Red Blood Cell Count 3.94 M/uL (3.86-4.86)
[2022-11-09 13:11] LABS: Albumin 3.6 g/dL (3.4-5.0); Bilirubin Total 0.3 mg/dL (0.2-1.0); Magnesium 2.2 mg/dL (1.6-2.4); Potassium 3.1 mEq/L (3.5-5.1); Protein, Total 9.6 g/dL (6.4-8.2); Troponin High Sensitivity 5.1 pg/mL (<58.9)
--- NOTE | 2022-11-09 13:47 | ER ---
Nurse's Notes [facility] Name: Ty Robins Age: 62 yrs Sex: Female : 1960 Arrival Date: 11/09/2022 Time: 11:11 Bed 16 Private MD: Diagnosis: Acute bronchitis, unspecified Presentation: 11/09 11:30 Chief complaint: Patient states: coughing up green mucous, my lungs feel congested, iw body hurts , started a week ago. Coronavirus screen: Client presents with at least one sign or symptom that may indicate coronavirus-19. Ebola Screen: Patient negative for fever greater than or equal to 101.5 degrees Fahrenheit, and additional compatible Ebola Virus Disease symptoms Patient denies exposure to infectious person. Patient denies travel to an Ebola-affected area in the 21 days before illness onset. No symptoms or risks identified at this time. Risk Assessment: Do you want to hurt yourself or someone else? Patient reports no desire to harm self or others. 11:30 Acuity: BRENDA 3 iw 11:31 Initial Sepsis Screen: Does the patient meet any 2 criteria? No. Patient's initial iw sepsis screen is negative. Does the patient have a suspected source of infection? No. Patient's initial sepsis screen is negative. Onset of symptoms was November 02, 2022. :31 Method Of Arrival: Ambulatory Triage Assessment: 12:00 General: Appears in no apparent distress. uncomfortable, Behavior is calm, cooperative, nj1 appropriate for age. Pain: Complains of pain in Generalized Pain currently is 10 out of 10 on a pain scale. Neuro: Level of Consciousness is awake, alert, obeys commands, Oriented to person, place, time, situation. Cardiovascular: Patient's skin is warm and dry. Respiratory: Airway is patent Respiratory effort is even, labored, coughing the patient has mild shortness of breath. Historical: - Allergies: : Codeine; iw 11: PENICILLINS; iw - Home Meds: : Epclusa Oral once daily [Active]; iw - PMHx: 11: Hepatitis C; RA; COPD; iw - PSHx: 11: hand SX x 5; hysterectomy; iw - Immunization history:: Adult Immunizations up to date. - Social history:: Smoking status: Patient reports the use of cigarette tobacco products, smokes one-half pack cigarettes per day. - Family history:: not pertinent. Screenin:00 [facility] ED Fall Risk Assessment (Adult) History of falling in the last 3 months, nj1 including since admission No falls in past 3 months (0 pts) Confusion or Disorientation No (0 pts) Intoxicated or Sedated No (0 pts) Impaired Gait No (0 pts) Mobility Assist Device Used No (0 pt) Altered Elimination No (0 pt) Score/Fall Risk Level 0 - 2 = Low Risk Oriented to surroundings, Maintained a safe environment, Hourly rounding (assess needs \T\ fall precautionary measures) done. 12:00 Abuse screen: Denies threats or abuse. Denies injuries from another. Tuberculosis nj1 screening: No symptoms or risk factors identified. 12:00 Nutritional screening: No deficits noted. nj1 Assessment: 13:00 Reassessment: Patient appears in no apparent distress at this time. Patient and/or nj1 family updated on plan of care and expected duration. Pain level reassessed. Patient is alert, oriented x 3, equal unlabored respirations, skin warm/dry/pink. Patient states feeling better. 14:00 Reassessment: Patient appears in no apparent distress at this time. Patient and/or nj1 family updated on plan of care and expected duration. Pain level reassessed. Patient is alert, oriented x 3, equal unlabored respirations, skin warm/dry/pink. Patient states feeling better. Patient states symptoms have improved. Vital Signs: 11:30 BP 115 / 79; Pulse 81; Resp 22; Temp 98.4; Pulse Ox 100% on R/A; Weight 42.64 kg; iw Height 5 ft. 2 in. ; 12:41 BP 115 / 66; Pulse 80; Resp 20; Pulse Ox 98% on R/A; Pain 10/10; nj1 13:30 BP 160 / 78; Pulse 89; Resp 23; Pulse Ox 95% on R/A; nj1 14:00 BP 156 / 75; Pulse 84; Resp 20; Temp 99.2(O); Pulse Ox 98% ; nj1 11:30 Body Mass Index 17.19 (42.64 kg, 157.48 cm) iw 12:41 Pain Scale: Adult [facility] ED Course: 11:13 Patient arrived in ED. rg4 11:13 Bruno Finch MD is Attending Physician. rt 11:31 Triage completed. iw 11:32 Arm band placed on. iw 11:53 Chest Single View XRAY In Process Unspecified. EDMS 11:54 Sindy Henderson, RN is Primary Nurse. nj1 12:00 Patient has correct armband on for positive identification. Bed in low position. Call nj1 light in reach. 12:03 SARS RAPID Sent. em1 12:03 Influenza Screen (a \T\ B) Sent. em1 12:03 COVID swab sent to lab. Flu and/or RSV swab sent to lab. em1 12:33 Inserted saline lock: 20 gauge in left antecubital area, using aseptic technique. nj1 ,using aseptic technique. Ultrasound guided, catheter tip well visualized within vasculature. Blood collected. 14:25 No provider procedures requiring assistance completed. nj1 14:25 IV discontinued, intact, bleeding controlled. nj1 Administered Medications: 12:05 Drug: DuoNeb Nebulize (3:1) (2.5 mg - 0.5 mg) 3 ml Route: Nebulizer; nj1 12:39 Follow up: Response: No adverse reaction nj1 12:35 Drug: NS 0.9% IV 1000 ml Route: IV; Rate: 1 bolus; Site: left antecubital; nj1 14:00 Follow up: Response: No adverse reaction; IV Status: Completed infusion; IV Intake: nj1 1000ml 12:38 Drug: MethylPrednisoLONE IVP 125 mg Route: IVP; Site: left antecubital; nj1 14:00 Follow up: Response: No adverse reaction; Marked relief of symptoms nj1 Medication: 14:25 VIS not applicable for this client. nj1 Intake: 14:00 IV: 1000ml; Total: 1000ml. nj1 Outcome: 13:47 Discharge ordered by . rt 14:25 Discharged to home ambulatory. nj1 14:25 Condition: stable 14:25 Discharge instructions given to patient, Instructed on discharge instructions, follow up and referral plans. medication usage, Demonstrated understanding of instructions, follow-up care, medications, Prescriptions given X 2. 14:38 Patient left the ED. nj1 Signatures: Dispatcher [employer] EDMS Miriam Aguiar RN RN iw Chavo Nice em1 Afua Michelle rg4 Bruno Finch MD MD rt Sindy Henderson, RN RN nj1 Corrections: (The following items were deleted from the chart) 14:40 12:00 Respiratory: Airway is patent Respiratory effort is even, labored, the patient nj1 has mild shortness of breath nj1
--- NOTE | 2022-11-09 13:47 | EDPHYS ---
Physician Documentation [facility] Name: Ty Robins Age: 62 yrs Sex: Female : 1960 Arrival Date: 11/09/2022 Time: 11:11 Bed 16 Private MD: ED Physician Bruno Finch HPI: 11/09 13:52 This 62 yrs old Female presents to ER via Ambulatory with complaints of Cough, rt Congestion, Breathing Difficulty. 13:54 Patient presents to the ED with 1 week of cough, congestion, shortness of breath with rt productive sputum. Patient states that the symptoms have somewhat worsened today. Denies other acute complaints at this time. Symptoms are moderate severity, no other aggravating or alleviating factors.. Historical: - Allergies: 11:31 Codeine; iw 11:31 PENICILLINS; iw - Home Meds: 11: Epclusa Oral once daily [Active]; iw - PMHx: 11:31 Hepatitis C; RA; COPD; iw - PSHx: 11:31 hand SX x 5; hysterectomy; iw - Immunization history:: Adult Immunizations up to date. - Social history:: Smoking status: Patient reports the use of cigarette tobacco products, smokes one-half pack cigarettes per day. - Family history:: not pertinent. ROS: 13:54 Cardiovascular: Negative for chest pain, palpitations, and edema, Abdomen/GI: Negative rt for abdominal pain, nausea, vomiting, diarrhea, and constipation, MS/Extremity: Negative for injury and deformity, Skin: Negative for injury, rash, and discoloration, Neuro: Negative for headache, weakness, numbness, tingling, and seizure, Psych: Negative for depression, anxiety, suicide ideation, homicidal ideation, and hallucinations. 13:54 Constitutional: Positive for body aches, Negative for fever. 13:54 Respiratory: Positive for cough, shortness of breath, wheezing. Exam: 13:52 Constitutional: This is a well developed, well nourished patient who is awake, alert, rt and in no acute distress. Head/Face: Normocephalic, atraumatic. Chest/axilla: Normal chest wall appearance and motion. Nontender with no deformity. No lesions are appreciated. Cardiovascular: Regular rate and rhythm with a normal S1 and S2. No gallops, murmurs, or rubs. Normal PMI, no JVD. No pulse deficits. Abdomen/GI: Soft, non-tender, with normal bowel sounds. No distension or tympany. No guarding or rebound. No evidence of tenderness throughout. Skin: Warm, dry with normal turgor. Normal color with no rashes, no lesions, and no evidence of cellulitis. MS/ Extremity: Pulses equal, no cyanosis. Neurovascular intact. Full, normal range of motion. Neuro: Awake and alert, GCS 15, oriented to person, place, time, and situation. Cranial nerves II-XII grossly intact. Motor strength 5/5 in all extremities. Sensory grossly intact. Cerebellar exam normal. Normal gait. Psych: Awake, alert, with orientation to person, place and time. Behavior, mood, and affect are within normal limits. 13:52 ECG was reviewed by the Attending Physician. 13:52 Respiratory: Wheezes heard in all lung tatum, no respiratory distress. Vital Signs: 11:30 BP 115 / 79; Pulse 81; Resp 22; Temp 98.4; Pulse Ox 100% on R/A; Weight 42.64 kg; iw Height 5 ft. 2 in. ; 12:41 BP 115 / 66; Pulse 80; Resp 20; Pulse Ox 98% on R/A; Pain 10/10; nj1 13:30 BP 160 / 78; Pulse 89; Resp 23; Pulse Ox 95% on R/A; nj1 14:00 BP 156 / 75; Pulse 84; Resp 20; Temp 99.2(O); Pulse Ox 98% ; nj1 11:30 Body Mass Index 17.19 (42.64 kg, 157.48 cm) iw 12:41 Pain Scale: Adult nj1 MDM: 11:38 Patient medically screened. rt 13:55 Differential Diagnosis: Other Colitis, COPD, pneumonia, pneumothorax, congestive heart rt failure. Data reviewed: vital signs. Independent interpretation of the following test(s) in the Emergency Department X-Ray: My interpretation is No consolidation seen on my interpretation of the x-ray images. Test considered but Not performed: CT: Low suspicion for pulmonary embolism, CT angiogram not indicated. Care significantly affected by the following chronic conditions: Chronic Obstructive Pulmonary Disease. Counseling: I had a detailed discussion with the patient and/or guardian regarding: the historical points, exam findings, and any diagnostic results supporting the discharge/admit diagnosis, lab results, radiology results, the need for outpatient follow up. 11/09 11:39 Order name: CBC with Diff; Complete Time: 13:23 rt 11/09 11:39 Order name: CMP; Complete Time: 13: rt 11/09 11:39 Order name: Troponin High Sensitivity; Complete Time: 13:23 rt 11/09 11:39 Order name: Influenza Screen (a \T\ B); Complete Time: 13:23 rt 11/09 11:39 Order name: SARS RAPID; Complete Time: 13:23 rt 11/09 11:39 Order name: Magnesium; Complete Time: 13:23 rt 11/09 11:39 Order name: Chest Single View XRAY; Complete Time: 12:19 rt 11/09 11:39 Order name: EKG; Complete Time: 11:40 rt 11/09 11:39 Order name: EKG - Nurse/Tech; Complete Time: 12:40 rt EC:52 Rate is 64 beats/min. Rhythm is regular, Normal Sinus Rhythm with No ectopy. QRS [place] rt is Normal. [place] interval is normal. QRS interval is normal. QT interval is normal. No Q waves. T waves are Normal. Interpreted by me. Administered Medications: 12:05 Drug: DuoNeb Nebulize (3:1) (2.5 mg - 0.5 mg) 3 ml Route: Nebulizer; nj1 12:39 Follow up: Response: No adverse reaction nj1 12:35 Drug: NS 0.9% IV 1000 ml Route: IV; Rate: 1 bolus; Site: left antecubital; nj1 14:00 Follow up: Response: No adverse reaction; IV Status: Completed infusion; IV Intake: nj1 1000ml 12:38 Drug: MethylPrednisoLONE IVP 125 mg Route: IVP; Site: left antecubital; nj1 14:00 Follow up: Response: No adverse reaction; Marked relief of symptoms nj1 Disposition Summary: 11/09/22 13:47 Discharge Ordered Location: Home rt Problem: new rt Symptoms: have improved rt Condition: Stable rt Diagnosis - Acute bronchitis, unspecified rt Followup: rt - With: Private Physician - When: 2 - 3 days - Reason: Discharge Instructions: - Discharge Summary Sheet rt - Acute Bronchitis, Adult rt Forms: - Medication Reconciliation Form rt - Thank You Letter rt - Antibiotic Education rt - Prescription Opioid Use rt Prescriptions: - albuterol sulfate 90 mcg/actuation Inhalation HFA Aerosol Inhaler - inhale 3 puff by INHALATION route every 2 to 6 hours as needed for rt bronchospasm; administer via ventilator; 2 Each; Refills: 0, Product Selection Permitted - Prednisone 20 mg Oral Tablet - take 2 tablets by ORAL route once daily for 5 days; 10 tablet; Refills: 0, rt Product Selection Permitted Signatures: Dispatcher [employer] Miriam Jasso, JOCELYNE CASANOVA iw Bruno Finch MD MD rt Sindy Henderson RN RN nj1
[2022-11-09 15:21] VITALS: BP 156/75; TEMP 99.2; O2SAT 98
--- NOTE | 2022-11-10 12:33 | EKG ---
Test Date: 2022-11-09 Test Time: 12:09:51 Rn Immunology: DALE MEASUREMENT RESULTS: Intervals: Rate: 64 ID: [id number] QRSD: 82 QT: 384 QTc: 396 [place]: P: 81 ID: [id number] QRS: 59 T: 65 INTERPRETIVE STATEMENTS: Normal sinus rhythm Normal ECG Compared to ECG 02/05/2022 10:35:57 Sinus bradycardia no longer present Myocardial infarct finding no longer present Electronically Signed On 11-10-22 12:31:49 CDT by Rj Reyes
== END 2022-11-09 14:38 | disposition home or self-care (01) ==
LOC: ER 11:11
DX: J20.9 Acute bronchitis, unspecified (principal); J44.9 Chronic obstructive pulmonary disease, unspecified; F17.210 Nicotine dependence, cigarettes, uncomplicated; Z20.822 Contact with and (suspected) exposure to COVID-19; Z88.0 Allergy status to penicillin; Z88.5 Allergy status to narcotic agent
CPT/HCPCS: 85025; 36415; 83735; 84484; 80053; 87804 ×2; 71045; 87811; J7613; J7644; J2930; J7030 ×2; 93005